=== PATIENT | female | born 1965 | race Native Hawaiian/Other Pacific Islander ===

== ENCOUNTER → 2020-07-31 14:59 | Outpatient (BNVA) | payer OTHER, SELFPAY | PROVIDERS: PCP Internal Medicine; Referring Provider Internal Medicine; Visit Provider Internal Medicine Endocrinology, Diabetes & Metabolism | DX: Z76.89 Persons encountering health services in other specified circumstances (principal) ==

== ENCOUNTER 2020-08-03 12:03 | Outpatient (REF) | payer OTHER, SELFPAY ==
[2020-08-03 14:11] LABS: Hematocrit 39.9 % (37-47); Hemoglobin 12.5 g/dl (12.0-16.0); Mean Corpuscular HGB Conc 31.3 g/dl (31.0-35.0); Mean Corpuscular Hemoglobin 27.2 pg (27.0-33.0); Mean Corpuscular Volume 86.7 fL (80-98); Mean Platelet Volume 10.2 fL (9.4-12.3); Platelet Count 381 X10*3/uL (160-400); Red Cell Distribution Width 14.2 % (11.0-16.0); White Blood Count 9.1 X10*3/uL (4.8-10.8)
[2020-08-03 14:30] LABS: Creatinine Urine 32.28 mg/dL; Microalbumin Urine < 5.0 mg/L
[2020-08-03 14:37] LABS: Estimated Average Glucose 131 mg/dL; Hemoglobin A1c % 6.2 %
[2020-08-03 14:39] LABS: Alanine Aminotransferase 19 U/L (0-31); Albumin Level 4.5 g/dL (3.5-5.0); Alkaline Phosphatase 71 U/L (39-117); Anion Gap 16 (12-20); Aspartate Amino Transferase 18 U/L (5-31); Bilirubin Total 0.4 mg/dL (0.0-1.0); Blood Urea Nitrogen 11 mg/dL (9-16); Carbon Dioxide 28 mmol/L (22-29); Chloride 101 mmol/L (96-108); Cholesterol 172 mg/dL; Estimated Glomerular Filt Rate > 60; Glucose Fasting 107 mg/dL (60-99); HDL Cholesterol 69 mg/dL; LDL Cholesterol Calculated 83 mg/dl; Potassium 5.1 mmol/l (3.3-5.1); Sodium 140 mmol/L (135-145); Total Protein 7.3 g/dL (6.5-8.0); Triglycerides 104 mg/dL
[2020-08-03 15:01] LABS: Vitamin D 25-OH Total 61.2 ng/mL (>30)
[2020-08-03 16:35] LABS: Vitamin B12 292 pg/mL (200-900)
[2020-08-04 10:37] LABS: LDL Cholesterol Direct 82 mg/dL (<100)
== END 2020-08-03 12:04 | disposition home or self-care (01) ==
LOC: HO.LAB 12:03
PROVIDERS: PCP Internal Medicine; Visit Provider Internal Medicine Endocrinology, Diabetes & Metabolism
DX: E11.65 Type 2 diabetes mellitus with hyperglycemia (principal); E11.40 Type 2 diabetes mellitus with diabetic neuropathy, unspecified; E55.9 Vitamin D deficiency, unspecified; F41.9 Anxiety disorder, unspecified; K21.9 Gastro-esophageal reflux disease without esophagitis; E66.9 Obesity, unspecified; I10 Essential (primary) hypertension; E78.5 Hyperlipidemia, unspecified
CPT/HCPCS: 36415; 80053; 80061; 82043; 82306; 82607; 83036; 83721; 85027

== ENCOUNTER → 2020-11-05 13:01 | Outpatient (BNVA) | payer OTHER, SELFPAY | PROVIDERS: PCP Internal Medicine; Visit Provider Internal Medicine Endocrinology, Diabetes & Metabolism ==

== ENCOUNTER 2020-11-21 13:27 | Outpatient (REF) | payer OTHER, SELFPAY ==
[2020-11-21 14:13] LABS: MANUAL DIFF FLAG NO
[2020-11-21 14:19] LABS: Glucose Urine UA NEG (NEG); Leukocyte Esterase Urine NEG (NEG); Nitrite Urine NEG (NEG); Specific Gravity - Urine 1.015 (1.005-1.025); Urine Blood NEG (NEG); Urine Ketones NEG (NEG); Urine Protein NEG (NEG-TRACE)
[2020-11-21 14:22] LABS: Appearance Urine CLEAR; Color Urine YELLOW
[2020-11-21 14:24] LABS: Estimated Average Glucose 143 mg/dL; Hemoglobin A1c % 6.6 %
[2020-11-21 14:30] LABS: Basophils Percent Auto 0.2 % (0-2); Eosinophils Absolute Auto 0.2 X10*3/uL (0.0-0.4); Eosinophils Percent Auto 2.7 % (0-4); Hematocrit 39.3 % (37-47); Hemoglobin 12.7 g/dl (12.0-16.0); Imm Gran Abs Auto 0.03 X10*3/uL (0.00-0.03); Imm Gran Pct Auto 0.4 % (0.0-0.4); Lymphocytes Absolute Auto 3.5 X10*3/uL (1.2-4.9); Lymphocytes Percent Auto 41.6 % (20-40); Mean Corpuscular HGB Conc 32.3 g/dl (31.0-35.0); Mean Corpuscular Hemoglobin 27.3 pg (27.0-33.0); Mean Corpuscular Volume 84.3 fL (80-98); Mean Platelet Volume 10.4 fL (9.4-12.3); Monocytes Absolute Auto 0.6 X10*3/uL (0.1-1.2); Monocytes Percent Auto 6.9 % (2-11); Neutrophils Percent Auto 48.2 % (45-73); Platelet Count 368 X10*3/uL (160-400); Red Blood Count 4.66 X10*6/uL (4.20-5.50); Red Cell Distribution Width 14.5 % (11.0-16.0); White Blood Count 8.3 X10*3/uL (4.8-10.8)
[2020-11-21 14:41] LABS: Alanine Aminotransferase 19 U/L (0-31); Albumin Level 4.5 g/dL (3.5-5.0); Alkaline Phosphatase 75 U/L (39-117); Anion Gap 17 (12-20); Aspartate Amino Transferase 17 U/L (5-31); Bilirubin Total 0.4 mg/dL (0.0-1.0); Blood Urea Nitrogen 11 mg/dL (9-16); Calcium 9.8 mg/dL (8.4-10.2); Carbon Dioxide 27 mmol/L (22-29); Chloride 100 mmol/L (96-108); Cholesterol 159 mg/dL; Estimated Glomerular Filt Rate > 60; Glucose Fasting 113 mg/dL (60-99); HDL Cholesterol 62 mg/dL; LDL Cholesterol Calculated 70 mg/dl; Potassium 4.6 mmol/L (3.3-5.1); Sodium 139 mmol/L (135-145); Total Protein 7.4 g/dL (6.5-8.0); Triglycerides 138 mg/dL
[2020-11-21 15:03] LABS: Creatinine Urine 38.52 mg/dL; Microalbumin Urine < 5.0 mg/L
[2020-11-21 15:03] LABS: TSH reflex Free T4 0.87 uIU/mL (0.32-4.0)
[2020-11-21 15:17] LABS: Folate > 20.0 ng/mL (> or = 4.0); Vitamin B12 365 pg/mL (200-900)
== END 2020-11-21 13:28 | disposition home or self-care (01) ==
LOC: HO.LAB 13:27
PROVIDERS: Absent Provider Internal Medicine Endocrinology, Diabetes & Metabolism; PCP Internal Medicine; Visit Provider Internal Medicine
DX: E11.65 Type 2 diabetes mellitus with hyperglycemia (principal); E11.42 Type 2 diabetes mellitus with diabetic polyneuropathy; K21.9 Gastro-esophageal reflux disease without esophagitis; I10 Essential (primary) hypertension; I49.3 Ventricular premature depolarization; E78.00 Pure hypercholesterolemia, unspecified; E66.9 Obesity, unspecified
CPT/HCPCS: 36415; 80053; 80061; 81003; 82043; 82607; 82746; 83036; 84443; 85025

== ENCOUNTER 2020-12-17 15:12 | Emergency (ER) | payer OTHER, SELFPAY ==
--- NOTE | ~2020-12-17 | XR_ITS ---
EXAMINATION: XR CHEST CLINICAL INFORMATION: Covid exposure. Shortness of breath. Chest tightness. COMPARISON: Chest x-ray 12/23/2017 TECHNIQUE: Frontal view of the chest was obtained. 1840 hours FINDINGS: Linear scarring at left lung base. There is no acute airspace disease. No pulmonary vascular congestion. There is no pleural effusion or pneumothorax. Heart size is normal. The cardiac and mediastinal contours are normal. XR/XR chest 1V IMPRESSION: There is no acute abnormality of the chest.
[2020-12-17 15:17] VITALS: BP 112/63; PULSE 106; RESP 16; TEMP 36.2; O2SAT 96; BMI 35.6
[2020-12-17 18:00] VITALS: BP 91/68; PULSE 78; RESP 18; TEMP 37.1; O2SAT 100
--- NOTE | 2020-12-17 18:43 | ED.GENADULT ---
HPI - General Adult General Chief complaint: General Medical Stated complaint: chest pain covid exposure Time Seen by Provider: 12/17/20 18:29 Source: patient Mode of arrival: ambulatory Limitations: no limitations History of Present Illness HPI narrative: 55 y/o female with history of DM, asthma, HTN, arthritis, obesity, GERD and PVC's who presents to the ER with 2 days of nasal congestion, headaches, bodyaches, mild SOB on exertion after known exposure to her son-in-law who is COVID-19 positive. She reports a mild dry cough and chest tightness only when she coughs. Her chest is sore. She has been having white nasal discharge and a mild sore throat. No difficulty breathing, wheezing, fever, chills, abdominal pain, N/V/D. She has been using her albuterol with some improvement as well as OTC cold medication. MD complaint: COVID symptoms Onset (ago): day(s) (2) Location: head and chest Radiation: non-radiation Severity: moderate Quality: aching Pain Consistency: constant Relieving factors: medication Exacerbating factors: none Associated symptoms: denies other symptoms, cough, headaches, malaise and shortness of breath Treatments prior to arrival: none Related Data Home Medications Medication Instructions Recorded Confirmed blood sugar diagnostic #10 ea 07/31/20 11/05/20 gabapentin 800 mg tablet 800 mg PO QID 07/31/20 11/05/20 losartan 50 mg tablet 50 mg PO DAILY 07/31/20 11/05/20 pen needle, diabetic 32 gauge x #50 ea 07/31/20 11/05/20 Previous Rx's Medication Instructions Recorded insulin degludec 100 unit/mL (3 10 unit SUBCUT DAILY 90 Days #15 ml 07/31/20 mL) subcutaneous pen pen needle, diabetic 32 gauge x #200 ea 07/31/20 pioglitazone 30 mg tablet 30 mg PO DAILY 90 Days #90 tab 07/31/20 semaglutide 1 mg SUBCUT QWEEK 90 Days #12 ml 07/31/20 aspirin 81 mg chewable tablet 1 tab PO DAILY #90 tab 08/08/20 montelukast 10 mg tablet 10 mg PO BEDTIME #90 tab 08/08/20 atorvastatin 40 mg tablet 40 mg PO DAILY 90 Days #90 tab 09/11/20 propranolol 60 mg capsule,24 60 mg PO DAILY #90 cap 12/19/20 hr,extended release tizanidine 4 mg tablet 4 mg PO TID PRN #270 tab 10/03/20 omeprazole 20 mg capsule,delayed 20 mg PO QAM #90 cap 10/19/20 release amitriptyline 50 mg tablet 50 mg PO BEDTIME #90 tab 10/30/20 temazepam 30 mg capsule 30 mg PO BEDTIME PRN 30 Days #30 10/31/20 cap lancets 33 gauge #100 ea 11/05/20 citalopram 40 mg tablet 40 mg PO DAILY #30 tab 11/23/20 hydroxyzine HCl 25 mg tablet See Rx Instructions PO .COMPLEX 90 11/29/20 Days #450 tab metformin 500 mg tablet,extended 1,000 mg PO BID #360 tab 12/03/20 release 24 hr acetaminophen 300 mg-codeine 60 mg 1 tab PO .3 to 4 times a day PRN 12/12/20 tablet 30 Days #120 tab tramadol 50 mg tablet 50 mg PO TID PRN 30 Days #90 tab 12/12/20 albuterol sulfate 1 inh INHALATION QID PRN #6.7 g 12/17/20 Allergies Allergy/AdvReac Type Severity Reaction Status Date / Time linagliptin [From TRADJENTA] Allergy Severe THROAT Verified 08/12/20 06:27 ITCHING/COUGH Penicillins [PENICILLINS] Allergy Severe SWELLING/HI Verified 08/12/20 06:27 VES exenatide [From BYDUREON] Allergy Intermediate RASH Verified 08/12/20 06:27 lactose [LACTOSE] Allergy Intermediate RASH Verified 08/12/20 06:27 wheat [WHEAT] Allergy Intermediate RASH Verified 08/12/20 06:27 latex [Latex] Allergy Mild SWELLING/IT Verified 08/12/20 06:27 CH lactose, wheat, corn syrup Allergy Mild rash Uncoded 08/12/20 06:27 grass, dogs, cats Allergy Unknown Unknown Uncoded 08/12/20 06:27 Review of Systems Review of Systems: Constitutional: No Fever, No Chills ENT/Mouth: + sore throat, + Rhinorrhea, No Swallowing Difficulty Cardiovascular: No Chest Pain, + SOB, No Orthopnea, No Edema Respiratory: + Cough, No Sputum, No Wheezing, + dyspnea Gastrointestinal: No Nausea, No Vomiting, No Diarrhea, No abdominal Pain Genitourinary: No Dysuria, No Urinary Frequency, No Hematuria Musculoskeletal: No joint pain, + Myalgias Skin: No Skin Lesions, No rash Neuro: No Weakness, No Numbness, No Dizziness, + Headache Heme/Lymph: No Bruising, No Lymphadenopathy PMFSH Past Medical History Attestation statement: The following information was validated with the patient. Medical History Anxiety Asthma Benign essential hypertension Diabetes mellitus Diabetes type 2, uncontrolled Diabetic neuropathy associated with type 2 diabetes mellitus Dyslipidemia GERD (gastroesophageal reflux disease) GERD without esophagitis Hypertension Insomnia Midline low back pain without sciatica Migraine Neuropathy Obesity Obesity (BMI 30-39.9) Osteoarthritis of knees, bilateral Premature ventricular contractions (PVCs) (VPCs) Pure hypercholesterolemia Vitamin D deficiency Surgical History History of laparoscopy Hx of tonsillectomy Hx of tubal ligation Family History Family History Father Bladder cancer Skin cancer Diabetes Hypertension Hyperlipidemia Mother Diabetes CVD (cardiovascular disease) CVA (cerebral vascular accident) Hypertension Social History Social History Smoking Status: Never smoker Advance Directives: No Advance Directives Information Provided: Yes Physical Exam Vital Signs: Vital Signs: Last Vital Signs Temp 98.8 F 12/17/20 18:00 Pulse 78 12/17/20 18:00 Resp 18 12/17/20 18:00 BP 91/68 12/17/20 18:00 Pulse Ox 100 12/17/20 18:00 Body Mass Index 35.6 Appearance: Alert. Oriented X3. No acute distress. Eyes: Pupils equal, round and reactive to light. ENT: Pharynx normal. Neck: Normal inspection. Neck supple. CVS: Normal heart rate and rhythm. Pulses normal. Respiratory: No respiratory distress. Breath sounds normal. Abdomen: Soft and nontender. +BS x4 Skin: Skin warm and dry. Normal skin color. Normal skin turgor. No rashes. Extremities: No lower extremity edema. Neuro: Oriented X 3. No motor deficit. No sensory deficit. Course Course Course Narrative: 55 yo female presenting with COVID symptoms after known exposure. VS are normal. Exam is benign. Will get CXR and COVID swab. Reevaluation(s) Reevaluation #1: CXR and COVID are negative. ?false negative given known exposure. Patient has been counseled on this possibility. Recommend re-testing if still symptomatic. Stable for discharge at this time. Medical Decision Making Lab Data Labs: Lab Results 12/17/20 Range/Units 20:16 COVID-19 (SOL) Negative (Negative) COVID-19 Clin Com See Note Discharge Plan Discharge Clinical Impression: Acute viral syndrome Patient Disposition: Home, Self-Care Instructions: Viral Syndrome (ED), COVID-19 (Coronavirus Disease 2019) (ED) Additional Instructions: Your chest x-ray was normal today. Your rapid COVID test was negative. It is possible that you still may be infected with COVID-19 and that there was not enough virus in your sample to detect. Recommend isolating yourself at home and not going out in public while you are feeling ill. If you are still having symptoms in 24-48 hours, recommend getting another test done given your known exposure. Take over the counter cold/flu medications as needed for your symptoms. Follow up with your doctor this week. Prescriptions: New albuterol sulfate 90 mcg/actuation HFA aerosol inhaler 1 inh inhalation QID PRN (Reason: shortness of breath or wheezing) Qty: 6.7 RF: 0 No Action montelukast 10 mg tablet 10 mg PO BEDTIME Qty: 90 RF: 1 aspirin 81 mg tablet,chewable 1 tab PO DAILY Qty: 90 RF: 1 atorvastatin 40 mg tablet 40 mg PO DAILY 90 Days Qty: 90 RF: 1 propranolol 60 mg capsule,extended release 24 hr 60 mg PO DAILY Qty: 90 RF: 1 tizanidine 4 mg tablet 4 mg PO TID PRN (Reason: for muscle spasm) Qty: 270 RF: 1 omeprazole 20 mg capsule,delayed release(DR/EC) 20 mg PO QAM Qty: 90 RF: 3 amitriptyline 50 mg tablet 50 mg PO BEDTIME Qty: 90 RF: 1 temazepam 30 mg capsule 30 mg PO BEDTIME PRN (Reason: sleep) 30 Days Qty: 30 RF: 1 citalopram 40 mg tablet 40 mg PO DAILY Qty: 30 RF: 1 hydroxyzine HCl 25 mg tablet See Rx Instructions PO .COMPLEX 90 Days Qty: 450 RF: 1 metformin 500 mg tablet extended release 24 hr 1,000 mg PO BID Qty: 360 RF: 2 acetaminophen-codeine 300-60 mg tablet 1 tab PO .3 to 4 times a day PRN (Reason: pain) 30 Days Qty: 120 RF: 0 tramadol 50 mg tablet 50 mg PO TID PRN (Reason: pain) 30 Days Qty: 90 RF: 0 gabapentin 800 mg tablet 800 mg PO QID RF: 0 (DME) pen needle, diabetic 32 gauge x 5/32 needle See Rx Instructions ea subcut DAILY Qty: 50 RF: 0 (DME) OneTouch Ultra Blue Test Strip Strip See Rx Instructions ea .ROUTE QID Qty: 10 RF: 0 losartan 50 mg tablet 50 mg PO DAILY RF: 0 insulin degludec 100 unit/mL (3 mL) insulin pen 10 unit subcut DAILY 90 Days Qty: 15 RF: 1 pioglitazone 30 mg tablet 30 mg PO DAILY 90 Days Qty: 90 RF: 1 semaglutide 0.25 mg or 0.5 mg(2 mg/1.5 mL) pen injector 1 mg subcut QWEEK 90 Days Qty: 12 RF: 1 (DME) pen needle, diabetic [BD Meghann 2nd Gen Pen Needle] 32 gauge x 5/32 needle See Rx Instructions .MEDSUPPLY Qty: 200 RF: 1 (DME) lancets [OneTouch Delica Lancets] 33 gauge misc See Rx Instructions .ROUTE .MEDSUPPLY Qty: 100 RF: 6 Stand Alone Forms: Work/School Release
--- NOTE | 2020-12-17 19:53 | PC.NURSE ---
This RN contacting the lab regaring pending Covid swab that was obtained 1 hour ago. Per lab, no swab was brought to them.
--- NOTE | 2020-12-17 20:17 | PC.NURSE ---
Covid swab obtained and sent. Pt requesting food/drink.
[2020-12-17 20:40] LABS: COVID-19 Test Negative (Negative); IDNOW Serial# 9DD0AD1C
== END 2020-12-17 21:18 | disposition home or self-care (01) ==
PROVIDERS: Physician Assistant; Emergency Provider Internal Medicine; PCP Internal Medicine
DX: B34.9 Viral infection, unspecified (principal); Z20.822 Contact with and (suspected) exposure to COVID-19; R07.9 Chest pain, unspecified; I10 Essential (primary) hypertension; E11.9 Type 2 diabetes mellitus without complications; K21.9 Gastro-esophageal reflux disease without esophagitis; I49.3 Ventricular premature depolarization; Z79.82 Long term (current) use of aspirin; Z79.899 Other long term (current) drug therapy; Z79.4 Long term (current) use of insulin
CPT/HCPCS: 36415; 71045; 87635; 99283; 99284

== ENCOUNTER → 2021-03-04 14:10 | Outpatient (BNVA) | payer OTHER, SELFPAY | PROVIDERS: PCP Internal Medicine; Visit Provider Internal Medicine Endocrinology, Diabetes & Metabolism ==

== ENCOUNTER 2021-03-18 10:41 | Outpatient (REF) | payer OTHER, SELFPAY ==
[2021-03-18 13:12] LABS: Estimated Average Glucose 146 mg/dL; Hemoglobin A1C 150.4749 umol/L; Hemoglobin A1c % 6.7 %
== END 2021-03-18 10:42 | disposition home or self-care (01) ==
LOC: HO.LAB 10:41
PROVIDERS: PCP Internal Medicine; Visit Provider Internal Medicine Endocrinology, Diabetes & Metabolism
DX: E11.65 Type 2 diabetes mellitus with hyperglycemia (principal)
CPT/HCPCS: 36415; 83036

== ENCOUNTER 2021-04-24 11:14 | Outpatient (REF) | payer OTHER, SELFPAY ==
--- NOTE | ~2021-04-24 | XR_ITS ---
EXAMINATION: XR KNEE, RIGHT CLINICAL INFORMATION: Right knee pain. COMPARISON: Knee radiographs dated 11/15/2019. TECHNIQUE: 4 views of the right knee. FINDINGS: Severe medial compartment joint space narrowing with subchondral cirrhosis. Tricompartmental marginal osteophytes. Medial compartment subchondral cystic change. Small joint effusion. No abnormal soft tissue calcification. No fracture or dislocation. XR/XR knee RT 4V IMPRESSION: Tricompartmental osteoarthritis within the right knee, most severe within the medial compartment. Small joint effusion. Findings have increased when compared to the prior examination.
--- NOTE | ~2021-04-24 | MM_ITS ---
EXAMINATION: MM SCREENING DIGITAL BREAST TOMOSYNTHESIS, BILATERAL CLINICAL INFORMATION: Screening. Asymptomatic. The lifetime risk of breast cancer based on the Tyrer-Cuzick Model is 6%. COMPARISON: Mammography: 04/12/2019, 10/26/2017, 07/02/2016, 05/23/2015 TECHNIQUE: Digital breast tomosynthesis is performed in both the craniocaudal and mediolateral oblique views along with computer-aided detection (CAD). Synthesized 2D images are generated from the tomosynthesis. FINDINGS: There are scattered areas of fibroglandular density (ACR BI-RADS breast composition Category b). The left breast parenchymal pattern is similar to prior studies. There is no developing density or interval mass or architectural abnormality. Neither breast shows abnormal calcifications bilateral axilla and skin contours are unremarkable. The right CC view has questionable subtle architectural changes mid outer quadrant for which patient will be recalled for additional imaging. Remainder of the right breast is unremarkable. MM/MM tomosynthesis screening BI IMPRESSION: 1. Right: Question subtle architectural changes mid outer right breast on CC view. 2. Left: No mammographic evidence of malignancy. ASSESSMENT: BI-RADS 0: Incomplete - Need Additional Imaging Evaluation RECOMMENDATION: 1. Additional views of the right breast (3-D rolled CC x2, 3-D spot CC). 2. Targeted ultrasound if warranted after review of the additional views. 3. Radiology department staff will contact the patient for additional imaging. This patient's information was entered into a reminder system with a target due date for their next mammogram.
== END 2021-04-24 11:15 | disposition home or self-care (01) ==
LOC: HO.MAMMO 11:14
PROVIDERS: PCP Internal Medicine; Visit Provider Internal Medicine
DX: Z12.31 Encounter for screening mammogram for malignant neoplasm of breast (principal); M25.861 Other specified joint disorders, right knee; M25.561 Pain in right knee
CPT/HCPCS: 73564; 77063; 77067

== ENCOUNTER 2021-05-08 13:32 | Outpatient (REF) | payer OTHER, SELFPAY ==
--- NOTE | ~2021-05-08 | MM_ITS ---
EXAMINATION: MM DIAGNOSTIC DIGITAL BREAST TOMOSYNTHESIS, RIGHT CLINICAL INFORMATION: Recall from screening for question of architectural change mid outer right breast on CC view. TC score 6%. COMPARISON: Mammography: 04/24/2020 172-2019, 10/26/2017, 07/02/2016, 05/23/2015, 05/02/2014, 04/26/2014 TECHNIQUE: Digital breast tomosynthesis is performed. 2D images are generated from the tomosynthesis. The following views are obtained: Rolled CC x2, spot CC. FINDINGS: There are scattered areas of fibroglandular density (ACR BI-RADS breast composition Category b). Additional views show parenchymal pattern similar to prior exams. There is no developing density or architectural abnormality. No significant changes. Results are discussed with the patient at time of visit. MM/MM tomosynthesis added views R IMPRESSION: Additional views show no architectural abnormality or significant change from prior exams. ASSESSMENT: BI-RADS 2: Benign RECOMMENDATION: Routine annual mammography screening. This patient's information was entered into a reminder system with a target due date for their next mammogram.
== END 2021-05-08 13:33 | disposition home or self-care (01) ==
LOC: HO.MAMMO 13:32
PROVIDERS: Visit Provider Internal Medicine
DX: N64.89 Other specified disorders of breast (principal)
CPT/HCPCS: 77061; 77065

== ENCOUNTER → 2021-06-28 09:17 | Outpatient (BNVA) | payer OTHER, SELFPAY | PROVIDERS: Referring Provider Internal Medicine; Visit Provider Internal Medicine Cardiovascular Disease | DX: R07.89 Other chest pain (principal); R78.5 Finding of other psychotropic drug in blood | CPT/HCPCS: 93005 ==

== ENCOUNTER → 2021-07-08 12:38 | Outpatient (BNVA) | payer OTHER, SELFPAY | PROVIDERS: PCP Internal Medicine; Visit Provider Nurse Practitioner Gerontology ==

== ENCOUNTER → 2021-11-13 13:56 | Outpatient (BNVA) | payer OTHER, SELFPAY | PROVIDERS: PCP Internal Medicine; Visit Provider Nurse Practitioner Gerontology | DX: E11.65 Type 2 diabetes mellitus with hyperglycemia (principal); E11.42 Type 2 diabetes mellitus with diabetic polyneuropathy; E78.5 Hyperlipidemia, unspecified; I10 Essential (primary) hypertension; E66.9 Obesity, unspecified; Z68.38 Body mass index [BMI] 38.0-38.9, adult; Z79.899 Other long term (current) drug therapy | CPT/HCPCS: 82947; 83036 ==

== ENCOUNTER 2021-11-18 12:39 | Outpatient (REF) | payer OTHER, SELFPAY ==
[2021-11-18 13:23] LABS: MANUAL DIFF FLAG NO
[2021-11-18 13:51] LABS: Basophils Percent Auto 0.3 % (0-2); Eosinophils Absolute Auto 0.2 X10*3/uL (0.0-0.4); Eosinophils Percent Auto 2.5 % (0-4); Hematocrit 37.1 % (37.0-47.0); Hemoglobin 11.7 g/dl (12.0-16.0); Imm Gran Abs Auto 0.03 X10*3/uL (0.00-0.03); Imm Gran Pct Auto 0.3 % (0.0-0.4); Lymphocytes Absolute Auto 3.3 X10*3/uL (1.2-4.9); Lymphocytes Percent Auto 35.4 % (20-40); Mean Corpuscular HGB Conc 31.5 g/dl (31.0-35.0); Mean Corpuscular Volume 85.5 fL (80.0-98.0); Mean Platelet Volume 10.4 fL (9.4-12.3); Monocytes Absolute Auto 0.7 X10*3/uL (0.1-1.2); Monocytes Percent Auto 7.5 % (2-11); Platelet Count 366 X10*3/uL (160-400); Red Blood Count 4.34 X10*6/uL (4.20-5.50); Red Cell Distribution Width 14.6 % (11.0-16.0); White Blood Count 9.3 X10*3/uL (4.8-10.8)
[2021-11-18 14:07] LABS: Appearance Urine CLEAR; Color Urine YELLOW; Glucose Urine UA NEG (NEG); Leukocyte Esterase Urine NEG (NEG); Nitrite Urine NEG (NEG); PH 7.5 (5.0-8.0); Urine Blood NEG (NEG); Urine Ketones NEG (NEG); Urine Protein NEG (NEG-TRACE)
[2021-11-18 14:12] LABS: Estimated Average Glucose 171 mg/dL; Hemoglobin A1c % 7.6 %
[2021-11-18 14:24] LABS: Alanine Aminotransferase 20 U/L (0-31); Albumin Level 4.3 g/dL (3.5-5.0); Alkaline Phosphatase 73 U/L (39-117); Anion Gap 14 (12-20); Aspartate Amino Transferase 17 U/L (5-31); Bilirubin Total 0.4 mg/dL (0.0-1.0); Blood Urea Nitrogen 12 mg/dL (9-16); Calcium 9.9 mg/dL (8.4-10.2); Carbon Dioxide 29 mmol/L (22-29); Chloride 101 mmol/L (96-108); Cholesterol 164 mg/dL; Estimated Glomerular Filt Rate > 60; Glucose Fasting 142 mg/dL (60-99); HDL Cholesterol 55 mg/dL; LDL Cholesterol Calculated 83 mg/dl; Potassium 4.6 mmol/L (3.3-5.1); Sodium 139 mmol/L (135-145); Total Protein 7.1 g/dL (6.5-8.0); Triglycerides 134 mg/dL
[2021-11-18 14:37] LABS: TSH reflex Free T4 0.99 uIU/mL (0.32-4.0); Vitamin D 25-OH Total 51.9 ng/mL (>30)
[2021-11-18 14:43] LABS: Creatinine Urine 89.35 mg/dL; Microalbum/Creatinine Ratio Ur 41.4 ug/mg cr
[2021-11-18 15:16] LABS: Folate > 20.0 ng/mL (> or = 4.0); Vitamin B12 398 pg/mL (200-900)
== END 2021-11-18 12:40 | disposition home or self-care (01) ==
LOC: HO.LAB 12:39
PROVIDERS: Absent Provider Internal Medicine; PCP Internal Medicine; Visit Provider Nurse Practitioner Gerontology
DX: I10 Essential (primary) hypertension (principal); E78.00 Pure hypercholesterolemia, unspecified; E11.42 Type 2 diabetes mellitus with diabetic polyneuropathy; E55.9 Vitamin D deficiency, unspecified; E66.9 Obesity, unspecified; K21.9 Gastro-esophageal reflux disease without esophagitis
CPT/HCPCS: 36415; 80053; 80061; 81003; 82043; 82306; 82607; 82746; 83036; 84443; 85025

== ENCOUNTER 2022-02-19 15:16 | Outpatient (REF) | payer MEDICARE, OTHER, SELFPAY ==
[2022-02-20 04:59] LABS: CT PCR NOT DETECTED (Not Detect.); NG PCR NOT DETECTED (Not Detect.)
[2022-02-20 08:36] LABS: BV Int Neg Control Negative (Negative); BV Int Pos Control Positive (Positive)
== END 2022-02-19 15:17 | disposition home or self-care (01) ==
LOC: HO.LAB 15:16
PROVIDERS: PCP Internal Medicine; Visit Provider Advanced Practice Midwife
DX: Z01.411 Encounter for gynecological examination (general) (routine) with abnormal findings (principal); Z20.2 Contact with and (suspected) exposure to infections with a predominantly sexual mode of transmission; N89.8 Other specified noninflammatory disorders of vagina
CPT/HCPCS: 87480; 87491; 87510; 87591; 87660; 99202; Q3014

== ENCOUNTER → 2022-02-26 13:54 | Outpatient (BNVA) | payer OTHER, MEDICARE, SELFPAY | PROVIDERS: PCP Internal Medicine; Visit Provider Registered Nurse Diabetes Educator | DX: Z13.89 Encounter for screening for other disorder (principal) ==

== ENCOUNTER → 2022-09-23 13:03 | Outpatient (BNVA) | payer MEDICARE, OTHER, SELFPAY | PROVIDERS: PCP Internal Medicine; Visit Provider Physician Assistant | DX: E11.9 Type 2 diabetes mellitus without complications (principal); K21.9 Gastro-esophageal reflux disease without esophagitis; R68.81 Early satiety; E11.65 Type 2 diabetes mellitus with hyperglycemia; E11.42 Type 2 diabetes mellitus with diabetic polyneuropathy; Z12.11 Encounter for screening for malignant neoplasm of colon | CPT/HCPCS: 99202 ==

== ENCOUNTER 2022-09-24 12:52 | Outpatient (REF) | payer MEDICARE, OTHER, SELFPAY ==
--- NOTE | ~2022-09-24 | MM_ITS ---
EXAMINATION: MM SCREENING DIGITAL BREAST TOMOSYNTHESIS, BILATERAL CLINICAL INFORMATION: Screening. Asymptomatic. The lifetime risk of breast cancer based on the Tyrer-Cuzick Model is 5%. COMPARISON: Mammography: 05/08/2021, 04/24/2021, 04/12/2019, 07/02/2016 TECHNIQUE: Digital breast tomosynthesis is performed in both the craniocaudal and mediolateral oblique views along with computer-aided detection (CAD). Synthesized 2D images are generated from the tomosynthesis. FINDINGS: There are scattered areas of fibroglandular density (ACR BI-RADS breast composition Category b). There are no significant masses, abnormal calcifications, or other abnormalities. Parenchymal pattern is similar to prior studies. There is no developing density or architectural abnormality. The axilla and skin contours are unremarkable. No significant changes. MM/MM tomosynthesis screening BI IMPRESSION: No mammographic evidence of malignancy. ASSESSMENT: BI-RADS 1: Negative RECOMMENDATION: Routine annual mammography screening. This patient's information was entered into a reminder system with a target due date for their next mammogram.
== END 2022-09-24 12:53 | disposition home or self-care (01) ==
LOC: HO.MAMMO 12:52
PROVIDERS: PCP Internal Medicine; Visit Provider Internal Medicine
DX: Z12.31 Encounter for screening mammogram for malignant neoplasm of breast (principal)
CPT/HCPCS: 77063; 77067

== ENCOUNTER 2022-10-14 13:39 | Outpatient (REF) | payer MEDICARE, OTHER, SELFPAY | END 2022-10-14 13:40 | disposition home or self-care (01) | LOC: HO.LAB 13:39 | PROVIDERS: Visit Provider Family Medicine | DX: Z13.89 Encounter for screening for other disorder (principal) ==

== ENCOUNTER 2022-12-16 11:11 | Outpatient (REF) | payer MEDICARE, OTHER, SELFPAY ==
[2022-12-16 12:09] LABS: Estimated Average Glucose 154 mg/dL
[2022-12-16 12:38] LABS: Alanine Aminotransferase 18 U/L (0-31); Albumin Level 4.4 g/dL (3.5-5.0); Alkaline Phosphatase 70 U/L (39-117); Anion Gap 15 (12-20); Aspartate Amino Transferase 17 U/L (5-31); Bilirubin Total 0.5 mg/dL (0.0-1.0); Blood Urea Nitrogen 5 mg/dL (9-16); Carbon Dioxide 27 mmol/L (22-29); Chloride 97 mmol/L (96-108); Cholesterol 164 mg/dL; Estimated Glomerular Filt Rate > 60; Glucose Fasting 134 mg/dL (60-99); HDL Cholesterol 66 mg/dL; LDL Cholesterol Calculated 73 mg/dl; Sodium 134 mmol/L (135-145); Total Protein 7.2 g/dL (6.5-8.0); Triglycerides 125 mg/dL
== END 2022-12-16 11:12 | disposition home or self-care (01) ==
LOC: HO.LAB 11:11
PROVIDERS: PCP Internal Medicine; Visit Provider Internal Medicine
DX: E11.9 Type 2 diabetes mellitus without complications (principal); E78.00 Pure hypercholesterolemia, unspecified
CPT/HCPCS: 36415; 80053; 80061; 83036

== ENCOUNTER 2022-12-17 14:21 | Outpatient (REF) | payer MEDICARE, OTHER, SELFPAY ==
--- NOTE | ~2022-12-17 | XR_ITS ---
EXAMINATION: XR KNEE, RIGHT XR KNEE, LEFT XR KNEE AP STANDING CLINICAL INFORMATION: Pain. COMPARISON: Prior radiographs, most recently dated 04/24/2021. TECHNIQUE: Lateral and axial views of the right knee were obtained. Lateral and axial views of the left knee were obtained. AP bilateral standing view of the knees was obtained. FINDINGS: RIGHT KNEE: Bony mineralization is normal. There is a mild there is configuration. There is marked narrowing of the medial joint space compartment, and the lateral joint space compartment is well-maintained. There is mild narrowing of the patellofemoral compartment. There is tricompartment peripheral osteophyte formation. No fracture or dislocation is seen. There is a small joint effusion. No foreign body is seen. LEFT KNEE: Bony mineralization is normal. There is a mild there is configuration. There is marked narrowing of the medial joint space compartment, and the lateral and patellofemoral joint space compartments are well-maintained. There is peripheral osteophyte formation of the medial and patellofemoral compartments. No fracture or dislocation is seen. There is a small joint effusion. No foreign body is seen. XR/XR knee RT 2V IMPRESSION: 1. There is tricompartment peripheral osteophyte formation of the right knee, most pronounced of the medial joint space compartment, where it is severe. 2. There is marked osteoarthritic change of the medial joint space compartment of the left knee, and mild osteoarthritic change is seen of the patellofemoral compartment. 3. There is a mild bilateral varus configuration. 4. There are small bilateral knee joint effusions.
--- NOTE | ~2022-12-17 | XR_ITS ---
EXAMINATION: XR KNEE, RIGHT XR KNEE, LEFT XR KNEE AP STANDING CLINICAL INFORMATION: Pain. COMPARISON: Prior radiographs, most recently dated 04/24/2021. TECHNIQUE: Lateral and axial views of the right knee were obtained. Lateral and axial views of the left knee were obtained. AP bilateral standing view of the knees was obtained. FINDINGS: RIGHT KNEE: Bony mineralization is normal. There is a mild there is configuration. There is marked narrowing of the medial joint space compartment, and the lateral joint space compartment is well-maintained. There is mild narrowing of the patellofemoral compartment. There is tricompartment peripheral osteophyte formation. No fracture or dislocation is seen. There is a small joint effusion. No foreign body is seen. LEFT KNEE: Bony mineralization is normal. There is a mild there is configuration. There is marked narrowing of the medial joint space compartment, and the lateral and patellofemoral joint space compartments are well-maintained. There is peripheral osteophyte formation of the medial and patellofemoral compartments. No fracture or dislocation is seen. There is a small joint effusion. No foreign body is seen. XR/XR knee LT 2V IMPRESSION: 1. There is tricompartment peripheral osteophyte formation of the right knee, most pronounced of the medial joint space compartment, where it is severe. 2. There is marked osteoarthritic change of the medial joint space compartment of the left knee, and mild osteoarthritic change is seen of the patellofemoral compartment. 3. There is a mild bilateral varus configuration. 4. There are small bilateral knee joint effusions.
--- NOTE | ~2022-12-17 | XR_ITS ---
EXAMINATION: XR KNEE, RIGHT XR KNEE, LEFT XR KNEE AP STANDING CLINICAL INFORMATION: Pain. COMPARISON: Prior radiographs, most recently dated 04/24/2021. TECHNIQUE: Lateral and axial views of the right knee were obtained. Lateral and axial views of the left knee were obtained. AP bilateral standing view of the knees was obtained. FINDINGS: RIGHT KNEE: Bony mineralization is normal. There is a mild there is configuration. There is marked narrowing of the medial joint space compartment, and the lateral joint space compartment is well-maintained. There is mild narrowing of the patellofemoral compartment. There is tricompartment peripheral osteophyte formation. No fracture or dislocation is seen. There is a small joint effusion. No foreign body is seen. LEFT KNEE: Bony mineralization is normal. There is a mild there is configuration. There is marked narrowing of the medial joint space compartment, and the lateral and patellofemoral joint space compartments are well-maintained. There is peripheral osteophyte formation of the medial and patellofemoral compartments. No fracture or dislocation is seen. There is a small joint effusion. No foreign body is seen. XR/XR knee standing BI IMPRESSION: 1. There is tricompartment peripheral osteophyte formation of the right knee, most pronounced of the medial joint space compartment, where it is severe. 2. There is marked osteoarthritic change of the medial joint space compartment of the left knee, and mild osteoarthritic change is seen of the patellofemoral compartment. 3. There is a mild bilateral varus configuration. 4. There are small bilateral knee joint effusions.
== END 2022-12-17 14:22 | disposition home or self-care (01) ==
LOC: HO.HOSX 14:21
PROVIDERS: Visit Provider Physician Assistant
DX: M17.0 Bilateral primary osteoarthritis of knee (principal)
CPT/HCPCS: 20610; 73560; 73565; 99202; J1020

== ENCOUNTER → 2022-12-31 08:31 | Outpatient (REF) | payer MEDICARE, OTHER, SELFPAY ==
--- NOTE | ~2022-12-31 | NM_ITS ---
EXAMINATION: VA RADIONUCLIDE SOLID FOOD GASTRIC EMPTYING 4-HOUR STUDY CLINICAL INFORMATION: Type 2 diabetes mellitus. COMPARISON: No relevant studies available at the moment for comparison. TECHNIQUE: A standard meal consisting of 4 oz of Egg Beaters brand tagged with 1000 microcuries Tc-99m Sulfur Colloid, 8 oz water and 2 slices of toast with jelly was administered orally to the patient. Images were obtained using a dual head gamma camera in the anterior and posterior projections over of the stomach immediately post ingestion and at hourly intervals up to 4 hours post ingestion. The anterior and posterior counts at each time interval were averaged using the geometric mean and expressed as percentage of the immediate post ingestion counts. FINDINGS: There is good visualization of activity in the stomach immediately post ingestion. As the study progresses, there is good clearance of activity from the stomach and visualization of progressively increasing small bowel activity. By the end of the study, there is almost no retention noted in the stomach. Retention in the stomach at each time interval was: 1 hour 59% (normal 37%-90%) 2 hours 19% (normal 30%-60%) 3 hours 0% 4 hours % (normal 0%-10%) VA/VA gastric emptying study IMPRESSION: Normal 4-hour solid food gastric emptying study. (For solid meal, rapid gastric emptying is less than 30% at 60 minutes. Delayed gastric emptying criteria is more than 60% remaining at 120 minutes or more than 10% at 240 minutes. The 4-hour value is the best discriminator of a normal or abnormal result).
== END ==
LOC: HO.NUCMED 08:31
PROVIDERS: PCP Internal Medicine; Visit Provider Physician Assistant
DX: E11.9 Type 2 diabetes mellitus without complications (principal)
CPT/HCPCS: 78264; A9541

== ENCOUNTER → 2023-01-21 12:27 | Outpatient (BNVA) | payer MEDICARE, OTHER, SELFPAY | PROVIDERS: PCP Internal Medicine; Visit Provider Physician Assistant | DX: M17.11 Unilateral primary osteoarthritis, right knee (principal) | CPT/HCPCS: 20610; 99212; J1020 ==

== ENCOUNTER 2023-02-04 11:21 | Day surgery (SDC) | payer MEDICARE, OTHER, SELFPAY ==
[2023-02-02 11:07] VITALS: BMI 38.7
--- NOTE | 2023-02-03 09:36 | P.CONAN_ITS ---
Documented by User: Luisa Raphael NP 02/03/23 09:39 HPI - Anesthesia Eval Consult details Narrative: 57yo F for Upper Endoscopy and Colonoscopy PMFSH Active Problems Active Problems: All Active Problems (Updated 02/02/23 @ 11:01 by Rosa Hodge RN) Atypical chest pain (Acute) Annual physical exam (Acute) Colon cancer screening (Acute) Breast cancer screening (Acute) Sore throat (viral) (Acute) Right otitis media (Acute) Cough (Acute) Encounter for screening colonoscopy for [id number]-tkke-hvlz patient (Acute) Early satiety (Acute) Osteoarthritis of right knee (Acute) Cyst of right knee joint (Acute) Right knee pain (Acute) Injury of toenail (Acute) GERD without esophagitis (Acute) Obesity (BMI 30-39.9) (Acute) Insomnia (Acute) Osteoarthritis of knees, bilateral (Acute) Migraine (Acute) Midline low back pain without sciatica (Acute) Premature ventricular contractions (PVCs) (VPCs) (Acute) Benign essential hypertension (Acute) Asthma (Acute) Diabetes mellitus (Acute) Pure hypercholesterolemia (Acute) Vitamin D deficiency (Acute) Anxiety (Acute) GERD (gastroesophageal reflux disease) (Acute) Obesity (Acute) Hypertension (Acute) Dyslipidemia (Acute) Diabetic neuropathy associated with type 2 diabetes mellitus (Acute) Diabetes type 2, uncontrolled (Acute) Neuropathy (Acute) Past Medical History Medical History (Updated 02/02/23 @ 11:01 by Rosa Hodge RN) Anxiety Asthma Benign essential hypertension Cyst of right knee joint Diabetes mellitus Diabetes type 2, uncontrolled Diabetic neuropathy associated with type 2 diabetes mellitus Dyslipidemia GERD (gastroesophageal reflux disease) GERD without esophagitis Hx of flexible sigmoidoscopy (~2000) Hypertension Injury of toenail Insomnia Left knee pain Midline low back pain without sciatica Migraine Neuropathy Obesity Obesity (BMI 30-39.9) Osteoarthritis of knees, bilateral Premature ventricular contractions (PVCs) (VPCs) Pure hypercholesterolemia Right knee pain Vitamin D deficiency Family History Family History Father Bladder cancer Skin cancer Diabetes Hypertension Hyperlipidemia Mother Diabetes CVD (cardiovascular disease) CVA (cerebral vascular accident) Hypertension Surgical History Surgical History (Updated 02/02/23 @ 11:00 by Rosa Hodge RN) History of laparoscopy Hx of tonsillectomy Hx of tubal ligation Social History Social History (Reviewed 01/21/23 @ 12:44 by Sabrina Johnson [facility]) Housing: House Are you a primary home care attendant to a significant other at home: No Do you presently have visiting nurse or other home services: No Alcohol intake: never Patient Tobacco Use Status: Never used Tobacco e-Cigarette/Vaping Use: Never Used Second Hand Smoke Exposure: Yes Use of substances other than those prescribed or required for medical reasons: No Have you been hit, kicked, punched, or otherwise hurt by someone within the past year? If so, by whom?: No Are you DNR?: No Advance Directives: No Advance Directives Information Provided: Yes Advance Directives on File: No Recently lost weight without trying: No Eating poorly because of decreased appetite: No Nutrition Risks: No Nutritional Risk Patient : No : No Poor oral hygiene: Yes (partial upper denture) service: No Current occupational status: retired Cognitive needs: No Hearing needs: No Vision needs: No Meds Allergies Allergy/AdvReac Type Severity Reaction Status Date / Time linagliptin [From TRADJENTA] Allergy Severe THROAT Verified 01/21/23 12:43 ITCHING/COUGH Penicillins [PENICILLINS] Allergy Severe SWELLING/HI Verified 01/21/23 12:43 VES exenatide [From BYDUREON] Allergy Intermediate RASH Verified 01/21/23 12:43 wheat [WHEAT] Allergy Intermediate RASH Verified 01/21/23 12:43 latex [Latex] Allergy Mild SWELLING/IT Verified 01/21/23 12:43 CH lactose, wheat, corn syrup Allergy Mild rash Uncoded 01/21/23 12:43 grass, dogs, cats Allergy Unknown Unknown Uncoded 01/21/23 12:43 Home Medications Medication Instructions Recorded Confirmed Last Taken Type pen needle, diabetic 32 gauge x #50 ea 07/31/20 12/26/22 Unknown History cholecalciferol (vitamin D3) 25 25 mcg PO DAILY 03/04/21 12/26/22 Unknown History mcg (1,000 unit) capsule multivit with 1 tab PO DAILY 03/04/21 12/26/22 Unknown History abmymbtv-iqon-DR-lutein 8 mg iron-400 mcg-300 mcg tablet (Centrum Silver Women) omega-3 fatty acids 1,000 mg 1,000 mg PO DAILY 03/04/21 12/26/22 Unknown History capsule (Fish Oil Concentrate) Exam Exam Date and Time: February 03, 2023 0936 Height,Weight and Vital Signs: Height 5 ft 3 in Weight 99.337 kg Pertinent Lab Results Pertinent Lab Results: Laboratory Tests 12/16/22 11:20 Sodium 134 L Potassium 5.0 Chloride 97 Carbon Dioxide 27 BUN 5 L Creatinine 0.71 Assessment and Plan Assessment Anesthesia Assessment: Chart Reviewed Documented by User: Rosalie Meneses MD 02/04/23 13:15 [facility] Past Medical History Medical History (Updated 02/02/23 @ 11:01 by Rosa Hodge RN) Anxiety Asthma Benign essential hypertension Cyst of right knee joint Diabetes mellitus Diabetes type 2, uncontrolled Diabetic neuropathy associated with type 2 diabetes mellitus Dyslipidemia GERD (gastroesophageal reflux disease) GERD without esophagitis Hx of flexible sigmoidoscopy (~2000) Hypertension Injury of toenail Insomnia Left knee pain Midline low back pain without sciatica Migraine Neuropathy Obesity Obesity (BMI 30-39.9) Osteoarthritis of knees, bilateral Premature ventricular contractions (PVCs) (VPCs) Pure hypercholesterolemia Right knee pain Vitamin D deficiency Family History Family History Father Bladder cancer Skin cancer Diabetes Hypertension Hyperlipidemia Mother Diabetes CVD (cardiovascular disease) CVA (cerebral vascular accident) Hypertension Family history of problems with anesthesia: No Surgical History Surgical History (Updated 02/02/23 @ 11:00 by Rosa Hodge RN) History of laparoscopy Hx of tonsillectomy Hx of tubal ligation History of Problems with Anesthesia: No Social History Social History Housing: House Are you a primary home care attendant to a significant other at home: No Do you presently have visiting nurse or other home services: No Alcohol intake: never Patient Tobacco Use Status: Never used Tobacco e-Cigarette/Vaping Use: Never Used Second Hand Smoke Exposure: Yes Use of substances other than those prescribed or required for medical reasons: No Have you been hit, kicked, punched, or otherwise hurt by someone within the past year? If so, by whom?: No Are you DNR?: No Advance Directives: No Advance Directives Information Provided: Yes Advance Directives on File: No Recently lost weight without trying: No Eating poorly because of decreased appetite: No Nutrition Risks: No Nutritional Risk Patient : No : No Poor oral hygiene: Yes (partial upper denture) service: No Current occupational status: retired Cognitive needs: No Hearing needs: No Vision needs: No Meds Allergies Allergy/AdvReac Type Severity Reaction Status Date / Time linagliptin [From TRADJENTA] Allergy Severe THROAT Verified 01/21/23 12:43 ITCHING/COUGH Penicillins [PENICILLINS] Allergy Severe SWELLING/HI Verified 01/21/23 12:43 VES exenatide [From BYDUREON] Allergy Intermediate RASH Verified 01/21/23 12:43 wheat [WHEAT] Allergy Intermediate RASH Verified 01/21/23 12:43 latex [Latex] Allergy Mild SWELLING/IT Verified 01/21/23 12:43 CH lactose, wheat, corn syrup Allergy Mild rash Uncoded 01/21/23 12:43 grass, dogs, cats Allergy Unknown Unknown Uncoded 01/21/23 12:43 Home Medications Medication Instructions Recorded Confirmed Last Taken Type pen needle, diabetic 32 gauge x #50 ea 07/31/20 12/26/22 Unknown History cholecalciferol (vitamin D3) 25 25 mcg PO DAILY 03/04/21 12/26/22 Unknown History mcg (1,000 unit) capsule multivit with 1 tab PO DAILY 03/04/21 12/26/22 Unknown History byhjwjtq-mbos-BK-lutein 8 mg iron-400 mcg-300 mcg tablet (Centrum Silver Women) omega-3 fatty acids 1,000 mg 1,000 mg PO DAILY 03/04/21 12/26/22 Unknown History capsule (Fish Oil Concentrate) Exam Airway Mallampati Class: III TM Dist: >3cm Neck ROM: Full Heart: rrr Lungs: cta Assessment and Plan Assessment Anesthesia Assessment: Anesthesia Plan Discussed and Chart Reviewed Final Anesthetic Review Family History of Problems with Anesthesia: No History of Problems with Anesthesia: No NPO: Yes ASA Class: III Final Preanesthetic Review: No Changes in Pt Med Stat, Meds/Allgs Chart Reviewed and Consent Obtained/Reviewed Patient Risk: Intermediate Procedure Risk: Intermediate Anesthetic Plan Anesthetic Plan: MAC: Disposition: Standard PACU
[2023-02-04 11:38] VITALS: BP 156/81; PULSE 82; RESP 16; TEMP 36; O2SAT 96
[2023-02-04] MEDS: Lactated Ringers 1,000 ML 100 ML IVCONT (11:52)
[2023-02-04 11:58] LABS: Glucose, Whole Blood 134 mg/dL (60-115)
--- NOTE | 2023-02-04 13:06 | MHC.SHP ---
Pre-Procedural Eval Section A Date of Service: 02/04/23 Section B Chief Complaint: screening malignant neoplasm,reflux, early satiety Relevant Family History (Specify if Yes): No Relevant Social History: None Present Medications: see Short Stay Collaborative assessment Medical History: Significant History (Anxiety Asthma Benign essential hypertension Cyst of right knee joint Diabetes mellitus Diabetes type 2, uncontrolled Diabetic neuropathy associated with type 2 diabetes mellitus Dyslipidemia GERD (gastroesophageal reflux disease) GERD without esophagitis Hx of flexible sigmoidoscopy (~2000) Hyperte) History of Previous Operations: Relevant previous surgery/procedure and date(s) (History of laparoscopy Hx of tonsillectomy Hx of tubal ligation) Allergies: Allergies Allergy/AdvReac Type Severity Reaction Status Date / Time linagliptin [From TRADJENTA] Allergy Severe THROAT Verified 01/21/23 12:43 ITCHING/COUGH Penicillins [PENICILLINS] Allergy Severe SWELLING/HI Verified 01/21/23 12:43 VES exenatide [From BYDUREON] Allergy Intermediate RASH Verified 01/21/23 12:43 wheat [WHEAT] Allergy Intermediate RASH Verified 01/21/23 12:43 latex [Latex] Allergy Mild SWELLING/IT Verified 01/21/23 12:43 CH lactose, wheat, corn syrup Allergy Mild rash Uncoded 01/21/23 12:43 grass, dogs, cats Allergy Unknown Unknown Uncoded 01/21/23 12:43 Review of Systems Sugical H&P ROS: Negative: Constitution, Cardiovascular, Respiratory, Neurological, Psychiatric, Hem-Onc, Allergic/Immunologic, Gastrointestinal, Genitourinary, Musculoskeletal, Integumentary, Endocrine and Eyes/Ears/Nose/Throat Exam Surgical H&P Exam: Normal: HEENT, Normal: Heart, Normal: Lungs, Normal: Extremities, Normal: Abdomen, Normal: Skin and Normal: Neurological Plan Diagnosis/Plan: Unchanged I have reviewed the history and physical and performed a pertinent physical examination on my patient. No changes have occurred unless specified. Time Spent With Patient Time: Total time managing care of this patient today ____ minutes.
--- NOTE | 2023-02-04 13:07 | P.OP_ITS ---
Operative Note Operative Note Date of Service: 02/04/23 Narrative: Operative Information Procedure Description: EGD, Colonoscopy Indication: satiety, reflux, screening colonoscopy Anesthesia: MAC FLEXIBLE TRANSORAL UPPER GASTROINTESTINAL ENDOSCOPY AND COLONOSCOPY PROCEDURE NOTE UPPER ENDOSCOPY Consent: Indications for the procedure and potential complications of bleeding, perforation, reaction to medications and missed diagnosis were discussed with the patient and informed consent was obtained. Instrument: Olympus GIF H 190 J mid size upper endoscope Monitoring: Vital signs and clinical assessment, continuous EKG monitoring, Pulse oximetry, Carbon Dioxide monitoring and blood pressure monitoring were done throughout the procedure. Procedure: The patient was placed in the left lateral decubitis position and pre-procedure medications were administered and a bite block was placed. The endoscope was inserted into the mouth and advanced under direct vision to the third part of duodenum. A careful inspection was made as the upper endoscope was withdrawn including a retroflexed examination of the proximal stomach; Findings and interventions are described below. Findings: Larynx:normal Esophagus: GE junction at 35 cm, diaphragm hiatus at 35 cm, some bogginess at GEJ, bx taken also dessicated mucosa and erythema (esophagitis superficialis dissecans), bx taken from proximal and distal esophagus Stomach: Patchy erythema. Biopsies were obtained. Grade 2 flap valve on retroflexed examination of the cardia. Also there was a lack of gastric movement Duodenum: Normal bulb and descending duodenum, bx taken Intervention: Biopsies as noted above COLONOSCOPY Instrument: Olympus variable stiffness pediatric scope 190L Colonoscopy Monitoring: Vital signs and clinical assessment, continuous EKG monitoring, Pulse oximetry, Carbon Dioxide monitoring and blood pressure monitoring were done throughout the procedure. Colon withdrawal time was 10 minutes. Procedure: The patient was placed in the left lateral decubitis position and pre-procedure medications were administered. After a digital rectal examination of the ano-rectum, the video colonoscope was inserted into the rectum and advanced through the colon to the cecum/TI. The colonoscope was slowly withdrawn in a retrograde panoramic fashion and the colon mucosa was carefully examined including a retroflexed view of the rectum. Findings and interventions are described below. Procedure Difficulty:moderate due to looping, pressure applied to RLQ Findings: Terminal Ileum-not intubated Cecum:normal Ascending Colon: normal Transverse Colon -normal Descending Colon:normal Sigmoid Colon: mild diverticulosis Rectum: Retroflexion with small internal hemorrhoids, grade I Anorectum - normal Colon preparation: [place] Bowel Preparation Scale Right colon; 2 Transverse colon: 1-2 Left colon; 1-2 (0 = Unprepared colon segment with mucosa not seen due to solid stool that cannot be cleared. 1 = Portion of mucosa of the colon segment seen, but other areas of the colon segment not well seen due to staining, residual stool and/or opaque liquid. 2 = Minor amount of residual staining, small fragments of stool and/or opaque liquid, but mucosa of colon segment seen well. 3 = Entire mucosa of colon segment seen well with no residual staining, small fragments of stool or opaque liquid) Impression and Post Procedure Diagnosis: Endoscopy Findings: gastritis esophagitis possible gastroparesis (may be due to DM or prescription meds incl tramadol, semaglutide) Colonoscopy Findings: internal hemorrhoids diverticular disease Plan: Await Pathology results Repeat Colonoscopy in 5 years due to fair prep in some areas or earlier if clinically indicated High fiber diet leaflet avoid straining at stool, epsom salts and sitz bath, anusol supps or cream consider increasing PPI, check compliance Above findings were reviewed with the patient and relevant handouts were provided if indicated.
[2023-02-04 14:13] VITALS: BP 149/76; PULSE 91; RESP 16; TEMP 36.1; O2SAT 96
[2023-02-04 14:28] VITALS: BP 136/74; PULSE 86; RESP 18; TEMP 36.1; O2SAT 96
== END 2023-02-04 15:04 | disposition home or self-care (01) ==
PROVIDERS: PCP Internal Medicine; Visit Provider Internal Medicine Gastroenterology
PROC: (CPT 43239; principal; 2023-02-04 13:10)
DX: Z12.11 Encounter for screening for malignant neoplasm of colon (principal); K57.30 Diverticulosis of large intestine without perforation or abscess without bleeding; K64.0 First degree hemorrhoids; K21.9 Gastro-esophageal reflux disease without esophagitis; K29.50 Unspecified chronic gastritis without bleeding; K20.80 Other esophagitis without bleeding; K44.9 Diaphragmatic hernia without obstruction or gangrene; F41.1 Generalized anxiety disorder; J45.909 Unspecified asthma, uncomplicated; I10 Essential (primary) hypertension; E78.00 Pure hypercholesterolemia, unspecified; E66.9 Obesity, unspecified; Z68.37 Body mass index [BMI] 37.0-37.9, adult; E11.40 Type 2 diabetes mellitus with diabetic neuropathy, unspecified; Z79.4 Long term (current) use of insulin; Z79.899 Other long term (current) drug therapy; Z88.0 Allergy status to penicillin; Z88.8 Allergy status to other drugs, medicaments and biological substances; Z91.040 Latex allergy status
CPT/HCPCS: 43239; G0121; 82947; 88305; 88342; J2250

== ENCOUNTER → 2023-02-24 14:30 | Outpatient (BNVA) | payer MEDICARE, OTHER, SELFPAY | PROVIDERS: PCP Internal Medicine; Visit Provider Physician Assistant | DX: K21.9 Gastro-esophageal reflux disease without esophagitis (principal); K57.30 Diverticulosis of large intestine without perforation or abscess without bleeding; K64.9 Unspecified hemorrhoids; E11.65 Type 2 diabetes mellitus with hyperglycemia; E11.40 Type 2 diabetes mellitus with diabetic neuropathy, unspecified; Z79.4 Long term (current) use of insulin; Z79.899 Other long term (current) drug therapy | CPT/HCPCS: 99212 ==

== ENCOUNTER → 2023-05-05 10:03 | Outpatient (AMB) | payer MEDICARE, OTHER, SELFPAY ==
--- NOTE | 2023-05-05 10:06 | A.OFFVIS_ITS ---
Intake Vital Signs 05/05/23 10:08 Height 5 ft 3 in Weight 210 lb BMI 37.2 BP 132/74 Blood Pressure Location Lt brachial Position Sitting Pulse 74 Intake Visit Reasons: follow up Intake Note: Patient follow up GERD. Patient cc: acid reflex and abdominal discomfort on and off. 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 Accompanied by: Self / Same As Patient Allergies linagliptin [From TRADJENTA] Allergy (Severe, Verified 05/05/23 10:04) THROAT ITCHING/COUGH Penicillins [PENICILLINS] Allergy (Severe, Verified 05/05/23 10:04) SWELLING/HIVES exenatide [From BYDUREON] Allergy (Intermediate, Verified 05/05/23 10:04) RASH wheat [WHEAT] Allergy (Intermediate, Verified 05/05/23 10:04) RASH latex [Latex] Allergy (Mild, Verified 05/05/23 10:04) SWELLING/ITCH lactose, wheat, corn syrup Allergy (Mild, Uncoded 01/21/23 12:43) rash grass, dogs, cats Allergy (Unknown, Uncoded 01/21/23 12:43) Unknown Medication List - Last Reconciled 05/05/23 by Liyah Quigley PA-C acetaminophen-codeine 300-60 mg 1 tab PO .3 to 4 times a day PRN 30 days albuterol sulfate 90 mcg/actuation 1 inh inhalation QID PRN albuterol sulfate 2.5 mg (3 mL) inhalation QID PRN 30 days amitriptyline 50 mg PO BEDTIME atorvastatin 40 mg PO DAILY 90 days blood pressure monitor As directed blood sugar diagnostic (Slingboxuch Ultra Test strips) As directed 2 times daily cholecalciferol (vitamin D3) 25 mcg PO DAILY citalopram 40 mg PO DAILY gabapentin 800 mg PO QID hydroxyzine HCl 1 tablet 3 times a day and 2 tablets at bedtime PO; 90 days insulin degludec 10 units (0.1 mL) subcut DAILY 90 days lancets (Slingboxuch Delica Lancets) 3 times a day losartan 50 mg PO DAILY metformin ER 1,000 mg (2 x 500 mg) PO BID montelukast 10 mg PO BEDTIME mtiepryb-wrl-ccan-FA-lutein 8 mg iron-400 mcg-300 mcg (Centrum Silver Women) 1 tab PO DAILY omega-3 fatty acids (Fish Oil Concentrate) 1,000 mg PO DAILY omeprazole 20 mg PO QAM pen needle, diabetic (BD Meghann 2nd Gen Pen Needle) Twice a day pen needle, diabetic As directed pioglitazone 30 mg PO DAILY propranolol ER 60 mg PO DAILY 30 days semaglutide 0.5 mg (0.4 mL) subcut QWEEK temazepam 30 mg PO BEDTIME PRN 30 days tizanidine 4 mg PO TID PRN 90 days tramadol 50 mg PO TID PRN 30 days HPI HPI Comments History of Present Illness Details A 58 y/o F- f/u with persistent acid reflux- we had swithched to pantoprazole from omeprazole- she discontinued due to worsening gerd and nausea. She resummed omeprazole- with much better response- if she forgets and drinks coffee- she has sx-taking BID has been most successful- she has made dietary modifucations- Trying to manage DM better-it has been difficult Has reduced tramadol use as well- No Bowel issues- No fever or chills PFSH Medical History (Updated 02/24/23 @ 14:31 by Liyah Quigley PA-C) Anxiety Asthma Benign essential hypertension Cyst of right knee joint Diabetes mellitus Diabetes type 2, uncontrolled Diabetic neuropathy associated with type 2 diabetes mellitus Dyslipidemia GERD (gastroesophageal reflux disease) GERD without esophagitis Hx of flexible sigmoidoscopy (~2000) Hypertension Injury of toenail Insomnia Left knee pain Midline low back pain without sciatica Migraine Neuropathy Obesity Obesity (BMI 30-39.9) Osteoarthritis of knees, bilateral Premature ventricular contractions (PVCs) (VPCs) Pure hypercholesterolemia Right knee pain Vitamin D deficiency Surgical History History of esophagogastroduodenoscopy (EGD) History of laparoscopy Hx of colonoscopy Hx of tonsillectomy Hx of tubal ligation Family History Father Bladder cancer Skin cancer Diabetes Hypertension Hyperlipidemia Mother Diabetes CVD (cardiovascular disease) CVA (cerebral vascular accident) Hypertension Social History Housing: House Are you a primary nursing care attendant to a significant other at home: No Do you presently have visiting nurse or other home services: No Alcohol intake: never Patient Tobacco Use Status: Never used Tobacco e-Cigarette/Vaping Use: Never Used Second Hand Smoke Exposure: Yes service: No Current occupational status: retired Cognitive needs: No Hearing needs: No Vision needs: No Review of Systems Const All systems reviewed & are unremarkable except as noted in HPI and below Card Denies chest pain and Denies dyspnea Resp Denies dyspnea GI Denies abdominal pain, Reports heartburn, Denies nausea and Denies vomiting Psych Reports anxiety Physical Exam Vital Signs: Last Vital Signs Pulse 74 05/05/23 10:08 BP 132/74 05/05/23 10:08 BMI result Body Mass Index 37.2 Const General: cooperative and healthy appearing Orientation/consciousness: patient oriented x3 Limitations: no limitations Eyes Sclerae: sclerae normal Resp Effort & Inspection: normal respiratory effort and able to speak in complete sentences Skin General skin exam: no rashes or lesions noted Neuro General: patient oriented x3 Extrem General: Yes full ROM Psych Appearance: grossly normal and well kempt Mental Status: mental status grossly normal Speech and movement: Normal speech and movement present and Clear speech present Affect: normal affect Attitude: cooperative Thought process: Normal thought process present Thought content: Normal thought content present Insight: Good insight present (Psych) Judgement: Good judgement present (Psych) Results Reviewed Results Reviewed: Impression and Post Procedure Diagnosis: Endoscopy Findings: gastritis esophagitis possible gastroparesis (may be due to DM or prescription meds incl tramadol, semaglutide) Colonoscopy Findings: internal hemorrhoids diverticular disease Plan: Await Pathology results Repeat Colonoscopy in 5 years due to fair prep in some areas or earlier if clinically indicated High fiber diet leaflet avoid straining at stool, epsom salts and sitz bath, anusol supps or cream consider increasing PPI, check compliance Above findings were reviewed with the patient and relevant handouts were provided if indicated. Name:Lee Ann Galvan Age/Sex: 57/F Attending: Ciara Calero MD : [id number] Submitted by: Ciara Calero MD Copies to: Jeffrey Terry MD MR #: [id number] ? Status: [facility] Collected: 02/04/23 Location: [facility] Received: 02/04/23 Diagnosis A.? Duodenum, biopsy:? Duodenal mucosa with preserved villi and no specific change.? B.? Stomach, biopsy:? Gastric antral and body mucosa with mild reactive changes and focal minimal chronic inactive inflammation; negative for H pylori, intestinal metaplasia and dysplasia.? C.? Gastroesophageal junction, biopsy:? Columnar mucosa with mild chronic active inflammation; negative for intestinal metaplasia and dysplasia; no squamous epithelium present. D.? Esophagus, distal, biopsy:? Squamous mucosa with mild hyperplasia and focal intraepithelial neutrophils and eosinophils (up to 2 per high-power field) consistent with reflux esophagitis; no columnar mucosa present.? E.? Esophagus, proximal, biopsy:? Squamous mucosa with no specific change (1 piece), and columnar gastric-type mucosa (1 piece) with focal minimal chronic inactive inflammation (see comment). Comment: (E):? The gastric-type mucosa may represent an inlet patch or a contaminant and endoscopic correlation is necessary. Clinical History Pre-Op Dx:? GERD, screening Post-Op Dx: Gastritis, esophagitis, possible gastroparesis, hemorrhoids, diverticulosis Microscopic Description Microscopic sections reviewed.? Immunohistochemical stain for H. pylori on B is negative with appropriate contr 12/2022- [facility] NM/NM gastric emptying study IMPRESSION: Normal 4-hour solid food gastric emptying study. ? (For solid meal, rapid gastric emptying is less than 30% at 60 minutes. Delayed gastric emptying criteria is more than 60% remaining at 120 minutes or more than 10% at 240 minutes. The 4-hour value is the best discriminator of a normal or abnormal result). Assessment & Plan Assessment & Plan (1) GERD without esophagitis: Code(s): K21.9 - Gastro-esophageal reflux disease without esophagitis Plan: Continue omeprazole 20mg- will increase to bid reflux precautions reviewed Avoid culprits Medications: New omeprazole 20 mg PO BID 30 days 60 caps 5RF Discontinued omeprazole Discontinued Reason: Doctor's Order 20 mg PO QAM 90 caps 3RF Patient Instructions: Continue omeprazole 20mg- will increase to bid- reviewed directions- take 30 minutes empty stomach reflux precautions reviewed-avoid culprits Avoid culprits Coding Level of Care Code Est Pt Level 3 (56589) Diagnoses GERD without esophagitis K21.9 Time Spent (min) 30
[2023-05-05 10:08] VITALS: BP 132/74; PULSE 74; BMI 37.2
== END ==
PROVIDERS: PCP Internal Medicine; Visit Provider Physician Assistant
DX: K21.9 Gastro-esophageal reflux disease without esophagitis (principal)
CPT/HCPCS: 99213

== ENCOUNTER → 2023-05-05 10:03 | Outpatient (BNVA) | payer MEDICARE, OTHER, SELFPAY | PROVIDERS: PCP Internal Medicine; Visit Provider Physician Assistant | DX: K21.9 Gastro-esophageal reflux disease without esophagitis (principal) | CPT/HCPCS: 99212 ==

== ENCOUNTER 2023-05-06 13:08 | Outpatient (AMB) | payer MEDICARE, OTHER, SELFPAY ==
[2023-05-06 13:21] VITALS: BP 122/78; PULSE 94; O2SAT 96; BMI 39.2
--- NOTE | 2023-05-06 13:21 | MHC.PC.OV ---
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: No Accompanied by: Self / Same As Patient Allergies linagliptin [From TRADJENTA] Allergy (Severe, Verified 05/06/23 14:12) THROAT ITCHING/COUGH Penicillins [PENICILLINS] Allergy (Severe, Verified 05/06/23 14:12) SWELLING/HIVES exenatide [From BYDUREON] Allergy (Intermediate, Verified 05/06/23 14:12) RASH wheat [WHEAT] Allergy (Intermediate, Verified 05/06/23 14:12) RASH latex [Latex] Allergy (Mild, Verified 05/06/23 14:12) SWELLING/ITCH lactose, wheat, corn syrup Allergy (Mild, Uncoded 05/06/23 14:12) rash grass, dogs, cats Allergy (Unknown, Uncoded 05/06/23 14:12) Unknown Medication List - Last Reconciled 05/06/23 by Jeffrey Terry MD acetaminophen-codeine 300-60 mg 1 tab PO .3 to 4 times a day PRN 30 days albuterol sulfate 90 mcg/actuation 1 inh inhalation QID PRN albuterol sulfate 2.5 mg (3 mL) inhalation QID PRN 30 days amitriptyline 50 mg PO BEDTIME atorvastatin 40 mg PO DAILY 90 days blood pressure monitor As directed blood sugar diagnostic ([employer] Ultra Test strips) As directed 2 times daily cholecalciferol (vitamin D3) 25 mcg PO DAILY citalopram 40 mg PO DAILY gabapentin 800 mg PO QID hydroxyzine HCl 1 tablet 3 times a day and 2 tablets at bedtime PO; 90 days ibuprofen 600 mg PO Q8H PRN 30 days insulin degludec 10 units (0.1 mL) subcut DAILY 90 days lancets ([employer] Delica Lancets) 3 times a day losartan 50 mg PO DAILY metformin ER 1,000 mg (2 x 500 mg) PO BID montelukast 10 mg PO BEDTIME gtzlbbbs-odl-rare-FA-lutein 8 mg iron-400 mcg-300 mcg (Centrum Silver Women) 1 tab PO DAILY omega-3 fatty acids (Fish Oil Concentrate) 1,000 mg PO DAILY omeprazole 20 mg PO BID 30 days pen needle, diabetic (BD Meghann 2nd Gen Pen Needle) Twice a day pen needle, diabetic As directed pioglitazone 30 mg PO DAILY propranolol ER 60 mg PO DAILY 30 days semaglutide 0.5 mg subcut QWEEK temazepam 30 mg PO BEDTIME PRN 30 days tizanidine 4 mg PO TID PRN 90 days tramadol 50 mg PO TID PRN 30 days Tobacco use date assessed: 05/06/23 Dental Screening Dental Screen Date: 05/06/23 Did you have a dental visit in the last 12 months?: Yes Did you have a dental problem in the last 6 months where you did not have access to dental care?: No Was dental information given to patient?: Patient has dentist HPI DM, hyperlipidemia HPI Details Patient comes in today for her follow up visit Feels that she has been gaining some weight lately Has been out of her Ozempic for a couple of weeks now as she could not get it from her pharmacy (out of stock) Also needs a couple of her Rx refilled - Tramadol and Tylenol #4 Relates experiencing increasing headaches (migraine) for the past week Would like to have some Rx for Ibuprofen sent to her pharmacy as well She denies any dizziness Denies any chest pains, no increased SOB No nausea/vomiting, no abdominal pain No change in bowel habits noted Was not able to get her follow up labs done prior to her visit today [facility] Medical History Anxiety Asthma Benign essential hypertension Cyst of right knee joint Diabetes mellitus Diabetes type 2, uncontrolled Diabetic neuropathy associated with type 2 diabetes mellitus Dyslipidemia GERD (gastroesophageal reflux disease) GERD without esophagitis Hx of flexible sigmoidoscopy (~2000) Hypertension Injury of toenail Insomnia Left knee pain Midline low back pain without sciatica Migraine Neuropathy Obesity Obesity (BMI 30-39.9) Osteoarthritis of knees, bilateral Premature ventricular contractions (PVCs) (VPCs) Pure hypercholesterolemia Right knee pain Vitamin D deficiency Surgical History History of esophagogastroduodenoscopy (EGD) History of laparoscopy Hx of colonoscopy Hx of tonsillectomy Hx of tubal ligation Family History Father Bladder cancer Skin cancer Diabetes Hypertension Hyperlipidemia Mother Diabetes CVD (cardiovascular disease) CVA (cerebral vascular accident) Hypertension Social History Housing: House Are you a primary career services assistant to a significant other at home: No Do you presently have visiting nurse or other home services: No Alcohol intake: never Patient Tobacco Use Status: Never used Tobacco e-Cigarette/Vaping Use: Never Used Second Hand Smoke Exposure: Yes service: No Current occupational status: retired Cognitive needs: No Hearing needs: No Vision needs: No Questionnaire PHQ-9 Over the last 2 weeks, how often have you been bothered by any of the following problems? 1. Little interest or pleasure in doing things: several days 2. Feeling down, depressed, or hopeless: not at all 3. Trouble falling or staying asleep, or sleeping too much: several days 4. Feeling tired or having little energy: several days 5. Poor appetite or overeating: several days 6. Feeling bad about yourself - or that you are a failure or have let yourself or your family down: several days 7. Trouble concentrating on things, such as reading the newspaper or watching television: not at all 8. Moving or speaking so slowly that other people could have noticed. Or the opposite - being so fidgety or restless that you have been moving around a lot more than usual: not at all 9. Thoughts that you would be better off or of hurting yourself in some way: not at all Total score: 5 Depression Screening Interpretation: Positive Depression Screening Follow-up: Existing condition and In treatment 17260 - PHQ-9 Billing: Yes Source: Developed by Drs. Abdirizak Mai, Doine Mclaughlin, Juan Norwood and colleagues, with an educational palma from [employer]. Thrive Questionnaire Date Thrive assessed: 05/06/23 I am a: Patient What is your living situation today?: I have a steady place to live Within the past 12 months, did the food you bought not last and you didn't have the money to get more?: Never true Within the past 12 months, did you worry whether your food would run out before you got money to buy more?: Never true Do you have trouble paying for medicines?: No Do you have trouble getting transportation to medical appointments?: No Do you have trouble paying your heating and electricity bill?: No Do you have trouble taking care of your child, family member or friend?: No Do you have trouble with day-to-day activities such as bathing, preparing meals, shopping, managing finances, etc.?: No Are you currently unemployed and looking for a job?: No Are you interested in more education?: No Please select the resources that you would like help with: None Currently or been in a relationship where the following occur: no concerns reported AUDIT C Alcohol Use Questionnaire (AUDIT-C) 1. How often do you have a drink containing alcohol?: Never 3. How often do you have six or more drinks on one occasion?: Never Total Score: 0 Score Reviewed/Action Taken: Yes DYANA-7 AMB Questionnaire DYANA-7 Date DYANA - 7 assessed: 05/06/23 Feeling nervous, anxious, or on edge: 0 = Not at all Not being able to stop or control worryin = Not at all Worrying too much about different things: 0 = Not at all Trouble relaxin = Not at all Being so restless that it is hard to sit still: 0 = Not at all Becoming easily annoyed or irritable: 0 = Not at all Feeling afraid as if something awful might happen: 0 = Not at all Total DYANA-7 score (0-4 normal; 5-9 mild; 10-14 moderate; 15-21 severe): 0 Source: Developed by Drs. Abdirizak Mai, Dione Mclaughlin, Juan Norwood and colleagues, with an educational palma from [employer]. Review of Systems Const Denies chills, Reports fatigue, Denies fever(s) and Reports headache(s) (increased lately) ENT Denies dysphagia, Denies dizziness, Reports headache(s) (increased lately), Denies neck pain, Denies odynophagia and Denies sore throat Card Denies chest pain, Denies rapid heart rate, Denies irregular heart rhythm, Denies palpitations and Denies dyspnea Resp Denies cough, Denies dyspnea and Denies wheezing GI Denies abdominal pain, Denies constipation, Denies dysphagia, Denies heartburn, Denies diarrhea, Denies nausea, Denies odynophagia and Denies vomiting Denies hematuria, Denies dysuria, Denies urinary incontinence and Denies urinary urgency Musc Reports back pain, Reports arthralgias (both knees), Denies joint swelling and Denies neck pain Skin/Breast Denies rash Neuro Denies dizziness and Reports headache(s) (increased lately) Psych Denies anxiety Endo Reports fatigue and Denies palpitations Aller/Immun Denies wheezing Physical exam (Primary Care) Vital Signs: Last Vital Signs Pulse 94 05/06/23 13:21 BP 122/78 05/06/23 13:21 Pulse Ox 96 05/06/23 13:21 Oxygen Delivery Method Room Air 05/06/23 13:21 BMI result Body Mass Index 39.2 Tobacco/Smoking Status: Tobacco use Status Tobacco use date assessed 05/06/23 05/06/23 13:26 Patient Tobacco Use Status Never used Tobacco 05/06/23 13:26 e-Cigarette/Vaping Use Never Used 05/06/23 13:26 PHQ-9: PHQ-9 Score PHQ-9: Total score 5 05/06/23 13:42 Depression Screening Interpretation: Positive Depression Screening Follow-up: Existing condition and In treatment Thrive Assessment: Date of Thrive Assessment Date Thrive assessed 05/06/23 05/06/23 13:26 Currently or been in a relationship where the following occur: no concerns reported Const General: no acute distress and alert HENMT Ears: TM's normal bilaterally and EAC's normal Throat: Yes posterior oropharynx normal and Yes tonsils normal (no TP congestion) Neck Neck: Yes no lymphadenopathy and Yes supple Resp Auscultation: clear to auscultation bilaterally, no rales and no wheezes Cardio Rate: regular rate Rhythm: regular rhythm Heart sounds: no murmurs GI Palpation (GI): Soft to palpation and nontender Auscultation: normal bowel sounds Back/Spine/Pelvis Thoracic/Lumbar Spine: lumbar spinal tenderness Skin General skin exam: no rashes or lesions noted Extrem General: Yes no clubbing, cyanosis or edema Results AMB Hemoglobin A1c AMB Hemoglobin A1c 6.9 % Last Edit by Radha Dc on 05/06/23 13:43 Results Reviewed Results Reviewed: Laboratory Last Values Hgb A1c (Clinic) 6.9 % (4.0-6.0) H 05/06/23 13:35 Assessment and Plan Assessment & Plan (1) Pure hypercholesterolemia: Code(s): E78.00 - Pure hypercholesterolemia, unspecified Plan: Patient was NOT able to get her follow up labs done prior to her visit today Reinforced low cholesterol diet Continue Atorvastatin 40 mg QD Will recheck her labs in 4 months for follow up (2) Diabetes mellitus: Code(s): E11.9 - Type 2 diabetes mellitus without complications Qualifiers: Diabetes mellitus type: type 2 Diabetes mellitus snf insulin use: without snf use Diabetes mellitus complication status: with neurologic complications Diabetes mellitus complication detail: with polyneuropathy Qualified Code(s): E11.42 - Type 2 diabetes mellitus with diabetic polyneuropathy Plan: In-office HgbA1c done today is at 6.9% (HgbA1c was at 7.0% on her labs done a few months ago) - goal is <7.0% Reinforced diabetic diet Continue Pioglitazone 30 gm QD, Metformin ER 500 mg 2 tablets BID, Tresiba Flextouch 10 units Q HS and Ozempic 2 mg/1.5 ml SQ once a week States that she has been out of her Ozempic for a couple of weeks due to unavailablity of the Rx at her local pharmacy but should be able to get back on it this week (3) Benign essential hypertension: Code(s): I10 - Essential (primary) hypertension Plan: Reinforced low sodium diet - goal is systolic BP of 120 mm or less Continue Losartan 25 mg QD (4) Premature ventricular contractions (PVCs) (VPCs): Code(s): I49.3 - Ventricular premature depolarization Plan: Stable; states that she;s had no recurrence of her symptoms recently Continue Propranolol ER 60 mg QD (5) Asthma: Code(s): J45.909 - Unspecified asthma, uncomplicated Qualifiers: Asthma severity: moderate Asthma persistence: persistent Asthma complication type: uncomplicated Qualified Code(s): J45.40 - Moderate persistent asthma, uncomplicated Plan: Stable with no recent exacerbations Continue Montelukast 10 mg QD, Symbicort 160-4.5 mcg 2 puffs BID and ProAir HFA 108 mcg 2 puffs QID PRN (6) Migraine: Code(s): G43.909 - Migraine, unspecified, not intractable, without status migrainosus Qualifiers: Migraine type: unspecified Status migrainosus presence: without status migrainosus Intractability: not intractable Qualified Code(s): G43.909 - Migraine, unspecified, not intractable, without status migrainosus Plan: Stable - is on Amitriptyline 50 mg Q HS for headache prophylaxis Reinforced avoidance of migraine triggers Continue Fioricet 1 capsule 2 to 3 times a day as needed; per request, will send in Rx for Ibuprofen 600 mg TID PRN with food Follow up with neurology as scheduled (7) GERD without esophagitis: Code(s): K21.9 - Gastro-esophageal reflux disease without esophagitis Plan: Dietary restrictions reinforced Continue Omeprazole 20 mg QD (8) Diabetic neuropathy associated with type 2 diabetes mellitus: Code(s): E11.40 - Type 2 diabetes mellitus with diabetic neuropathy, unspecified Qualifiers: Diabetes mellitus complication detail: diabetic polyneuropathy Qualified Code(s): E11.42 - Type 2 diabetes mellitus with diabetic polyneuropathy Plan: Continue Gabapentin 800 mg TID, Tramadol 50 mg TID PRN, and Acetaminophen-Codeine #4 tablets, 300-60 mg 1 tablet 3 to 4 times a day as needed for pain, 30 days, #129 tablets (9) Midline low back pain without sciatica: Code(s): M54.5 - Low back pain Qualifiers: Chronicity: unspecified Qualified Code(s): M54.5 - Low back pain Plan: Reinforced activity and weight-lifting restrictions to avoid aggravating her lower back symptoms Continue Tizanidine 4 mg 1 to 2 tablets TID PRN (10) Osteoarthritis of knees, bilateral: Code(s): M17.0 - Bilateral primary osteoarthritis of knee Qualifiers: Osteoarthritis type: primary Qualified Code(s): M17.0 - Bilateral primary osteoarthritis of knee Plan: X-rays of both knees last done in November 2019 showed (+) mild OA changes in the right knee and moderate OA changes in the left knee Is now seeing orthopedics for her knee issues and recently started getting cortisone injections in her knees, with some relief of her symptoms (11) Vitamin D deficiency: Code(s): E55.9 - Vitamin D deficiency, unspecified Plan: Continue Vitamin D3 1000 units QD (12) Insomnia: Code(s): G47.00 - Insomnia, unspecified Qualifiers: Insomnia type: unspecified Qualified Code(s): G47.00 - Insomnia, unspecified Plan: Sleep hygiene reinforced Continue Temazepam 30 mg QHS PRN and Amitriptyline 50 mg Q HS (13) Anxiety: Code(s): F41.9 - Anxiety disorder, unspecified Plan: Continue Hydroxyzine 25 mg TID PRN and Citalopram 40 mg QD (14) Obesity (BMI 30-39.9): Code(s): E66.9 - Obesity, unspecified Plan: Reinforced diet/exercise as tolerated/lose weight Plan Follow up in 4 months Orders: Orders Comprehensive [place]. Panel Fast 4 Months E78.00 - Pure hypercholesterolemia, unspecified Hemoglobin A1c 4 Months E11.9 - Type 2 diabetes mellitus without complications Lipid Panel 4 Months E78.00 - Pure hypercholesterolemia, unspecified TSH reflex Free T4 4 Months E78.00 - Pure hypercholesterolemia, unspecified Vitamin D 25-OH Total 4 Months E55.9 - Vitamin D deficiency, unspecified Microalbumin, Random (w Creat) 4 Months E11.9 - Type 2 diabetes mellitus without complications Complete Blood Count Auto Diff 4 Months I10 - Essential (primary) hypertension UA CC w/rflx Micro + Cult 4 Months R30.0 - Dysuria C Reactive Protein 4 Months M17.0 - Bilateral primary osteoarthritis of knee Erythrocyte Sedimentation Rate 4 Months M17.0 - Bilateral primary osteoarthritis of knee, M79.7 - Fibromyalgia Vitamin B12 and Folate 4 Months E53.8 - Deficiency of other specified B group vitamins AMB Hemoglobin A1c Today E11.40 - Type 2 diabetes mellitus with diabetic neuropathy, unspecified Medications: New ibuprofen Take with food 600 mg PO Q8H 30 days PRN 90 tabs 0RF pain Changed From acetaminophen-codeine 300-60 mg do not sent taken off list in error 1 tab PO .3 to 4 times a day 30 days PRN 120 tabs 0RF pain To acetaminophen-codeine 300-60 mg 1 tab PO .3 to 4 times a day 30 days PRN 120 tabs 0RF pain Refilled tramadol 50 mg PO TID 30 days PRN 90 tabs 1RF pain acetaminophen-codeine 300-60 mg do not sent taken off list in error 1 tab PO .3 to 4 times a day 30 days PRN 120 tabs 0RF pain temazepam 30 mg PO BEDTIME 30 days PRN 30 caps 1RF sleep Coding Level of Care Code Est Pt Level 4 (92488) Diagnoses Pure hypercholesterolemia E78.00 Diabetes mellitus E11.42 Diabetes mellitus type: type 2 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: without snf use Diabetes mellitus complication status: with neurologic complications Diabetes mellitus complication detail: with polyneuropathy Benign essential hypertension I10 Premature ventricular contractions (PVCs) (VPCs) I49.3 Asthma J45.40 Asthma severity: moderate Asthma persistence: persistent Asthma complication type: uncomplicated Migraine G43.909 Migraine type: unspecified Status migrainosus presence: without status migrainosus Intractability: not intractable GERD without esophagitis K21.9 Diabetic neuropathy associated with type 2 diabetes mellitus E11.42 Diabetes mellitus complication detail: diabetic polyneuropathy Midline low back pain without sciatica M54.5 Chronicity: unspecified Osteoarthritis of knees, bilateral M17.0 Osteoarthritis type: primary Vitamin D deficiency E55.9 Insomnia G47.00 Insomnia type: unspecified Anxiety F41.9 Obesity (BMI 30-39.9) E66.9
== END 2023-05-06 14:26 | disposition home or self-care (01) ==
PROVIDERS: Visit Provider Internal Medicine
DX: E78.00 Pure hypercholesterolemia, unspecified (principal); E11.42 Type 2 diabetes mellitus with diabetic polyneuropathy; I10 Essential (primary) hypertension; I49.3 Ventricular premature depolarization; J45.40 Moderate persistent asthma, uncomplicated; G43.909 Migraine, unspecified, not intractable, without status migrainosus; K21.9 Gastro-esophageal reflux disease without esophagitis; M54.5 Low back pain; M17.0 Bilateral primary osteoarthritis of knee; E55.9 Vitamin D deficiency, unspecified; G47.00 Insomnia, unspecified; F41.9 Anxiety disorder, unspecified
CPT/HCPCS: 83036; 99214

== ENCOUNTER 2023-06-08 10:36 | Outpatient (AMB) | payer MEDICARE, OTHER, SELFPAY ==
--- NOTE | 2023-06-08 10:39 | MHC.OFFVIS ---
Intake Vital Signs 06/08/23 10:49 Height 5 ft 3 in Weight 221 lb BMI 39.1 Intake Visit Reasons: Ov- left knee pain last inj 12/17/22 Intake Note: Lee Ann a 58 year old female who presents today for a follow up of bilateral knee pain. Patient found little relief with last injection to right knee on 01/21/23, lasting for about 2 weeks. States pain is worse with stair use and with rainy weather. She is interested in discussing surgery. Allergies linagliptin [From TRADJENTA] Allergy (Severe, Verified 06/08/23 10:44) THROAT ITCHING/COUGH Penicillins [PENICILLINS] Allergy (Severe, Verified 06/08/23 10:44) SWELLING/HIVES exenatide [From BYDUREON] Allergy (Intermediate, Verified 06/08/23 10:44) RASH wheat [WHEAT] Allergy (Intermediate, Verified 06/08/23 10:44) RASH latex [Latex] Allergy (Mild, Verified 06/08/23 10:44) SWELLING/ITCH lactose, wheat, corn syrup Allergy (Mild, Uncoded 06/08/23 10:44) rash grass, dogs, cats Allergy (Unknown, Uncoded 06/08/23 10:44) Unknown HPI Ov- left knee pain last inj 12/17/22 HPI Details 58-year-old female who returns to the office today for a follow-up of bilateral knee pain. She had a right knee injection on 01/21/23 which provided her relief for about 2 weeks. She continues to have pain in her knees which is aggravated with stair use and in rainy weather. She states the injection did provide some pain relief but did not allow for an increase in her function. [facility] Medical History Anxiety Asthma Benign essential hypertension Cyst of right knee joint Diabetes mellitus Diabetes type 2, uncontrolled Diabetic neuropathy associated with type 2 diabetes mellitus Dyslipidemia GERD (gastroesophageal reflux disease) GERD without esophagitis Hx of flexible sigmoidoscopy (~2000) Hypertension Injury of toenail Insomnia Left knee pain Midline low back pain without sciatica Migraine Neuropathy Obesity Obesity (BMI 30-39.9) Osteoarthritis of knees, bilateral Premature ventricular contractions (PVCs) (VPCs) Pure hypercholesterolemia Right knee pain Vitamin D deficiency Surgical History History of esophagogastroduodenoscopy (EGD) History of laparoscopy Hx of colonoscopy Hx of tonsillectomy Hx of tubal ligation Family History Father Bladder cancer Skin cancer Diabetes Hypertension Hyperlipidemia Mother Diabetes CVD (cardiovascular disease) CVA (cerebral vascular accident) Hypertension Social History Housing: House Are you a primary care transition mgr to a significant other at home: No Do you presently have visiting nurse or other home services: No Alcohol intake: never Patient Tobacco Use Status: Never used Tobacco e-Cigarette/Vaping Use: Never Used Second Hand Smoke Exposure: Yes service: No Current occupational status: retired Cognitive needs: No Hearing needs: No Vision needs: No Review of Systems Const All systems reviewed & are unremarkable except as noted in HPI and below Physical Exam Vital Signs: BMI result Body Mass Index 39.1 Const General: cooperative, healthy appearing, comfortable, no acute distress, well developed and alert Orientation/consciousness: patient oriented x3 HEENT Head: Yes normal to inspection, Yes normocephalic and Yes atraumatic Eyes General: appearance normal, both eyes and all related structures Resp Effort & Inspection: normal respiratory effort and able to speak in complete sentences Cardio Rate: regular rate Peripheral pulses: Peripheral pulses 2+ throughout GI Palpation (GI): Soft to palpation Skin Lesions: no lesions Rashes: no rashes Neuro General: patient oriented x3 Extrem Other: Right knee skin intact, no erythema or joint effusion. Tenderness along the medial or lateral or medial and lateral joint line. Full ROM with crepitus. Negative Amelia?s. No ligamentous laxity. NVI. Assessment & Plan Assessment & Plan (1) Osteoarthritis of right knee: Code(s): M17.11 - Unilateral primary osteoarthritis, right knee Plan We had a lengthy discussion about the extent of her osteoarthritis and options available which include surgical intervention. She is interested in pursuing Total knee arthroplasty to improve her functional capacity and daily activities. I explained to her the procedure in detail, the hospital stays and details about post op rehab and precautions. She does understand all this and would like to move forward. I did put her in contact with our Nurse Navigator, Pam, who will set her up with pre op planning and book accordingly. All questions were answered. Patient Instructions: Scribed for Watson Musa PA-C, by José Miguel Brown medical grade shoemaker, on 06/08/2023 at 10:15 AM Watson KWOK PA-C, have personally reviewed and agree with the information entered by the scribe. Coding Level of Care Code Est Pt Level 3 (74841) Diagnoses Osteoarthritis of right knee M17.11
[2023-06-08 10:49] VITALS: BMI 39.1
== END 2023-06-08 11:17 | disposition home or self-care (01) ==
PROVIDERS: PCP Internal Medicine; Visit Provider Physician Assistant
DX: M17.11 Unilateral primary osteoarthritis, right knee (principal)
CPT/HCPCS: 99214

== ENCOUNTER → 2023-06-08 10:36 | Outpatient (BNVA) | payer MEDICARE, OTHER, SELFPAY | PROVIDERS: PCP Internal Medicine; Visit Provider Physician Assistant ==

== ENCOUNTER 2023-07-09 14:00 | Outpatient (AMB) | payer MEDICARE, OTHER, SELFPAY ==
[2023-07-09 14:21] VITALS: BP 132/72; PULSE 56; BMI 39.0
--- NOTE | 2023-07-09 14:21 | MHC.OFFVIS ---
Intake Vital Signs 07/09/23 14:21 Height 5 ft 3 in Weight 220 lb 0.341 oz BMI 39.0 BP 132/72 Blood Pressure Location Lt brachial Pulse 56 Pulse Source Monitor Intake Visit Reasons: preop//LT total knee arthroplasty 08/18 Digital Cartographer Required: No Allergies linagliptin [From TRADJENTA] Allergy (Severe, Verified 07/09/23 14:28) THROAT ITCHING/COUGH Penicillins [PENICILLINS] Allergy (Severe, Verified 07/09/23 14:28) SWELLING/HIVES exenatide [From BYDUREON] Allergy (Intermediate, Verified 07/09/23 14:28) RASH wheat [WHEAT] Allergy (Intermediate, Verified 07/09/23 14:28) RASH latex [Latex] Allergy (Mild, Verified 07/09/23 14:28) SWELLING/ITCH lactose, wheat, corn syrup Allergy (Mild, Uncoded 06/08/23 10:44) rash grass, dogs, cats Allergy (Unknown, Uncoded 06/08/23 10:44) Unknown Medication List - Last Reconciled 07/09/23 by MICHELLE GoodC acetaminophen-codeine 300-60 mg 1 tab PO .3 to 4 times a day PRN 30 days albuterol sulfate 90 mcg/actuation 1 inh inhalation QID PRN albuterol sulfate 2.5 mg (3 mL) inhalation QID PRN 30 days amitriptyline 50 mg PO BEDTIME atorvastatin 40 mg PO DAILY 90 days blood pressure monitor As directed blood sugar diagnostic (Sribuuch Ultra Test strips) As directed 2 times daily cholecalciferol (vitamin D3) 25 mcg PO DAILY citalopram 40 mg PO DAILY gabapentin 800 mg PO QID hydroxyzine HCl 1 tablet 3 times a day and 2 tablets at bedtime PO; 90 days ibuprofen 600 mg PO Q8H PRN 30 days insulin degludec 10 units (0.1 mL) subcut DAILY 90 days lancets (HarirTouch Delica Lancets) 3 times a day losartan 50 mg PO DAILY metformin ER 1,000 mg (2 x 500 mg) PO BID montelukast 10 mg PO BEDTIME ocyqgyca-oeu-lnqd-FA-vit K-lut 8 mg iron-400 mcg-50 mcg (Centrum Silver Women) 1 tab PO DAILY omega-3 fatty acids (Fish Oil Concentrate) 1,000 mg PO DAILY omeprazole 20 mg PO BID 30 days pen needle, diabetic (BD Meghann 2nd Gen Pen Needle) Twice a day pen needle, diabetic As directed pioglitazone 30 mg PO DAILY propranolol ER 60 mg PO DAILY 30 days semaglutide 0.5 mg subcut QWEEK temazepam 30 mg PO BEDTIME PRN 30 days tizanidine 4 mg PO TID PRN 90 days tramadol 50 mg PO TID PRN 30 days HPI preop// total knee arthroplasty 08/18 HPI Details Lee Ann is a 58-year-old female with past medical history of hypertension, hyperlipidemia, diabetes, PVCs who presents for preop cardiac evaluation. Her last prior visit to our office was 06/28/2021. Today she reports that she was scheduled for total knee replacement and canceled her date. She says there are something she needs to get settled at home before she can have her surgery. She still anticipates having it in the near future. She does describe getting random sharp pains across her chest for the last few months. She denies any exertional discomfort. No significant shortness of breath. No PND, orthopnea or edema. No presyncope, syncope, falls. Taking medications as directed. She wants to make sure her heart is okay before proceeding with surgery. Her activity is limited by knee pain. [facility] Medical History Left knee pain Hx of flexible sigmoidoscopy (~2000) Cyst of right knee joint Right knee pain Injury of toenail GERD without esophagitis Obesity (BMI 30-39.9) Insomnia Osteoarthritis of knees, bilateral Migraine Midline low back pain without sciatica Premature ventricular contractions (PVCs) (VPCs) Benign essential hypertension Asthma Diabetes mellitus Pure hypercholesterolemia Vitamin D deficiency Anxiety GERD (gastroesophageal reflux disease) Obesity Hypertension Dyslipidemia Diabetic neuropathy associated with type 2 diabetes mellitus Diabetes type 2, uncontrolled Neuropathy Surgical History Hx of colonoscopy History of esophagogastroduodenoscopy (EGD) History of laparoscopy Hx of tonsillectomy Hx of tubal ligation Family History Father Bladder cancer Skin cancer Diabetes Hypertension Hyperlipidemia Mother Diabetes CVD (cardiovascular disease) CVA (cerebral vascular accident) Hypertension Social History Housing: House Are you a primary care coordination manager to a significant other at home: No Do you presently have visiting nurse or other home services: No Alcohol intake: never Patient Tobacco Use Status: Never used Tobacco e-Cigarette/Vaping Use: Never Used Second Hand Smoke Exposure: Yes service: No Current occupational status: retired Cognitive needs: No Hearing needs: No Vision needs: No Review of Systems Const All systems reviewed & are unremarkable except as noted in HPI and below ENT Denies dizziness Card Reports chest pain, Reports chest pain at rest, Denies chest pain with activity, Denies rapid heart rate, Denies pedal edema, Denies edema, Denies leg edema, Denies lightheadedness, Denies palpitations, Denies dyspnea, Reports dyspnea on exertion and Denies orthopnea Resp Denies cough, Denies dyspnea and Reports dyspnea on exertion GI Denies hematochezia and Denies change in stool character Musc Reports abnormal gait, Reports limited range of motion, Denies muscle cramps, Denies muscle weakness, Denies numbness, Denies radiating pain into limb, Denies stiffness and Denies tingling Neuro Reports abnormal gait, Denies dizziness, Denies numbness and Denies tingling Endo Denies palpitations Physical Exam Vital Signs: Last Vital Signs Pulse 56 07/09/23 14:21 BP 132/72 07/09/23 14:21 BMI result Body Mass Index 39.0 Const General: cooperative, healthy appearing, comfortable and no acute distress Orientation/consciousness: patient oriented x3 Neck Neck: Yes normal visual inspection Resp Effort & Inspection: normal respiratory effort Auscultation: clear to auscultation bilaterally, no crackles, no rales, no rhonchi and no wheezes Cardio Jugular venous distension: no JVD Rate: regular rate Rhythm: regular rhythm Heart sounds: S1 normal heart sound present, S2 normal heart sound present, no murmurs and no rubs Neuro General: patient oriented x3 Extrem General: Yes normal to inspection Psych Appearance: grossly normal Mental Status: mental status grossly normal Speech and movement: Normal speech and movement present Office Procedures EKG Details: Today, read by me, sinus rhythm with sinus arrhythmia, rate 56, no acute ST or T-wave abnormalities, QTC 380 milliseconds [id number], Complete Assessment & Plan Assessment & Plan (1) Chest discomfort: Code(s): R07.89 - Other chest pain Plan: Report of sharp random chest discomfort, nonexertional. Overall atypical for angina. She does have multiple cardiac risk factors including hypertension, hyperlipidemia, diabetes and obesity. She did have a coronary CT scan in 2018 which was reported to be normal. A stress test was ordered on her last visit in 2020 due to chest discomfort however it was never completed. At this time she is not able to walk on a treadmill due to knee arthritis. Will order a pharmacological nuclear stress test to evaluate for any ischemia. Last echocardiogram done 02/10/2018 showed EF 60-65%, no regional wall motion abnormalities and normal valves. No strong indication to repeat at this time. She needs ongoing cardiac risk factors including weight loss, good blood pressure, cholesterol control. Good diabetes control with hemoglobin A1c less than 7. Reviewed with her. Plan to call her with stress test results. Cardiology office visit 1 year, sooner if needed or stress test warrants. (2) Preop cardiovascular exam: Code(s): Z01.810 - Encounter for preprocedural cardiovascular examination Plan: Preop for total knee replacement. She had a date but canceled it. She does plan to reschedule in the near future. She has no known history of CAD though she does have multiple cardiac risk factors. Her activity level is less than 4 Mets. Nuclear stress test being done as above. If normal then she will be low risk to proceed with her surgery. If abnormal then her surgical risk will be re-evaluated. (3) Benign essential hypertension: Code(s): I10 - Essential (primary) hypertension Plan: Well controlled at present. Continue propanolol and losartan. (4) Pure hypercholesterolemia: Code(s): E78.00 - Pure hypercholesterolemia, unspecified Plan: [place] LDL goal less than 70 in patient with diabetes. Labs done 12/16/2022 showed LDL 73. Continue atorvastatin. This is being followed by her PCP (5) Obesity: Code(s): E66.9 - Obesity, unspecified Qualifiers: Obesity type: due to excess calories Obesity classification: adult class 2 (BMI 35 - 39.9) Serious obesity comorbidity presence: with serious comorbidity Body mass index: BMI 39.0-39.9 Qualified Code(s): E66.01 - Morbid (severe) obesity due to excess calories; Z68.39 - Body mass index [BMI] 39.0-39.9, adult Orders: Orders CA lexiscan stress w max 07/09/23 R07.89 - Other chest pain, Z01.810 - Encounter for preprocedural cardiovascular examination NM cardiolite stress test 07/09/23 R07.89 - Other chest pain Coding Level of Care Code Est Pt Level 4 (54292) Diagnoses Chest discomfort R07.89 Preop cardiovascular exam Z01.810 Benign essential hypertension I10 Pure hypercholesterolemia E78.00 Class 2 severe obesity due to excess calories with serious comorbidity and body mass index (BMI) of 39.0 to 39.9 in adult E66.01; Z68.39 Obesity type: due to excess calories Obesity classification: adult class 2 (BMI 35 - 39.9) Serious obesity comorbidity presence: with serious comorbidity Body mass index: BMI 39.0-39.9 CPT Codes EKG - CPT: [id number], Complete ([id number]) Time Spent (min) 26
== END 2023-07-09 14:48 | disposition home or self-care (01) ==
PROVIDERS: PCP Internal Medicine; Visit Provider Nurse Practitioner Family
DX: R00.1 Bradycardia, unspecified (principal)
CPT/HCPCS: 93010; 99214

== ENCOUNTER → 2023-07-09 14:00 | Outpatient (BNVA) | payer MEDICARE, OTHER, SELFPAY | PROVIDERS: PCP Internal Medicine; Visit Provider Nurse Practitioner Family | DX: Z01.810 Encounter for preprocedural cardiovascular examination (principal); R07.89 Other chest pain; I10 Essential (primary) hypertension; E78.00 Pure hypercholesterolemia, unspecified; E66.9 Obesity, unspecified; Z68.39 Body mass index [BMI] 39.0-39.9, adult; Z79.899 Other long term (current) drug therapy | CPT/HCPCS: 93005; 99212 ==

== ENCOUNTER 2023-07-24 13:52 | Outpatient (AMB) | payer MEDICARE, OTHER, SELFPAY ==
--- NOTE | 2023-07-24 13:57 | MHC.OFFVIS ---
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 Scribed for BERRY Sands by Rylee Abarca health care / medical job titles, on 07/24/2023 at 2:23 pm EST. Loom Fixer Supervisor Required: No Information Interpreted: non-clinical & clinical Software Integration Developer: Software Integration Developer Present (Jada MCQUEEN) Accompanied by: Self / Same As Patient Allergies linagliptin [From TRADJENTA] Allergy (Severe, Verified 07/24/23 14:03) THROAT ITCHING/COUGH Penicillins [PENICILLINS] Allergy (Severe, Verified 07/24/23 14:03) SWELLING/HIVES exenatide [From BYDUREON] Allergy (Intermediate, Verified 07/24/23 14:03) RASH wheat [WHEAT] Allergy (Intermediate, Verified 07/24/23 14:03) RASH latex [Latex] Allergy (Mild, Verified 07/24/23 14:03) SWELLING/ITCH lactose, wheat, corn syrup Allergy (Mild, Uncoded 07/24/23 14:03) rash grass, dogs, cats Allergy (Unknown, Uncoded 07/24/23 14:03) Unknown Post menopausal: Yes HPI HPI Comments History of Present Illness Details She is a postmenopausal woman presenting for annual exam. Patient admits she tries to eat a healthy diet including Calcium and Vitamin D but likes to eat a lot of candy. She does not stay active with exercise due to issues with knees. Currently not sexually active. Admits vaginal itching and irritation. STD screening offered; she accepts. Denies family hx of breast, colon and ovarian cancer. Last pap smear 11/16/17. Last mammogram 09/24/22. UTD on colonoscopy. [facility] Medical History Left knee pain Hx of flexible sigmoidoscopy (~2000) Cyst of right knee joint Right knee pain Injury of toenail GERD without esophagitis Obesity (BMI 30-39.9) Insomnia Osteoarthritis of knees, bilateral Migraine Midline low back pain without sciatica Premature ventricular contractions (PVCs) (VPCs) Benign essential hypertension Asthma Diabetes mellitus Pure hypercholesterolemia Vitamin D deficiency Anxiety GERD (gastroesophageal reflux disease) Obesity Hypertension Dyslipidemia Diabetic neuropathy associated with type 2 diabetes mellitus Diabetes type 2, uncontrolled Neuropathy Surgical History Hx of colonoscopy History of esophagogastroduodenoscopy (EGD) History of laparoscopy Hx of tonsillectomy Hx of tubal ligation Family History Father Bladder cancer Skin cancer Diabetes Hypertension Hyperlipidemia Mother Diabetes CVD (cardiovascular disease) CVA (cerebral vascular accident) Hypertension Social History Household Members Other:: daughter Housing: House Are you a primary home care and home health aides teacher to a significant other at home: No Do you presently have visiting nurse or other home services: No Alcohol intake: never Patient Tobacco Use Status: Never used Tobacco e-Cigarette/Vaping Use: Never Used Second Hand Smoke Exposure: Yes service: No Current occupational status: retired Sexual orientation: Straight/Heterosexual Gender identity: Female Cognitive needs: No Hearing needs: No Vision needs: No Female Reproductive History Menstrual control method: permanent sterilization Total pregnancies: 2 Full term: 2 Number of Living Children: 2 Date of last pap smear: 11/16/17 Date of Mammogram: 09/24/22 Physical Exam Vital Signs: Last Vital Signs BP 126/82 07/24/23 14:01 BMI result Body Mass Index 38.6 Const General: cooperative, healthy appearing, no acute distress, well developed and alert Orientation/consciousness: patient oriented x3 HEENT Head: Yes normal to inspection Eyes General: appearance normal, both eyes and all related structures Neck Neck: Yes normal visual inspection Thyroid: Thyroid normal Chest Chest palpation & inspection: normal inspection of the chest Breast/axilla inspection: normal inspection of the breasts (no puckering, dimpling, peau de orange, retraction, discharge, masses) Breast/axilla palpation: normal palpation of the breasts Resp Effort & Inspection: normal respiratory effort GI Inspection: Yes normal to inspection Palpation (GI): Soft to palpation (to palpation) Rectal Exam - Female: deferred Other: external excoriations General: Yes bladder normal to inspection External Female Exam: normal appearance of the urethra and erythema Speculum Exam - Vagina: normal appearance of the vagina, normal palpation and abnormal vaginal discharge white Speculum Exam - Cervix: normal appearance of the cervix and normal palpation Bimanual exam- vagina & uterus: normal palpation and normal palpation Bimanual Exam- Adnexa, other: normal adnexae and no masses Skin General skin exam: no rashes or lesions noted Neuro General: patient oriented x3 Cognition (Neuro): normal cognition Extrem General: Yes normal to inspection Psych Attitude: cooperative Thought process: Normal thought process present Assessment & Plan Assessment & Plan (1) Encounter for well woman exam: Code(s): Z01.419 - Encounter for gynecological examination (general) (routine) without abnormal findings Plan: Discussed: Current recommendations for pap smears per ASCCP guidelines. Breast awareness and periodic self breast exams. Encouraged yearly mammograms. Maintaining a healthy lifestyle including a well balanced diet including Calcium and Vitamin D and routine exercise. Contact office with any PMB. All of her questions and concerns were addressed to the best of my ability. RTO in 1 year for AG. (2) Vaginal itching: Code(s): N89.8 - Other specified noninflammatory disorders of vagina Plan: BV testing today. Await results and treat accordingly. Rx sent to pharmacy Advised to clean with water only, no soaps to the area, dry well, apply cool cloth, apply Aquaphor or Vaseline if cream kumar- and wait a few days for healing to try again, while waiting for results. Loose cotton clothing/underwear. No scratching or rubbing to allow healing. Orders: Orders Bacterial Vaginosis Panel Today Z01.419 - Encounter for gynecological examination (general) (routine) without abnormal findings Pap Smear Today Z01.419 - Encounter for gynecological examination (general) (routine) without abnormal findings Medications: New clotrimazole-betamethasone 1-0.05 % 1 appl topical BID 45 grams 1RF fungal rash 7 days Coding Level of Care Code Est Pt Prev Care 40-64y(80926) Diagnoses Encounter for well woman exam Z01.419 Vaginal itching N89.8
[2023-07-24 14:01] VITALS: BP 126/82; BMI 38.6
== END 2023-07-24 14:40 | disposition home or self-care (01) ==
PROVIDERS: PCP Internal Medicine; Visit Provider Advanced Practice Midwife
DX: Z01.419 Encounter for gynecological examination (general) (routine) without abnormal findings (principal); N89.8 Other specified noninflammatory disorders of vagina
CPT/HCPCS: 99396

== ENCOUNTER 2023-07-24 13:52 | Outpatient (REF) | payer MEDICARE, OTHER, SELFPAY ==
[2023-07-25 15:34] LABS: BV Int Neg Control Negative (Negative); BV Int Pos Control Positive (Positive)
[2023-07-28 22:19] LABS: HPV mRNA E6/E7 rflx Not Detected (Not Detected)
== END 2023-07-24 13:53 | disposition home or self-care (01) ==
LOC: HO.LNP 13:52
PROVIDERS: PCP Internal Medicine; Visit Provider Advanced Practice Midwife
DX: Z01.419 Encounter for gynecological examination (general) (routine) without abnormal findings (principal); Z11.51 Encounter for screening for human papillomavirus (HPV); N89.8 Other specified noninflammatory disorders of vagina
CPT/HCPCS: 87480; 87510; 87624; 87660; 88142

== ENCOUNTER → 2023-08-24 09:21 | Outpatient (REF) | payer MEDICARE, OTHER, SELFPAY ==
--- NOTE | ~2023-08-24 | NM_ITS ---
Myocardial perfusion study Indication: Chest pain to evaluate for myocardial ischemia Technique: The patient was brought in for a Lexiscan perfusion study on 08/24/2023. Patient performed low-level exercise and was injected 0.4 mg of Lexiscan intravenously. Within a minute of injection, 35 mCi of sestamibi was given intravenously. Images were obtained using the SPECT gamma camera interlaced with the gating device. Images were obtained in supine position. Resting perfusion study was performed on 08/27/2023. Patient was administered 35 mCi of sestamibi intravenously at rest. Images were then obtained in supine position. Images obtained with and without CT attenuation. Total DLP 102 mGy-cm Images were processed with the software and compared side to side in short axis, horizontal long axis and vertical long axis views. Findings: The stress perfusion study showed non attenuated images show normal uptake of radiotracer in all segments of LV myocardium. Attenuation corrected images show mildly reduced uptake in the apex of the LV myocardium.. The gated study shows normal LV systolic function with calculated LVEF of 68%. LV cavity is normal in size. The gated study shows normal systolic wall thickening and contraction of segments. Resting study shows non attenuated images show mildly reduced uptake in the apex of the LV myocardium. Attenuation corrected images show moderately reduced uptake in the apex of the LV myocardium. Gating at rest reveals normal systolic wall motion with visually estimated ejection fraction at greater than 60%. The findings are consistent with normal myocardial perfusion. NM/NM cardiolite stress test Impression: 1. Myocardial perfusion imaging study shows normal myocardial perfusion 2. Gated LVEF is 68% 3. Transient ischemic dilatation not present EKG is nondiagnostic for ischemia
--- NOTE | 2023-08-24 09:26 | CA_ITS ---
Acquisition Time: 2023-08-24 09:31:36 Total Exercise Time: 00:02:33 Test Indications: CP Medications: SEE H Protocol: LEXISCAN Max HR: 116 BPM 72% of Pred: 160 BPM Max BP: 148/082 mmHG Max Work Load: 1.6 METS Pharmacological stress test with Lexiscan injection, while walking 0.8 MPH on treadmill for 2 min, with mild sob, no chest discomfort, without sinus arrythmia at baseline which improved with walking and in recovery, with normotensive response to injection, with nondiagnostic EKG for ischemia. In recovery she was treated with Aminophylline 75mg IVP to reverse Lexiscan with resolution of her shortness of breath. Nuclear images pending. Test reviewed with Dr Clinton Referred By: Ginger Tamez Overread By: GINGER TAMEZ
== END ==
LOC: HO.CARD 09:21
PROVIDERS: PCP Internal Medicine; Visit Provider Nurse Practitioner Family
DX: Z01.810 Encounter for preprocedural cardiovascular examination (principal); R07.89 Other chest pain
CPT/HCPCS: 78452; 93017; A9500; J0280; J2785

== ENCOUNTER → 2023-08-24 09:26 | Outpatient (BNV) | payer MEDICARE, OTHER, SELFPAY | PROVIDERS: PCP Internal Medicine; Visit Provider Nurse Practitioner Family | DX: R07.89 Other chest pain (principal) | CPT/HCPCS: 78452; 93016; 93018 ==

== ENCOUNTER 2023-09-07 13:34 | Outpatient (REF) | payer MEDICARE, OTHER, SELFPAY ==
[2023-09-07 13:53] LABS: MANUAL DIFF FLAG NO
[2023-09-07 14:28] LABS: Basophils Percent Auto 0.4 % (0-2); Eosinophils Absolute Auto 0.2 X10*3/uL (0.0-0.4); Eosinophils Percent Auto 1.7 % (0-4); Hematocrit 40.4 % (37.0-47.0); Hemoglobin 13.2 g/dl (12.0-16.0); Imm Gran Abs Auto 0.03 X10*3/uL (0.00-0.03); Imm Gran Pct Auto 0.3 % (0.0-0.4); Lymphocytes Absolute Auto 2.9 X10*3/uL (1.2-4.9); Lymphocytes Percent Auto 29.2 % (20-40); Mean Corpuscular HGB Conc 32.7 g/dl (31.0-35.0); Mean Corpuscular Hemoglobin 27.2 pg (27.0-33.0); Mean Corpuscular Volume 83.1 fL (80.0-98.0); Mean Platelet Volume 9.6 fL (9.4-12.3); Monocytes Absolute Auto 0.7 X10*3/uL (0.1-1.2); Monocytes Percent Auto 6.6 % (2-11); Neutrophils Absolute Auto 6.1 x10*3/uL (2.0-8.3); Neutrophils Percent Auto 61.8 % (45-73); Platelet Count 411 X10*3/uL (160-400); Red Blood Count 4.86 X10*6/uL (4.20-5.50); Red Cell Distribution Width 14.2 % (11.0-16.0); White Blood Count 9.8 X10*3/uL (4.8-10.8)
[2023-09-07 14:37] LABS: Estimated Average Glucose 160 mg/dL; Hemoglobin A1c % 7.2 % (<6.0)
[2023-09-07 14:57] LABS: Alanine Aminotransferase 21 U/L (0-31); Albumin Level 4.6 g/dL (3.5-5.0); Alkaline Phosphatase 74 U/L (39-117); Anion Gap 16 (12-20); Aspartate Amino Transferase 18 U/L (5-31); Bilirubin Total 0.4 mg/dL (0.0-1.0); Blood Urea Nitrogen 8 mg/dL (9-16); C Reactive Protein 0.51 mg/dL (< or = 0.50); Calcium 10.1 mg/dL (8.4-10.2); Carbon Dioxide 27 mmol/L (22-29); Chloride 99 mmol/L (96-108); Cholesterol 180 mg/dL (<200); Estimated Glomerular Filt Rate > 60; Glucose Fasting 147 mg/dL (60-99); HDL Cholesterol 60 mg/dL (>40); LDL Cholesterol Calculated 92 mg/dL (<100); Sodium 137 mmol/L (135-145); Triglycerides 141 mg/dL (<150)
[2023-09-07 15:04] LABS: Appearance Urine Clear; Color Urine Yellow; Glucose Urine UA Negative (Negative); Leukocyte Esterase Urine Trace (Negative); Nitrite Urine Negative (Negative); PH 7.5 (5.0-9.0); UMIC TRIGGER UACC YES; Urine Blood Negative (Negative); Urine Ketones Negative (Negative); Urine Protein Negative (Neg-Trace)
[2023-09-07 15:10] LABS: Bacteria Urine None Seen (None Seen); Hyaline Casts Urine 0-2 /LPF (0-2); RBC Urine 0-2 /HPF (0-2); Squamous Epithelial Cell Urine 0-2 /HPF (0-2); WBC Urine 0-5 /HPF (0-5)
[2023-09-07 15:11] LABS: Erythrocyte Sedimentation Rate 10 MM/HR (0-20)
[2023-09-07 15:12] LABS: TSH reflex Free T4 0.85 uIU/mL (0.32-4.0); Vitamin D 25-OH Total 79.1 ng/mL (>30)
[2023-09-07 15:20] LABS: Creatinine Urine 36.06 mg/dL; Microalbum/Creatinine Ratio Ur 19.4 ug/mg cr (<30)
[2023-09-07 15:23] LABS: Folate 15.6 ng/mL (> or = 4.0); Vitamin B12 318 pg/mL (200-900)
== END 2023-09-07 13:35 | disposition home or self-care (01) ==
LOC: HO.LAB 13:34
PROVIDERS: PCP Internal Medicine; Visit Provider Internal Medicine
DX: E55.9 Vitamin D deficiency, unspecified (principal); E53.8 Deficiency of other specified B group vitamins; R30.0 Dysuria; E78.00 Pure hypercholesterolemia, unspecified; E11.9 Type 2 diabetes mellitus without complications; M79.7 Fibromyalgia; M17.0 Bilateral primary osteoarthritis of knee
CPT/HCPCS: 36415; 80053; 80061; 81001; 81003; 82043; 82306; 82570; 82607; 82746; 83036; 84443; 85025; 85652; 86140

== ENCOUNTER 2023-09-09 14:58 | Outpatient (AMB) | payer MEDICARE, OTHER, SELFPAY ==
[2023-09-09 15:00] VITALS: BP 138/84; PULSE 80; O2SAT 96; BMI 39.5
--- NOTE | 2023-09-09 15:00 | A.OFFPC_ITS ---
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: No Accompanied by: Self / Same As Patient Allergies linagliptin [From TRADJENTA] Allergy (Severe, Verified 09/09/23 16:06) THROAT ITCHING/COUGH Penicillins [PENICILLINS] Allergy (Severe, Verified 09/09/23 16:06) SWELLING/HIVES exenatide [From BYDUREON] Allergy (Intermediate, Verified 09/09/23 16:06) RASH wheat [WHEAT] Allergy (Intermediate, Verified 09/09/23 16:06) RASH latex [Latex] Allergy (Mild, Verified 09/09/23 16:06) SWELLING/ITCH lactose, wheat, corn syrup Allergy (Mild, Uncoded 09/09/23 16:06) rash grass, dogs, cats Allergy (Unknown, Uncoded 09/09/23 16:06) Unknown Medication List - Last Reconciled 09/09/23 by Jeffrey Terry MD acetaminophen-codeine 300-60 mg 1 tab PO .3 to 4 times a day PRN 30 days albuterol sulfate 2.5 mg (3 mL) inhalation QID PRN 30 days albuterol sulfate 90 mcg/actuation 1 puff inhalation QID PRN amitriptyline 50 mg PO BEDTIME atorvastatin 40 mg PO DAILY 90 days blood pressure monitor As directed blood sugar diagnostic (Augmentrauch Ultra Test strips) As directed 2 times daily cholecalciferol (vitamin D3) 25 mcg PO DAILY citalopram 40 mg PO DAILY clotrimazole-betamethasone 1-0.05 % 1 appl topical BID 7 days gabapentin 800 mg PO QID hydroxyzine HCl 1 tablet 3 times a day and 2 tablets at bedtime PO; 90 days ibuprofen 600 mg PO Q8H PRN 30 days insulin degludec 10 units (0.1 mL) subcut DAILY 90 days lancets (Tactile Systems TechnologyTouch Delica Lancets) 3 times a day losartan 50 mg PO DAILY metformin ER 1,000 mg (2 x 500 mg) PO BID montelukast 10 mg PO BEDTIME zwdygoqg-njs-ihdr-FA-vit K-lut 8 mg iron-400 mcg-50 mcg (Centrum Silver Women) 1 tab PO DAILY omega-3 fatty acids (Fish Oil Concentrate) 1,000 mg PO DAILY omeprazole 20 mg PO BID 30 days pen needle, diabetic (BD Meghann 2nd Gen Pen Needle) Twice a day pen needle, diabetic As directed pioglitazone 30 mg PO DAILY propranolol ER 60 mg PO DAILY 30 days semaglutide 0.5 mg subcut QWEEK temazepam 30 mg PO BEDTIME PRN 30 days tizanidine 4 mg PO TID PRN 90 days tramadol 50 mg PO TID PRN 30 days Tobacco use date assessed: 09/09/23 Dental Screening Dental Screen Date: 09/09/23 Did you have a dental visit in the last 12 months?: Yes Did you have a dental problem in the last 6 months where you did not have access to dental care?: No Was dental information given to patient?: Patient has dentist HPI 4mt f/u HPI Details Patient comes in today for her follow up visit States that she feels okay She denies any headaches or dizziness Denies any chest pains lately, no SOB - would like to know how her stress testing done a couple of weeks ago came out No nausea/vomiting, no abdominal pain No change in bowel habits noted Needs a few of her Rx refilled, including her glucometer test strips Had her follow up labs done a few days ago - to discuss her results [facility] Medical History Left knee pain Hx of flexible sigmoidoscopy (~2000) Cyst of right knee joint Right knee pain Injury of toenail GERD without esophagitis Obesity (BMI 30-39.9) Insomnia Osteoarthritis of knees, bilateral Migraine Midline low back pain without sciatica Premature ventricular contractions (PVCs) (VPCs) Benign essential hypertension Asthma Diabetes mellitus Pure hypercholesterolemia Vitamin D deficiency Anxiety GERD (gastroesophageal reflux disease) Obesity Hypertension Dyslipidemia Diabetic neuropathy associated with type 2 diabetes mellitus Diabetes type 2, uncontrolled Neuropathy Surgical History Hx of colonoscopy History of esophagogastroduodenoscopy (EGD) History of laparoscopy Hx of tonsillectomy Hx of tubal ligation Family History Father Bladder cancer Skin cancer Diabetes Hypertension Hyperlipidemia Mother Diabetes CVD (cardiovascular disease) CVA (cerebral vascular accident) Hypertension Social History Household Members Other:: daughter Housing: House Are you a primary childbirth and infant care teacher to a significant other at home: No Do you presently have visiting nurse or other home services: No Alcohol intake: never Patient Tobacco Use Status: Never used Tobacco e-Cigarette/Vaping Use: Never Used Second Hand Smoke Exposure: Yes service: No Current occupational status: retired Sexual orientation: Straight/Heterosexual Gender identity: Female Cognitive needs: No Hearing needs: No Vision needs: No Questionnaire PHQ-9 Over the last 2 weeks, how often have you been bothered by any of the following problems? 1. Little interest or pleasure in doing things: several days 2. Feeling down, depressed, or hopeless: not at all 3. Trouble falling or staying asleep, or sleeping too much: several days 4. Feeling tired or having little energy: several days 5. Poor appetite or overeating: several days 6. Feeling bad about yourself - or that you are a failure or have let yourself or your family down: several days 7. Trouble concentrating on things, such as reading the newspaper or watching television: not at all 8. Moving or speaking so slowly that other people could have noticed. Or the opposite - being so fidgety or restless that you have been moving around a lot more than usual: not at all 9. Thoughts that you would be better off or of hurting yourself in some way: not at all Total score: 5 Depression Screening Interpretation: Positive Depression Screening Follow-up: Existing condition and In treatment Depression Screening Done: Yes 36879 - PHQ-9 Billing: Yes Source: Developed by Drs. Abdirizak Mai, Dione Mclaughlin, Juan Norwood and colleagues, with an educational palma from [employer]. Thrive Questionnaire Date Thrive assessed: 09/09/23 I am a: Patient What is your living situation today?: I have a steady place to live Within the past 12 months, did the food you bought not last and you didn't have the money to get more?: Never true Within the past 12 months, did you worry whether your food would run out before you got money to buy more?: Never true Do you have trouble paying for medicines?: No Do you have trouble getting transportation to medical appointments?: No Do you have trouble paying your heating and electricity bill?: No Do you have trouble taking care of your child, family member or friend?: No Do you have trouble with day-to-day activities such as bathing, preparing meals, shopping, managing finances, etc.?: No Are you currently unemployed and looking for a job?: No Are you interested in more education?: No Please select the resources that you would like help with: None Currently or been in a relationship where the following occur: no concerns reported AUDIT C Alcohol Use Questionnaire (AUDIT-C) 1. How often do you have a drink containing alcohol?: Never 3. How often do you have six or more drinks on one occasion?: Never Total Score: 0 Score Reviewed/Action Taken: Yes YDANA-7 AMB Questionnaire DYANA-7 Date DYANA - 7 assessed: 09/09/23 Feeling nervous, anxious, or on edge: 0 = Not at all Not being able to stop or control worryin = Not at all Worrying too much about different things: 0 = Not at all Trouble relaxin = Not at all Being so restless that it is hard to sit still: 0 = Not at all Becoming easily annoyed or irritable: 0 = Not at all Feeling afraid as if something awful might happen: 0 = Not at all Total DYANA-7 score (0-4 normal; 5-9 mild; 10-14 moderate; 15-21 severe): 0 Source: Developed by Drs. Abdirizak Mai, Dione Mclaughlin, Juan Norwood and colleagues, with an educational palma from [employer]. Review of Systems Const Denies chills, Reports fatigue, Denies fever(s) and Denies headache(s) ENT Denies dysphagia, Denies dizziness, Denies otalgia, Denies headache(s), Denies neck pain, Denies odynophagia and Denies sore throat Card Denies chest pain, Denies rapid heart rate, Denies irregular heart rhythm, Denies palpitations and Denies dyspnea Resp Denies cough, Denies dyspnea and Denies wheezing GI Denies abdominal pain, Denies constipation, Denies dysphagia, Denies heartburn, Denies diarrhea, Denies nausea, Denies odynophagia and Denies vomiting Denies hematuria, Denies dysuria, Denies urinary incontinence and Denies urinary urgency Musc Reports back pain, Reports arthralgias (both knees), Denies joint swelling and Denies neck pain Skin/Breast Denies rash Neuro Denies dizziness and Denies headache(s) Psych Denies anxiety Endo Reports fatigue and Denies palpitations Aller/Immun Denies wheezing Physical exam (Primary Care) Vital Signs: Last Vital Signs Pulse 80 09/09/23 15:00 BP 138/84 09/09/23 15:00 Pulse Ox 96 09/09/23 15:00 Oxygen Delivery Method Room Air 09/09/23 15:00 BMI result Body Mass Index 39.5 Tobacco/Smoking Status: Tobacco use Status Tobacco use date assessed 09/09/23 09/09/23 15:05 Patient Tobacco Use Status Never used Tobacco 09/09/23 15:05 e-Cigarette/Vaping Use Never Used 09/09/23 15:05 PHQ-9: PHQ-9 Score PHQ-9: Total score 5 09/09/23 15:05 Depression Screening Interpretation: Positive Depression Screening Follow-up: Existing condition and In treatment Thrive Assessment: Date of Thrive Assessment Date Thrive assessed 09/09/23 09/09/23 15:05 Currently or been in a relationship where the following occur: no concerns reported Const General: no acute distress and alert HENMT Ears: TM's normal bilaterally and EAC's normal Throat: Yes posterior oropharynx normal and Yes tonsils normal (no TP congestion) Neck Neck: Yes no lymphadenopathy and Yes supple Resp Auscultation: clear to auscultation bilaterally, no rales and no wheezes Cardio Rate: regular rate Rhythm: regular rhythm Heart sounds: no murmurs GI Palpation (GI): Soft to palpation and nontender Auscultation: normal bowel sounds Back/Spine/Pelvis Thoracic/Lumbar Spine: lumbar spinal tenderness Skin General skin exam: no rashes or lesions noted Extrem General: Yes no clubbing, cyanosis or edema Results Reviewed Results Reviewed: Laboratory Tests 09/07/23 09/07/23 09/07/23 13:48 13:52 13:52 WBC 9.8 Hgb 13.2 Hct 40.4 Plt Count 411 H ESR 10 Sodium 137 Potassium 5.0 Creatinine 0.74 Estimated GFR > 60 Fasting Glucose 147 H Hemoglobin A1c % 7.2 H Calcium 10.1 AST 18 ALT 21 C-Reactive Protein 0.51 H Triglycerides 141 Cholesterol 180 LDL Cholesterol, Calc 92 HDL Cholesterol 60 Vitamin B12 318 25-OH Vitamin D Total 79.1 TSH 0.85 Urine pH 7.5 Ur Specific [place] 1.010 Urine Protein Negative Urine Glucose (UA) Negative Urine Blood Negative Microalb/Creat Ratio 19.4 Assessment and Plan Assessment & Plan (1) Pure hypercholesterolemia: Code(s): E78.00 - Pure hypercholesterolemia, unspecified Plan: Results of her labs done a few days ago reviewed and discussed with patient Reinforced low cholesterol diet Continue Atorvastatin 40 mg QD Will recheck her labs and fasting lipids in 4 months for follow up (2) Diabetes mellitus: Code(s): E11.9 - Type 2 diabetes mellitus without complications Qualifiers: Diabetes mellitus type: type 2 Diabetes mellitus superintendent container terminal insulin use: without superintendent container terminal use Diabetes mellitus complication status: with neurologic complications Diabetes mellitus complication detail: with polyneuropathy Qualified Code(s): E11.42 - Type 2 diabetes mellitus with diabetic polyneuropathy Plan: HgbA1c was at 7.2% on her labs done a few days ago (in-office HgbA1c was at 6.9% previously) - goal is <7.0% Reinforced diabetic diet Continue Pioglitazone 30 gm QD, Metformin ER 500 mg 2 tablets BID, Tresiba Flextouch 10 units Q HS and Ozempic 2 mg/1.5 ml SQ once a week Will recheck her HgbA1c and FBS in 4 months for follow up (3) Benign essential hypertension: Code(s): I10 - Essential (primary) hypertension Plan: Reinforced low sodium diet - goal is systolic BP of 120 mm or less Continue Losartan 25 mg QD (4) Premature ventricular contractions (PVCs) (VPCs): Code(s): I49.3 - Ventricular premature depolarization Plan: Stable; states that she;s had no recurrence of her symptoms recently Continue Propranolol ER 60 mg QD Cardiac stress testing done a couple of weeks ago to evaluate her recent recurrent chest pains came out completely normal Patient states that her recent chest pains have also subsided and have not bothered her lately (5) Asthma: Code(s): J45.909 - Unspecified asthma, uncomplicated Qualifiers: Asthma severity: moderate Asthma persistence: persistent Asthma complication type: uncomplicated Qualified Code(s): J45.40 - Moderate persistent asthma, uncomplicated Plan: Stable with no recent exacerbations Continue Montelukast 10 mg QD, Symbicort 160-4.5 mcg 2 puffs BID and ProAir HFA 108 mcg 2 puffs QID PRN (6) Migraine: Code(s): G43.909 - Migraine, unspecified, not intractable, without status migrainosus Qualifiers: Migraine type: unspecified Status migrainosus presence: without status migrainosus Intractability: not intractable Qualified Code(s): G43.909 - Migraine, unspecified, not intractable, without status migrainosus Plan: Stable - is on Amitriptyline 50 mg Q HS for headache prophylaxis Reinforced avoidance of migraine triggers Continue Fioricet 1 capsule 2 to 3 times a day as needed; per request, will send in Rx for Ibuprofen 600 mg TID PRN with food Follow up with neurology as scheduled (7) GERD without esophagitis: Code(s): K21.9 - Gastro-esophageal reflux disease without esophagitis Plan: Dietary restrictions reinforced Continue Omeprazole 20 mg QD (8) Diabetic neuropathy associated with type 2 diabetes mellitus: Code(s): E11.40 - Type 2 diabetes mellitus with diabetic neuropathy, unspecified Qualifiers: Diabetes mellitus complication detail: diabetic polyneuropathy Qualified Code(s): E11.42 - Type 2 diabetes mellitus with diabetic polyneuropathy Plan: Continue Gabapentin 800 mg TID, Tramadol 50 mg TID PRN, and Acetaminophen- Codeine #4 tablets, 300-60 mg 1 tablet 3 to 4 times a day as needed for pain, 30 days, #129 tablets (9) Midline low back pain without sciatica: Code(s): M54.5 - Low back pain Qualifiers: Chronicity: unspecified Qualified Code(s): M54.5 - Low back pain Plan: Reinforced activity and weight-lifting restrictions to avoid aggravating her lo wer back symptoms Continue Tizanidine 4 mg 1 to 2 tablets TID PRN (10) Osteoarthritis of knees, bilateral: Code(s): M17.0 - Bilateral primary osteoarthritis of knee Qualifiers: Osteoarthritis type: primary Qualified Code(s): M17.0 - Bilateral primary osteoarthritis of knee Plan: X-rays of both knees last done in November 2019 showed (+) mild OA changes in the right knee and moderate OA changes in the left knee Is now seeing orthopedics for her knee issues and recently started getting cortisone injections in her knees, with some relief of her symptoms (11) Vitamin D deficiency: Code(s): E55.9 - Vitamin D deficiency, unspecified Plan: Continue Vitamin D3 1000 units QD (12) Insomnia: Code(s): G47.00 - Insomnia, unspecified Qualifiers: Insomnia type: unspecified Qualified Code(s): G47.00 - Insomnia, unspecified Plan: Sleep hygiene reinforced Continue Temazepam 30 mg QHS PRN and Amitriptyline 50 mg Q HS (13) Anxiety: Code(s): F41.9 - Anxiety disorder, unspecified Plan: Continue Hydroxyzine 25 mg TID PRN and Citalopram 40 mg QD (14) Obesity (BMI 30-39.9): Code(s): E66.9 - Obesity, unspecified Plan: Reinforced diet/exercise as tolerated/lose weight Plan Follow up in 4 months Orders: Orders Comprehensive [place]. Panel Fast 4 Months E78.00 - Pure hypercholesterolemia, unspecified TSH reflex Free T4 4 Months E78.00 - Pure hypercholesterolemia, unspecified Complete Blood Count Auto Diff 4 Months I10 - Essential (primary) hypertension Lipid Panel 4 Months E78.00 - Pure hypercholesterolemia, unspecified Microalbumin, Random (w Creat) 4 Months E11.9 - Type 2 diabetes mellitus without complications Hemoglobin A1c 4 Months E11.9 - Type 2 diabetes mellitus without complications UA CC w/rflx Micro + Cult 4 Months R30.0 - Dysuria Vitamin D 25-OH Total 4 Months E55.9 - Vitamin D deficiency, unspecified Medications: New blood sugar diagnostic (FreeStyle Precision Bob Strips) As directed once a day 100 ea 0RF E11.65 - Type 2 diabetes mellitus with hyperglycemia Refilled temazepam 30 mg PO BEDTIME PRN 30 caps 1RF sleep 30 days acetaminophen-codeine 300-60 mg 1 tab PO .3 to 4 times a day PRN 120 tabs 0RF pain 30 days tramadol 50 mg PO TID PRN 90 tabs 1RF pain 30 days Coding Level of Care Code Est Pt Level 4 (98152) Diagnoses Pure hypercholesterolemia E78.00 Type 2 diabetes mellitus with diabetic polyneuropathy, without long-term current use of insulin E11.42 Diabetes mellitus type: type 2 Diabetes mellitus custodial insulin use: without superintendent container terminal use Diabetes mellitus complication status: with neurologic complications Diabetes mellitus complication detail: with polyneuropathy Benign essential hypertension I10 Premature ventricular contractions (PVCs) (VPCs) I49.3 Moderate persistent asthma without complication J45.40 Asthma severity: moderate Asthma persistence: persistent Asthma complication type: uncomplicated Migraine without status migrainosus, not intractable, unspecified migraine type G43.909 Migraine type: unspecified Status migrainosus presence: without status migrainosus Intractability: not intractable GERD without esophagitis K21.9 Diabetic polyneuropathy associated with type 2 diabetes mellitus E11.42 Diabetes mellitus complication detail: diabetic polyneuropathy Midline low back pain without sciatica, unspecified chronicity M54.5 Chronicity: unspecified Primary osteoarthritis of both knees M17.0 Osteoarthritis type: primary Vitamin D deficiency E55.9 Insomnia, unspecified type G47.00 Insomnia type: unspecified Anxiety F41.9 Obesity (BMI 30-39.9) E66.9
== END 2023-09-09 16:18 | disposition home or self-care (01) ==
PROVIDERS: PCP Internal Medicine; Visit Provider Internal Medicine
DX: E78.00 Pure hypercholesterolemia, unspecified (principal); E11.42 Type 2 diabetes mellitus with diabetic polyneuropathy; I10 Essential (primary) hypertension; I49.3 Ventricular premature depolarization; J45.40 Moderate persistent asthma, uncomplicated; G43.909 Migraine, unspecified, not intractable, without status migrainosus; K21.9 Gastro-esophageal reflux disease without esophagitis; M54.50 Low back pain, unspecified; M17.0 Bilateral primary osteoarthritis of knee; E55.9 Vitamin D deficiency, unspecified; G47.00 Insomnia, unspecified; F41.9 Anxiety disorder, unspecified
CPT/HCPCS: 99214

== ENCOUNTER 2023-12-10 12:22 | Outpatient (AMB) | payer MEDICARE, OTHER, SELFPAY ==
--- NOTE | 2023-12-10 13:15 | AM.OFFWIN_ITS ---
Intake Vital Signs 12/10/23 13:16 Height 5 ft 3 in Weight 223 lb BMI 39.5 BP 130/84 Blood Pressure Location Lt brachial Position Sitting Pulse 83 Pulse Source Pulse Oximeter Temp 98.0 F Temp Source Oral Pulse Oximetry (%) 97 Oxygen Delivery Method Room Air Intake Visit Reasons: EST/cough for 3 weeks (lobby masked) Intake Note: pt is here for c.o cough for 3 weeks Patient Tobacco Use Status: Never used Tobacco Allergies linagliptin [From TRADJENTA] Allergy (Severe, Verified 12/10/23 13:16) THROAT ITCHING/COUGH Penicillins [PENICILLINS] Allergy (Severe, Verified 12/10/23 13:16) SWELLING/HIVES exenatide [From BYDUREON] Allergy (Intermediate, Verified 12/10/23 13:16) RASH wheat [WHEAT] Allergy (Intermediate, Verified 12/10/23 13:16) RASH latex [Latex] Allergy (Mild, Verified 12/10/23 13:16) SWELLING/ITCH lactose, wheat, corn syrup Allergy (Mild, Uncoded 09/09/23 16:06) rash grass, dogs, cats Allergy (Unknown, Uncoded 09/09/23 16:06) Unknown Do you need a note to return to daycare/school/sports/work: No HPI HPI Comments History of Present Illness Details 58 y/o female patient who presents to [facility] in clinic with c/o cough x 3 weeks. PFSH Medical History Left knee pain Hx of flexible sigmoidoscopy (~2000) Cyst of right knee joint Right knee pain Injury of toenail GERD without esophagitis Obesity (BMI 30-39.9) Insomnia Osteoarthritis of knees, bilateral Migraine Midline low back pain without sciatica Premature ventricular contractions (PVCs) (VPCs) Benign essential hypertension Asthma Diabetes mellitus Pure hypercholesterolemia Vitamin D deficiency Anxiety GERD (gastroesophageal reflux disease) Obesity Hypertension Dyslipidemia Diabetic neuropathy associated with type 2 diabetes mellitus Diabetes type 2, uncontrolled Neuropathy Surgical History Hx of colonoscopy History of esophagogastroduodenoscopy (EGD) History of laparoscopy Hx of tonsillectomy Hx of tubal ligation Family History Father Bladder cancer Skin cancer Diabetes Hypertension Hyperlipidemia Mother Diabetes CVD (cardiovascular disease) CVA (cerebral vascular accident) Hypertension Social History Household Members Other:: daughter Housing: House Are you a primary intensive care specialist to a significant other at home: No Do you presently have visiting nurse or other home services: No Alcohol intake: never Patient Tobacco Use Status: Never used Tobacco e-Cigarette/Vaping Use: Never Used Second Hand Smoke Exposure: Yes service: No Current occupational status: retired Sexual orientation: Straight/Heterosexual Gender identity: Female Cognitive needs: No Hearing needs: No Vision needs: No Review of Systems Const All systems reviewed & are unremarkable except as noted in HPI and below Physical Exam Vital Signs: Last Vital Signs Temp 98.0 F 12/10/23 13:16 Pulse 83 12/10/23 13:16 BP 130/84 12/10/23 13:16 Pulse Ox 97 12/10/23 13:16 Oxygen Delivery Method Room Air 12/10/23 13:16 BMI result Body Mass Index 39.5 Const General: comfortable and no acute distress Nutritional Appearance: obese HEENT Head: Yes normocephalic Ears: external ears normal and TM's normal bilaterally General nose exam: Abnormal mucous membranes and turbinates present boggy and erythematous Face and sinus: Yes sinuses nontender Mouth: moist mucous membranes Resp Effort & Inspection: normal respiratory effort, able to speak in complete sentences and Actively coughing Auscultation: clear to auscultation bilaterally, no crackles, no rales, no rhonchi and no wheezes Cardio Rate: regular rate Rhythm: regular rhythm Assessment & Plan Assessment & Plan (1) Cough in adult: Code(s): R05.9 - Cough, unspecified Plan: - OTC cough remedies. - Chest Xray Orders: Orders XR chest 2V Today R05.9 - Cough, unspecified Coding Level of Care Code Est Pt Level 3 (35008) Diagnoses Cough in adult R05.9 Time Spent (min) 15
[2023-12-10 13:16] VITALS: BP 130/84; PULSE 83; TEMP 36.7; O2SAT 97; BMI 39.5
== END 2023-12-10 15:15 | disposition home or self-care (01) ==
PROVIDERS: PCP Internal Medicine; Visit Provider Nurse Practitioner Family
DX: R05.9 Cough, unspecified (principal)
CPT/HCPCS: 99213

== ENCOUNTER 2023-12-10 13:40 | Outpatient (REF) | payer MEDICARE, OTHER, SELFPAY ==
--- NOTE | ~2023-12-10 | XR_ITS ---
EXAMINATION: XR CHEST CLINICAL INFORMATION: Cough COMPARISON: Previous dated 12/17/2020 and 27 TECHNIQUE: 2 views of the chest were obtained. FINDINGS: No acute finding. The lung milligan are comparable to previous. Some platelike change at the right greater than left base is likely chronic atelectasis. No effusion. The cardiac silhouette is within normal limits. Mildly tortuous versus ectatic arch and descending aorta. The hilar regions are felt to be comparable. XR/XR chest 2V IMPRESSION: No acute finding. Chronic basilar markings are noted
== END 2023-12-10 13:41 | disposition home or self-care (01) ==
LOC: HO.HMGCX 13:40
PROVIDERS: PCP Internal Medicine; Visit Provider Nurse Practitioner Family
DX: R05.9 Cough, unspecified (principal)
CPT/HCPCS: 71046

== ENCOUNTER 2024-03-25 12:01 | Outpatient (REF) | payer MEDICARE, OTHER, SELFPAY ==
[2024-03-25 12:26] LABS: MANUAL DIFF FLAG NO
[2024-03-25 12:40] LABS: Basophils Percent Auto 0.3 % (0-2); Eosinophils Absolute Auto 0.2 X10*3/uL (0.0-0.4); Eosinophils Percent Auto 2.6 % (0-4); Hematocrit 36.1 % (37.0-47.0); Imm Gran Abs Auto 0.04 X10*3/uL (0.00-0.03); Imm Gran Pct Auto 0.5 % (0.0-0.4); Lymphocytes Absolute Auto 2.7 X10*3/uL (1.2-4.9); Lymphocytes Percent Auto 35.4 % (20-40); Mean Corpuscular HGB Conc 33.2 g/dl (31.0-35.0); Mean Corpuscular Volume 84.1 fL (80.0-98.0); Mean Platelet Volume 10.1 fL (9.4-12.3); Monocytes Absolute Auto 0.6 X10*3/uL (0.1-1.2); Monocytes Percent Auto 8.2 % (2-11); Neutrophils Absolute Auto 4.1 x10*3/uL (2.0-8.3); Platelet Count 363 X10*3/uL (160-400); Red Blood Count 4.29 X10*6/uL (4.20-5.50); Red Cell Distribution Width 14.4 % (11.0-16.0); White Blood Count 7.7 X10*3/uL (4.8-10.8)
[2024-03-25 13:20] LABS: Alanine Aminotransferase 25 U/L (0-31); Albumin Level 4.4 g/dL (3.5-5.0); Alkaline Phosphatase 67 U/L (39-117); Anion Gap 13 (12-20); Aspartate Amino Transferase 22 U/L (5-31); Bilirubin Total 0.4 mg/dL (0.0-1.0); Blood Urea Nitrogen 10 mg/dL (9-16); Calcium 9.8 mg/dL (8.4-10.2); Carbon Dioxide 29 mmol/L (22-29); Chloride 98 mmol/L (96-108); Cholesterol 166 mg/dL (<200); Estimated Glomerular Filt Rate > 60; Glucose Fasting 146 mg/dL (60-99); HDL Cholesterol 60 mg/dL (>40); LDL Cholesterol Calculated 76 mg/dL (<100); Potassium 4.5 mmol/L (3.3-5.1); Sodium 135 mmol/L (135-145); Total Protein 7.5 g/dL (6.5-8.0); Triglycerides 150 mg/dL (<150)
[2024-03-25 13:52] LABS: TSH reflex Free T4 1.25 uIU/mL (0.32-4.0); Vitamin D 25-OH Total 68.7 ng/mL (>30)
[2024-03-25 14:24] LABS: Estimated Average Glucose 163 mg/dL; Hemoglobin A1c % 7.3 % (<6.0)
[2024-03-25 15:11] LABS: Creatinine Urine 94.63 mg/dL; Microalbum/Creatinine Ratio Ur 43.3 ug/mg cr (<30)
[2024-03-25 15:47] LABS: Appearance Urine Clear; Color Urine Yellow; Glucose Urine UA Negative (Negative); Leukocyte Esterase Urine Moderate (2+) (Negative); Nitrite Urine Negative (Negative); UMIC TRIGGER UACC YES; Urine Blood Negative (Negative); Urine Ketones Negative (Negative); Urine Protein Negative (Neg-Trace)
[2024-03-25 16:02] LABS: Bacteria Urine None Seen (None Seen); RBC Urine 0-2 /HPF (0-2); UACC Culture Trigger YES
== END 2024-03-25 12:02 | disposition home or self-care (01) ==
LOC: HO.LAB 12:01
PROVIDERS: PCP Internal Medicine; Visit Provider Internal Medicine
DX: E78.00 Pure hypercholesterolemia, unspecified (principal); E11.9 Type 2 diabetes mellitus without complications; E55.9 Vitamin D deficiency, unspecified; I10 Essential (primary) hypertension; R82.90 Unspecified abnormal findings in urine
CPT/HCPCS: 36415; 80053; 80061; 81001; 82043; 82306; 82570; 83036; 84443; 85025; 87086; 87088; 87186

== ENCOUNTER 2024-03-30 16:05 | Outpatient (AMB) | payer MEDICARE, OTHER, SELFPAY ==
[2024-03-30 16:06] VITALS: BP 118/68; PULSE 79; O2SAT 97; BMI 39.0
--- NOTE | 2024-03-30 16:06 | A.OFFPC_ITS ---
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 Allergies linagliptin [From TRADJENTA] Allergy (Severe, Verified 03/30/24 16:49) THROAT ITCHING/COUGH Penicillins [PENICILLINS] Allergy (Severe, Verified 03/30/24 16:49) SWELLING/HIVES exenatide [From BYDUREON] Allergy (Intermediate, Verified 03/30/24 16:49) RASH wheat [WHEAT] Allergy (Intermediate, Verified 03/30/24 16:49) RASH latex [Latex] Allergy (Mild, Verified 03/30/24 16:49) SWELLING/ITCH lactose, wheat, corn syrup Allergy (Mild, Uncoded 03/30/24 16:49) rash grass, dogs, cats Allergy (Unknown, Uncoded 03/30/24 16:49) Unknown Medication List - Last Reconciled 03/30/24 by Jeffrey Terry MD albuterol sulfate 2.5 mg (3 mL) inhalation QID PRN 30 days albuterol sulfate 90 mcg/actuation 1 puff inhalation QID PRN amitriptyline 50 mg PO BEDTIME atorvastatin 40 mg PO DAILY 90 days Basaglar KwikPen U-100 Insulin (insulin glargine) 10 units (0.1 mL) subcut QPM 90 days NS blood pressure monitor As directed blood sugar diagnostic (FreeStyle Precision Bob Strips) As directed once a day blood sugar diagnostic (OneTouch Ultra Test strips) As directed 2 times daily cholecalciferol (vitamin D3) 25 mcg PO DAILY citalopram 40 mg PO DAILY clotrimazole-betamethasone 1-0.05 % 1 appl topical BID 7 days gabapentin 800 mg PO QID hydroxyzine HCl 1 tablet 3 times a day and 2 tablets at bedtime PO; 90 days ibuprofen 600 mg PO Q8H PRN 30 days lancets (OneTouch Delica Lancets) 3 times a day losartan 50 mg PO DAILY metformin ER 1,000 mg (2 x 500 mg) PO BID montelukast 10 mg PO BEDTIME yvxyilwi-fyj-xunu-FA-vit K-lut 8 mg iron-400 mcg-50 mcg (Centrum Silver Women) 1 tab PO DAILY omega-3 fatty acids (Fish Oil Concentrate) 1,000 mg PO DAILY omeprazole 20 mg PO BID 30 days pen needle, diabetic (BD Meghann 2nd Gen Pen Needle) Twice a day pen needle, diabetic As directed cbleljzyirkzb-FO-okeknawonyl 5-10-100 mg/5 mL (Adult Robitussin Peak Cold M-S) 10 mL PO Q4H PRN pioglitazone 30 mg PO DAILY propranolol ER 60 mg PO DAILY 30 days semaglutide 0.5 mg subcut QWEEK temazepam 30 mg PO BEDTIME PRN 30 days tizanidine 4 mg PO TID PRN 90 days tramadol 50 mg PO TID PRN 30 days Tobacco use date assessed: 03/30/24 Dental Screening Dental Screen Date: 03/30/24 HPI 4mth f/u HPI Details Patient comes in today for her follow up visit States that she has been experiencing increased pain in her right knee for a while now and it is now starting to affect her mobility She was apparently seen by orthopedics for her knee last year and was recommended to undergo TKA but she backed out at the last minute as she was concerned about who is going to help take care of her post-op Adds that she has been experiencing increased allergy symptoms lately (sneezing, runny nose, itchy eyes) She has been taking OTC Benadryl lately with little relief and would like to get something better to help with her allergies States that she feels okay otherwise She denies any headaches or dizziness; denies any fever or sore throat Denies any chest pains, no increased SOB No nausea/vomiting, no abdominal pain No change in bowel habits noted Had her follow up labs done a few days ago - to discuss her results [facility] Medical History (Updated 03/31/24 @ 02:24 by Jeffrey Terry MD) Allergic rhinitis Left knee pain Hx of flexible sigmoidoscopy (~2000) Cyst of right knee joint Right knee pain Injury of toenail GERD without esophagitis Obesity (BMI 30-39.9) Insomnia Osteoarthritis of knees, bilateral Migraine Midline low back pain without sciatica Premature ventricular contractions (PVCs) (VPCs) Benign essential hypertension Asthma Diabetes mellitus Pure hypercholesterolemia Vitamin D deficiency Anxiety GERD (gastroesophageal reflux disease) Obesity Hypertension Dyslipidemia Diabetic neuropathy associated with type 2 diabetes mellitus Diabetes type 2, uncontrolled Neuropathy Surgical History Hx of colonoscopy History of esophagogastroduodenoscopy (EGD) History of laparoscopy Hx of tonsillectomy Hx of tubal ligation Family History Father Bladder cancer Skin cancer Diabetes Hypertension Hyperlipidemia Mother Diabetes CVD (cardiovascular disease) CVA (cerebral vascular accident) Hypertension Social History Household Members Other:: daughter Housing: House Are you a primary daycare provider to a significant other at home: No Do you presently have visiting nurse or other home services: No Alcohol intake: never Patient Tobacco Use Status: Never used Tobacco e-Cigarette/Vaping Use: Never Used Second Hand Smoke Exposure: Yes service: No Current occupational status: retired Sexual orientation: Straight/Heterosexual Gender identity: Female Cognitive needs: No Hearing needs: No Vision needs: No Questionnaire PHQ-9 Over the last 2 weeks, how often have you been bothered by any of the following problems? 1. Little interest or pleasure in doing things: several days 2. Feeling down, depressed, or hopeless: not at all 3. Trouble falling or staying asleep, or sleeping too much: several days 4. Feeling tired or having little energy: several days 5. Poor appetite or overeating: several days 6. Feeling bad about yourself - or that you are a failure or have let yourself or your family down: several days 7. Trouble concentrating on things, such as reading the newspaper or watching television: not at all 8. Moving or speaking so slowly that other people could have noticed. Or the opposite - being so fidgety or restless that you have been moving around a lot more than usual: not at all 9. Thoughts that you would be better off or of hurting yourself in some way: not at all Total score: 5 Depression Screening Interpretation: Positive Depression Screening Follow-up: Existing condition and In treatment Depression Screening Done: Yes 15585 - PHQ-9 Billing: Yes Source: Developed by Drs. Abdirizak Mai, Juan Keith and colleagues, with an educational palma from [employer]. Thrive Questionnaire Date Thrive assessed: 03/30/24 I am a: Patient What is your living situation today?: I have a steady place to live Within the past 12 months, did the food you bought not last and you didn't have the money to get more?: Never true Within the past 12 months, did you worry whether your food would run out before you got money to buy more?: Never true Do you have trouble paying for medicines?: No Do you have trouble getting transportation to medical appointments?: No Do you have trouble paying your heating and electricity bill?: No Do you have trouble taking care of your child, family member or friend?: No Do you have trouble with day-to-day activities such as bathing, preparing meals, shopping, managing finances, etc.?: No Are you currently unemployed and looking for a job?: No Are you interested in more education?: No Please select the resources that you would like help with: None Currently or been in a relationship where the following occur: no concerns reported THRIVE Score: 0 AUDIT C Alcohol Use Questionnaire (AUDIT-C) 1. How often do you have a drink containing alcohol?: Never 3. How often do you have six or more drinks on one occasion?: Never Total Score: 0 Score Reviewed/Action Taken: Yes DYANA-7 AMB Questionnaire DYANA-7 Date DYANA - 7 assessed: 09/09/23 Feeling nervous, anxious, or on edge: 0 = Not at all Not being able to stop or control worryin = Not at all Worrying too much about different things: 0 = Not at all Trouble relaxin = Not at all Being so restless that it is hard to sit still: 0 = Not at all Becoming easily annoyed or irritable: 0 = Not at all Feeling afraid as if something awful might happen: 0 = Not at all Total DYANA-7 score (0-4 normal; 5-9 mild; 10-14 moderate; 15-21 severe): 0 Source: Developed by Drs. Abdirizak Mai, Juan Keith and colleagues, with an educational palma from [employer]. Review of Systems Const Denies chills, Denies fatigue, Denies fever(s) and Denies headache(s) Eyes Reports itchy eyes ENT Denies dysphagia, Denies dizziness, Denies otalgia, Denies headache(s), Reports nasal discharge (on and off), Denies neck pain, Denies odynophagia and Denies sore throat Card Denies chest pain, Denies rapid heart rate, Denies irregular heart rhythm, Denies palpitations and Denies dyspnea Resp Denies cough, Denies dyspnea and Denies wheezing GI Denies abdominal pain, Denies constipation, Denies dysphagia, Denies heartburn, Denies diarrhea, Denies nausea, Denies odynophagia and Denies vomiting Denies hematuria, Denies dysuria, Denies urinary incontinence and Denies urinary urgency Musc Reports back pain, Reports arthralgias (both knees, worse on the right knee), Denies joint swelling and Denies neck pain Skin/Breast Denies rash Neuro Denies dizziness and Denies headache(s) Psych Denies anxiety Endo Denies fatigue and Denies palpitations Aller/Immun Reports itchy eyes, Reports seasonal rhinorrhea and Denies wheezing Physical exam (Primary Care) Vital Signs: Last Vital Signs Pulse 79 03/30/24 16:06 BP 118/68 03/30/24 16:06 Pulse Ox 97 03/30/24 16:06 Oxygen Delivery Method Room Air 03/30/24 16:06 BMI result Body Mass Index 39.0 Tobacco/Smoking Status: Tobacco use Status Tobacco use date assessed 03/30/24 03/30/24 16:08 Patient Tobacco Use Status Never used Tobacco 03/30/24 16:08 e-Cigarette/Vaping Use Never Used 03/30/24 16:08 Depression Screening Interpretation: Positive Depression Screening Follow-up: Existing condition and In treatment Thrive Assessment: Date of Thrive Assessment Date Thrive assessed 03/30/24 03/30/24 16:08 Currently or been in a relationship where the following occur: no concerns reported Const General: no acute distress and alert HENMT Ears: TM's normal bilaterally and EAC's normal Throat: Yes posterior oropharynx normal and Yes tonsils normal (no TP congestion) Neck Neck: Yes no lymphadenopathy and Yes supple Thyroid: Thyroid normal Resp Auscultation: clear to auscultation bilaterally, no rales and no wheezes Cardio Rate: regular rate Rhythm: regular rhythm Heart sounds: no murmurs GI Palpation (GI): Soft to palpation and nontender Auscultation: normal bowel sounds General: Yes no CVA tenderness Back/Spine/Pelvis Back: no CVA tenderness Thoracic/Lumbar Spine: lumbar spinal tenderness Skin General skin exam: no rashes or lesions noted Extrem General: Yes no clubbing, cyanosis or edema Right lower extremity: knee Details: tenderness Results Reviewed Results Reviewed: Laboratory Tests 03/25/24 03/25/24 12:16 12:24 WBC 7.7 Hgb 12.0 Hct 36.1 L Plt Count 363 Sodium 135 Potassium 4.5 Creatinine 0.75 Estimated GFR > 60 Fasting Glucose 146 H Hemoglobin A1c % 7.3 H Calcium 9.8 AST 22 ALT 25 Triglycerides 150 H Cholesterol 166 LDL Cholesterol, Calc 76 HDL Cholesterol 60 25-OH Vitamin D Total 68.7 TSH 1.25 Ur Specific Pisek 1.020 Urine Protein Negative Urine Glucose (UA) Negative Urine Blood Negative Urine Nitrite Negative Ur Leukocyte Esterase Moderate (2+) H Microalb/Creat Ratio 43.3 H Assessment and Plan Assessment & Plan (1) Pure hypercholesterolemia: Code(s): E78.00 - Pure hypercholesterolemia, unspecified Plan: Results of her labs done a few days ago reviewed and discussed with patient Reinforced low cholesterol diet Continue Atorvastatin 40 mg QD Will recheck her labs and fasting lipids in 4 months for follow up (2) Diabetes mellitus: Code(s): E11.9 - Type 2 diabetes mellitus without complications Qualifiers: Diabetes mellitus complication detail: with polyneuropathy Diabetes mellitus complication status: with neurologic complications Diabetes mellitus intermediate frame tender insulin use: without mcc use Diabetes mellitus type: type 2 Qualified Code(s): E11.42 - Type 2 diabetes mellitus with diabetic polyneuropathy Plan: Her HgbA1c was at 7.3% on her labs done a few days ago (was previously at 7.2% back in August 2023) - goal is <7.0% Reinforced diabetic diet Continue Pioglitazone 30 gm QD, Metformin ER 500 mg 2 tablets BID, Tresiba Flextouch 10 units Q HS and Ozempic 2 mg/1.5 ml SQ once a week for now Will recheck her HgbA1c and FBS in 4 months for follow up (3) Diabetic neuropathy associated with type 2 diabetes mellitus: Code(s): E11.40 - Type 2 diabetes mellitus with diabetic neuropathy, unspecified Qualifiers: Diabetes mellitus complication detail: diabetic polyneuropathy Qualified Code(s): E11.42 - Type 2 diabetes mellitus with diabetic polyneuropa thy Plan: Continue Gabapentin 800 mg TID, Tramadol 50 mg TID PRN, and Acetaminophen- Codeine #4 tablets, 300-60 mg 1 tablet 3 to 4 times a day as needed for pain, 30 days, #129 tablets (4) Benign essential hypertension: Code(s): I10 - Essential (primary) hypertension Plan: Reinforced low sodium diet - goal is systolic BP of 120 mm or less Continue Losartan 50 mg QD (5) Premature ventricular contractions (PVCs) (VPCs): Code(s): I49.3 - Ventricular premature depolarization Plan: Stable; states that she;s had no recurrence of her symptoms recently Continue Propranolol ER 60 mg QD Cardiac stress testing done a few months ago to evaluate her recent recurrent chest pains came out completely normal Patient states that her recent chest pains have also subsided and have not bothered her lately (6) Asthma: Code(s): J45.909 - Unspecified asthma, uncomplicated Qualifiers: Asthma complication type: uncomplicated Asthma persistence: persistent Asthma severity: moderate Qualified Code(s): J45.40 - Moderate persistent asthma, uncomplicated Plan: Stable with no recent exacerbations Continue Montelukast 10 mg QD, Symbicort 160-4.5 mcg 2 puffs BID and ProAir HFA 108 mcg 2 puffs QID PRN (7) Allergic rhinitis: Code(s): J30.9 - Allergic rhinitis, unspecified Qualifiers: Allergic rhinitis trigger: unspecified Allergic rhinitis seasonality: seasonal Qualified Code(s): J30.2 - Other seasonal allergic rhinitis Plan: Continue Montelukast 10 mg QD Will start her as well on Cetirizine 10 mg QD PRN (8) Migraine: Code(s): G43.909 - Migraine, unspecified, not intractable, without status migrainosus Qualifiers: Intractability: not intractable Migraine type: unspecified Status migrainosus presence: without status migrainosus Qualified Code(s): G43.909 - Migraine, unspecified, not intractable, without status migrainosus Plan: Stable - is on Amitriptyline 50 mg Q HS for headache prophylaxis Reinforced avoidance of migraine triggers Continue Fioricet 1 capsule 2 to 3 times a day as needed Follow up with neurology as scheduled (9) GERD without esophagitis: Code(s): K21.9 - Gastro-esophageal reflux disease without esophagitis Plan: Dietary restrictions reinforced Continue Omeprazole 20 mg QD (10) Osteoarthritis of knees, bilateral: Code(s): M17.0 - Bilateral primary osteoarthritis of knee Qualifiers: Osteoarthritis type: primary Qualified Code(s): M17.0 - Bilateral primary osteoarthritis of knee Plan: X-rays of both knees last done in November 2019 showed (+) mild OA changes in the right knee and moderate OA changes in the left knee She was seeing orthopedics for her knee issues and was getting cortisone injections in her knees last year, with some relief of her symptoms but she has not been back to see orthopedics lately TKA of the right knee was discussed last year and arrangements were being made for her to undergo surgery but she backed out at the last minute as she became concerned about her post-op situation at home and does not know if she will have anybody to help take care of her post-op Is advised that if she has no available family members to help with this, there are arrangements that can be made with [facility] or other agencies for this and that these will be addressed with her once her surgery is on the way Will refer her back to orthopedics for follow up and to restart arrangements for knee replacement surgery, if still appropriate (11) Midline low back pain without sciatica: Code(s): M54.5 - Low back pain Qualifiers: Chronicity: unspecified Qualified Code(s): M54.5 - Low back pain Plan: Reinforced activity and weight-lifting restrictions to avoid aggravating her lower back symptoms Continue Tizanidine 4 mg 1 to 2 tablets TID PRN (12) Vitamin D deficiency: Code(s): E55.9 - Vitamin D deficiency, unspecified Plan: Continue Vitamin D3 1000 units QD (13) Insomnia: Code(s): G47.00 - Insomnia, unspecified Qualifiers: Insomnia type: unspecified Qualified Code(s): G47.00 - Insomnia, unspecified Plan: Sleep hygiene reinforced Continue Temazepam 30 mg QHS PRN and Amitriptyline 50 mg Q HS (14) Anxiety: Code(s): F41.9 - Anxiety disorder, unspecified Plan: Continue Hydroxyzine 25 mg TID PRN and Citalopram 40 mg QD (15) Obesity (BMI 30-39.9): Code(s): E66.9 - Obesity, unspecified Plan: Reinforced diet; weight loss and exercise are unrealistic at this time due to patient's worsening physical issues Plan Follow up in 4 months Orders: Orders Complete Blood Count Auto Diff 4 Months D64.9 - Anemia, unspecified Comprehensive Lamar. Panel Fast 4 Months E78.00 - Pure hypercholesterolemia, unspecified Microalbumin, Random (w Creat) 4 Months E11.9 - Type 2 diabetes mellitus without complications Vitamin D 25-OH Total 4 Months E55.9 - Vitamin D deficiency, unspecified Hemoglobin A1c 4 Months E11.9 - Type 2 diabetes mellitus without complications Lipid Panel 4 Months E78.00 - Pure hypercholesterolemia, unspecified TSH reflex Free T4 4 Months E78.00 - Pure hypercholesterolemia, unspecified UA CC w/rflx Micro + Cult 4 Months R30.0 - Dysuria Vitamin B12 and Folate 4 Months E53.8 - Deficiency of other specified B group vitamins Referrals Orthopedics Referral M17.11 - Unilateral primary osteoarthritis, right knee Medications: New cetirizine 10 mg PO DAILY 90 days PRN 90 tabs 3RF allergy symptoms Coding Level of Care Code Est Pt Level 4 (83395) Complex EM visit Add On G2211 Diagnoses Pure hypercholesterolemia E78.00 Type 2 diabetes mellitus with diabetic polyneuropathy, without long-term current use of insulin E11.42 Diabetes mellitus complication detail: with polyneuropathy Diabetes mellitus complication status: with neurologic complications Diabetes mellitus intermediate frame tender insulin use: without mcc use Diabetes mellitus type: type 2 Diabetic polyneuropathy associated with type 2 diabetes mellitus E11.42 Diabetes mellitus complication detail: diabetic polyneuropathy Benign essential hypertension I10 Premature ventricular contractions (PVCs) (VPCs) I49.3 Moderate persistent asthma without complication J45.40 Asthma complication type: uncomplicated Asthma persistence: persistent Asthma severity: moderate Seasonal allergic rhinitis, unspecified trigger J30.2 Allergic rhinitis trigger: unspecified Allergic rhinitis seasonality: seasonal Migraine without status migrainosus, not intractable, unspecified migraine type G43.909 Intractability: not intractable Migraine type: unspecified Status migrainosus presence: without status migrainosus GERD without esophagitis K21.9 Primary osteoarthritis of both knees M17.0 Osteoarthritis type: primary Midline low back pain without sciatica, unspecified chronicity M54.5 Chronicity: unspecified Vitamin D deficiency E55.9 Insomnia, unspecified type G47.00 Insomnia type: unspecified Anxiety F41.9 Obesity (BMI 30-39.9) E66.9
== END 2024-03-30 17:01 | disposition home or self-care (01) ==
PROVIDERS: PCP Internal Medicine; Visit Provider Internal Medicine
DX: E78.00 Pure hypercholesterolemia, unspecified (principal); E11.42 Type 2 diabetes mellitus with diabetic polyneuropathy; E66.9 Obesity, unspecified; Z68.39 Body mass index [BMI] 39.0-39.9, adult; I10 Essential (primary) hypertension; I49.3 Ventricular premature depolarization; J45.40 Moderate persistent asthma, uncomplicated; J30.2 Other seasonal allergic rhinitis; G43.909 Migraine, unspecified, not intractable, without status migrainosus; K21.9 Gastro-esophageal reflux disease without esophagitis; M17.0 Bilateral primary osteoarthritis of knee; M54.50 Low back pain, unspecified; E55.9 Vitamin D deficiency, unspecified
CPT/HCPCS: 99214; G2211

== ENCOUNTER 2024-04-12 13:30 | Outpatient (AMB) | payer MEDICARE, OTHER, SELFPAY ==
[2024-04-12 13:38] VITALS: BP 118/78; BMI 39.7
--- NOTE | 2024-04-12 13:38 | A.OFFVIS_ITS ---
Vital Signs 04/12/24 13:38 Height 5 ft 3 in Weight 224 lb BMI 39.7 BP 118/78 Intake Visit Reasons: Vaginal Irritation Associate Data Scientist Required: No Associate Data Scientist Services: Associate Data Scientist Present Information Interpreted: clinical only Company Pilot: Company Pilot Present Allergies linagliptin [From TRADJENTA] Allergy (Severe, Verified 04/12/24 13:39) THROAT ITCHING/COUGH Penicillins [PENICILLINS] Allergy (Severe, Verified 04/12/24 13:39) SWELLING/HIVES exenatide [From BYDUREON] Allergy (Intermediate, Verified 04/12/24 13:39) RASH wheat [WHEAT] Allergy (Intermediate, Verified 04/12/24 13:39) RASH latex [Latex] Allergy (Mild, Verified 04/12/24 13:39) SWELLING/ITCH lactose, wheat, corn syrup Allergy (Mild, Uncoded 04/12/24 13:39) rash grass, dogs, cats Allergy (Unknown, Uncoded 04/12/24 13:39) Unknown Medication List - Last Reconciled 04/12/24 by Sunshine Bynum CNM albuterol sulfate 2.5 mg (3 mL) inhalation QID PRN 30 days albuterol sulfate 90 mcg/actuation 1 puff inhalation QID PRN amitriptyline 50 mg PO BEDTIME atorvastatin 40 mg PO DAILY 90 days Silverioaglar Regulo U-100 Insulin (insulin glargine) 10 units (0.1 mL) subcut QPM 90 days NS blood pressure monitor As directed blood sugar diagnostic (FreeStyle Precision Bob Strips) As directed once a day blood sugar diagnostic (OneTouch Ultra Test strips) As directed 2 times daily cetirizine 10 mg PO DAILY PRN 90 days cholecalciferol (vitamin D3) 25 mcg PO DAILY citalopram 40 mg PO DAILY clotrimazole-betamethasone 1-0.05 % 1 appl topical BID 7 days gabapentin 800 mg PO QID hydroxyzine HCl 1 tablet 3 times a day and 2 tablets at bedtime PO; 90 days ibuprofen 600 mg PO Q8H PRN 30 days lancets (OneTouch Delica Lancets) 3 times a day losartan 50 mg PO DAILY metformin ER 1,000 mg (2 x 500 mg) PO BID montelukast 10 mg PO BEDTIME wpumyfcb-pfd-izcl-FA-vit K-lut 8 mg iron-400 mcg-50 mcg (Centrum Silver Women) 1 tab PO DAILY omega-3 fatty acids (Fish Oil Concentrate) 1,000 mg PO DAILY omeprazole 20 mg PO BID 30 days pen needle, diabetic (BD Meghann 2nd Gen Pen Needle) Twice a day pen needle, diabetic As directed xccrqmsqemitl-RB-bfezrmxfhfp 5-10-100 mg/5 mL (Adult Robitussin Peak Cold M-S) 10 mL PO Q4H PRN pioglitazone 30 mg PO DAILY propranolol ER 60 mg PO DAILY 30 days semaglutide 0.5 mg subcut QWEEK temazepam 30 mg PO BEDTIME PRN 30 days tizanidine 4 mg PO TID PRN 90 days tramadol 50 mg PO TID PRN 30 days Post menopausal: Yes Do you need a note to return to daycare/school/sports/work: No HPI HPI Vaginal Irritation: Details: Patient is here because she has been having severe external vaginal irritation for about 2 months she had a cream that she was given by [facility] that helped but that was a few months ago and it is run out. She is diabetic and reports that her sugar levels have been elevated she is on 3 different medications for diabetes she has gained weight since her residential. She has awaiting an appointment to discuss having her knee replaced because her knees are bad it is hard to exercise. Her blood sugars have been elevated her blood sugar last night before taking her insulin was about 170. [facility] Medical History Allergic rhinitis Left knee pain Hx of flexible sigmoidoscopy (~2000) Cyst of right knee joint Right knee pain Injury of toenail GERD without esophagitis Obesity (BMI 30-39.9) Insomnia Osteoarthritis of knees, bilateral Migraine Midline low back pain without sciatica Premature ventricular contractions (PVCs) (VPCs) Benign essential hypertension Asthma Diabetes mellitus Pure hypercholesterolemia Vitamin D deficiency Anxiety GERD (gastroesophageal reflux disease) Obesity Hypertension Dyslipidemia Diabetic neuropathy associated with type 2 diabetes mellitus Diabetes type 2, uncontrolled Neuropathy Surgical History Hx of colonoscopy History of esophagogastroduodenoscopy (EGD) History of laparoscopy Hx of tonsillectomy Hx of tubal ligation Family History Father Bladder cancer Skin cancer Diabetes Hypertension Hyperlipidemia Mother Diabetes CVD (cardiovascular disease) CVA (cerebral vascular accident) Hypertension Social History Household Members Other:: daughter Housing: House Are you a primary director of healthcare systems to a significant other at home: No Do you presently have visiting nurse or other home services: No Alcohol intake: never Patient Tobacco Use Status: Never used Tobacco e-Cigarette/Vaping Use: Never Used Second Hand Smoke Exposure: Yes service: No Current occupational status: retired Sexual orientation: Straight/Heterosexual Gender identity: Female Cognitive needs: No Hearing needs: No Vision needs: No Female Reproductive History Menstrual Duration of menses: <3 days control method: permanent sterilization Total pregnancies: 2 Full term: 2 Date of last pap smear: 02/04/23 (negative,previous pap 2018) History of abnormal pap smear: No Physical Exam Vital Signs: Last Vital Signs BP 118/78 04/12/24 13:38 BMI result Body Mass Index 39.7 Other: External groin and upper thighs discolored darker [place] colored consistent with chronic tinea Speculum exam and vaginal exam within normal limits post menopausal atrophic vagina moist cervix mobile nontender adnexa not enlarged difficult feel uterus completely pelvic musculature not assessed. Assessment & Plan Assessment & Plan (1) Obesity: Code(s): E66.9 - Obesity, unspecified Category: Medical Qualifiers: Obesity type: due to excess calories Obesity classification: adult class 2 (BMI 35 - 39.9) Serious obesity comorbidity presence: with serious comorbidity Body mass index: BMI 39.0-39.9 Qualified Code(s): E66.01 - Morbid (severe) obesity due to excess calories; Z68.39 - Body mass index [BMI] 39.0- 39.9, adult (2) Diabetes type 2, uncontrolled: Code(s): E11.65 - Type 2 diabetes mellitus with hyperglycemia Category: Medical (3) Tinea: Comment: External, entire groin area, Code(s): B35.9 - Dermatophytosis, unspecified Category: Medical Plan ---I reviewed her symptoms in detail, and the contributing factors that lead to growth of yeast including warm dark spaces, lack of air to body cavities and mucosal membrane, and elevated blood sugars. I reviewed what she can do to make things better in particular using cotton underwear, non-use of panty liners, allowing air to her vulva at night if at all possible. Use of cotton underwear that is not tight fitting was encouraged. Plain cool water rinsing/showering to area may be comforting. I reviewed use of the medications including Diflucan and cream as directed. --I reviewed that the most important thing at her case is to get her diabetes and her blood sugar under good control, and I encouraged her to re-double her efforts in this regard, and to work with her primary care provider in adjusting any medication dosages if necessary, and following their recommendations for checking her blood sugar, following dietary recommendations, exercise goals, and trying to get things in control. I stressed that while a yeast infection is very very uncomfortable, and can be very problematic, it can be indicative of diabetes that is not under good control and could lead to further challenges for her health especially regarding blood vessels and kidney function and heart etc. So any efforts to get her diabetes under better control, may help more than just her yeast symptoms Discussed all of the above in great detail the fungus on her skin is fed by the elevated blood sugars but in addition when she wears her polyester and Spandex and the last teen underwear and leggings or shorts, they do not permit air to the vulva at all so cotton or no one these is better and use of just cool water for rinsing . The Diflucan interacts with least 2 of her other medications with potential cardiac effects so she is to be mindful of this when she takes it and use them only when she needs to. Given that she has suffering with the inflammation now I would recommend treating now and repeat the dose in 3 days if she needs it otherwise external use of the cream but only up to 2 weeks because of the potential side effects of using it for prolonged period of time with thinning of the skin over all. When she has able to the move more and exercise more and change her diet plan it may help with her diabetes and blood sugar management as well. next visit for annual exam. Orders: Orders CT NG by PCR Today N89.8 - Other specified noninflammatory disorders of vagina Bacterial Vaginosis Panel Today N89.8 - Other specified noninflammatory disorders of vagina Medications: New fluconazole may repeat second dose 72 hrs after first dose if symptoms persist 150 mg PO Q3D 2 doses 2 tabs 2RF Refilled clotrimazole-betamethasone 1-0.05 % 1 appl topical BID 7 days 45 grams 2RF fungal rash Coding Level of Care Code Est Pt Level 3 (82796) Diagnoses Class 2 severe obesity due to excess calories with serious comorbidity and body mass index (BMI) of 39.0 to 39.9 in adult E66.01; Z68.39 Obesity type: due to excess calories Obesity classification: adult class 2 (BMI 35 - 39.9) Serious obesity comorbidity presence: with serious comorbidity Body mass index: BMI 39.0-39.9 Diabetes type 2, uncontrolled E11.65 Tinea B35.9
== END 2024-04-12 14:38 | disposition home or self-care (01) ==
LOC: HO.HWSM 13:30
PROVIDERS: PCP Internal Medicine; Visit Provider Advanced Practice Midwife
DX: E66.01 Morbid (severe) obesity due to excess calories (principal); Z68.39 Body mass index [BMI] 39.0-39.9, adult; E11.65 Type 2 diabetes mellitus with hyperglycemia; B35.9 Dermatophytosis, unspecified
CPT/HCPCS: 99213

== ENCOUNTER 2024-04-12 13:30 | Outpatient (REF) | payer MEDICARE, OTHER, SELFPAY ==
[2024-04-13 02:22] LABS: CT PCR NOT DETECTED (Not Detect.); NG PCR NOT DETECTED (Not Detect.)
[2024-04-13 08:53] LABS: Bacterial Vaginosis PCR NEGATIVE (Negative); Candida Group PCR NOT DETECTED (Not Detect); Candida glab krusei PCR NOT DETECTED (Not Detect); Trichomonas vaginalis PCR NOT DETECTED (Not Detect)
== END 2024-04-12 13:31 | disposition home or self-care (01) ==
LOC: HO.LAB 13:30
PROVIDERS: PCP Internal Medicine; Visit Provider Advanced Practice Midwife
DX: E66.01 Morbid (severe) obesity due to excess calories (principal); Z68.39 Body mass index [BMI] 39.0-39.9, adult; E11.65 Type 2 diabetes mellitus with hyperglycemia; N89.8 Other specified noninflammatory disorders of vagina
CPT/HCPCS: 0352U; 87491; 87591; 99212

== ENCOUNTER 2024-04-20 14:03 | Outpatient (REF) | payer MEDICARE, OTHER, SELFPAY | END 2024-04-20 14:04 | disposition home or self-care (01) | LOC: HO.MAMMO 14:03 | PROVIDERS: PCP Internal Medicine; Visit Provider Internal Medicine | DX: Z12.31 Encounter for screening mammogram for malignant neoplasm of breast (principal) | CPT/HCPCS: 77063; 77067 ==

== ENCOUNTER → 2024-04-20 14:30 | Outpatient (BNV) | payer MEDICARE, OTHER, SELFPAY | PROVIDERS: PCP Internal Medicine; Visit Provider Radiology Diagnostic Radiology | DX: Z12.31 Encounter for screening mammogram for malignant neoplasm of breast (principal) | CPT/HCPCS: 77063; 77067 ==

== ENCOUNTER 2024-05-04 15:21 | Outpatient (AMB) | payer MEDICARE, OTHER, SELFPAY ==
--- NOTE | 2024-05-04 15:35 | A.OFFPC_ITS ---
Vital Signs 05/04/24 15:37 Height 5 ft 3 in Weight 215 lb 6 oz BMI 38.1 BP 124/80 Blood Pressure Location Lt brachial Position Sitting Pulse 75 Pulse Source Pulse Oximeter Pulse Oximetry (%) 94 Oxygen Delivery Method Room Air Intake Visit Reasons: CoughUnableToSleep Intake Note: Patient is here to follow up on Coughing and unable to sleep ongoing for two week. OTC is not helping. Lead Machinist Required: No Chief Cloth Finishing Range Operator: Not Required per policy Accompanied by: Self / Same As Patient Allergies linagliptin [From TRADJENTA] Allergy (Severe, Verified 05/09/24 16:15) THROAT ITCHING/COUGH Penicillins [PENICILLINS] Allergy (Severe, Verified 05/09/24 16:15) SWELLING/HIVES exenatide [From BYDUREON] Allergy (Intermediate, Verified 05/09/24 16:15) RASH wheat [WHEAT] Allergy (Intermediate, Verified 05/09/24 16:15) RASH latex [Latex] Allergy (Mild, Verified 05/09/24 16:15) SWELLING/ITCH lactose, wheat, corn syrup Allergy (Mild, Uncoded 05/09/24 16:15) rash grass, dogs, cats Allergy (Unknown, Uncoded 05/09/24 16:15) Unknown Medication List - Last Reconciled 05/09/24 by Berny Henning MD albuterol sulfate 2.5 mg (3 mL) inhalation QID PRN 30 days albuterol sulfate 90 mcg/actuation 1 puff inhalation QID PRN amitriptyline 50 mg PO BEDTIME atorvastatin 40 mg PO DAILY 90 days azithromycin take 500 mg today (day 1), then 250 mg for 4 days (days 2-5) PO Basaglar KwikPen U-100 Insulin (insulin glargine) 10 units (0.1 mL) subcut QPM 90 days NS blood pressure monitor As directed blood sugar diagnostic (FreeStyle Precision Bob Strips) As directed once a day blood sugar diagnostic (OneTouch Ultra Test strips) As directed 2 times daily cholecalciferol (vitamin D3) 25 mcg PO DAILY citalopram 40 mg PO DAILY clotrimazole-betamethasone 1-0.05 % 1 appl topical BID 7 days fluconazole 150 mg PO Q3D 2 doses gabapentin 800 mg PO QID hydroxyzine HCl 1 tablet 3 times a day and 2 tablets at bedtime PO; 90 days ibuprofen 600 mg PO Q8H PRN 30 days lancets (OneTouch Delica Lancets) 3 times a day losartan 50 mg PO DAILY metformin ER 1,000 mg (2 x 500 mg) PO BID montelukast 10 mg PO BEDTIME jjovdzcs-gcv-bgio-FA-vit K-lut 8 mg iron-400 mcg-50 mcg (Centrum Silver Women) 1 tab PO DAILY omega-3 fatty acids (Fish Oil Concentrate) 1,000 mg PO DAILY omeprazole 20 mg PO BID 30 days pen needle, diabetic (BD Meghann 2nd Gen Pen Needle) Twice a day pen needle, diabetic As directed ozrhxgayfuovq-XC-rvvmbtpwyor 5-10-100 mg/5 mL (Adult Robitussin Peak Cold M-S) 10 mL PO Q4H PRN pioglitazone 30 mg PO DAILY prednisone 60 mg (3 x 20 mg) PO DAILY propranolol ER 60 mg PO DAILY 30 days semaglutide 0.5 mg subcut QWEEK temazepam 30 mg PO BEDTIME PRN 30 days tizanidine 4 mg PO TID PRN 90 days tramadol 50 mg PO TID PRN 30 days Tobacco use date assessed: 05/04/24 Dental Screening Dental Screen Date: 03/30/24 HPI CoughUnableToSleep HPI Details Patient presents for a sick visit. Reporting symptoms of sinus congestion, sore throat and difficulty swallowing. Low-grade fever. No family member is sick. No recent travel. Patient reports symptoms of malaise and fatigue. [facility] Medical History Allergic rhinitis Left knee pain Hx of flexible sigmoidoscopy (~2000) Cyst of right knee joint Right knee pain Injury of toenail GERD without esophagitis Obesity (BMI 30-39.9) Insomnia Osteoarthritis of knees, bilateral Migraine Midline low back pain without sciatica Premature ventricular contractions (PVCs) (VPCs) Benign essential hypertension Asthma Diabetes mellitus Pure hypercholesterolemia Vitamin D deficiency Anxiety GERD (gastroesophageal reflux disease) Obesity Hypertension Dyslipidemia Diabetic neuropathy associated with type 2 diabetes mellitus Diabetes type 2, uncontrolled Neuropathy Surgical History Hx of colonoscopy History of esophagogastroduodenoscopy (EGD) History of laparoscopy Hx of tonsillectomy Hx of tubal ligation Family History (Updated 05/04/24 @ 15:35 by Brent Becerril [facility]) Father Bladder cancer Skin cancer Diabetes Hypertension Hyperlipidemia Mother Diabetes CVD (cardiovascular disease) CVA (cerebral vascular accident) Hypertension Social History Household Members Other:: daughter Housing: House Are you a primary urgent care nurse practitioner to a significant other at home: No Do you presently have visiting nurse or other home services: No Alcohol intake: never Patient Tobacco Use Status: Never used Tobacco e-Cigarette/Vaping Use: Never Used Second Hand Smoke Exposure: Yes service: No Current occupational status: retired Sexual orientation: Straight/Heterosexual Gender identity: Female Cognitive needs: No Hearing needs: No Vision needs: Yes (glasses) Questionnaire Thrive Questionnaire Date Thrive assessed: 03/30/24 DYANA-7 AMB Questionnaire DYANA-7 Date DYANA - 7 assessed: 05/04/24 Feeling nervous, anxious, or on edge: 0 = Not at all Not being able to stop or control worryin = Not at all Worrying too much about different things: 0 = Not at all Trouble relaxin = Not at all Being so restless that it is hard to sit still: 0 = Not at all Becoming easily annoyed or irritable: 0 = Not at all Feeling afraid as if something awful might happen: 0 = Not at all Total DYANA-7 score (0-4 normal; 5-9 mild; 10-14 moderate; 15-21 severe): 0 Source: Developed by Drs. Abdirizak Mai, Dione Mclaughlin, Juan Norwood and colleagues, with an educational palma from [employer]. Physical exam (Primary Care) Vital Signs: Last Vital Signs Pulse 75 05/04/24 15:37 BP 124/80 05/04/24 15:37 Pulse Ox 94 05/04/24 15:37 Oxygen Delivery Method Room Air 05/04/24 15:37 BMI result Body Mass Index 38.1 Tobacco/Smoking Status: Tobacco use Status Tobacco use date assessed 05/04/24 05/04/24 15:45 Patient Tobacco Use Status Never used Tobacco 05/04/24 15:45 e-Cigarette/Vaping Use Never Used 05/04/24 15:45 Thrive Assessment: Date of Thrive Assessment Date Thrive assessed 03/30/24 05/04/24 15:45 Const General: cooperative and healthy appearing Nutritional Appearance: well nourished Orientation/consciousness: patient oriented x3 Limitations: no limitations HENMT Head: Yes normal to inspection Eyes General: appearance normal, both eyes and all related structures Neck Neck: Yes normal visual inspection Chest Chest palpation & inspection: normal palpation of entire chest wall Resp Effort & Inspection: normal respiratory effort Neuro General: patient oriented x3 Assessment and Plan Assessment & Plan (1) Upper respiratory tract infection: Code(s): J06.9 - Acute upper respiratory infection, unspecified Plan: Antibiotics ordered. Increase fluid intake. Tylenol for aches and pains. If symptoms worsen, follow-up here for a recheck. Medications: New prednisone 60 mg (3 x 20 mg) PO DAILY 9 tabs 0RF azithromycin take 500 mg today (day 1), then 250 mg for 4 days (days 2-5) PO 6 tabs 0RF Coding Level of Care Code Est Pt Level 3 (33119) Complex EM visit Add On G2211 Diagnoses Upper respiratory tract infection J06.9
[2024-05-04 15:37] VITALS: BP 124/80; PULSE 75; O2SAT 94; BMI 38.1
== END 2024-05-04 16:02 | disposition home or self-care (01) ==
PROVIDERS: PCP Internal Medicine; Visit Provider Internal Medicine
DX: J06.9 Acute upper respiratory infection, unspecified (principal)
CPT/HCPCS: 99213; G2211

== ENCOUNTER 2024-05-09 13:58 | Outpatient (REF) | payer MEDICARE, OTHER, SELFPAY ==
--- NOTE | ~2024-05-09 | XR_ITS ---
EXAMINATION: XR KNEE, RIGHT XR KNEE, LEFT, LIMITED CLINICAL INFORMATION: Pain in the knee. COMPARISON: Bilateral knee series December 2022. TECHNIQUE: AP upright of both knees. Patellar and lateral view of the right knee. FINDINGS: RIGHT KNEE: Genu varus unchanged. Medial compartment severe joint space narrowing and marginal osteophytes indicative of severe osteoarthritis unchanged. Lateral compartment slight widening likely related to the varus deformity. Marginal osteophytes indicative of at least mild osteoarthritis unchanged. Patellofemoral compartment marginal osteophytes without joint space narrowing indicative of at least mild osteoarthritis unchanged. Trace effusion. LEFT KNEE AP UPRIGHT: Genu varus unchanged. Medial compartment severe joint space narrowing indicative of severe arthrosis. Lateral compartment slightly widened but unchanged. Possible loose body overlies the intercondylar notch unchanged. XR/XR knee RT 3V IMPRESSION: RIGHT KNEE: Advanced osteoarthritis unchanged. LEFT KNEE: Advanced osteoarthritis unchanged. Possible loose body.
== END 2024-05-09 13:59 | disposition home or self-care (01) ==
LOC: HO.HOSX 13:58
PROVIDERS: PCP Internal Medicine; Visit Provider Physician Assistant
DX: M17.11 Unilateral primary osteoarthritis, right knee (principal)
CPT/HCPCS: 73562; 99212

== ENCOUNTER 2024-05-09 13:58 | Outpatient (AMB) | payer MEDICARE, OTHER, SELFPAY ==
--- NOTE | 2024-05-09 14:08 | A.OFFVIS_ITS ---
Vital Signs 05/09/24 14:11 Height 5 ft 3 in Weight 215 lb BMI 38.1 Intake Visit Reasons: OV- RT knee OA Intake Note: Lee Ann a 59 year old female who presents today for a follow up of right knee OA. Patient reports bilateral knee pain with her right knee being the worse. She would like to discuss surgical options. Allergies linagliptin [From TRADJENTA] Allergy (Severe, Verified 05/09/24 16:15) THROAT ITCHING/COUGH Penicillins [PENICILLINS] Allergy (Severe, Verified 05/09/24 16:15) SWELLING/HIVES exenatide [From BYDUREON] Allergy (Intermediate, Verified 05/09/24 16:15) RASH wheat [WHEAT] Allergy (Intermediate, Verified 05/09/24 16:15) RASH latex [Latex] Allergy (Mild, Verified 05/09/24 16:15) SWELLING/ITCH lactose, wheat, corn syrup Allergy (Mild, Uncoded 05/09/24 16:15) rash grass, dogs, cats Allergy (Unknown, Uncoded 05/09/24 16:15) Unknown HPI HPI OV- RT knee OA: Details: Lee Ann is a 59-year-old female who presents today for a follow-up of right knee OA. She claims to have bilateral knee pain, with the worsening pain in her right knee. She would like to discuss surgical options. She has a history of diabetes and on 03/25/2024 her A1c is 7.3. [facility] Medical History Allergic rhinitis Left knee pain Hx of flexible sigmoidoscopy (~2000) Cyst of right knee joint Right knee pain Injury of toenail GERD without esophagitis Obesity (BMI 30-39.9) Insomnia Osteoarthritis of knees, bilateral Migraine Midline low back pain without sciatica Premature ventricular contractions (PVCs) (VPCs) Benign essential hypertension Asthma Diabetes mellitus Pure hypercholesterolemia Vitamin D deficiency Anxiety GERD (gastroesophageal reflux disease) Obesity Hypertension Dyslipidemia Diabetic neuropathy associated with type 2 diabetes mellitus Diabetes type 2, uncontrolled Neuropathy Surgical History Hx of colonoscopy History of esophagogastroduodenoscopy (EGD) History of laparoscopy Hx of tonsillectomy Hx of tubal ligation Family History (Updated 05/04/24 @ 15:35 by Brent Becerril Carla) Father Bladder cancer Skin cancer Diabetes Hypertension Hyperlipidemia Mother Diabetes CVD (cardiovascular disease) CVA (cerebral vascular accident) Hypertension Social History Household Members Other:: daughter Housing: House Are you a primary healthcare market consultant to a significant other at home: No Do you presently have visiting nurse or other home services: No Alcohol intake: never Patient Tobacco Use Status: Never used Tobacco e-Cigarette/Vaping Use: Never Used Second Hand Smoke Exposure: Yes service: No Current occupational status: retired Sexual orientation: Straight/Heterosexual Gender identity: Female Cognitive needs: No Hearing needs: No Vision needs: Yes (glasses) Review of Systems Const All systems reviewed & are unremarkable except as noted in HPI and below Physical Exam Vital Signs: BMI result Body Mass Index 38.1 Const General: cooperative, healthy appearing, comfortable and no acute distress Orientation/consciousness: patient oriented x3 Neck Neck: Yes normal visual inspection and Yes no JVD Chest Chest palpation & inspection: normal inspection of the chest Resp Effort & Inspection: normal respiratory effort Auscultation: clear to auscultation bilaterally, crackles (no), rales (no), rhonchi (no) and wheezes (no) Cardio Jugular venous distension: no JVD Rate: regular rate Rhythm: regular rhythm Heart sounds: S1 normal heart sound present, S2 normal heart sound present, Murm ur heart sound present (no) and Rub heart sound present (no) Neuro General: patient oriented x3 Extrem Other: Right knee: Skin intact, no erythema or joint effusion. Tenderness along the medial joint line. Full ROM with crepitus. Negative Amelia?s. No ligamentous laxity. NVI. General: Yes normal to inspection, Yes no pedal edema and Yes no calf tenderness Psych Appearance: grossly normal Mental Status: mental status grossly normal Speech and movement: Normal speech and movement present Results Reviewed Results Reviewed: Xrays were obtained in the office today and personally reviewed by me of the right knee show end stage oa with osteophyte formation. Assessment & Plan Assessment & Plan (1) Osteoarthritis of right knee: Code(s): M17.11 - Unilateral primary osteoarthritis, right knee Category: Medical Plan Dr Bill saw and evaluated Ms Schultz today. We had a lengthy discussion about the extent of her osteoarthritis and options available which include surgical intervention. She is interested in pursuing Total knee arthroplasty to improve her functional capacity and daily activities. I explained to her the procedure in detail, the hospital stays and details about post op rehab and precautions. She does understand all this and would like to move forward. I did put her in contact with our Nurse Navigator, Jackelin, who will set her up with preop planning and book accordingly. All questions were answered. Orders: Orders XR knee standing BI 05/09/24 M25.561 - Pain in right knee, M25.562 - Pain in left knee Patient Instructions: Scribed for Watson Musa PA-C, by Gildardo Singh medical field representative, on 05/09/2024 at 2:30 PM MARKO. Watson Palacio PA-C, have personally reviewed and agree with the information entered by the scribe. Coding Level of Care Code Est Pt Level 4 (55134) Diagnoses Osteoarthritis of right knee M17.11
[2024-05-09 14:11] VITALS: BMI 38.1
== END 2024-05-09 15:37 | disposition home or self-care (01) ==
PROVIDERS: PCP Internal Medicine; Visit Provider Physician Assistant
DX: M17.11 Unilateral primary osteoarthritis, right knee (principal)
CPT/HCPCS: 99214

== ENCOUNTER 2024-06-09 12:58 | Outpatient (AMB) | payer MEDICARE, OTHER, SELFPAY ==
[2024-06-09 13:22] VITALS: BP 128/82; PULSE 91; BMI 38.6
--- NOTE | 2024-06-09 13:22 | MHC.OFFVIS ---
Vital Signs 06/09/24 13:22 Height 5 ft 3 in Weight 217 lb 13.067 oz BMI 38.6 BP 128/82 Blood Pressure Location Lt brachial Position Sitting Pulse 91 Pulse Source Monitor Intake Visit Reasons: preop clearance Animal Shelter Manager Required: No Allergies linagliptin [From TRADJENTA] Allergy (Severe, Verified 06/09/24 13:26) THROAT ITCHING/COUGH Penicillins [PENICILLINS] Allergy (Severe, Verified 06/09/24 13:26) SWELLING/HIVES exenatide [From BYDUREON] Allergy (Intermediate, Verified 06/09/24 13:26) RASH wheat [WHEAT] Allergy (Intermediate, Verified 06/09/24 13:26) RASH latex [Latex] Allergy (Mild, Verified 06/09/24 13:26) SWELLING/ITCH lactose, wheat, corn syrup Allergy (Mild, Uncoded 06/09/24 13:26) rash grass, dogs, cats Allergy (Unknown, Uncoded 06/09/24 13:26) Unknown Medication List - Last Reconciled 06/09/24 by MARKO Good albuterol sulfate 2.5 mg (3 mL) inhalation QID PRN 30 days albuterol sulfate 90 mcg/actuation 1 puff inhalation QID PRN amitriptyline 50 mg PO BEDTIME atorvastatin 40 mg PO DAILY 90 days Basaglar KwikPen U-100 Insulin (insulin glargine) 10 units (0.1 mL) subcut QPM 90 days NS blood pressure monitor As directed blood sugar diagnostic (FreeStyle Precision Bob Strips) As directed once a day blood sugar diagnostic (OneTouch Ultra Test strips) As directed 2 times daily cholecalciferol (vitamin D3) 25 mcg PO DAILY citalopram 40 mg PO DAILY clotrimazole-betamethasone 1-0.05 % 1 appl topical BID 7 days gabapentin 800 mg PO QID hydroxyzine HCl 1 tablet 3 times a day and 2 tablets at bedtime PO; 90 days ibuprofen 600 mg PO Q8H PRN 30 days lancets (OneTouch Delica Lancets) 3 times a day losartan 50 mg PO DAILY metformin ER 1,000 mg (2 x 500 mg) PO BID montelukast 10 mg PO BEDTIME jdzyfvyh-hvv-gnrq-FA-vit K-lut 8 mg iron-400 mcg-50 mcg (Centrum Silver Women) 1 tab PO DAILY omega-3 fatty acids (Fish Oil Concentrate) 1,000 mg PO DAILY omeprazole 20 mg PO BID 30 days pen needle, diabetic (BD Meghann 2nd Gen Pen Needle) Twice a day pen needle, diabetic As directed pioglitazone 30 mg PO DAILY prednisone 60 mg (3 x 20 mg) PO DAILY propranolol ER 60 mg PO DAILY 30 days semaglutide (Ozempic) INJECT 0.5 MG (0.4 ML) SUBCUTANEOUSLY EVERY WEEK FOR THE FIRST 4 DOSES USE 0.25MG/WEEK AND THEN PROCEED WITH 0.5MG/WEEK temazepam 30 mg PO BEDTIME PRN 30 days tizanidine 4 mg PO TID PRN 90 days tramadol 50 mg PO TID PRN 30 days HPI HPI preop clearance: Details: Lee Ann is a 59-year-old female with past medical history of hypertension, hyperlipidemia, diabetes, PVCs who presents for preop cardiac evaluation for total right knee replacement. Today she reports that following last visit she did not pursue having the total knee replacement. She tells me it is now scheduled for 08/09/2024. She has done well in the last year with the exception of bilateral knee pain. She says the right is worse than the left. She will get sharp pains to her chest at times at rest. She does not get chest discomfort brought on by physical activity. She has some shortness of breath with activity that she relates to her asthma. She does have an intermittent cough. She is currently living with her daughter and helping to take care of the house. Her daughter has 4 dogs and a letter of puppies and she is allergic to dogs. No PND, orthopnea or edema. No presyncope, syncope, falls. She is able to climb stairs slowly. Activity is limited by knee pain. Taking medications as directed. [facility] Medical History Allergic rhinitis Left knee pain Hx of flexible sigmoidoscopy (~2000) Cyst of right knee joint Right knee pain Injury of toenail GERD without esophagitis Obesity (BMI 30-39.9) Insomnia Osteoarthritis of knees, bilateral Migraine Midline low back pain without sciatica Premature ventricular contractions (PVCs) (VPCs) Benign essential hypertension Asthma Diabetes mellitus Pure hypercholesterolemia Vitamin D deficiency Anxiety GERD (gastroesophageal reflux disease) Obesity Hypertension Dyslipidemia Diabetic neuropathy associated with type 2 diabetes mellitus Diabetes type 2, uncontrolled Neuropathy Surgical History Hx of colonoscopy History of esophagogastroduodenoscopy (EGD) History of laparoscopy Hx of tonsillectomy Hx of tubal ligation Family History Father Bladder cancer Skin cancer Diabetes Hypertension Hyperlipidemia Mother Diabetes CVD (cardiovascular disease) CVA (cerebral vascular accident) Hypertension Social History Household Members Other:: daughter Housing: House Are you a primary lawn care specialist to a significant other at home: No Do you presently have visiting nurse or other home services: No Alcohol intake: never Patient Tobacco Use Status: Never used Tobacco e-Cigarette/Vaping Use: Never Used Second Hand Smoke Exposure: Yes service: No Current occupational status: retired Sexual orientation: Straight/Heterosexual Gender identity: Female Cognitive needs: No Hearing needs: No Vision needs: Yes (glasses) Review of Systems Const All systems reviewed & are unremarkable except as noted in HPI and below ENT Denies dizziness Card Reports chest pain (Quick sharp pains), Denies chest pain at rest, Denies chest pain with activity, Denies rapid heart rate, Denies pedal edema, Denies edema, Denies leg edema, Denies lightheadedness, Denies palpitations, Reports dyspnea (Related to asthma and allergies), Denies dyspnea on exertion and Denies orthopnea Resp Denies cough, Reports dyspnea (Related to asthma and allergies) and Denies dyspnea on exertion GI Denies hematochezia and Denies change in stool character Musc Reports abnormal gait (Pain right knee), Denies limited range of motion, Denies muscle cramps, Denies muscle weakness, Denies numbness, Denies radiating pain into limb, Denies stiffness and Denies tingling Neuro Reports abnormal gait (Pain right knee), Denies dizziness, Denies numbness and Denies tingling Endo Denies palpitations Physical Exam Vital Signs: Last Vital Signs Pulse 91 06/09/24 13:22 BP 128/82 06/09/24 13:22 BMI result Body Mass Index 38.6 Const General: cooperative, healthy appearing, comfortable and no acute distress Orientation/consciousness: patient oriented x3 Neck Neck: Yes normal visual inspection Resp Effort & Inspection: normal respiratory effort Auscultation: clear to auscultation bilaterally, no crackles, no rales, no rhonchi and no wheezes Cardio Jugular venous distension: no JVD Rate: regular rate Rhythm: regular rhythm Heart sounds: S1 normal heart sound present, S2 normal heart sound present, no murmurs and no rubs Neuro General: patient oriented x3 Extrem General: Yes normal to inspection Psych Appearance: grossly normal Mental Status: mental status grossly normal Speech and movement: Normal speech and movement present Office Procedures EKG Details: Today, read by me, normal sinus rhythm, no acute ST or T-wave abnormalities, rate 91, QTC 437 millisecond [id number], Complete Assessment & Plan Assessment & Plan (1) Chest discomfort: Code(s): R07.89 - Other chest pain Category: Medical Plan: Report of sharp random chest discomfort, nonexertional. Overall atypical for angina. She does have multiple cardiac risk factors including hypertension, hyperlipidemia, diabetes and obesity. She did have a coronary CT scan in 2018 which was reported to be normal. A stress test was ordered on her last visit in 2020 due to chest discomfort however it was never completed. She was not seen in our office between 07/08/2021 and 07/09/2023. On last visit she continued to report periodic sharp pains to her chest. A pharmacological nuclear stress test was done on 08/24/2023 which showed normal myocardial perfusion imaging. Last echocardiogram done 02/10/2018 showed EF 60-65%, no regional wall motion abnormalities and normal valves. No strong indication to repeat at this time. Patient informed her pains are noncardiac in nature. She has an intermittent cough with her asthma and this may be contributing. She needs ongoing cardiac risk factors including weight loss, good blood pressure, cholesterol control. Good diabetes control with hemoglobin A1c less than 7. Reviewed with her. Cardiology office visit 1 year, sooner if needed. (2) Preop cardiovascular exam: Code(s): Z01.810 - Encounter for preprocedural cardiovascular examination Category: Medical Plan: Preop for total knee replacement on 08/09/[address] Bill at [facility]. She has no known history of CAD though she does have multiple cardiac risk factors. Nuclear stress test last fall was normal. I will be updating her echocardiogram. Assuming no significant abnormalities she can proceed with her total knee replacement with low cardiac risk. If echo does have significant abnormalities then an addendum will be made to this note. (3) Benign essential hypertension: Code(s): I10 - Essential (primary) hypertension Category: Medical Plan: Well controlled at present. Continue propanolol and losartan. (4) Pure hypercholesterolemia: Code(s): E78.00 - Pure hypercholesterolemia, unspecified Category: Medical Plan: [place] LDL goal less than 70 in patient with diabetes. Labs done 12/16/2022 showed LDL 73. Continue atorvastatin. This is being followed by her PCP (5) Vasovagal syncope: Code(s): R55 - Syncope and collapse Category: Medical Plan: Today she reports that she has a history of vasovagal syncope. This was not previously discussed with me. She tells me she has not had fainting in the last few years. She does not have known clear triggers. Plan Time spent on chart review, documentation interview and assessment Coding Level of Care Code Est Pt Level 4 (26303) Diagnoses Chest discomfort R07.89 Preop cardiovascular exam Z01.810 Benign essential hypertension I10 Pure hypercholesterolemia E78.00 Vasovagal syncope R55 CPT Codes EKG - CPT: [id number], Complete ([id number]) Time Spent (min) 28
== END 2024-06-09 13:53 | disposition home or self-care (01) ==
PROVIDERS: PCP Internal Medicine; Visit Provider Nurse Practitioner Family
DX: R07.89 Other chest pain (principal); Z01.810 Encounter for preprocedural cardiovascular examination; I10 Essential (primary) hypertension; E78.00 Pure hypercholesterolemia, unspecified; R55 Syncope and collapse
CPT/HCPCS: 93010; 99214

== ENCOUNTER → 2024-06-09 12:58 | Outpatient (BNVA) | payer MEDICARE, OTHER, SELFPAY | PROVIDERS: PCP Internal Medicine; Visit Provider Nurse Practitioner Family | DX: Z01.810 Encounter for preprocedural cardiovascular examination (principal); R07.89 Other chest pain; I10 Essential (primary) hypertension; E78.00 Pure hypercholesterolemia, unspecified; R55 Syncope and collapse | CPT/HCPCS: 93005; 99212 ==

== ENCOUNTER → 2024-07-08 10:46 | Outpatient (BNVA) | payer MEDICARE, OTHER, SELFPAY | PROVIDERS: PCP Internal Medicine | DX: Z01.818 Encounter for other preprocedural examination (principal) ==

== ENCOUNTER → 2024-07-11 14:41 | Outpatient (REF) | payer MEDICARE, OTHER, SELFPAY ==
--- NOTE | 2024-07-11 14:44 | CA_ITS ---
Transthoracic Echocardiogram Patient (Last, First, Middle): Lee Ann Schultz, Gender: Female Date of : 1965 Age: 59 Procedure Date: 07/11/2024 Procedure Type: Transthoracic Echocardiogram Location: OP Height: 160. 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 The visually estimated ejection fraction is >70%. - No obvious valvular pathology seen on this study. Findings Procedure Information Contrast agent, definity, is being given per protocol without apparent complications. Left Ventricle Normal left ventricular cavity size. There is normal left ventricular wall thickness. The left ventricular systolic function is hyperdynamic. The visually estimated ejection fraction is >70%. There is no evidence of regional wall motion abnormalities. Evidence suggests grade I (mild) diastolic dysfunction. Right Ventricle Normal right ventricular cavity size and systolic function. Atria Both atria are normal in size. Aortic Valve There is a normal trileaflet aortic valve. There is no aortic valve stenosis. There is no aortic valve regurgitation. Mitral Valve The mitral valve appears normal. There is no mitral valve regurgitation. There is no mitral valve stenosis. Pulmonic Valve The pulmonic valve is likely normal. Tricuspid Valve There is mild tricuspid valve regurgitation. There is no evidence of pulmonary hypertension. Great Vessels The asc aorta is normal in size. Venous The inferior vena cava is normal in size and collapses greater than 50% with inspiration. Pericardium/Pleural There is no evidence of pericardial effusion. Prior Study Comparison No significant change compared to prior study dated: 02/10/2018. Recommendations, Care & Conclusions No obvious valvular pathology seen on this study. Measurements 2D Linear Measurements IVSd: 0.90 0.6-0.9/0.6-1.0 cm LVIDd: 4.33 3.9-5.3/4.2-5.9 cm LVIDd Index: 2.17 2.4-3.2/2.2-3.1 cm/m2 LVIDs: 2.12 2.0-3.6 cm LVPWd: 0.83 0.7-1.1 cm Ao Root: 2.80 2.1-3.5 cm LA Diam: 3.30 2.7-3.8/3.0-4.0 cm LAIDs Index: 1.65 1.5-2.3 cm/m2 LV Mass: 146.22 67-162/88-224 g LV Mass Index: 73.11 43-95/49-115 g/m2 LVOT Diam: 1.80 3.0+(-)1.3 cm 2D Systolic Function EF 4C: 72.60 >55% EF 2C: 79.60 >55% EF BiP: 76.70 >55% Mitral Valve MV Pk E: 0.67 MV PK A: 0.93 MV Decel Time: 292.00 E/A: 0.70 E'Lateral: 8.05 E'Medial: 5.44 E/E' Med: 12.30 E/E' Lat: 8.30 PHT: 85.00 MVA PHT: 2.59 Decel [place]: 2.30 Aortic Valve AoV Pk Luther: 1.34 AoV Mn Luther: 0.87 AoV VTI: 0.25 AoV Pk Grad: 7.00 Aov Mn Grad: 4.00 JASON Cont.VTI: 2.58 LVOT LVOT Pk Luther: 1.30 LVOT Mn Luther: 0.89 LVOT VTI: 0.26 LVOT Pk Grad: 7.00 LVOT Mn Grad: 4.00 LVOT Diam: 1.80 LVOT Area: 2.54 Diastolic Function MV Pk E: 0.67 MV Pk A: 0.93 E/A: 0.70 E'Medial: 5.44 E/E' Med: 12.30 E' Laterial: 8.05 E/E' Lat: 8.30 Right Ventricle TAPSE (mm): 24.00 TVS' Luther: 14.00 Tricuspid Valve TR Pk Luther: 2.45 TR Pk Grad: 24.00 RA Press: 3.00 RVSP: 27.00 Great Vessels Aorta Ao Root-2D: 2.80 2.0-3.7 cm Ao Asc: 2.90 2.1-3.4 cm Pulmonary Valve PV Pk Luther: 1.26 Peak PV Grad: 6.00 Updated in Other Vendor System with Status of Final Gio Marcelo MD electronically signed on 07/12/2024 9:33:29 AM with status of Final
== END ==
LOC: HO.CARD 14:41
PROVIDERS: PCP Internal Medicine; Visit Provider Nurse Practitioner Family
DX: Z01.810 Encounter for preprocedural cardiovascular examination (principal); R06.02 Shortness of breath
CPT/HCPCS: 93306; Q9957

== ENCOUNTER → 2024-07-11 14:44 | Outpatient (BNV) | payer MEDICARE, OTHER, SELFPAY | PROVIDERS: PCP Internal Medicine; Visit Provider Internal Medicine | DX: I36.1 Nonrheumatic tricuspid (valve) insufficiency (principal); I51.89 Other ill-defined heart diseases | CPT/HCPCS: 93306 ==

== ENCOUNTER 2024-07-14 13:49 | Outpatient (AMB) | payer MEDICARE, OTHER, SELFPAY ==
[2024-07-14 14:26] VITALS: BP 130/62; PULSE 57; BMI 37.6
--- NOTE | 2024-07-14 14:26 | A.OFFVIS_ITS ---
Vital Signs 07/14/24 14:26 Height 5 ft 3 in Weight 212 lb 8.41 oz BMI 37.6 BP 130/62 Blood Pressure Location Lt brachial Position Sitting Pulse 57 Pulse Source Pulse Oximeter Intake Visit Reasons: f/u after testing Furnace Combination Analyst Required: No Allergies linagliptin [From TRADJENTA] Allergy (Severe, Verified 07/14/24 14:30) THROAT ITCHING/COUGH Penicillins [PENICILLINS] Allergy (Severe, Verified 07/14/24 14:30) SWELLING/HIVES exenatide [From BYDUREON] Allergy (Intermediate, Verified 07/14/24 14:30) RASH wheat [WHEAT] Allergy (Intermediate, Verified 07/14/24 14:30) RASH latex [Latex] Allergy (Mild, Verified 07/14/24 14:30) SWELLING/ITCH grass, dogs, cats Allergy (Intermediate, Uncoded 07/14/24 14:30) Cough, sneezing lactose, wheat, corn syrup Allergy (Mild, Uncoded 07/14/24 14:30) rash Medication List - Last Reconciled 07/14/24 by MARKO Good albuterol sulfate 2.5 mg (3 mL) inhalation QID PRN 30 days albuterol sulfate 90 mcg/actuation 1 puff inhalation QID PRN amitriptyline 50 mg PO BEDTIME atorvastatin 40 mg PO DAILY 90 days Basaglar KwikPen U-100 Insulin (insulin glargine) 10 units (0.1 mL) subcut QPM 90 days NS blood pressure monitor As directed blood sugar diagnostic (FreeStyle Precision Bob Strips) As directed once a day blood sugar diagnostic (OneTouch Ultra Test strips) As directed 2 times daily cholecalciferol (vitamin D3) 25 mcg PO DAILY citalopram 40 mg PO DAILY clotrimazole-betamethasone 1-0.05 % 1 appl topical BID 7 days gabapentin 800 mg PO QID hydroxyzine HCl 1 tablet 3 times a day and 2 tablets at bedtime PO; 90 days ibuprofen 600 mg PO Q8H PRN 30 days lancets (OneTouch Delica Lancets) 3 times a day losartan 50 mg PO DAILY metformin ER 1,000 mg (2 x 500 mg) PO BID montelukast 10 mg PO BEDTIME cyjscaul-ukj-zebc-FA-vit K-lut 8 mg iron-400 mcg-50 mcg (Centrum Silver Women) 1 tab PO DAILY omega-3 fatty acids (Fish Oil Concentrate) 1,000 mg PO DAILY omeprazole 20 mg PO BID 30 days pen needle, diabetic (BD Meghann 2nd Gen Pen Needle) Twice a day pen needle, diabetic As directed pioglitazone 30 mg PO DAILY propranolol ER 60 mg PO DAILY 30 days semaglutide (Ozempic) INJECT 0.5 MG (0.4 ML) SUBCUTANEOUSLY EVERY WEEK FOR THE FIRST 4 DOSES USE 0.25MG/WEEK AND THEN PROCEED WITH 0.5MG/WEEK temazepam 30 mg PO BEDTIME PRN 30 days tizanidine 4 mg PO TID PRN 90 days tramadol 50 mg PO TID PRN 30 days walker Folding Front wheeled walker HPI HPI f/u after testing: Details: Lee Ann is a 59-year-old female with past medical history of hypertension, hyperlipidemia, diabetes, PVCs, reported history of vasovagal symptom who is having preop cardiac evaluation for total right knee replacement. She recently had echocardiogram and now presents for follow up. Today she reports that she is still scheduled for right total knee replacement on 08/09/2024. She had previously reported sharp pains to her chest but now states this has improved. She denies chest discomfort at rest or with activity. She has some intermittent shortness of breath with activity that she relates to her asthma. She is still living with her daughter and helping to take care of the house. Her daughter has 4 dogs and a litter of puppies and she is allergic to dogs. No PND, orthopnea or edema. No presyncope, syncope, falls. She is able to climb stairs slowly. Activity is limited by knee pain. Uses a cane. T aking medications as directed. [facility] Medical History Vasovagal syncopes Allergic rhinitis Left knee pain Osteoarthritis of right knee Hx of flexible sigmoidoscopy (~2000) Cyst of right knee joint Right knee pain Injury of toenail GERD without esophagitis Obesity (BMI 30-39.9) Insomnia Osteoarthritis of knees, bilateral Migraine Midline low back pain without sciatica Premature ventricular contractions (PVCs) (VPCs) Benign essential hypertension Asthma Diabetes mellitus Pure hypercholesterolemia Vitamin D deficiency Anxiety GERD (gastroesophageal reflux disease) Obesity Hypertension Dyslipidemia Diabetic neuropathy associated with type 2 diabetes mellitus Diabetes type 2, uncontrolled Neuropathy Surgical History History of surgical removal of ganglion cyst Hx of colonoscopy History of esophagogastroduodenoscopy (EGD) History of laparoscopy Hx of tonsillectomy Hx of tubal ligation Family History Father Bladder cancer Skin cancer Diabetes Hypertension Hyperlipidemia Mother Diabetes CVD (cardiovascular disease) CVA (cerebral vascular accident) Hypertension Social History Household Members Other:: daughter Housing: House Are you a primary urgent care physician assistant to a significant other at home: No Do you presently have visiting nurse or other home services: No Alcohol intake: never Comment: aware of trip hazard Patient Tobacco Use Status: Never used Tobacco e-Cigarette/Vaping Use: Never Used Second Hand Smoke Exposure: Yes service: No Current occupational status: retired Sexual orientation: Straight/Heterosexual Gender identity: Female Cognitive needs: No Hearing needs: No Vision needs: Yes (glasses) Review of Systems Const All systems reviewed & are unremarkable except as noted in HPI and below ENT Reports dizziness Card Denies chest pain, Denies chest pain at rest, Denies chest pain with activity, Denies rapid heart rate, Denies pedal edema, Denies edema, Denies leg edema, Denies lightheadedness, Denies palpitations, Denies dyspnea, Denies dyspnea on exertion and Denies orthopnea Resp Denies cough, Denies dyspnea and Denies dyspnea on exertion GI Denies hematochezia and Denies change in stool character Musc Reports abnormal gait (knee pain - uses cane), Denies limited range of motion, Denies muscle cramps, Denies muscle weakness, Denies numbness, Denies radiating pain into limb, Denies stiffness and Denies tingling Neuro Reports abnormal gait (knee pain - uses cane), Reports dizziness, Denies numbness and Denies tingling Endo Denies palpitations Physical Exam Vital Signs: Last Vital Signs Pulse 57 07/14/24 14:26 BP 130/62 07/14/24 14:26 BMI result Body Mass Index 37.6 Const General: cooperative, healthy appearing, comfortable and no acute distress Orientation/consciousness: patient oriented x3 Neck Neck: Yes normal visual inspection Resp Effort & Inspection: normal respiratory effort Auscultation: clear to auscultation bilaterally, no crackles, no rales, no rhonchi and no wheezes Cardio Jugular venous distension: no JVD Rate: regular rate Rhythm: regular rhythm Heart sounds: S1 normal heart sound present, S2 normal heart sound present, no murmurs and no rubs Neuro General: patient oriented x3 Extrem General: Yes normal to inspection Psych Appearance: grossly normal Mental Status: mental status grossly normal Speech and movement: Normal speech and movement present Assessment & Plan Assessment & Plan (1) Chest discomfort: Code(s): R07.89 - Other chest pain Category: Medical Plan: Prior reports of sharp random chest discomfort, nonexertional. Overall atypical for angina. She does have multiple cardiac risk factors including hypertension, hyperlipidemia, diabetes and obesity. She did have a coronary CT scan in 2018 which was reported to be normal. A stress test was ordered on her visit in 2020 due to chest discomfort however it was never completed. She was not seen in our office between 07/08/2021 and 07/09/2023. On follow-up visit she continued to report periodic sharp pains to her chest. A pharmacological nuclear stress test was done on 08/24/2023 which showed normal myocardial perfusion imaging. Echocardiogram done 02/10/2018 showed EF 60-65%, no regional wall motion abnormalities and normal valves. Due to her preop status this was repeated on 07/11/2024 showing EF greater than 70%, no valve abnormalities and grade 1 diastolic dysfunction. Today she states that her sharp pains have resolved. She has no anginal sounding symptoms. She has no diagnosis of coronary artery disease. Reviewed this with her. Discussed ongoing cardiac risk factors modification including weight loss, good blood pressure, cholesterol control. Good diabetes control with hemoglobin A1c less than 7. She states understanding. She hopes to be more mobile once her knee replacement is done. Cardiology follow-up p.r.n. (2) Preop cardiovascular exam: Code(s): Z01.810 - Encounter for preprocedural cardiovascular examination Category: Medical Plan: Preop for total knee replacement on 08/09/[address] Bill at [facility]. Nuclear stress test last fall was normal. Recent echo shows EF greater than 70%. No anginal symptoms. She can proceed with low cardiac risk. Call/consult Cardiology if needed. (3) Benign essential hypertension: Code(s): I10 - Essential (primary) hypertension Category: Medical Plan: Well controlled at present. Continue propanolol and losartan. (4) Pure hypercholesterolemia: Code(s): E78.00 - Pure hypercholesterolemia, unspecified Category: Medical Plan: [place] LDL goal less than 70 in patient with diabetes. Labs done 03/25/2024 showed LDL 76. Continue atorvastatin. This is being followed by her PCP (5) Vasovagal syncope: Code(s): R55 - Syncope and collapse Category: Medical Plan: She reports that she has a history of vasovagal syncope, 1st mentioned last visit. She tells me she has not had fainting in the last few years. She does not have known clear triggers. Instructed to maintain good hydration, recognize symptoms and sit/lay down if she becomes symptomatic. Plan Time spent on chart review, documentation interview and assessment Coding Level of Care Code Est Pt Level 3 (26761) Diagnoses Chest discomfort R07.89 Preop cardiovascular exam Z01.810 Benign essential hypertension I10 Pure hypercholesterolemia E78.00 Vasovagal syncope R55 Time Spent (min) 24
== END 2024-07-14 15:18 | disposition home or self-care (01) ==
PROVIDERS: PCP Internal Medicine; Visit Provider Nurse Practitioner Family
DX: R07.89 Other chest pain (principal); Z01.810 Encounter for preprocedural cardiovascular examination; I10 Essential (primary) hypertension; E78.00 Pure hypercholesterolemia, unspecified; R55 Syncope and collapse
CPT/HCPCS: 99213

== ENCOUNTER → 2024-07-14 13:49 | Outpatient (BNVA) | payer MEDICARE, OTHER, SELFPAY | PROVIDERS: PCP Internal Medicine; Visit Provider Nurse Practitioner Family | DX: Z01.810 Encounter for preprocedural cardiovascular examination (principal); R07.89 Other chest pain; I10 Essential (primary) hypertension; R55 Syncope and collapse; E78.00 Pure hypercholesterolemia, unspecified | CPT/HCPCS: 99212 ==

== ENCOUNTER 2024-07-21 13:50 | Outpatient (AMB) | payer MEDICARE, OTHER, SELFPAY ==
[2024-07-21 13:53] VITALS: BP 132/78; PULSE 85; O2SAT 98; BMI 37.4
--- NOTE | 2024-07-21 13:53 | A.OFFPC_ITS ---
Vital Signs 07/21/24 13:53 Height 5 ft 3 in Weight 211 lb BMI 37.4 BP 132/78 Blood Pressure Location Lt brachial Position Sitting Pulse 85 Pulse Source Pulse Oximeter Pulse Oximetry (%) 98 Oxygen Delivery Method Room Air Intake Visit Reasons: R TKA w/NE 08/09/24- see comm Intake Note: Patient is here for a Pre-op for R TKA scheduled on 08/09/24 Waxer Required: No Allergies linagliptin [From TRADJENTA] Allergy (Severe, Verified 07/21/24 14:05) THROAT ITCHING/COUGH Penicillins [PENICILLINS] Allergy (Severe, Verified 07/21/24 14:05) SWELLING/HIVES exenatide [From BYDUREON] Allergy (Intermediate, Verified 07/21/24 14:05) RASH wheat [WHEAT] Allergy (Intermediate, Verified 07/21/24 14:05) RASH latex [Latex] Allergy (Mild, Verified 07/21/24 14:05) SWELLING/ITCH grass, dogs, cats Allergy (Intermediate, Uncoded 07/21/24 14:05) Cough, sneezing lactose, wheat, corn syrup Allergy (Mild, Uncoded 07/21/24 14:05) rash Medication List - Last Reconciled 07/21/24 by Catherine Langford PA-C albuterol sulfate 2.5 mg (3 mL) inhalation QID PRN 30 days albuterol sulfate 90 mcg/actuation 1 puff inhalation QID PRN amitriptyline 50 mg PO BEDTIME atorvastatin 40 mg PO DAILY 90 days Basaglar KwikPen U-100 Insulin (insulin glargine) 10 units (0.1 mL) subcut QPM 90 days NS blood pressure monitor As directed blood sugar diagnostic (FreeStyle Precision Bob Strips) As directed once a day blood sugar diagnostic (OneTouch Ultra Test strips) As directed 2 times daily cholecalciferol (vitamin D3) 25 mcg PO DAILY citalopram 40 mg PO DAILY clotrimazole-betamethasone 1-0.05 % 1 appl topical BID 7 days gabapentin 800 mg PO QID hydroxyzine HCl 1 tablet 3 times a day and 2 tablets at bedtime PO; 90 days ibuprofen 600 mg PO Q8H PRN 30 days lancets (OneTouch Delica Lancets) 3 times a day losartan 50 mg PO DAILY metformin ER 1,000 mg (2 x 500 mg) PO BID montelukast 10 mg PO BEDTIME tgggpoql-nxn-srbh-FA-vit K-lut 8 mg iron-400 mcg-50 mcg (Centrum Silver Women) 1 tab PO DAILY omega-3 fatty acids (Fish Oil Concentrate) 1,000 mg PO DAILY omeprazole 20 mg PO BID pen needle, diabetic (BD Meghann 2nd Gen Pen Needle) Twice a day pen needle, diabetic As directed pioglitazone 30 mg PO DAILY propranolol ER 60 mg PO DAILY 30 days semaglutide (Ozempic) INJECT 0.5 MG (0.4 ML) SUBCUTANEOUSLY EVERY WEEK FOR THE FIRST 4 DOSES USE 0.25MG/WEEK AND THEN PROCEED WITH 0.5MG/WEEK temazepam 30 mg PO BEDTIME PRN 30 days tizanidine 4 mg PO TID PRN 90 days tramadol 50 mg PO TID PRN 30 days walker Folding Front wheeled walker Tobacco use date assessed: 05/04/24 Dental Screening Dental Screen Date: 03/30/24 HPI R TKA w/NE 08/09/24- see comm HPI Details 59-year-old female with past medical his tory diabetes mellitus, dyslipidemia, hypertension, obesity, GERD, anxiety, asthma last seen by preoperative visit. In review of the notes, patient was seen by Orthopedics 05/18/2024 advised total knee arthroplasty scheduled for 08/09/2024. Seen by Cardiology for preoperative exam echocardiogram was performed 07/11/2024 showing EF greater than 70% without valve abnormalities. Per Cardiology low cardiac risk and may proceed with surgery. Diabetes mellitus: A1c 7.3% currently on metformin, pioglitazone, Ozempic, insulin. Hypertension: Blood pressure at goal today 132/78 currently on propranolol and losartan [facility] Medical History Vasovagal syncopes Allergic rhinitis Left knee pain Osteoarthritis of right knee Hx of flexible sigmoidoscopy (~2000) Cyst of right knee joint Right knee pain Injury of toenail GERD without esophagitis Obesity (BMI 30-39.9) Insomnia Osteoarthritis of knees, bilateral Migraine Midline low back pain without sciatica Premature ventricular contractions (PVCs) (VPCs) Benign essential hypertension Asthma Diabetes mellitus Pure hypercholesterolemia Vitamin D deficiency Anxiety GERD (gastroesophageal reflux disease) Obesity Hypertension Dyslipidemia Diabetic neuropathy associated with type 2 diabetes mellitus Diabetes type 2, uncontrolled Neuropathy Surgical History History of surgical removal of ganglion cyst Hx of colonoscopy History of esophagogastroduodenoscopy (EGD) History of laparoscopy Hx of tonsillectomy Hx of tubal ligation Family History Father Bladder cancer Skin cancer Diabetes Hypertension Hyperlipidemia Mother Diabetes CVD (cardiovascular disease) CVA (cerebral vascular accident) Hypertension Social History Household Members Other:: daughter Housing: House Are you a primary post acute care registered nurse to a significant other at home: No Do you presently have visiting nurse or other home services: No Alcohol intake: never Comment: aware of trip hazard Patient Tobacco Use Status: Never used Tobacco e-Cigarette/Vaping Use: Never Used Second Hand Smoke Exposure: Yes service: No Current occupational status: retired Sexual orientation: Straight/Heterosexual Gender identity: Female Cognitive needs: No Hearing needs: No Vision needs: Yes (glasses) Questionnaire Thrive Questionnaire Date Thrive assessed: 03/30/24 Are you currently unemployed and looking for a job?: No AUDIT C Alcohol Use Questionnaire (AUDIT-C) 1. How often do you have a drink containing alcohol?: Never 3. How often do you have six or more drinks on one occasion?: Never Total Score: 0 Score Reviewed/Action Taken: Yes DYANA-7 AMB Questionnaire DYANA-7 Date DYANA - 7 assessed: 05/04/24 Source: Developed by Drs. Abdirizak Mai, Dione Mclaughlin, Juan Norwood and colleagues, with an educational palma from [employer]. Review of Systems Const Denies body aches, Denies fatigue, Denies fever(s), Denies frequent falls, Denies headache(s) and Denies weakness Eyes Reports no additional complaints and Denies change in vision ENT Denies dysphagia, Denies dizziness, Denies facial pain, Denies headache(s), Denies nasal congestion and Denies odynophagia Card Denies chest pain, Denies syncope, Denies irregular heart rhythm, Denies leg edema, Denies lightheadedness and Denies dyspnea Resp Denies cough and Denies dyspnea GI Denies constipation, Denies dysphagia, Denies dyspepsia, Denies diarrhea, Denies nausea, Denies odynophagia and Denies vomiting Denies urinary frequency, Denies dysuria, Denies urinary hesitancy and Denies urinary urgency Musc Denies back pain and Denies myalgias Skin/Breast Reports system reviewed and no additional complaints, except as documented Neuro Denies dizziness, Denies syncope, Denies frequent falls, Denies headache(s) and Denies weakness Psych Reports no additional complaints Endo Denies fatigue Physical exam (Primary Care) Vital Signs: Last Vital Signs Pulse 85 07/21/24 13:53 BP 132/78 07/21/24 13:53 Pulse Ox 98 07/21/24 13:53 Oxygen Delivery Method Room Air 07/21/24 13:53 BMI result Body Mass Index 37.4 Tobacco/Smoking Status: Tobacco use Status Tobacco use date assessed 05/04/24 07/21/24 13:59 Patient Tobacco Use Status Never used Tobacco 07/21/24 13:59 e-Cigarette/Vaping Use Never Used 07/21/24 13:59 Thrive Assessment: Date of Thrive Assessment Date Thrive assessed 03/30/24 07/21/24 13:59 Const General: cooperative, healthy appearing, comfortable and no acute distress Orientation/consciousness: patient oriented x3 HENMT Head: Yes normocephalic Ears: hearing grossly normal bilaterally General nose exam: Normal external nose present Eyes General: appearance normal, both eyes and all related structures Conjunctivae: conjunctivae normal Neck Neck: Yes full ROM and Yes no lymphadenopathy Resp Effort & Inspection: normal respiratory effort Auscultation: clear to auscultation bilaterally, no crackles, no rales, no rhonchi and no wheezes Cardio Rate: regular rate Rhythm: regular rhythm Skin General skin exam: no rashes or lesions noted Neuro General: patient oriented x3 Gait exam (Neuro): Normal gait present Extrem General: Yes normal to inspection, Yes full ROM and No edema Psych Affect: normal affect Attitude: cooperative Insight: Good insight present (Psych) Judgement: Good judgement present (Psych) Office Procedures Flu Questionnaire Does the patient have a severe egg allergy?: No Does the patient have severe life threatening allergies?: No Does the patient have a fever or illness today?: No Has the patient ever had Guillain-Alma Syndrome?: No Has the patient ever had any past reaction to a flu shot?: No Immunizations Fluarix Triv 0601-8269 (PF) 45 mcg (15 mcg x 3)/0.5 mL IM syringe Performing Provider: Catherine Langford PA-C [facility] Administered by: CHARISSE Freed on 07/21/24 14:04 Dose Route Admin Location Dispensed Lot Number Expiration Date [facility] Short Order Fry Cook 0.5 mL IM Left Deltoid 0.5 mL [id number] 04/10/25 98515-296-10 [employer] VIS Given Date VIS Provided VIS Publication Date 07/21/24 Single Vaccine 21 Eligibility Eligibility Date Funding Source Not [facility] Eligible 07/21/24 Private Coding Level of Care Code Est Pt Level 4 (50001) Diagnoses Benign essential hypertension I10 Moderate persistent asthma without complication J45.40 Asthma complication type: uncomplicated Asthma persistence: persistent Asthma severity: moderate Type 2 diabetes mellitus with diabetic polyneuropathy, without long-term current use of insulin E11.42 Diabetes mellitus complication detail: with polyneuropathy Diabetes mellitus complication status: with neurologic complications Diabetes mellitus long term care administrator insulin use: without long term care administrator use Diabetes mellitus type: type 2 Pure hypercholesterolemia E78.00 Pre-op evaluation Z01.818 Assessment & Plan Assessment & Plan (1) Benign essential hypertension: Code(s): I10 - Essential (primary) hypertension Category: Medical Plan: Continue on current blood pressure medication. Avoid salt intake and encourage healthy diet and regular exercise. Blood pressure at goal today. (2) Asthma: Code(s): J45.909 - Unspecified asthma, uncomplicated Category: Medical Qualifiers: Asthma complication type: uncomplicated Asthma persistence: persistent Asthma severity: moderate Qualified Code(s): J45.40 - Moderate persistent as thma, uncomplicated Plan: Patient states she is currently using her albuterol rescue inhaler twice daily. Advised adding inhaled corticosteroid to regimen and following up at next visit prior to her procedure. Continue to avoid triggers such as allergens and smoke. (3) Diabetes mellitus: Code(s): E11.9 - Type 2 diabetes mellitus without complications Category: Medical Qualifiers: Diabetes mellitus complication detail: with polyneuropathy Diabetes mellitus complication status: with neurologic complications Diabetes mellitus [facility] insulin use: without long term care administrator use Diabetes mellitus type: type 2 Qualified Code(s): E11.42 - Type 2 diabetes mellitus with diabetic polyneuropathy Plan: Decrease the amount of carbohydrates such as pasta, bread, rice, and potatoes and limit the amount of sweets. Although fruits are generally healthy they should be eaten in moderation as they are still high in sugar. Hemoglobin A1c goal of less than 7%. A1c 7.3% on last lab work continue on current regimen and work on diet modification. (4) Pure hypercholesterolemia: Code(s): E78.00 - Pure hypercholesterolemia, unspecified Category: Medical Plan: Avoid foods that are high in cholesterol such as red meat, fried foods, eggs and baked goods. Triglyceride goal of less than 150 and LDL goal of less than 100. Cholesterol at goal on last lab work. (5) Pre-op evaluation: Code(s): Z01.818 - Encounter for other preprocedural examination Category: Medical Plan: Regarding preop clearance, the patient is at moderate risk for proposed surgery due to age and comorbidities however her comorbidities are well managed at this time. Reviewed with the patient that no surgery is completely free of risk and that this examination is to assist the surgeon in reviewing informed consent. She takes no disease modifying drugs, and is not on any anticoagulants or NSAIDs. She has undergone surgery in the past with no complications. Discussed discontinuation of Ozempic and NSAIDs 1 week prior to surgery as well as discontinuation of pioglitazone. Advised patient to follow surgeon's recommendations and reach out if she has additional questions. Plan This note was constructed using voice recognition software. While every effort has been made to ensure accuracy and jigger machine operator, still areas may have been included sometimes these areas may affect the content or meeting of the given symptoms. Total time spent caring for the patient today was 30 minutes. This includes time spent before the visit reviewing the chart, time spent during the visit, and time spent after the visit and documentation. Orders: Orders Influenza [id number] Immunization 07/21/24 Z23 - Encounter for immunization Medications: New fluticasone furoate 100 mcg/actuation (Arnuity Ellipta) 1 inh inhalation DAILY 30 ea 0RF
== END 2024-07-21 14:34 | disposition home or self-care (01) ==
PROVIDERS: PCP Internal Medicine
DX: I10 Essential (primary) hypertension (principal); J45.40 Moderate persistent asthma, uncomplicated; E11.42 Type 2 diabetes mellitus with diabetic polyneuropathy; E78.00 Pure hypercholesterolemia, unspecified; Z01.818 Encounter for other preprocedural examination

== ENCOUNTER → 2024-07-21 13:50 | Outpatient (BNVA) | payer MEDICARE, OTHER, SELFPAY | PROVIDERS: PCP Internal Medicine | DX: Z01.818 Encounter for other preprocedural examination (principal); Z23 Encounter for immunization; I10 Essential (primary) hypertension; J45.40 Moderate persistent asthma, uncomplicated; E11.42 Type 2 diabetes mellitus with diabetic polyneuropathy; E78.00 Pure hypercholesterolemia, unspecified | CPT/HCPCS: 90471; 90656; 99212 ==

== ENCOUNTER 2024-07-26 13:58 | Outpatient (AMB) | payer MEDICARE, OTHER, SELFPAY ==
--- NOTE | 2024-07-26 14:01 | MHC.OFFVIS ---
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 Allergies linagliptin [From TRADJENTA] Allergy (Severe, Verified 07/26/24 14:01) THROAT ITCHING/COUGH Penicillins [PENICILLINS] Allergy (Severe, Verified 07/26/24 14:01) SWELLING/HIVES exenatide [From BYDUREON] Allergy (Intermediate, Verified 07/26/24 14:01) RASH wheat [WHEAT] Allergy (Intermediate, Verified 07/26/24 14:01) RASH latex [Latex] Allergy (Mild, Verified 07/26/24 14:01) SWELLING/ITCH grass, dogs, cats Allergy (Intermediate, Uncoded 07/26/24 14:) Cough, sneezing lactose, wheat, corn syrup Allergy (Mild, Uncoded 07/26/24 14:01) rash Post menopausal: Yes HPI Comments Details: She is a postmenopausal woman 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 She is doing well with no concerns: lump on stomach that is painful x 3month. No urinary symptoms, normal stools. Not present today she reports it may occur after she eats. Attempting to eat a healthy diet with calcium and vitamin D and stays active. Limited exercise due to knee pain, has a total knee replacement plan at the end of the month. Currently not sexually active. Denies any vaginal dryness or irritation. STI testing offered; she declines. Last pap smear; 2022, negative. Last mammogram; 2023. Colonoscopy is UTD. Denies any family history of breast, ovarian or colon cancer. [facility] Medical History Vasovagal syncopes Allergic rhinitis Left knee pain Osteoarthritis of right knee Hx of flexible sigmoidoscopy (~2000) Cyst of right knee joint Right knee pain Injury of toenail GERD without esophagitis Obesity (BMI 30-39.9) Insomnia Osteoarthritis of knees, bilateral Migraine Midline low back pain without sciatica Premature ventricular contractions (PVCs) (VPCs) Benign essential hypertension Asthma Diabetes mellitus Pure hypercholesterolemia Vitamin D deficiency Anxiety GERD (gastroesophageal reflux disease) Obesity Hypertension Dyslipidemia Diabetic neuropathy associated with type 2 diabetes mellitus Diabetes type 2, uncontrolled Neuropathy Surgical History History of surgical removal of ganglion cyst Hx of colonoscopy History of esophagogastroduodenoscopy (EGD) History of laparoscopy Hx of tonsillectomy Hx of tubal ligation Family History Father Bladder cancer Skin cancer Diabetes Hypertension Hyperlipidemia Mother Diabetes CVD (cardiovascular disease) CVA (cerebral vascular accident) Hypertension Social History Household Members Other:: daughter Housing: House Are you a primary primary care sales representative to a significant other at home: No Do you presently have visiting nurse or other home services: No Alcohol intake: never Comment: aware of trip hazard Patient Tobacco Use Status: Never used Tobacco e-Cigarette/Vaping Use: Never Used Second Hand Smoke Exposure: Yes service: No Current occupational status: retired Sexual orientation: Straight/Heterosexual Gender identity: Female Cognitive needs: No Hearing needs: No Vision needs: Yes (glasses) Female Reproductive History Menstrual control method: none Age of menopause: 43 Total pregnancies: 2 Full term: 2 Number of Living Children: 2 Date of last pap smear: 07/27/23 History of abnormal pap smear: No History of STI: No Date of Mammogram: 04/20/24 History of abnormal mammogram: No Review of Systems Const All systems reviewed & are unremarkable except as noted in HPI and below Reports as per HPI Eyes Reports no additional complaints ENT Reports no additional complaints Card Reports no additional complaints Resp Reports no additional complaints GI Reports as per HPI and Reports no additional complaints Reports as per HPI Musc Reports no additional complaints Skin/Breast Reports as per HPI Neuro Reports no additional complaints Psych Reports no additional complaints Endo Reports no additional complaints Víctor/Lymph Reports no additional complaints Aller/Immun Reports no additional complaints Physical Exam Vital Signs: Last Vital Signs BP 114/76 07/26/24 14:04 BMI result Body Mass Index 37.4 Const General: cooperative, healthy appearing, no acute distress, well developed and alert Orientation/consciousness: patient oriented x3 HEENT Head: Yes normal to inspection Eyes General: appearance normal, both eyes and all related structures Neck Neck: Yes normal visual inspection Thyroid: Thyroid normal Chest Chest palpation & inspection: normal inspection of the chest and other (no puckering, dimpling, peau de orange, retraction, discharge, masses) Breast/axilla inspection: normal inspection of the breasts Breast/axilla palpation: normal palpation of the breasts Resp Effort & Inspection: normal respiratory effort GI Inspection: Yes normal to inspection Palpation (GI): Soft to palpation Rectal Exam - Female: deferred General: Yes bladder normal to palpation External Female Exam: normal external appearance and normal appearance of the urethra Speculum Exam - Vagina: normal appearance of the vagina, normal palpation and normal vaginal discharge Speculum Exam - Cervix: normal appearance of the cervix and normal palpation Bimanual exam- vagina & uterus: normal bimanual exam, normal palpation, uterine size normal, bladder normal to palpation, normal palpation and non-tender Bimanual Exam- Adnexa, other: no masses Skin General skin exam: no rashes or lesions noted Rashes: no rashes Neuro General: patient oriented x3 Cognition (Neuro): normal cognition Extrem General: Yes normal to inspection Psych Attitude: cooperative Thought process: Normal thought process present Assessment & Plan Assessment & Plan (1) Encounter for well woman exam with routine gynecological exam: Code(s): Z01.419 - Encounter for gynecological examination (general) (routine) without abnormal findings Category: Medical Plan Discussed: Current recommendations for pap smears per ASCCP guidelines. Breast awareness, periodic self breast exams and yearly mammogram. Maintain a healthy lifestyle, well balanced diet including Calcium 1,200 mg and Vitamin D 600 IU daily, and routine exercise. Observe for any abdominal changes if there is a present lump or discomfort after eating she should follow up with her primary care or GI provider. Reassured her exam was normal today no palpable masses were noted on her abdomen. Contact the office with any postmenopausal bleeding. Patient verbalizes understanding and agrees to the plan of care. She was given opportunity to ask questions and all questions were answered to the best of my ability. 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 This note is constructed using voice recognition software. While every effort has been made to ensure accuracy, displayer merchandise errors may have been included. Coding Level of Care Code Est Pt Prev Care 40-64y(56837) Diagnoses Encounter for well woman exam with routine gynecological exam Z01.419
[2024-07-26 14:04] VITALS: BP 114/76; BMI 37.4
== END 2024-07-26 14:36 | disposition home or self-care (01) ==
PROVIDERS: PCP Internal Medicine; Visit Provider Advanced Practice Midwife
DX: Z01.419 Encounter for gynecological examination (general) (routine) without abnormal findings (principal)
CPT/HCPCS: G0101

== ENCOUNTER → 2024-07-26 13:58 | Outpatient (BNVA) | payer MEDICARE, OTHER, SELFPAY | PROVIDERS: PCP Internal Medicine; Visit Provider Advanced Practice Midwife | DX: Z01.419 Encounter for gynecological examination (general) (routine) without abnormal findings (principal) | CPT/HCPCS: G0101 ==

== ENCOUNTER 2024-08-03 12:23 | Outpatient (REF) | payer MEDICARE, OTHER, SELFPAY ==
[2024-08-03 12:48] LABS: MANUAL DIFF FLAG NO
[2024-08-03 13:07] LABS: Appearance Urine Turbid; Color Urine Yellow; Glucose Urine UA Negative (Negative); Leukocyte Esterase Urine Trace (Negative); Nitrite Urine Negative (Negative); PH 6.5 (5.0-9.0); Specific Gravity - Urine 1.015 (1.005-1.025); UMIC TRIGGER UACC YES; Urine Blood Negative (Negative); Urine Ketones Negative (Negative); Urine Protein Negative (Neg-Trace)
[2024-08-03 13:20] LABS: Bacteria Urine None Seen (None Seen); Hyaline Casts Urine 0-2 /LPF (0-2); RBC Urine 0-2 /HPF (0-2); Squamous Epithelial Cell Urine 0-2 /HPF (0-2); WBC Urine 0-5 /HPF (0-5)
[2024-08-03 13:39] LABS: Basophils Percent Auto 0.4 % (0-2); Eosinophils Absolute Auto 0.1 X10*3/uL (0.0-0.4); Eosinophils Percent Auto 1.6 % (0-4); Hematocrit 35.6 % (37.0-47.0); Hemoglobin 11.8 g/dl (12.0-16.0); Imm Gran Abs Auto 0.05 X10*3/uL (0.00-0.03); Imm Gran Pct Auto 0.6 % (0.0-0.4); Lymphocytes Absolute Auto 2.5 X10*3/uL (1.2-4.9); Lymphocytes Percent Auto 30.7 % (20-40); Mean Corpuscular HGB Conc 33.1 g/dl (31.0-35.0); Mean Corpuscular Hemoglobin 27.2 pg (27.0-33.0); Mean Platelet Volume 10.3 fL (9.4-12.3); Monocytes Absolute Auto 0.5 X10*3/uL (0.1-1.2); Monocytes Percent Auto 6.4 % (2-11); Neutrophils Percent Auto 60.3 % (45-73); Platelet Count 384 X10*3/uL (160-400); Red Blood Count 4.34 X10*6/uL (4.20-5.50); Red Cell Distribution Width 14.6 % (11.0-16.0); White Blood Count 8.2 X10*3/uL (4.8-10.8)
[2024-08-03 13:45] LABS: Estimated Average Glucose 160 mg/dL; Hemoglobin A1C 159.2343 umol/L; Hemoglobin A1c % 7.2 % (<6.0); Total Hemoglobin (HGBA1C) 2886.5569 umol/L
[2024-08-03 14:15] LABS: Creatinine Urine 116.31 mg/dL; Microalbum/Creatinine Ratio Ur 7.7 ug/mg cr (<30)
[2024-08-03 14:28] LABS: Alanine Aminotransferase 19 U/L (0-31); Albumin Level 4.4 g/dL (3.5-5.0); Alkaline Phosphatase 62 U/L (39-117); Anion Gap 14 (12-20); Aspartate Amino Transferase 21 U/L (5-31); Bilirubin Total 0.4 mg/dL (0.0-1.0); Blood Urea Nitrogen 8 mg/dL (9-16); Calcium 9.5 mg/dL (8.4-10.2); Carbon Dioxide 25 mmol/L (22-29); Chloride 102 mmol/L (96-108); Cholesterol 163 mg/dL (<200); Estimated Glomerular Filt Rate > 60; Glucose Fasting 140 mg/dL (60-99); HDL Cholesterol 61 mg/dL (>40); LDL Cholesterol Calculated 78 mg/dL (<100); Potassium 4.1 mmol/L (3.3-5.1); Sodium 137 mmol/L (135-145); Total Protein 7.1 g/dL (6.5-8.0); Triglycerides 122 mg/dL (<150)
[2024-08-03 14:44] LABS: TSH reflex Free T4 0.94 uIU/mL (0.32-4.0); Vitamin D 25-OH Total 96.2 ng/mL (>30)
[2024-08-03 14:54] LABS: Folate 14.8 ng/mL (> or = 4.0); Vitamin B12 231 pg/mL (200-900)
== END 2024-08-03 12:24 | disposition home or self-care (01) ==
LOC: HO.LAB 12:23
PROVIDERS: PCP Internal Medicine; Visit Provider Internal Medicine
DX: E78.00 Pure hypercholesterolemia, unspecified (principal); E11.42 Type 2 diabetes mellitus with diabetic polyneuropathy; I10 Essential (primary) hypertension; I49.3 Ventricular premature depolarization; J45.40 Moderate persistent asthma, uncomplicated; J30.2 Other seasonal allergic rhinitis; G43.909 Migraine, unspecified, not intractable, without status migrainosus; K21.9 Gastro-esophageal reflux disease without esophagitis; M17.0 Bilateral primary osteoarthritis of knee; M54.50 Low back pain, unspecified; E55.9 Vitamin D deficiency, unspecified; G47.00 Insomnia, unspecified; F41.9 Anxiety disorder, unspecified; E66.9 Obesity, unspecified; Z68.37 Body mass index [BMI] 37.0-37.9, adult; E11.9 Type 2 diabetes mellitus without complications; D64.9 Anemia, unspecified; E53.8 Deficiency of other specified B group vitamins; Z79.899 Other long term (current) drug therapy
CPT/HCPCS: 36415; 80053; 80061; 81001; 81003; 82043; 82306; 82570; 82607; 82746; 83036; 84443; 85025; 96127; 99212

== ENCOUNTER 2024-08-03 14:55 | Outpatient (REF) | payer MEDICARE, OTHER, SELFPAY | END 2024-08-03 14:56 | disposition home or self-care (01) | LOC: HO.HOSX 14:55 | PROVIDERS: Visit Provider Physician Assistant | DX: Z13.89 Encounter for screening for other disorder (principal) ==

== ENCOUNTER 2024-08-03 15:01 | Outpatient (AMB) | payer MEDICARE, OTHER, SELFPAY ==
--- NOTE | 2024-08-03 15:20 | MHC.PC.OV ---
Vital Signs 08/03/24 15:21 Height 5 ft 3 in Weight 211 lb BMI 37.4 BP 124/80 Blood Pressure Location Lt brachial Position Sitting Pulse 82 Pulse Source Pulse Oximeter Pulse Oximetry (%) 97 Oxygen Delivery Method Room Air Intake Visit Reasons: 4mof\u Mba Intern Required: No Accompanied by: Self / Same As Patient Allergies linagliptin [From TRADJENTA] Allergy (Severe, Verified 08/03/24 16:09) THROAT ITCHING/COUGH Penicillins [PENICILLINS] Allergy (Severe, Verified 08/03/24 16:09) SWELLING/HIVES exenatide [From BYDUREON] Allergy (Intermediate, Verified 08/03/24 16:09) RASH wheat [WHEAT] Allergy (Intermediate, Verified 08/03/24 16:09) RASH latex [Latex] Allergy (Mild, Verified 08/03/24 16:09) SWELLING/ITCH grass, dogs, cats Allergy (Intermediate, Uncoded 08/03/24 16:09) Cough, sneezing lactose, wheat, corn syrup Allergy (Mild, Uncoded 08/03/24 16:09) rash Medication List - Last Reconciled 08/03/24 by Jeffrey Terry MD albuterol sulfate 2.5 mg (3 mL) inhalation QID PRN 30 days albuterol sulfate 90 mcg/actuation 1 puff inhalation QID PRN amitriptyline 50 mg PO BEDTIME atorvastatin 40 mg PO DAILY 90 days Basaglar KwikPen U-100 Insulin (insulin glargine) 10 units (0.1 mL) subcut QPM 90 days NS blood pressure monitor As directed blood sugar diagnostic (FreeStyle Precision Bob Strips) As directed once a day blood sugar diagnostic (OneTouch Ultra Test strips) As directed 2 times daily cholecalciferol (vitamin D3) 25 mcg PO DAILY citalopram 40 mg PO DAILY clotrimazole-betamethasone 1-0.05 % 1 appl topical BID 7 days clotrimazole-betamethasone 1-0.05 % 1 appl topical BID 7 days fluticasone furoate 100 mcg/actuation (Arnuity Ellipta) 1 inh inhalation DAILY gabapentin 800 mg PO QID hydroxyzine HCl 1 tablet 3 times a day and 2 tablets at bedtime PO; 90 days ibuprofen 600 mg PO Q8H PRN 30 days lancets (OneTouch Delica Lancets) 3 times a day losartan 50 mg PO DAILY metformin ER 1,000 mg (2 x 500 mg) PO BID montelukast 10 mg PO BEDTIME screjtbl-kgr-eerc-FA-vit K-lut 8 mg iron-400 mcg-50 mcg (Centrum Silver Women) 1 tab PO DAILY omega-3 fatty acids (Fish Oil Concentrate) 1,000 mg PO DAILY omeprazole 20 mg PO BID pen needle, diabetic (BD Meghann 2nd Gen Pen Needle) Twice a day pen needle, diabetic As directed pioglitazone 30 mg PO DAILY propranolol ER 60 mg PO DAILY 30 days semaglutide (Ozempic) INJECT 0.5 MG (0.4 ML) SUBCUTANEOUSLY EVERY WEEK FOR THE FIRST 4 DOSES USE 0.25MG/WEEK AND THEN PROCEED WITH 0.5MG/WEEK temazepam 30 mg PO BEDTIME PRN 30 days tizanidine 4 mg PO TID PRN 90 days tramadol 50 mg PO TID PRN 30 days walker Folding Front wheeled walker Tobacco use date assessed: 08/03/24 Dental Screening Dental Screen Date: 08/03/24 Did you have a dental visit in the last 12 months?: Yes Did you have a dental problem in the last 6 months where you did not have access to dental care?: No Was dental information given to patient?: Patient has dentist HPI 4mof\u HPI Details Patient comes in today for her follow up visit States that she currently feels okay aside from her right knee pain, which she feels has gotten a lot worse over the past couple of years She is now scheduled for a R knee TKA next week on 08/09/2024 and has already been cleared by cardiology for surgery a few weeks ago on 07/13/2024 States that she normally takes ibuprofen for her knee pain but as she is going to have surgery done next week and is not able to continue taking ibuprofen, would like to know what else she can take for her knee pain in the meantime She denies any headaches or dizziness Denies any chest pains, no shortness of breath No nausea/vomiting, no abdominal pain No change in bowel habits noted She had her follow up labs done earlier today - to discuss her results [facility] Medical History Vasovagal syncopes Allergic rhinitis Left knee pain Osteoarthritis of right knee Hx of flexible sigmoidoscopy (~2000) Cyst of right knee joint Right knee pain Injury of toenail GERD without esophagitis Obesity (BMI 30-39.9) Insomnia Osteoarthritis of knees, bilateral Migraine Midline low back pain without sciatica Premature ventricular contractions (PVCs) (VPCs) Benign essential hypertension Asthma Diabetes mellitus Pure hypercholesterolemia Vitamin D deficiency Anxiety GERD (gastroesophageal reflux disease) Obesity Hypertension Dyslipidemia Diabetic neuropathy associated with type 2 diabetes mellitus Diabetes type 2, uncontrolled Neuropathy Surgical History History of surgical removal of ganglion cyst Hx of colonoscopy History of esophagogastroduodenoscopy (EGD) History of laparoscopy Hx of tonsillectomy Hx of tubal ligation Family History Father Bladder cancer Skin cancer Diabetes Hypertension Hyperlipidemia Mother Diabetes CVD (cardiovascular disease) CVA (cerebral vascular accident) Hypertension Social History Household Members Other:: daughter Housing: House Are you a primary career center director to a significant other at home: No Do you presently have visiting nurse or other home services: No Alcohol intake: never Comment: aware of trip hazard Patient Tobacco Use Status: Never used Tobacco e-Cigarette/Vaping Use: Never Used Second Hand Smoke Exposure: Yes service: No Current occupational status: retired Sexual orientation: Straight/Heterosexual Gender identity: Female Cognitive needs: No Hearing needs: No Vision needs: Yes (glasses) Questionnaire PHQ-9 Over the last 2 weeks, how often have you been bothered by any of the following problems? 1. Little interest or pleasure in doing things: several days 2. Feeling down, depressed, or hopeless: not at all 3. Trouble falling or staying asleep, or sleeping too much: several days 4. Feeling tired or having little energy: several days 5. Poor appetite or overeating: several days 6. Feeling bad about yourself - or that you are a failure or have let yourself or your family down: several days 7. Trouble concentrating on things, such as reading the newspaper or watching television: not at all 8. Moving or speaking so slowly that other people could have noticed. Or the opposite - being so fidgety or restless that you have been moving around a lot more than usual: not at all 9. Thoughts that you would be better off or of hurting yourself in some way: not at all Total score: 5 Depression Screening Interpretation: Positive Depression Screening Follow-up: Existing condition and In treatment Depression Screening Done: Yes 95495 - PHQ-9 Billing: Yes Source: Developed by Drs. Abdirizak Mai, Dione Mclaughlin, Juan Norwood and colleagues, with an educational palma from [employer]. Thrive Questionnaire Date Thrive assessed: 08/03/24 I am a: Patient What is your living situation today?: I have a steady place to live Within the past 12 months, did the food you bought not last and you didn't have the money to get more?: Never true Within the past 12 months, did you worry whether your food would run out before you got money to buy more?: Never true Do you have trouble paying for medicines?: No Do you have trouble getting transportation to medical appointments?: No Do you have trouble paying your heating and electricity bill?: No Do you have trouble taking care of your child, family member or friend?: No Do you have trouble with day-to-day activities such as bathing, preparing meals, shopping, managing finances, etc.?: No Are you currently unemployed and looking for a job?: No Are you interested in more education?: No Please select the resources that you would like help with: None Currently or been in a relationship where the following occur: No concerns reported THRIVE Score: 0 AUDIT C Alcohol Use Questionnaire (AUDIT-C) 1. How often do you have a drink containing alcohol?: Never 3. How often do you have six or more drinks on one occasion?: Never Total Score: 0 Score Reviewed/Action Taken: Yes DYANA-7 AMB Questionnaire DAYNA-7 Date DYANA - 7 assessed: 08/03/24 Feeling nervous, anxious, or on edge: 0 = Not at all Not being able to stop or control worryin = Not at all Worrying too much about different things: 0 = Not at all Trouble relaxin = Not at all Being so restless that it is hard to sit still: 0 = Not at all Becoming easily annoyed or irritable: 0 = Not at all Feeling afraid as if something awful might happen: 0 = Not at all Total DYANA-7 score (0-4 normal; 5-9 mild; 10-14 moderate; 15-21 severe): 0 Source: Developed by Drs. Abdirizak Mai, Dione Mclaughlin, Juan Nrowood and colleagues, with an educational palma from [employer]. Review of Systems Const Denies chills, Denies fatigue, Denies fever(s) and Denies headache(s) ENT Denies dysphagia, Denies dizziness, Denies otalgia, Denies headache(s), Denies neck pain, Denies odynophagia and Denies sore throat Card Denies chest pain, Denies irregular heart rhythm, Denies palpitations and Denies dyspnea Resp Denies cough, Denies dyspnea and Denies wheezing GI Denies abdominal pain, Denies constipation, Denies dysphagia, Denies heartburn, Denies diarrhea, Denies nausea, Denies odynophagia and Denies vomiting Denies dysuria, Denies urinary incontinence and Denies urinary urgency Musc Reports back pain, Reports arthralgias (both knees, worse on the right knee), Denies joint swelling and Denies neck pain Skin/Breast Denies rash Neuro Denies dizziness and Denies headache(s) Psych Denies anxiety Endo Denies fatigue and Denies palpitations Aller/Immun Denies wheezing Physical exam (Primary Care) Vital Signs: Last Vital Signs Pulse 82 08/03/24 15:21 BP 124/80 08/03/24 15:21 Pulse Ox 97 08/03/24 15:21 Oxygen Delivery Method Room Air 08/03/24 15:21 BMI result Body Mass Index 37.4 Tobacco/Smoking Status: Tobacco use Status Tobacco use date assessed 08/03/24 08/03/24 15:23 Patient Tobacco Use Status Never used Tobacco 08/03/24 15:23 e-Cigarette/Vaping Use Never Used 08/03/24 15:23 PHQ-9: PHQ-9 Score PHQ-9: Total score 5 08/03/24 16:12 Depression Screening Interpretation: Positive Depression Screening Follow-up: Existing condition and In treatment Thrive Assessment: Date of Thrive Assessment Date Thrive assessed 08/03/24 08/03/24 15:23 Currently or been in a relationship where the following occur: No concerns reported Const General: no acute distress and alert HENMT Ears: TM's normal bilaterally and EAC's normal Throat: Yes posterior oropharynx normal and Yes tonsils normal (no TP congestion) Neck Neck: Yes no lymphadenopathy and Yes supple Thyroid: Thyroid normal Resp Auscultation: clear to auscultation bilaterally, no rales and no wheezes Cardio Rate: regular rate Rhythm: regular rhythm Heart sounds: no murmurs GI Palpation (GI): Soft to palpation and nontender Auscultation: normal bowel sounds General: Yes no CVA tenderness Back/Spine/Pelvis Back: no CVA tenderness Thoracic/Lumbar Spine: lumbar spinal tenderness Skin General skin exam: no rashes or lesions noted Extrem General: Yes no clubbing, cyanosis or edema Right lower extremity: knee Details: tenderness Results Reviewed Results Reviewed: Laboratory Tests 08/03/24 08/03/24 12:38 12:45 WBC 8.2 Hgb 11.8 L Hct 35.6 L Plt Count 384 Sodium 137 Potassium 4.1 Creatinine 0.69 Estimated GFR > 60 Fasting Glucose 140 H Hemoglobin A1c % 7.2 H Calcium 9.5 D AST 21 ALT 19 Triglycerides 122 Cholesterol 163 LDL Cholesterol, Calc 78 HDL Cholesterol 61 Vitamin B12 231 25-OH Vitamin D Total 96.2 TSH 0.94 Ur Specific [place] 1.015 Urine Protein Negative Urine Glucose (UA) Negative Urine Blood Negative Urine Nitrite Negative Ur Leukocyte Esterase Trace H Microalb/Creat Ratio 7.7 Coding Level of Care Code Est Pt Level 4 (47949) Diagnoses Pure hypercholesterolemia E78.00 Type 2 diabetes mellitus with diabetic polyneuropathy, without long-term current use of insulin E11.42 Diabetes mellitus type: type 2 Diabetes mellitus bed bug exterminator insulin use: without senior care use Diabetes mellitus complication status: with neurologic complications Diabetes mellitus complication detail: with polyneuropathy Diabetic polyneuropathy associated with type 2 diabetes mellitus E11.42 Diabetes mellitus complication detail: diabetic polyneuropathy Benign essential hypertension I10 Premature ventricular contractions (PVCs) (VPCs) I49.3 Moderate persistent asthma without complication J45.40 Asthma severity: moderate Asthma persistence: persistent Asthma complication type: uncomplicated Seasonal allergic rhinitis, unspecified trigger J30.2 Allergic rhinitis trigger: unspecified Allergic rhinitis seasonality: seasonal Migraine without status migrainosus, not intractable, unspecified migraine type G43.909 Migraine type: unspecified Status migrainosus presence: without status migrainosus Intractability: not intractable GERD without esophagitis K21.9 Primary osteoarthritis of both knees M17.0 Osteoarthritis type: primary Midline low back pain without sciatica, unspecified chronicity M54.5 Chronicity: unspecified Vitamin D deficiency E55.9 Insomnia, unspecified type G47.00 Insomnia type: unspecified Anxiety F41.9 Obesity (BMI 30-39.9) E66.9 Assessment & Plan Assessment & Plan (1) Pure hypercholesterolemia: Code(s): E78.00 - Pure hypercholesterolemia, unspecified Category: Medical Plan: Results of her labs done earlier this morning reviewed and discussed with patient Reinforced low cholesterol diet Continue Atorvastatin 40 mg QD Will recheck her labs and fasting lipids in 4 months for follow up (2) Diabetes mellitus: Code(s): E11.9 - Type 2 diabetes mellitus without complications Category: Medical Qualifiers: Diabetes mellitus type: type 2 Diabetes mellitus bed bug exterminator insulin use: without bed bug exterminator use Diabetes mellitus complication status: with neurologic complications Diabetes mellitus complication detail: with polyneuropathy Qualified Code(s): E11.42 - Type 2 diabetes mellitus with diabetic polyneuropathy Plan: Her HgbA1c was at 7.2% on her labs done earlier today (was previously at 7.3% a few months ago) - goal is <7.0% Reinforced diabetic diet Continue Pioglitazone 30 gm QD, Metformin ER 500 mg 2 tablets BID, Tresiba Flextouch 10 units Q HS and Ozempic 2 mg/1.5 ml SQ once a week Will recheck her HgbA1c and FBS in 4 months for follow up (3) Diabetic neuropathy associated with type 2 diabetes mellitus: Code(s): E11.40 - Type 2 diabetes mellitus with diabetic neuropathy, unspecified Category: Medical Qualifiers: Diabetes mellitus complication detail: diabetic polyneuropathy Qualified Code(s): E11.42 - Type 2 diabetes mellitus with diabetic polyneuropathy Plan: Continue Gabapentin 800 mg QID, Tramadol 50 mg TID PRN, and Acetaminophen-Codeine #4 tablets, 300-60 mg 1 tablet 3 to 4 times a day as needed for pain (4) Benign essential hypertension: Code(s): I10 - Essential (primary) hypertension Category: Medical Plan: Reinforced low sodium diet - goal is systolic BP of 120 mm or less Continue Losartan 50 mg QD (5) Premature ventricular contractions (PVCs) (VPCs): Code(s): I49.3 - Ventricular premature depolarization Category: Medical Plan: Stable; states that she's had no recurrence of her symptoms lately Continue Propranolol ER 60 mg QD Cardiac stress testing done last year to evaluate her recurrent chest pains came out completely normal Patient states that her recent chest pains have also subsided and have not bothered her lately (6) Asthma: Code(s): J45.909 - Unspecified asthma, uncomplicated Category: Medical Qualifiers: Asthma severity: moderate Asthma persistence: persistent Asthma complication type: uncomplicated Qualified Code(s): J45.40 - Moderate persistent asthma, uncomplicated Plan: Stable with no recent exacerbations Continue Montelukast 10 mg QD, Symbicort 160-4.5 mcg 2 puffs BID and ProAir HFA 108 mcg 2 puffs QID PRN (7) Allergic rhinitis: Code(s): J30.9 - Allergic rhinitis, unspecified Category: Medical Qualifiers: Allergic rhinitis trigger: unspecified Allergic rhinitis seasonality: seasonal Qualified Code(s): J30.2 - Other seasonal allergic rhinitis Plan: Continue Montelukast 10 mg QD and Cetirizine 10 mg QD PRN (8) Migraine: Code(s): G43.909 - Migraine, unspecified, not intractable, without status migrainosus Category: Medical Qualifiers: Migraine type: unspecified Status migrainosus presence: without status migrainosus Intractability: not intractable Qualified Code(s): G43.909 - Migraine, unspecified, not intractable, without status migrainosus Plan: Stable - she is on Amitriptyline 50 mg Q HS for headache prophylaxis Reinforced avoidance of migraine triggers Continue Fioricet 1 capsule 2 to 3 times a day as needed Follow up with neurology as scheduled (9) GERD without esophagitis: Code(s): K21.9 - Gastro-esophageal reflux disease without esophagitis Category: Medical Plan: Dietary restrictions reinforced Continue Omeprazole 20 mg QD (10) Osteoarthritis of knees, bilateral: Code(s): M17.0 - Bilateral primary osteoarthritis of knee Category: Medical Qualifiers: Osteoarthritis type: primary Qualified Code(s): M17.0 - Bilateral primary osteoarthritis of knee Plan: X-rays of both knees last done in November 2019 showed (+) mild OA changes in the right knee and moderate OA changes in the left knee She was seeing orthopedics for her knee issues and was getting cortisone injections in her knees last year, with some relief of her symptoms TKA of the right knee was discussed last year and arrangements were being made for her to undergo surgery but she backed out at the last minute as she became concerned about her post-op situation at home and does not know if she will have anybody to help take care of her post-op She is now scheduled (again) for her right knee TKA here at [facility] next week on 08/09/2024 (11) Midline low back pain without sciatica: Code(s): M54.5 - Low back pain Category: Medical Qualifiers: Chronicity: unspecified Qualified Code(s): M54.5 - Low back pain Plan: Reinforced activity and weight-lifting restrictions to avoid aggravating her lower back symptoms Continue Tizanidine 4 mg 1 to 2 tablets TID PRN (12) Vitamin D deficiency: Code(s): E55.9 - Vitamin D deficiency, unspecified Category: Medical Plan: Continue Vitamin D3 1000 units QD (13) Insomnia: Code(s): G47.00 - Insomnia, unspecified Category: Medical Qualifiers: Insomnia type: unspecified Qualified Code(s): G47.00 - Insomnia, unspecified Plan: Sleep hygiene reinforced Continue Temazepam 30 mg QHS PRN and Amitriptyline 50 mg Q HS (14) Anxiety: Code(s): F41.9 - Anxiety disorder, unspecified Category: Medical Plan: Continue Hydroxyzine 25 mg TID PRN and Citalopram 40 mg QD (15) Obesity (BMI 30-39.9): Code(s): E66.9 - Obesity, unspecified Category: Medical Plan: Reinforced diet; weight loss and exercise are unrealistic at this time due to patient's worsening physical issues Plan Follow up in 4 months Orders: Orders Hemoglobin A1c 4 Months E11.9 - Type 2 diabetes mellitus without complications Microalbumin, Random (w Creat) 4 Months E11.9 - Type 2 diabetes mellitus without complications TSH reflex Free T4 4 Months E78.00 - Pure hypercholesterolemia, unspecified UA CC w/rflx Micro + Cult 4 Months R30.0 - Dysuria Vitamin B12 and Folate 4 Months E53.8 - Deficiency of other specified B group vitamins Comprehensive [place]. Panel Fast 4 Months E78.00 - Pure hypercholesterolemia, unspecified Complete Blood Count Auto Diff 4 Months D64.9 - Anemia, unspecified Lipid Panel 4 Months E78.00 - Pure hypercholesterolemia, unspecified Vitamin D 25-OH Total 4 Months E55.9 - Vitamin D deficiency, unspecified
[2024-08-03 15:21] VITALS: BP 124/80; PULSE 82; O2SAT 97; BMI 37.4
== END 2024-08-03 16:15 | disposition home or self-care (01) ==
PROVIDERS: PCP Internal Medicine; Visit Provider Internal Medicine
DX: E78.00 Pure hypercholesterolemia, unspecified (principal); E11.42 Type 2 diabetes mellitus with diabetic polyneuropathy; I10 Essential (primary) hypertension; I49.3 Ventricular premature depolarization; J45.40 Moderate persistent asthma, uncomplicated; J30.2 Other seasonal allergic rhinitis; G43.909 Migraine, unspecified, not intractable, without status migrainosus; K21.9 Gastro-esophageal reflux disease without esophagitis; M17.0 Bilateral primary osteoarthritis of knee; M54.50 Low back pain, unspecified; E55.9 Vitamin D deficiency, unspecified; G47.00 Insomnia, unspecified

== ENCOUNTER 2024-08-04 10:27 | Outpatient (REF) | payer MEDICARE, OTHER, SELFPAY ==
--- NOTE | ~2024-08-04 | XR_ITS ---
EXAMINATION: XR KNEE, LEFT CLINICAL INFORMATION: Left knee pain COMPARISON: Right knee xray on 05/09/24 TECHNIQUE: Standing view bilateral knees. FINDINGS: No fracture. Alignment is anatomic. Moderate joint space narrowing bilaterally. No abnormal soft tissue calcification. XR/XR knee LT 1V IMPRESSION: Moderate degenerative disease of the left knee. Electronically signed by: Adilia Zafar MD 08/09/2024 10:43 AM EDT
--- NOTE | ~2024-08-04 | XR_ITS ---
EXAMINATION: XR KNEE, RIGHT CLINICAL INFORMATION: Unilateral primary osteoarthritis COMPARISON: None available. TECHNIQUE: Four views of the right knee. FINDINGS: There is moderate tri compartment joint space narrowing with subchondral sclerosis. No joint effusion. No soft tissue swelling. XR/XR knee RT 3V IMPRESSION: Moderate degenerative disease of the right knee. Electronically signed by: Adilia Zafar MD 08/09/2024 10:41 AM EDT
== END 2024-08-04 10:28 | disposition home or self-care (01) ==
LOC: HO.HOSX 10:27
PROVIDERS: Visit Provider Physician Assistant
DX: M25.562 Pain in left knee (principal); M17.0 Bilateral primary osteoarthritis of knee
CPT/HCPCS: 73560; 73562; 99212

== ENCOUNTER 2024-08-04 12:51 | Outpatient (AMB) | payer MEDICARE, OTHER, SELFPAY ==
--- NOTE | 2024-08-04 13:02 | MHC.OFFVIS ---
Vital Signs 08/04/24 13:05 Height 5 ft 3 in Weight 211 lb BMI 37.4 Intake Visit Reasons: Pre-Op: R TKA w/NE 08/09/24 Intake Note: Lee Ann a 59 year old female who presents today for a preoperative visit for a right TKA on 08/09/24 NE. Pain management agreement reviewed and signed. Allergies linagliptin [From TRADJENTA] Allergy (Severe, Verified 08/04/24 13:05) THROAT ITCHING/COUGH Penicillins [PENICILLINS] Allergy (Severe, Verified 08/04/24 13:05) SWELLING/HIVES exenatide [From BYDUREON] Allergy (Intermediate, Verified 08/04/24 13:05) RASH wheat [WHEAT] Allergy (Intermediate, Verified 08/04/24 13:05) RASH latex [Latex] Allergy (Mild, Verified 08/04/24 13:05) SWELLING/ITCH grass, dogs, cats Allergy (Intermediate, Uncoded 08/04/24 13:05) Cough, sneezing lactose, wheat, corn syrup Allergy (Mild, Uncoded 08/04/24 13:05) rash HPI Comments Details: Ms Schultz presents to the office today for preop visit. She is scheduled for right total knee arthroplasty with Dr. Bill. She continues to have ongoing pain and difficulty with ambulation in the right knee, which is affecting her quality of life; therefore, she has elected to move forward with surgery. [facility] Medical History Vasovagal syncopes Allergic rhinitis Left knee pain Osteoarthritis of right knee Hx of flexible sigmoidoscopy (~2000) Cyst of right knee joint Right knee pain Injury of toenail GERD without esophagitis Obesity (BMI 30-39.9) Insomnia Osteoarthritis of knees, bilateral Migraine Midline low back pain without sciatica Premature ventricular contractions (PVCs) (VPCs) Benign essential hypertension Asthma Diabetes mellitus Pure hypercholesterolemia Vitamin D deficiency Anxiety GERD (gastroesophageal reflux disease) Obesity Hypertension Dyslipidemia Diabetic neuropathy associated with type 2 diabetes mellitus Diabetes type 2, uncontrolled Neuropathy Surgical History History of surgical removal of ganglion cyst Hx of colonoscopy History of esophagogastroduodenoscopy (EGD) History of laparoscopy Hx of tonsillectomy Hx of tubal ligation Family History Father Bladder cancer Skin cancer Diabetes Hypertension Hyperlipidemia Mother Diabetes CVD (cardiovascular disease) CVA (cerebral vascular accident) Hypertension Social History Household Members Other:: daughter Housing: House Are you a primary medicare contact specialist to a significant other at home: No Do you presently have visiting nurse or other home services: No Alcohol intake: never Comment: aware of trip hazard Patient Tobacco Use Status: Never used Tobacco e-Cigarette/Vaping Use: Never Used Second Hand Smoke Exposure: Yes service: No Current occupational status: retired Sexual orientation: Straight/Heterosexual Gender identity: Female Cognitive needs: No Hearing needs: No Vision needs: Yes (glasses) Review of Systems Const All systems reviewed & are unremarkable except as noted in HPI and below Physical Exam Vital Signs: BMI result Body Mass Index 37.4 Const General: cooperative and no acute distress Orientation/consciousness: patient oriented x3 HEENT Head: Yes normal to inspection, Yes normocephalic and Yes atraumatic Eyes General: appearance normal, both eyes and all related structures Neck Neck: Yes normal visual inspection and Yes no lymphadenopathy Resp Effort & Inspection: normal respiratory effort and able to speak in complete sentences Cardio Rate: regular rate Peripheral pulses: Peripheral pulses 2+ throughout GI Inspection: Yes normal to inspection Palpation (GI): Soft to palpation Skin General skin exam: no rashes or lesions noted Neuro General: patient oriented x3 Extrem Other: Right knee: Skin is intact. No open wound or abrasion. ROM is 0-95 degrees. Calf supple, nontender. NVI. Psych Appearance: grossly normal Mental Status: mental status grossly normal Results Reviewed Results Reviewed: Xrays were obtained in the office today and personally reviewed by me of the right knee for pre op planning Assessment & Plan Assessment & Plan (1) Osteoarthritis of right knee: Code(s): M17.11 - Unilateral primary osteoarthritis, right knee Category: Medical Plan I discussed in detail the procedure and what to expect pre and post operatively. We discussed the risks, benefits and alternatives to the surgery as well as the rehabilitation course. The risks; which include, but are not limited to infection, bleeding, nerve injury, ongoing pain, swelling, and stiffness, perioperative risk of injury to bones and soft tissues, and blood clots. I?ve answered all questions and with their understanding they have consented to move forward with Right total knee arthroplasty with Dr. Bill Orders: Orders XR knee RT 3V Today M17.11 - Unilateral primary osteoarthritis, right knee XR knee LT 1V Today M25.562 - Pain in left knee Patient Instructions: Scribed for Watson Musa PA-C, by José Miguel Brown medical staff manager, on 08/04/2024 at 1:15 PM EST.? I, Watson Musa PA-C, have personally reviewed and agree with the information entered by the scribe. Coding Level of Care Code Est Pt Level 3 (68348) Complex EM visit Add On G2211 Diagnoses Osteoarthritis of right knee M17.11
[2024-08-04 13:05] VITALS: BMI 37.4
== END 2024-08-04 13:47 | disposition home or self-care (01) ==
PROVIDERS: PCP Internal Medicine; Visit Provider Physician Assistant
DX: M17.11 Unilateral primary osteoarthritis, right knee (principal)
CPT/HCPCS: 99024

== ENCOUNTER 2024-08-09 05:57 | Day surgery (SDC) | payer MEDICARE, OTHER, SELFPAY ==
[2024-07-11 13:52] VITALS: BP 142/76; PULSE 74; RESP 16; O2SAT 97; BMI 37.6
--- NOTE | 2024-07-11 14:19 | P.CONAN_ITS ---
Documented by User: Luisa Raphael NP 08/08/24 08:44 HPI - Anesthesia Eval Consult details Narrative: 59yo F for Knee Replacement Total, 08/09/24 Cardiac optimized No recent illness. (allergies tx with montelukast) No CP/SOB within limits of knee Vasovagal syncope: x 1 ~ 5 years ago, remembers some episodes as child GERD: ppi controls Asthma: worse with dog allergies DM: Post prandial ~ 180 PMFSH Active Problems Active Problems: All Active Problems Shortness of breath (Acute) Vasovagal syncope (Acute) Tinea (Acute) Chest discomfort (Acute) Preop cardiovascular exam (Acute) Hemorrhoids (Acute) Diverticulosis of colon (Acute) Early satiety (Acute) Encounter for screening colonoscopy for [id number] patient (Acute) Cough (Acute) Right otitis media (Acute) Sore throat (viral) (Acute) Breast cancer screening (Acute) Colon cancer screening (Acute) Annual physical exam (Acute) Atypical chest pain (Acute) Allergic rhinitis (Acute) Osteoarthritis of right knee (Acute) Cyst of right knee joint (Acute) Right knee pain (Acute) Injury of toenail (Acute) GERD without esophagitis (Acute) Obesity (BMI 30-39.9) (Acute) Insomnia (Acute) Osteoarthritis of knees, bilateral (Acute) Migraine (Acute) Midline low back pain without sciatica (Acute) Premature ventricular contractions (PVCs) (VPCs) (Acute) Benign essential hypertension (Acute) Asthma (Acute) Diabetes mellitus (Acute) Pure hypercholesterolemia (Acute) Vitamin D deficiency (Acute) Anxiety (Acute) GERD (gastroesophageal reflux disease) (Acute) Obesity (Acute) Hypertension (Acute) Dyslipidemia (Acute) Diabetic neuropathy associated with type 2 diabetes mellitus (Acute) Diabetes type 2, uncontrolled (Acute) Neuropathy (Acute) Past Medical History Medical History Vasovagal syncopes Allergic rhinitis Left knee pain Osteoarthritis of right knee Hx of flexible sigmoidoscopy (~2000) Cyst of right knee joint Right knee pain Injury of toenail GERD without esophagitis Obesity (BMI 30-39.9) Insomnia Osteoarthritis of knees, bilateral Migraine Midline low back pain without sciatica Premature ventricular contractions (PVCs) (VPCs) Benign essential hypertension Asthma Diabetes mellitus Pure hypercholesterolemia Vitamin D deficiency Anxiety GERD (gastroesophageal reflux disease) Obesity Hypertension Dyslipidemia Diabetic neuropathy associated with type 2 diabetes mellitus Diabetes type 2, uncontrolled Neuropathy Family History Family History Father Bladder cancer Skin cancer Diabetes Hypertension Hyperlipidemia Mother Diabetes CVD (cardiovascular disease) CVA (cerebral vascular accident) Hypertension Family history of problems with anesthesia: No Surgical History Surgical History History of surgical removal of ganglion cyst Hx of colonoscopy History of esophagogastroduodenoscopy (EGD) History of laparoscopy Hx of tonsillectomy Hx of tubal ligation History of Problems with Anesthesia: No Social History Social History Household Members Other:: daughter Housing: House Are you a primary interior plant caretaker to a significant other at home: No Do you presently have visiting nurse or other home services: No Alcohol intake: never Comment: aware of trip hazard Patient Tobacco Use Status: Never used Tobacco e-Cigarette/Vaping Use: Never Used Second Hand Smoke Exposure: Yes Use of substances other than those prescribed or required for medical reasons: No Have you been hit, kicked, punched, or otherwise hurt by someone within the past year? If so, by whom?: No Spiritual Healthcare Practices: none Adventism Healthcare Practices: none Cultural Healthcare Practices: none Are you DNR?: No Advance Directives: No Advance Directives Information Provided: Yes Advance Directives on File: No Recently lost weight without trying: No Nutrition Risks: No Nutritional Risk Poor oral hygiene: No (upper partial) service: No Current occupational status: retired Sexual orientation: Straight/Heterosexual Gender identity: Female Cognitive needs: No Hearing needs: No Vision needs: Yes (glasses) Meds Allergies Allergy/AdvReac Type Severity Reaction Status Date / Time linagliptin [From TRADJENTA] Allergy Severe THROAT Verified 08/04/24 13:05 ITCHING/COUGH Penicillins [PENICILLINS] Allergy Severe SWELLING/HI Verified 08/04/24 13:05 VES exenatide [From BYDUREON] Allergy Intermediate RASH Verified 08/04/24 13:05 wheat [WHEAT] Allergy Intermediate RASH Verified 08/04/24 13:05 latex [Latex] Allergy Mild SWELLING/IT Verified 08/04/24 13:05 CH grass, dogs, cats Allergy Intermediate Cough, Uncoded 08/04/24 13:05 sneezing lactose, wheat, corn syrup Allergy Mild rash Uncoded 08/04/24 13:05 Home Medications ?Medication ?Instructions ?Recorded ?Confirmed ?Last Taken ?Type pen needle, diabetic 32 gauge x #50 ea 07/31/20 08/03/24 Unknown History cholecalciferol (vitamin D3) 25 25 mcg PO DAILY 03/04/21 08/03/24 08/08/24 History mcg (1,000 unit) capsule [id number] 8 mg-folic 400 1 tab PO DAILY 03/04/21 08/03/24 08/08/24 History mcg-K 50 mcg-lutein 300 mcg tablet (Centrum Silver Women) omega-3 fatty acids 1,000 mg 1,000 mg PO DAILY 03/04/21 08/03/24 08/01/24 History capsule (Fish Oil Concentrate) Exam Height,Weight and Vital Signs: Height 5 ft 3 in Weight 96.3 kg Last Vital Signs Pulse 74 07/11/24 13:52 Resp 16 07/11/24 13:52 BP 142/76 H 07/11/24 13:52 Pulse Ox 97 07/11/24 13:52 O2 Del Method Room Air 07/11/24 13:52 Pertinent Lab Results Pertinent Lab Results: Lab Results 07/11/24 07/11/24 08/04/24 Range/Units 14:24 14:45 14:07 WBC 11.0 H (4.8-10.8) X10*3/uL RBC 5.07 (4.20-5.50) X10*6/uL Hgb 13.7 (12.0-16.0) g/dl Hct 42.1 (37.0-47.0) % MCV 83.0 (80.0-98.0) fL MCH 27.0 (27.0-33.0) pg MCHC 32.5 (31.0-35.0) g/dl RDW 14.9 (11.0-16.0) % Plt Count 434 H (160-400) X10*3/uL MPV 10.1 (9.4-12.3) fL Absolute Nucleated RBC 0.000 (0.0-0.012) X10*3/uL Nucleated RBC % (auto) 0.0 (0.0-0.2) /100WBC Sodium 135 (135-145) mmol/L Potassium 5.0 (3.3-5.1) mmol/L Chloride 96 (96-108) mmol/L Carbon Dioxide 26 (22-29) mmol/L Anion Gap 18 (12-20) BUN 7 L (9-16) mg/dL Creatinine 0.79 (0.5-1.4) mg/dL Estim Creat Clear Calc 82.5 Estimated GFR > 60 Random Glucose 136 H (60-115) mg/dL Estimat Average Glucose 163 mg/dL Hemoglobin A1c % 7.3 H (<6.0) % Calcium 10.8 H D (8.4-10.2) mg/dL Nasal Screen MRSA (PCR) NEGATIVE (Negative) Nasal S. aureus Screen POSITIVE A (Negative) Nasal MRSA/S.aureus Interp SEE NOTE Blood Type A Positive Antibody Screen NEGATIVE Narrative Narrative: EKG 05/2024 normal sinus rhythm, no acute ST or T-wave abnormalities, rate 91, QTC 437 millisecond ECHO 06/2024 Conclusions: - The left ventricular systolic function is hyperdynamic. The visually estimated ejection fraction is >70%. - No obvious valvular pathology seen on this study. NM cardiolite stress test 08/2023 Impression: 1. Myocardial perfusion imaging study shows normal myocardial perfusion 2. Gated LVEF is 68% 3. Transient ischemic dilatation not present EKG is nondiagnostic for ischemia Airway Mallampati Class: II TM Dist: >3cm Neck ROM: Full Partial: Upper Loose/Missing/Broken Teeth: Yes (Left molar broken) Heart: RRR Lungs: CTAB Assessment and Plan Assessment Anesthesia Assessment: Chart Reviewed Final Anesthetic Review Family History of Problems with Anesthesia: No History of Problems with Anesthesia: No Documented by User: Sabi Cleaning MD 08/09/24 10:03 HPI - Anesthesia Eval Consult details Narrative: 59yo F for Right Total Knee Replacement , 08/09/24 Cardiac optimized No recent illness. (allergies tx with montelukast) No CP/SOB within limits of knee Vasovagal syncope: x 1 ~ 5 years ago, remembers some episodes as child GERD: ppi controls Asthma: worse with dog allergies DM: Post prandial ~ 180 Anesthesia Pre-Procedure Meds Is the patient on any of the following meds?: GLP1/DPP4 (Last dose semaglutide 08/02/24) [facility] Past Medical History Medical History Vasovagal syncopes Allergic rhinitis Left knee pain Osteoarthritis of right knee Hx of flexible sigmoidoscopy (~2000) Cyst of right knee joint Right knee pain Injury of toenail GERD without esophagitis Obesity (BMI 30-39.9) Insomnia Osteoarthritis of knees, bilateral Migraine Midline low back pain without sciatica Premature ventricular contractions (PVCs) (VPCs) Benign essential hypertension Asthma Diabetes mellitus Pure hypercholesterolemia Vitamin D deficiency Anxiety GERD (gastroesophageal reflux disease) Obesity Hypertension Dyslipidemia Diabetic neuropathy associated with type 2 diabetes mellitus Diabetes type 2, uncontrolled Neuropathy Family History Family History Father Bladder cancer Skin cancer Diabetes Hypertension Hyperlipidemia Mother Diabetes CVD (cardiovascular disease) CVA (cerebral vascular accident) Hypertension Family history of problems with anesthesia: No Surgical History Surgical History History of surgical removal of ganglion cyst Hx of colonoscopy History of esophagogastroduodenoscopy (EGD) History of laparoscopy Hx of tonsillectomy Hx of tubal ligation History of Problems with Anesthesia: No Social History Social History Household Members Other:: daughter Housing: House Are you a primary interior plant caretaker to a significant other at home: No Do you presently have visiting nurse or other home services: No Alcohol intake: never Comment: aware of trip hazard Patient Tobacco Use Status: Never used Tobacco e-Cigarette/Vaping Use: Never Used Second Hand Smoke Exposure: Yes Use of substances other than those prescribed or required for medical reasons: No Have you been hit, kicked, punched, or otherwise hurt by someone within the past year? If so, by whom?: No Spiritual Healthcare Practices: none Adventism Healthcare Practices: none Cultural Healthcare Practices: none Are you DNR?: No Advance Directives: No Advance Directives Information Provided: Yes Advance Directives on File: No Recently lost weight without trying: No Nutrition Risks: No Nutritional Risk Poor oral hygiene: No (upper partial) service: No Current occupational status: retired Sexual orientation: Straight/Heterosexual Gender identity: Female Cognitive needs: No Hearing needs: No Vision needs: Yes (glasses) Meds Allergies Allergy/AdvReac Type Severity Reaction Status Date / Time linagliptin [From TRADJENTA] Allergy Severe THROAT Verified 08/04/24 13:05 ITCHING/COUGH Penicillins [PENICILLINS] Allergy Severe SWELLING/HI Verified 08/04/24 13:05 VES exenatide [From BYDUREON] Allergy Intermediate RASH Verified 08/04/24 13:05 wheat [WHEAT] Allergy Intermediate RASH Verified 08/04/24 13:05 latex [Latex] Allergy Mild SWELLING/IT Verified 08/04/24 13:05 CH grass, dogs, cats Allergy Intermediate Cough, Uncoded 08/04/24 13:05 sneezing lactose, wheat, corn syrup Allergy Mild rash Uncoded 08/04/24 13:05 Home Medications ?Medication ?Instructions ?Recorded ?Confirmed ?Last Taken ?Type pen needle, diabetic 32 gauge x #50 ea 07/31/20 08/03/24 Unknown History cholecalciferol (vitamin D3) 25 25 mcg PO DAILY 03/04/21 08/03/24 08/08/24 History mcg (1,000 unit) capsule qemzomgm-htwq-[id number] 8 mg-folic 400 1 tab PO DAILY 03/04/21 08/03/24 08/08/24 History mcg-K 50 mcg-lutein 300 mcg tablet (Centrum Silver Women) omega-3 fatty acids 1,000 mg 1,000 mg PO DAILY 03/04/21 08/03/24 08/01/24 History capsule (Fish Oil Concentrate) Exam Airway Mallampati Class: III TM Dist: >3cm Neck ROM: Full Partial: Upper Loose/Missing/Broken Teeth: Yes (Left molar broken) Assessment and Plan Final Anesthetic Review Family History of Problems with Anesthesia: No History of Problems with Anesthesia: No NPO: Yes ASA Class: III Final Preanesthetic Review: No Changes in Pt Med Stat, Meds/Allgs Chart Reviewed, Consent Obtained/Reviewed and Anes Risks/Benef Reviewed Patient Risk: Intermediate Procedure Risk: Intermediate Assessment/Block/Sedation in SS: Assess/Block/Sedation-SS Anesthetic Plan Anesthetic Plan: GA and Regional Block (Adductor canal + Ipack nerve blocks) Disposition: Standard PACU and Inp. Admit - Standard Bed
[2024-07-11 15:13] LABS: Hematocrit 42.1 % (37.0-47.0); Hemoglobin 13.7 g/dl (12.0-16.0); Mean Corpuscular HGB Conc 32.5 g/dl (31.0-35.0); Mean Platelet Volume 10.1 fL (9.4-12.3); Platelet Count 434 X10*3/uL (160-400); Red Blood Count 5.07 X10*6/uL (4.20-5.50); Red Cell Distribution Width 14.9 % (11.0-16.0)
[2024-07-11 15:27] LABS: Anion Gap 18 (12-20); Blood Urea Nitrogen 7 mg/dL (9-16); Calcium 10.8 mg/dL (8.4-10.2); Carbon Dioxide 26 mmol/L (22-29); Chloride 96 mmol/L (96-108); Creatinine Clr Calc Pharmacy 82.5; Estimated Glomerular Filt Rate > 60; Glucose Random 136 mg/dL (60-115); Sodium 135 mmol/L (135-145)
[2024-07-11 15:42] LABS: Estimated Average Glucose 163 mg/dL; Hemoglobin A1C 194.3272 umol/L; Hemoglobin A1c % 7.3 % (<6.0); Total Hemoglobin (HGBA1C) 3459.6509 umol/L
[2024-07-11 16:00] LABS: MRSA Nasal PCR NEGATIVE (Negative); SA Nasal PCR POSITIVE (Negative)
[2024-08-09] VITALS (21 sets, daily range): BP systolic 122–162; BP diastolic 62–91; PULSE 65–75; RESP 10–20; TEMP 36–36.5; O2SAT 92–98; BMI 37.2; BMI 37.3
--- NOTE | ~2024-08-09 | XR_ITS ---
EXAMINATION: XR KNEE, RIGHT CLINICAL INFORMATION: Right TKA COMPARISON: Right knee xray on 08/04/24 TECHNIQUE: Two views of the right knee. FINDINGS: Prosthetic components of the total knee arthroplasty are appropriately aligned. No periprosthetic fracture. Gas from recent surgery is present in the joint and surrounding soft tissues. A joint effusion is present. XR/XR knee RT 2V IMPRESSION: Appropriate alignment of the total knee arthroplasty. Electronically signed by: Adilia Zafar MD 08/09/2024 10:37 AM EDT
[2024-08-09 06:48] LABS: Glucose, Whole Blood 164 mg/dL (60-115)
[2024-08-09 06:52] LABS: Hematocrit 35.5 % (37.0-47.0); Hemoglobin 11.8 g/dl (12.0-16.0)
[2024-08-09] MEDS: Lactated Ringers 1,000 ML 100 ML IVCONT ×3 (06:57→21:30)
--- NOTE | 2024-08-09 07:35 | MHC.SHP ---
Pre-Procedural Eval Section A - 24 Hr Update-Section A only Date of Service: 08/09/24 The patient is an INPATIENT: No Changes since office visit: No Cold of Flu in the past 2 weeks, No New Medical Problems, No Changes in Medication and No Patient answered all questions The patient has been examined within 24 hours of the surgical procedure. The History & Physical has been completed within 30 days and I have reviewed it.: Yes Section B - Complete if H&P > 30 days Chief Complaint: RT TKA Allergies: Allergies Allergy/AdvReac Type Severity Reaction Status Date / Time linagliptin [From TRADJENTA] Allergy Severe THROAT Verified 08/04/24 13:05 ITCHING/COUGH Penicillins [PENICILLINS] Allergy Severe SWELLING/HI Verified 08/04/24 13:05 VES exenatide [From BYDUREON] Allergy Intermediate RASH Verified 08/04/24 13:05 wheat [WHEAT] Allergy Intermediate RASH Verified 08/04/24 13:05 latex [Latex] Allergy Mild SWELLING/IT Verified 08/04/24 13:05 CH grass, dogs, cats Allergy Intermediate Cough, Uncoded 08/04/24 13:05 sneezing lactose, wheat, corn syrup Allergy Mild rash Uncoded 08/04/24 13:05 Plan I have reviewed the history and physical and performed a pertinent physical examination on my patient. No changes have occurred unless specified. Time Spent With Patient Time: Total time managing care of this patient today ____ minutes.
--- NOTE | 2024-08-09 09:37 | P.BOP_ITS ---
Brief Operative Note Date of Service: 08/09/24 Pre-op diagnosis: Right knee OA Post-op diagnosis: same Procedure: Right TKA Implants: Quan Triathlon posterior stabilized cemented 12/12/12ps/32a Surgeon: Nilay Bill MD Anesthesia: GETA and regional Was an Marine Insurance Claim Examiner used for this Procedure?: Yes Marine Insurance Claim Examiner: Watson Musa Estimated blood loss (mL): 100 Tourniquet time (min): 65 IV fluids (mL): 1,000 Pathology: other Condition: stable Disposition: PACU
[2024-08-09] MEDS: fentaNYL citrate/PF 100 MCG/2 ML VIAL 25 MCG IVPUSH ×4 (09:51→10:53)
--- NOTE | 2024-08-09 09:57 | PHA.MEDREC ---
Pharmacy Consult ? Medication Reconciliation Pharmacy has reviewed the medication reconciliation. OF NOTE: patients claims for citalopram is from 01/28/24.
[2024-08-09] MEDS: HYDROmorphone HCl 0.5 MG/0.5 ML SYRINGE 0.25 MG IVPUSH ×7 (10:10→22:29)
[2024-08-09 11:43] LABS: Glucose, Whole Blood 251 mg/dL (60-115)
[2024-08-09] MEDS: Escitalopram Oxalate 20 MG TABLET PO (11:58)
[2024-08-09] MEDS: oxyCODONE HCl Immed Release 5 MG TABLET PO ×2 (11:58→16:31)
[2024-08-09] MEDS: TiZANidine HCL 4 MG TABLET PO ×2 (11:58→20:24)
[2024-08-09] MEDS: Gabapentin 400 MG CAPSULE 800 MG PO ×3 (11:58→20:23)
[2024-08-09] MEDS: Pioglitazone HCL 30 MG TABLET PO (14:44)
[2024-08-09] MEDS: ceFAZolin Sodium/Dextrose,Iso 2 GM/50 ML PIGGYBACK IV (14:44)
[2024-08-09] MEDS: hydrOXYzine HCL 25 MG TABLET PO ×2 (14:44→20:22)
--- NOTE | 2024-08-09 14:48 | HO.PM.IMCN ---
History of Present Illness Data of Consult Service Date: 08/09/24 Primary Care Provider: Jeffrey Terry MD [facility] Reason for consult: Diabetes management Pt is a 59-year-old female with a PMH significant for HTN, HLD, insulin-dependent type 2 diabetes, peripheral neuropathy, asthma, osteoarthritis, and mood disorder who was admitted to the hospital under orthopedic services for right TKA. POD0. Hospitalist consult for medical management. Patient seen and evaluated in her room where she is seen resting comfortably in bed. Patient complains of 10/10 pain in her right knee that extends to foot, not well controlled with current pain meds. Denies any significant numbness or tingling in extremities. Has no other acute medical complaints. Denies shortness of breath, difficulty breathing. No chest pain/pressure, palpitations. Review of Systems Review of Systems: 10/10 right knee pain Pt otherwise denies any actue medical complaints PMFSH Medical History Vasovagal syncopes Allergic rhinitis Left knee pain Osteoarthritis of right knee Hx of flexible sigmoidoscopy (~2000) Cyst of right knee joint Right knee pain Injury of toenail GERD without esophagitis Obesity (BMI 30-39.9) Insomnia Osteoarthritis of knees, bilateral Migraine Midline low back pain without sciatica Premature ventricular contractions (PVCs) (VPCs) Benign essential hypertension Asthma Diabetes mellitus Pure hypercholesterolemia Vitamin D deficiency Anxiety GERD (gastroesophageal reflux disease) Obesity Hypertension Dyslipidemia Diabetic neuropathy associated with type 2 diabetes mellitus Diabetes type 2, uncontrolled Neuropathy Family History Father Bladder cancer Skin cancer Diabetes Hypertension Hyperlipidemia Mother Diabetes CVD (cardiovascular disease) CVA (cerebral vascular accident) Hypertension Surgical History History of surgical removal of ganglion cyst Hx of colonoscopy History of esophagogastroduodenoscopy (EGD) History of laparoscopy Hx of tonsillectomy Hx of tubal ligation Social History Household Members: Family Household Members Other:: daughter Housing: House Are you a primary acute care physician to a significant other at home: No Do you presently have visiting nurse or other home services: No Alcohol intake: never Comment: aware of trip hazard Patient Tobacco Use Status: Never used Tobacco e-Cigarette/Vaping Use: Never Used Second Hand Smoke Exposure: Yes Use of substances other than those prescribed or required for medical reasons: No Have you been hit, kicked, punched, or otherwise hurt by someone within the past year? If so, by whom?: No Do you feel safe in your current relationship?: No Current Relationship Is there a partner from a previous relationship who is making you feel unsafe now?: No Are you made to feel afraid or neglected: No Spiritual Healthcare Practices: none Gnosticist Healthcare Practices: none Cultural Healthcare Practices: none Are you DNR?: No Advance Directives: No Advance Directives Information Provided: Yes Advance Directives on File: No Do you have a plan to hurt others: No Plan Recently lost weight without trying: No How much weight loss: Not applicable Eating poorly because of decreased appetite: No Nutrition screen score: 0 Nutrition Risks: No Nutritional Risk Patient : No : No Poor oral hygiene: No service: No Current occupational status: retired Sexual orientation: Straight/Heterosexual Gender identity: Female Cognitive needs: No Hearing needs: No Vision needs: Yes (glasses) Meds Allergies Allergy/AdvReac Type Severity Reaction Status Date / Time linagliptin [From TRADJENTA] Allergy Severe THROAT Verified 08/04/24 13:05 ITCHING/COUGH Penicillins [PENICILLINS] Allergy Severe SWELLING/HI Verified 08/04/24 13:05 VES exenatide [From BYDUREON] Allergy Intermediate RASH Verified 08/04/24 13:05 wheat [WHEAT] Allergy Intermediate RASH Verified 08/04/24 13:05 latex [Latex] Allergy Mild SWELLING/IT Verified 08/04/24 13:05 CH grass, dogs, cats Allergy Intermediate Cough, Uncoded 08/04/24 13:05 sneezing lactose, wheat, corn syrup Allergy Mild rash Uncoded 08/04/24 13:05 Active Medications: Current Medications Acetaminophen (Acetaminophen 325 Mg Tablet) 650 mg PO Q6H PRN PRN Reason: Pain, Mild (Pain Scale 1-3), fever or headache Albuterol Sulfate (Albuterol Sulfate (0.083%) 2.5 Mg/3 Ml Vial.Neb) 2.5 mg INHALE QID PRN PRN Reason: shortness of breath or wheezing Albuterol Sulfate (Albuterol Sulfate 90 Mcg 8 Gm Inhaler) 1 puff INHALE QID PRN PRN Reason: for wheezing Amitriptyline HCl (Amitriptyline Hcl 50 Mg Tablet) 50 mg PO BEDTIME [facility] Celecoxib (Celecoxib 200 Mg Capsule) 200 mg PO BID [facility] Docusate Sodium (Docusate Sodium 100 Mg Capsule) 100 mg PO BID [facility] Enoxaparin Sodium (Enoxaparin Sodium 40 Mg/0.4 Ml Syringe) 40 mg SUBCUT Q24H [facility] Escitalopram Oxalate (Escitalopram Oxalate 20 Mg Tablet) 20 mg PO DAILY [facility] Last Admin: 08/09/24 11:58 Dose: 20 mg Fentanyl (Fentanyl Citrate/Pf 100 Mcg/2 Ml Vial) 25 mcg IVPUSH Q5M PRN PRN Reason: Pain, Moderate to Severe (Pain Scale 4-10) Stop: 08/09/24 15:45 Last Admin: 08/09/24 10:53 Dose: 25 mcg Gabapentin (Gabapentin 400 Mg Capsule) 800 mg PO QID [facility] Last Admin: 08/09/24 11:58 Dose: 800 mg Glucose (Glucose Gel 15 Gm Gel..Gram.) 15 gm PO Q15M PRN; Protocol PRN Reason: per Hypoglycemia Standing Ord. Hydromorphone HCl (Hydromorphone Hcl 0.5 Mg/0.5 Ml Syringe) 0.25 mg IVPUSH Q5M PRN PRN Reason: Pain, Moderate to Severe (Pain Scale 4-10) Stop: 08/09/24 15:45 Last Admin: 08/09/24 10:34 Dose: 0.25 mg Hydromorphone HCl (Hydromorphone Hcl 0.5 Mg/0.5 Ml Syringe) 0.25 mg IVPUSH Q4H PRN; Protocol PRN Reason: Pain, Severe (Pain Scale 7-10) Last Admin: 08/09/24 14:43 Dose: 0.25 mg Hydroxyzine HCl (Hydroxyzine Hcl 25 Mg Tablet) 25 mg PO TID [facility] Last Admin: 08/09/24 14:44 Dose: 25 mg Hydroxyzine HCl (Hydroxyzine Hcl 25 Mg Tablet) 50 mg PO BEDTIME [facility] Lactated Ringer's (Lr) 1,000 mls @ 100 mls/hr IVCONT .Q10H [facility] Stop: 08/10/24 09:30 Last Admin: 08/09/24 11:59 Dose: 100 mls/hr Dextrose (D10) 250 mls @ 750 mls/hr IV Q15M PRN; Protocol PRN Reason: per Hypoglycemia Standing Ord. Insulin Human Lispro (Insulin Lispro 100 Unit/Ml 3 Ml Vial) 0 unit SUBCUT QIDACHS [facility]; Protocol Montelukast Sodium (Montelukast Sodium 10 Mg Tablet) 10 mg PO BEDTIME [facility] Omeprazole (Omeprazole 20 Mg Capsule.Dr) 20 mg PO BID@0630,1630 [facility] Ondansetron HCl (Ondansetron Hcl 4 Mg/2 Ml Vial) 4 mg IVPUSH ONCE PRN PRN Reason: Nausea and Vomiting Stop: 08/09/24 15:45 Ondansetron HCl (Ondansetron Hcl 4 Mg/2 Ml Vial) 4 mg IVPUSH Q8H PRN PRN Reason: Nausea and Vomiting Oxycodone HCl (Oxycodone Hcl Immed Release 5 Mg Tablet) 5 mg PO ONCE PRN PRN Reason: Pain, Moderate(Pain Scale 4-6) if no IV Access Stop: 08/09/24 15:45 Oxycodone HCl (Oxycodone Hcl Immed Release 5 Mg Tablet) 5 mg PO Q4H PRN PRN Reason: Pain, Moderate(Pain Scale 4-6) Last Admin: 08/09/24 11:58 Dose: 5 mg Oxycodone HCl (Oxycodone Hcl Er 10 Mg Tab.Er.12h) 10 mg PO BID [facility] Pioglitazone HCl (Pioglitazone Hcl 30 Mg Tablet) 30 mg PO DAILY [facility] Last Admin: 08/09/24 14:44 Dose: 30 mg Propranolol HCl (Propranolol Hcl La 60 Mg Cap.Sa.24h) 60 mg PO DAILY [facility]; Protocol Sodium Chloride (0.9 % Sodium Chloride Flush 3 Ml Syringe) 3 ml IVFLUSH QSHIFT [facility] Last Admin: 08/09/24 14:44 Dose: Not Given Temazepam (Temazepam 15 Mg Capsule) 30 mg PO BEDTIME PRN PRN Reason: sleep Tizanidine HCl (Tizanidine Hcl 4 Mg Tablet) 4 mg PO TID PRN PRN Reason: for muscle spasm Last Admin: 08/09/24 11:58 Dose: 4 mg Home Medications ?Medication ?Instructions ?Recorded ?Confirmed ?Last Taken ?Type pen needle, diabetic 32 gauge x #50 ea 07/31/20 08/03/24 Unknown History cholecalciferol (vitamin D3) 25 25 mcg PO DAILY 03/04/21 08/03/24 08/08/24 History mcg (1,000 unit) capsule [id number] 8 mg-folic 400 1 tab PO DAILY 03/04/21 08/03/24 08/08/24 History mcg-K 50 mcg-lutein 300 mcg tablet (Centrum Silver Women) omega-3 fatty acids 1,000 mg 1,000 mg PO DAILY 03/04/21 08/03/24 08/01/24 History capsule (Fish Oil Concentrate) Physical Exam Vital Signs and Narrative: Vital Signs: Last Vital Signs Temp 96.8 F 08/09/24 11:42 Pulse 70 08/09/24 11:42 Resp 18 08/09/24 14:43 BP 136/63 08/09/24 11:42 Pulse Ox 96 08/09/24 11:42 O2 Del Method Nasal Cannula 08/09/24 11:42 O2 Flow Rate 2 08/09/24 11:42 BMI result Body Mass Index 37.3 General: AOx3, no acute distress Resp: CTA bilaterally CVS: S1, S2, RRR GI: +BS, NT, no distention Skin: Warm, dry Neuro: Cranial nerves II-XII grossly intact bilaterally. Motor grossly intact bilaterally Extremities: No edema. Right knee wrapped in clean dressing, with appropriate tenderness and limited ROM. Psych: Appropriate affect Results Labs 08/09/24 06:46 07/11/24 14:45 Labs: Laboratory Results - last 24 hr 08/09/24 08/09/24 06:33 11:35 POC Glucose 164 H 251 H Imaging Radiologist's Impressions: Impressions Knee X-Ray 08/09/24 09:50 IMPRESSION: Appropriate alignment of the total knee arthroplasty. Electronically signed by: Adilia Zafar MD 08/09/2024 10:37 AM EDT RP Assessment and Plan (1) Osteoarthritis of right knee: Status: Acute Plan Pt is a 59-year-old female with a PMH significant for HTN, HLD, insulin-dependent type 2 diabetes, peripheral neuropathy, asthma, osteoarthritis, and mood disorder who was admitted to the hospital under orthopedic services for right TKA. POD0. Hospitalist consult for medical management. Right TKA POD0 Complains of pain not yet well controlled Plan as per orthopedics Asthma Not in acute exacerbation Continue home inhalers Incentive spirometry HTN BP well-controlled with current therapies Continue losartan, propranolol HLD Continue statin Insulin-dependent type 2 diabetes Sliding-scale insulin Hold metformin Continue pioglitazone Peripheral neuropathy Continue gabapentin Mood disorder Continue amitriptyline, citalopram, hydroxyzine Thank you for allowing us to participate in the care of this patient. Will continue to follow along with you for now.
--- NOTE | 2024-08-09 15:33 | P.F2F_ITS ---
Service Date Service Date: 08/09/24 Encounter Date of encounter: 08/10/24 Reasons for Services Signs and symptoms assessed: s/p RTKA Pt. is considered homebound due to recent surgery. Unable to drive, poor balance, poor gait mechanics. Reason for physical therapy: home safety and mobility, therapeutic exercises, restore joint function, gait/transfer training and ADL training Homebound: Leaving the home is medically contraindicated at this time without the asist of a device and/or another person due th the listed conditions above and below. Reason homebound: unsteady gait / fall risk, leg weakness, pain with ambulation, pain with transfers, poor balance / fall risk and unable to drive Certification: Based on the above findings, I certify that this patient is confined to the home and needs intermittent long term care, physical therapy and/or speech th erapy, or continues to need occupational therapy. The patient is under my care, and I have initiated the establishment of the plan of care. The patient will be followed by a physician who will periodically review the plan of care. Time Spent With Patient Time: Total time managing care of this patient today ____ minutes.
--- NOTE | 2024-08-09 15:33 | PM.DS ---
DS: Providers Provider Date of Service: 08/10/24 Primary care physician: Jeffrey Terry MD Consults: 08/09/24 11:27 Consult to Hospitalist Routine Comment: Consulting Provider: Hospitalist Reason For Exam: DM management DS: Diagnosis Discharge Diagnosis (1) Osteoarthritis of right knee: Status: Acute DS: Summary Hospital Course Hospital Course: The patient underwent a successful right total knee arthroplasty, they were transferred to PACU and then to the floor to recover. During their stay, their vitals were stable, afebrile at 97.7. Labs were unremarkable, H/H 9.5/29.0. POD 1 they were started on Lovenox for DVT ppx, they also received Physical Therapy services twice a day. Prior to discharge, their dressing was clean dry and intact, and the plan was to be discharged to acute rehab. Time Attestation Discharge Coordination Time (in mins): 30 Quality: Safe Use of Opioids Does Pt have an Active Cancer Diagnosis on the Problem List?: No Quality: Stroke Does the patient have a stroke diagnosis?: No Physical Exam Vital Signs: Vital Signs: Last Vital Signs Temp 96.8 F 08/09/24 15:04 Pulse 72 08/09/24 15:04 Resp 20 08/09/24 15:04 BP 122/62 08/09/24 15:04 Pulse Ox 93 08/09/24 15:04 O2 Del Method Nasal Cannula 08/09/24 15:04 O2 Flow Rate 2 08/09/24 15:04 BMI result Body Mass Index 37.3 Const: General: cooperative, healthy appearing and no acute distress Resp: Effort & Inspection: normal respiratory effort and able to speak in complete sentences Cardio: Rate: regular rate Peripheral pulses: Peripheral pulses 2+ throughout GI: Palpation (GI): Soft to palpation Skin: Lesions: no lesions Rashes: no rashes Extrem: Other: right knee dressing is c/d/i. Able to dorsi/plantar flex. Calf is supple and nontender. Sensation intact. Pedal pulse intact. 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 docusate sodium 100 mg Capsule 100 mg PO BID 30 Days Qty: 60 0RF Continued (DME) OneTouch Ultra Test Strip See Rx Instructions .Route Qty: 100 11RF Rx Instructions: As directed 2 times daily (DME) pen needle, diabetic [BD Meghann 2nd Gen Pen Needle] 32 gauge x 5/32 needle See Rx Instructions .MEDSUPPLY Qty: 200 5RF Rx Instructions: Twice a day insulin glargine [Basaglar KwikPen U-100 Insulin] 100 unit/mL (3 mL) insulin pen 10 unit subcut QPM 90 Days Qty: 9 3RF Patient Comments: 1/2 dose yesterday albuterol sulfate 2.5 mg /3 mL (0.083 %) solution for nebulization 2.5 mg inhalation QID PRN (Reason: shortness of breath or wheezing) 30 Days Qty: 180 3RF hydroxyzine HCl 25 mg tablet See Rx Instructions PO .COMPLEX 90 Days Qty: 450 1RF Rx Instructions: 1 tablet 3 times a day and 2 tablets at bedtime PO; gabapentin 800 mg tablet 800 mg PO QID Qty: 360 1RF metformin 500 mg tablet extended release 24 hr 1,000 mg PO BID Qty: 360 1RF atorvastatin 40 mg tablet 40 mg PO DAILY 90 Days Qty: 90 1RF citalopram 40 mg tablet 40 mg PO DAILY Qty: 90 0RF (DME) FreeStyle Precision Bob Strips Strip See Rx Instructions .Route Qty: 100 1RF Rx Instructions: As directed once a day albuterol sulfate 90 mcg/actuation HFA aerosol inhaler 1 puff inhalation QID PRN (Reason: for wheezing) Qty: 6.7 3RF tizanidine 4 mg tablet 4 mg PO TID PRN (Reason: for muscle spasm) 90 Days Qty: 270 1RF Ozempic 0.25 mg or 0.5 mg (2 mg/3 mL) pen injector See Rx Instructions .ROUTE .COMPLEX Qty: 3 7RF Dose Instruction: INJECT 0.5 MG (0.4 ML) SUBCUTANEOUSLY EVERY WEEK FOR THE FIRST 4 DOSES USE 0.25MG/WEEK AND THEN PROCEED WITH 0.5MG/WEEK Rx Instructions: INJECT 0.5 MG (0.4 ML) SUBCUTANEOUSLY EVERY WEEK FOR THE FIRST 4 DOSES USE 0.25MG/WEEK AND THEN PROCEED WITH 0.5MG/WEEK pioglitazone 30 mg tablet 30 mg PO DAILY Qty: 90 1RF montelukast 10 mg tablet 10 mg PO BEDTIME Qty: 90 1RF amitriptyline 50 mg tablet 50 mg PO BEDTIME Qty: 90 1RF losartan 50 mg tablet 50 mg PO DAILY Qty: 90 0RF omeprazole 20 mg capsule,delayed release(DR/EC) 20 mg PO BID Qty: 180 1RF (DME) walker Misc See Rx Instructions .MEDSUPPLY Qty: 1 0RF Rx Instructions: Folding Front wheeled walker ([facility]) blood pressure monitor Kit See Rx Instructions .Route Qty: 1 0RF Rx Instructions: As directed propranolol 60 mg capsule,extended release 24 hr 60 mg PO DAILY 30 Days Qty: 90 2RF Rx Instructions: needs an appointment for refills ibuprofen 600 mg tablet 600 mg PO Q8H PRN (Reason: pain) 30 Days Qty: 90 0RF Rx Instructions: Take with food tramadol 50 mg tablet 50 mg PO TID PRN (Reason: pain) 30 Days Qty: 90 0RF temazepam 30 mg capsule 30 mg PO BEDTIME PRN (Reason: sleep) 30 Days Qty: 30 1RF (DME) pen needle, diabetic 32 gauge x 5/32 needle See Rx Instructions subcut DAILY Qty: 50 Rx Instructions: As directed omega-3 fatty acids [Fish Oil Concentrate] 1,000 mg capsule 1,000 mg PO DAILY cholecalciferol (vitamin D3) 25 mcg (1,000 unit) capsule 25 mcg PO DAILY Centrum Silver Women 8 mg iron-400 mcg-300 mcg tablet 1 tab PO DAILY (DME) lancets [OneTouch Delica Lancets] 33 gauge misc See Rx Instructions .ROUTE .MEDSUPPLY Qty: 100 6RF Rx Instructions: 3 times a day Discharge Orders: Discharge Order (Routine); Ordered 08/10/24 Ordered By: Nathalie Tao Diet: Advance to usual diet Activity on Discharge: Use cane or walker Activity Restrictions/Additional Instructions: Physical Therapy for ROM 0-120, quad strength, gait training. Use walker for ambulation Limit stair climbing, No shower, No tub bath, No driving Continue anticoagulant Lovenox x 6 weeks Keep Aquacel dressing clean, dry and intact. Follow up with orthopedics in 2 weeks Print Language: Luxembourgish
[2024-08-09 16:07] LABS: Glucose, Whole Blood 255 mg/dL (60-115)
[2024-08-09] MEDS: Acetaminophen 325 MG TABLET 650 MG PO (16:30)
[2024-08-09] MEDS: Omeprazole 20 MG CAPSULE.DR PO (16:30)
[2024-08-09] MEDS: Insulin Lispro 100 UNIT/ML 3 ML VIAL SUBCUT ×2 (16:31→20:24)
[2024-08-09 20:10] LABS: Glucose, Whole Blood 169 mg/dL (60-115)
[2024-08-09] MEDS: hydrOXYzine HCL 25 MG TABLET 50 MG PO (20:22)
[2024-08-09] MEDS: Montelukast Sodium 10 MG TABLET PO (20:22)
[2024-08-09] MEDS: Docusate Sodium 100 MG CAPSULE PO (20:23)
[2024-08-09] MEDS: Celecoxib 200 MG CAPSULE PO (20:23)
[2024-08-09] MEDS: oxyCODONE HCl ER 10 MG TAB.ER.12H PO (20:23)
[2024-08-09] MEDS: Amitriptyline HCl 50 MG TABLET PO (20:23)
[2024-08-09] MEDS: Temazepam 15 MG CAPSULE 30 MG PO (20:25)
[2024-08-10] VITALS (9 sets, daily range): BP systolic 98–133; BP diastolic 52–66; PULSE 60–88; RESP 16–20; TEMP 36–36.5; O2SAT 92–97
[2024-08-10] MEDS: HYDROmorphone HCl 0.5 MG/0.5 ML SYRINGE 0.25 MG IVPUSH ×2 (02:40→10:15)
[2024-08-10 05:27] LABS: MANUAL DIFF FLAG NO
[2024-08-10 05:30] LABS: Basophils Percent Auto 0.3 % (0-2); Eosinophils Percent Auto 0.2 % (0-4); Hemoglobin 9.5 g/dl (12.0-16.0); Imm Gran Abs Auto 0.03 X10*3/uL (0.00-0.03); Imm Gran Pct Auto 0.3 % (0.0-0.4); Lymphocytes Absolute Auto 2.9 X10*3/uL (1.2-4.9); Lymphocytes Percent Auto 30.9 % (20-40); Mean Corpuscular HGB Conc 32.8 g/dl (31.0-35.0); Mean Corpuscular Hemoglobin 27.3 pg (27.0-33.0); Mean Corpuscular Volume 83.3 fL (80.0-98.0); Mean Platelet Volume 10.4 fL (9.4-12.3); Monocytes Absolute Auto 1.1 X10*3/uL (0.1-1.2); Monocytes Percent Auto 11.8 % (2-11); Neutrophils Absolute Auto 5.3 x10*3/uL (2.0-8.3); Neutrophils Percent Auto 56.5 % (45-73); Platelet Count 348 X10*3/uL (160-400); Red Blood Count 3.48 X10*6/uL (4.20-5.50); Red Cell Distribution Width 14.9 % (11.0-16.0); White Blood Count 9.4 X10*3/uL (4.8-10.8)
[2024-08-10 05:51] LABS: Anion Gap 17 (12-20); Blood Urea Nitrogen 12 mg/dL (9-16); Calcium 8.8 mg/dL (8.4-10.2); Carbon Dioxide 24 mmol/L (22-29); Chloride 99 mmol/L (96-108); Creatinine Clr Calc Pharmacy 86.5; Estimated Glomerular Filt Rate > 60; Glucose Fasting 168 mg/dL (60-99); Potassium 4.5 mmol/L (3.3-5.1); Sodium 135 mmol/L (135-145)
[2024-08-10] MEDS: Omeprazole 20 MG CAPSULE.DR PO (06:02)
[2024-08-10] MEDS: oxyCODONE HCl Immed Release 5 MG TABLET PO ×2 (06:02→10:54)
[2024-08-10] MEDS: Acetaminophen 325 MG TABLET 650 MG PO (06:02)
[2024-08-10] MEDS: Lactated Ringers 1,000 ML 100 ML IVCONT (06:55)
[2024-08-10 07:18] LABS: Glucose, Whole Blood 145 mg/dL (60-115)
[2024-08-10] MEDS: Enoxaparin Sodium 40 MG/0.4 ML SYRINGE SUBCUT (07:23)
[2024-08-10] MEDS: Docusate Sodium 100 MG CAPSULE PO (07:23)
[2024-08-10] MEDS: Celecoxib 200 MG CAPSULE PO (07:23)
[2024-08-10] MEDS: oxyCODONE HCl ER 10 MG TAB.ER.12H PO (07:23)
[2024-08-10] MEDS: Gabapentin 400 MG CAPSULE 800 MG PO ×2 (07:23→12:03)
[2024-08-10] MEDS: Pioglitazone HCL 30 MG TABLET PO (07:23)
[2024-08-10] MEDS: Escitalopram Oxalate 20 MG TABLET PO (07:23)
[2024-08-10] MEDS: hydrOXYzine HCL 25 MG TABLET PO ×2 (07:23→14:56)
[2024-08-10] MEDS: Propranolol HCL LA 60 MG CAP.SA.24H PO (07:24)
--- NOTE | 2024-08-10 07:27 | PM.PNORT ---
Subjective Subjective Date of Service: 08/10/24 Interval history: POD1 s/p RTKA Patient is resting in bed comfortably No overnight events Pain is managed No additional complaints Physical Exam Vital Signs: Vital Signs: Last Vital Signs Temp 97.7 F 08/10/24 03:07 Pulse 82 08/10/24 03:07 Resp 16 08/10/24 03:07 BP 106/57 L 08/10/24 03:24 Pulse Ox 95 08/10/24 03:07 O2 Del Method Room Air 08/10/24 03:07 O2 Flow Rate 2 08/09/24 15:04 BMI result Body Mass Index 37.3 Extrem: Other: rt knee dressing is c/d/i. Able to dorsi/plantar flex. Calf is supple and nontender. Sensation intact. Pedal pulse intact. Procedures Date of Service Date of Service: 08/10/24 Progress Note: A&P Assessment and plan (1) Status post total knee replacement, right: Status: Acute Assessment and Plan: Continue pain mgmnt Begin Lovenox for dvt ppx begin PT for RTKA Dispo planning- PT, pain mgmnt, rehab placement Time Spent With Patient Time: Total time managing care of this patient today ____ minutes. Quality Stroke Does the patient have a stroke diagnosis?: No VTE Prior VTE?: No VTE Risk Level:: Medical - moderate - high VTE Device Contraindication: N/A - Device Ordered VTE Drug Contraindication: N/A - Med Ordered
--- NOTE | 2024-08-10 07:29 | P.OP_ITS ---
Operative Note Operative Note Date of Service: 08/09/24 Narrative: Date of Service: 08/09/24 Pre-op diagnosis: Right knee OA Post-op diagnosis: same Procedure: Right TKA Implants: [employer] posterior stabilized cemented 12/12/12ps/32a Surgeon: Nilay Bill MD Anesthesia: GETA and regional Was an Reverse Logistics Analyst used for this Procedure?: Yes Reverse Logistics Analyst: Watson Musa Estimated blood loss (mL): 100 Tourniquet time (min): 65 IV fluids (mL): 1,000 Pathology: other Condition: stable Disposition: PACU Procedure in detail: The patient was brought to the operating room and prepped and draped in standard sterile fashion. A time-out was called to identify proper site proper procedure proper surgeon and IV antibiotics were administered. 1 g of IV tranexamic acid was administered. I began by making a midline incision to the retinaculum and performed a medial parapatellar arthrotomy. The patella was translated laterally and the knee was flexed up. There was loss of bone and eburnation medially. THe anterior compartment was also eburnated. I performed a small medial peel and resected the infrapatellar fat pad. Jarod's line was then used to drill my intramedullary femoral guide and my distal femur cut of 12 mm was made in 5 degrees of valgus while protecting the soft tissues. I then measured a # 3 femur and placed my cutting guide and made my anterior posterior and chamfer cuts in 3deg ER while protecting the soft tissues at all times. I then made my box but removing the PCL. Once I was satisfied with my cuts I turned my attention to the tibia. I removed the meniscus medially and laterally and , using an external cutting guide, in line with the tibial crest and the third ray, I made my distal tibial cut in 0 deg slope of while protecting the posterior soft tissues at all times. An extension block was used to confirm appropriate amount of bony resection. I then sized a #3 tibia and once I was satisfied that there was complete tibial coverage I placed my trial and with the trial femur in place took the knee through range of motion. I was satisfied with the extension and flexion as well as the balance at 0, 30 and 90 degrees. I then turned my attention to the patella where I removed 1 cm from the undersurface of the patella and then trialed a 29a patellar button. Again the knee was taken through range of motion I was satisfied with the tracking. I then prepared the tibia with a drill and punch. A femoral bone plug was placed and the knee was irrigated copiously. I then cemented the patella, tibia and femur in standard fashion. Axial compression adn a clamp were used while the cement dried. Once the cement was hard on the back table all excess cement was removed and I trialed different inserts until I selected a #13ps insert. The final insert was placed and local TXA was administered. The knee was then closed with a running Quill suture, a 3 0 Vicryl and tia on the skin. Patient was then placed in sterile dressing and brought to recovery room in stable condition there were no known complications.
--- NOTE | 2024-08-10 08:36 | HO.POSTANES ---
Post Anesthesia Evaluation Post Anesthesia Evaluation Date of Service: 08/09/24 Vital Signs: Vital Signs Temp Pulse Resp BP Pulse Ox O2 Del Method 08/10/24 07:28 97.2 F 80 16 114/53 L 96 Room Air 08/10/24 03:24 106/57 L 08/10/24 03:07 97.7 F 82 16 98/54 L 95 Room Air 08/10/24 02:40 16 08/09/24 22:29 17 Anesthesia: General Endotracheal-GETA Mental Status: Awake Pain Control: Satisfactory Nausea/Vomiting: None Hydration: Adequate Anesthesia-Related Issues: No Anes. Related Issues
[2024-08-10 11:36] LABS: Glucose, Whole Blood 257 mg/dL (60-115)
[2024-08-10] MEDS: Acetaminophen 1,000 MG/100 ML PIGGYBACK 400 MG IV (12:03)
[2024-08-10] MEDS: Insulin Lispro 100 UNIT/ML 3 ML VIAL SUBCUT (12:03)
[2024-08-10] MEDS: HYDROmorphone HCl 0.5 MG/0.5 ML SYRINGE IVPUSH ×2 (12:29→16:38)
--- NOTE | 2024-08-10 13:54 | HO.PM.IMPN ---
Subjective Subjective Date of Service: 08/10/24 Interval History: Follow-up for patient admitted under Orthopedics right TKA Patient reports right knee pain initially improved, however earlier this morning at 09:30 was sitting in bedside recliner when she adjusted herself and found leg rest to suddenly retract, which dropped her right leg quickly. Patient experienced a great deal of pain which she continues to endorse. Approximately 2 hours later at 11:30 patient was assisted to the bathroom and upon returning to recliner suddenly felt lightheaded, dizzy, and had headache. Reports almost passed out. States has a previous history of vasovagal syncope. Patient otherwise has no acute medical complaints. No chest pain/pressure, palpitations. Denies shortness or breath or difficulty breathing. No nausea, vomiting, abdominal pain. Denies fever or chills. Currently patient denies lightheadedness or dizziness with resting in bed. Review of Systems Review of Systems: Yes all other systems are reviewed and are negative Physical Exam Vital Signs: Vital Signs: Last Vital Signs Temp 96.8 F 08/10/24 11:59 Pulse 60 08/10/24 11:59 Resp 18 08/10/24 11:59 BP 102/52 L 08/10/24 11:59 Pulse Ox 97 08/10/24 11:59 O2 Del Method Room Air 08/10/24 11:59 O2 Flow Rate 2 08/09/24 15:04 BMI result Body Mass Index 37.3 General: AOx3, no acute distress Resp: CTA bilaterally CVS: S1, S2, RRR GI: +BS, NT, no distention Skin: Warm, dry Neuro: Cranial nerves II-XII grossly intact bilaterally. Motor grossly intact bilaterally Extremities: No edema. Right knee with clean dressing in place. Diffusely tender to the touch. Psych: Appropriate affect Objective Data Active Medications Acetaminophen (Acetaminophen 325 Mg Tablet) 650 mg PO Q6H PRN PRN Reason: Pain, Mild (Pain Scale 1-3), fever or headache Last Admin: 08/10/24 06:02 Dose: 650 mg Documented By: CAREY Albuterol Sulfate (Albuterol Sulfate (0.083%) 2.5 Mg/3 Ml Vial.Neb) 2.5 mg INHALE QID PRN PRN Reason: shortness of breath or wheezing Albuterol Sulfate (Albuterol Sulfate 90 Mcg 8 Gm Inhaler) 1 puff INHALE QID PRN PRN Reason: for wheezing Amitriptyline HCl (Amitriptyline Hcl 50 Mg Tablet) 50 mg PO BEDTIME [facility] Last Admin: 08/09/24 20:23 Dose: 50 mg Documented By: CAREY Celecoxib (Celecoxib 200 Mg Capsule) 200 mg PO BID [facility] Last Admin: 08/10/24 07:23 Dose: 200 mg Documented By: ESTEBAN Docusate Sodium (Docusate Sodium 100 Mg Capsule) 100 mg PO BID [facility] Last Admin: 08/10/24 07:23 Dose: 100 mg Documented By: ESTEBAN Enoxaparin Sodium (Enoxaparin Sodium 40 Mg/0.4 Ml Syringe) 40 mg SUBCUT Q24H [facility] Last Admin: 08/10/24 07:23 Dose: 40 mg Documented By: ESTEBAN Escitalopram Oxalate (Escitalopram Oxalate 20 Mg Tablet) 20 mg PO DAILY [facility] Last Admin: 08/10/24 07:23 Dose: 20 mg Documented By: ESTEBAN Gabapentin (Gabapentin 400 Mg Capsule) 800 mg PO QID [facility] Last Admin: 08/10/24 12:03 Dose: 800 mg Documented By: GABI Glucose (Glucose Gel 15 Gm Gel..Gram.) 15 gm PO Q15M PRN; Protocol PRN Reason: per Hypoglycemia Standing Ord. Hydromorphone HCl (Hydromorphone Hcl 0.5 Mg/0.5 Ml Syringe) 0.5 mg IVPUSH Q4H PRN; Protocol PRN Reason: Pain, Severe (Pain Scale 7-10) Last Admin: 08/10/24 12:29 Dose: 0.5 mg Documented By: GABI Hydroxyzine HCl (Hydroxyzine Hcl 25 Mg Tablet) 25 mg PO TID [facility] Last Admin: 08/10/24 07:23 Dose: 25 mg Documented By: ESTEBAN Hydroxyzine HCl (Hydroxyzine Hcl 25 Mg Tablet) 50 mg PO BEDTIME [facility] Last Admin: 08/09/24 20:22 Dose: 50 mg Documented By: CAREY Dextrose (D10) 250 mls @ 750 mls/hr IV Q15M PRN; Protocol PRN Reason: per Hypoglycemia Standing Ord. Acetaminophen (Ofirmev) 1,000 mg in 100 mls @ 400 mls/hr IV Q6H [facility] Stop: 08/11/24 06:14 Last Infusion: 08/10/24 12:29 Dose: Infused Documented By: GABI Insulin Human Lispro (Insulin Lispro 100 Unit/Ml 3 Ml Vial) 0 unit SUBCUT QIDACHS [facility]; Protocol Last Admin: 08/10/24 12:03 Dose: 6 unit Documented By: GABI Montelukast Sodium (Montelukast Sodium 10 Mg Tablet) 10 mg PO BEDTIME [facility] Last Admin: 08/09/24 20:22 Dose: 10 mg Documented By: CAREY Omeprazole (Omeprazole 20 Mg Capsule.Dr) 20 mg PO BID@0630,1630 [facility] Last Admin: 08/10/24 06:02 Dose: 20 mg Documented By: CAREY Ondansetron HCl (Ondansetron Hcl 4 Mg/2 Ml Vial) 4 mg IVPUSH Q8H PRN PRN Reason: Nausea and Vomiting Oxycodone HCl (Oxycodone Hcl Er 10 Mg Tab.Er.12h) 10 mg PO BID [facility] Last Admin: 08/10/24 07:23 Dose: 10 mg Documented By: ESTEBAN Oxycodone HCl (Oxycodone Hcl Immed Release 5 Mg Tablet) 10 mg PO Q4H PRN PRN Reason: Pain, Moderate(Pain Scale 4-6) Pioglitazone HCl (Pioglitazone Hcl 30 Mg Tablet) 30 mg PO DAILY [facility] Last Admin: 08/10/24 07:23 Dose: 30 mg Documented By: ESTEBAN Propranolol HCl (Propranolol Hcl La 60 Mg Cap.Sa.24h) 60 mg PO DAILY [facility]; Protocol Last Admin: 08/10/24 07:24 Dose: 60 mg Documented By: ESTEBAN Sodium Chloride (0.9 % Sodium Chloride Flush 3 Ml Syringe) 3 ml IVFLUSH QSHIFT [facility] Last Admin: 08/10/24 07:07 Dose: Not Given Documented By: GABI Non-Admin Reason: IV Running Temazepam (Temazepam 15 Mg Capsule) 30 mg PO BEDTIME PRN PRN Reason: sleep Last Admin: 08/09/24 20:25 Dose: 30 mg Documented By: CAREY Tizanidine HCl (Tizanidine Hcl 4 Mg Tablet) 4 mg PO TID PRN PRN Reason: for muscle spasm Last Admin: 08/09/24 20:24 Dose: 4 mg Documented By: CAREY Labs 08/10/24 04:20 08/10/24 04:20 Labs: Laboratory Results - last 24 hr 08/09/24 08/09/24 08/10/24 16:03 20:06 04:20 MCV 83.3 MCH 27.3 MCHC 32.8 RDW 14.9 Plt Count 348 MPV 10.4 Immature Gran % (Auto) 0.3 Neut % (Auto) 56.5 Lymph % (Auto) 30.9 Foard % (Auto) 11.8 H Eos % (Auto) 0.2 Baso % (Auto) 0.3 Lymph # (Auto) 2.9 Foard # (Auto) 1.1 Eos # (Auto) 0.0 Baso # (Auto) 0.0 Abs Immat Gran (auto) 0.03 Absolute Neuts (auto) 5.3 Absolute Nucleated RBC 0.000 Nucleated RBC % (auto) 0.0 Anion Gap 17 Estim Creat Clear Calc 86.5 Estimated GFR > 60 POC Glucose 255 H 169 H Fasting Glucose 168 H Calcium 8.8 D 08/10/24 08/10/24 07:07 11:30 MCV MCH MCHC RDW Plt Count MPV Immature Gran % (Auto) Neut % (Auto) Lymph % (Auto) Foard % (Auto) Eos % (Auto) Baso % (Auto) Lymph # (Auto) Foard # (Auto) Eos # (Auto) Baso # (Auto) Abs Immat Gran (auto) Absolute Neuts (auto) Absolute Nucleated RBC Nucleated RBC % (auto) Anion Gap Estim Creat Clear Calc Estimated GFR POC Glucose 145 H 257 H Fasting Glucose Calcium Assessment and Plan (1) Status post total knee replacement, right: Status: Acute (2) Pre-syncope: Status: Acute Plan Pt is a 59-year-old female with a PMH significant for HTN, HLD, insulin-dependent type 2 diabetes, peripheral neuropathy, asthma, osteoarthritis, and mood disorder who was admitted to the hospital under orthopedic services for right TKA. POD1. Hospitalist consult for medical management. Right TKA POD1 Complains of pain secondary to right leg drop/accident this morning Plan as per orthopedics Lightheadedness and dizziness/presyncope Likely vasovagal in the setting of pain Will check orthostatics Pt receiving IVF Monitor BP, pain control, assistance with ambulation Asthma Not in acute exacerbation Continue home inhalers Incentive spirometry HTN BP well-controlled with current therapies Continue losartan, propranolol HLD Continue statin Insulin-dependent type 2 diabetes POCs ranging from 145-257 Continue sliding-scale insulin Hold metformin Continue pioglitazone Diabetic diet Peripheral neuropathy Continue gabapentin Mood disorder Continue amitriptyline, citalopram, hydroxyzine Attending: Dr. Can Thank you for allowing us to participate in the care of this patient. Will continue to follow along with you. Quality Stroke Does the patient have a stroke diagnosis?: No VTE Prior VTE?: No VTE Risk Level:: Medical - moderate - high VTE Device Contraindication: N/A - Device Ordered VTE Drug Contraindication: N/A - Med Ordered
--- NOTE | 2024-08-10 14:42 | MHC.CM.PN ---
pt to be dcd today at 5 to [facility]
[2024-08-10] MEDS: 0.9 % Sodium Chloride Flush 3 ML SYRINGE IVFLUSH (14:56)
[2024-08-10] MEDS: oxyCODONE HCl Immed Release 5 MG TABLET 10 MG PO (14:56)
[2024-08-10 16:08] LABS: Glucose, Whole Blood 191 mg/dL (60-115)
== END 2024-08-10 17:23 | disposition other institution (70) ==
LOC: HO.SSS 06:05 → HO.S3 10:45
PROVIDERS: Nurse Practitioner; Physician Assistant; PCP Internal Medicine; Visit Provider Orthopaedic Surgery
PROC: (CPT 27447; principal; 2024-08-09 07:30)
DX: M17.11 Unilateral primary osteoarthritis, right knee (principal); R55 Syncope and collapse; G89.18 Other acute postprocedural pain; M25.561 Pain in right knee; I10 Essential (primary) hypertension; F39 Unspecified mood [affective] disorder; J45.909 Unspecified asthma, uncomplicated; E78.5 Hyperlipidemia, unspecified; E11.9 Type 2 diabetes mellitus without complications; Z79.4 Long term (current) use of insulin; Z79.85 Long-term (current) use of injectable non-insulin antidiabetic drugs; Z79.899 Other long term (current) drug therapy
CPT/HCPCS: 27447; 36415; 73560; 80048; 82947; 83036; 85014; 85018; 85025; 85027; 86850; 86900; 86901; 87640; 87641; 88305; 88311; 97110; 97116; 97161; 97530; C1713; C1776; J0131; J0665; J0690; J1100; J1171; J1596; J1650; J2003; J2250; J2371; J2405; J2704; J3010; J7120

== ENCOUNTER → 2024-08-09 05:57 | Outpatient (BNV) | payer MEDICARE, OTHER, SELFPAY | PROVIDERS: PCP Internal Medicine; Visit Provider Orthopaedic Surgery | DX: Z47.1 Aftercare following joint replacement surgery (principal); Z96.651 Presence of right artificial knee joint; M17.11 Unilateral primary osteoarthritis, right knee | CPT/HCPCS: 27447; 99024 ==

== ENCOUNTER → 2024-08-09 05:57 | Outpatient (BNV) | payer MEDICARE, OTHER, SELFPAY | PROVIDERS: PCP Internal Medicine; Visit Provider Student in an Organized Health Care Education/Training Program | DX: R55 Syncope and collapse (principal); E11.8 Type 2 diabetes mellitus with unspecified complications; Z96.651 Presence of right artificial knee joint | CPT/HCPCS: 99222; 99232 ==

== ENCOUNTER 2024-08-24 10:57 | Outpatient (AMB) | payer MEDICARE, OTHER, SELFPAY ==
--- NOTE | 2024-08-24 11:01 | MHC.OFFVIS ---
Intake Visit Reasons: PO-RT TKA w/NE 08/09/24 Intake Note: Lee Ann is a 59 year old female who presents today for her first post operative visit s/p Right TKA 08/09/[address] Bill. Patient reports that she is doing so so. She complains of significant pain, she si taking Oxycodone but states that it only helps when she takes two at a time. Upon presentation her bandage had drawing on it that I anticipated was due to increased draining, when questioned about drainage afshan states that it is because the water gets in her bandage when taking a shower. For this reason I left the dressing intact for provider to examine. Allergies linagliptin [From TRADJENTA] Allergy (Severe, Verified 08/24/24 11:02) THROAT ITCHING/COUGH Penicillins [PENICILLINS] Allergy (Severe, Verified 08/24/24 11:02) SWELLING/HIVES exenatide [From BYDUREON] Allergy (Intermediate, Verified 08/24/24 11:02) RASH wheat [WHEAT] Allergy (Intermediate, Verified 08/24/24 11:02) RASH latex [Latex] Allergy (Mild, Verified 08/24/24 11:02) SWELLING/ITCH grass, dogs, cats Allergy (Intermediate, Uncoded 08/24/24 11:02) Cough, sneezing lactose, wheat, corn syrup Allergy (Mild, Uncoded 08/24/24 11:02) rash HPI HPI PO-RT TKA w/NE 08/09/24: Details: 59-year-old female who returns to the office today for post-op right TKA, 08/09/[address] Bill. She continues to have significant knee pain as well as increased drainage at the incision site. She takes oxycodone for her pain that provides relief only when she takes 2 at a time. [facility] Medical History Vasovagal syncopes Allergic rhinitis Left knee pain Osteoarthritis of right knee Hx of flexible sigmoidoscopy (~2000) Cyst of right knee joint Right knee pain Injury of toenail GERD without esophagitis Obesity (BMI 30-39.9) Insomnia Osteoarthritis of knees, bilateral Migraine Midline low back pain without sciatica Premature ventricular contractions (PVCs) (VPCs) Benign essential hypertension Asthma Diabetes mellitus Pure hypercholesterolemia Vitamin D deficiency Anxiety GERD (gastroesophageal reflux disease) Obesity Hypertension Dyslipidemia Diabetic neuropathy associated with type 2 diabetes mellitus Diabetes type 2, uncontrolled Neuropathy Surgical History History of surgical removal of ganglion cyst Hx of colonoscopy History of esophagogastroduodenoscopy (EGD) History of laparoscopy Hx of tonsillectomy Hx of tubal ligation Family History Father Bladder cancer Skin cancer Diabetes Hypertension Hyperlipidemia Mother Diabetes CVD (cardiovascular disease) CVA (cerebral vascular accident) Hypertension Social History Household Members: Family Household Members Other:: daughter Housing: House Are you a primary clinical care manager to a significant other at home: No Do you presently have visiting nurse or other home services: No Alcohol intake: never Comment: aware of trip hazard Patient Tobacco Use Status: Never used Tobacco e-Cigarette/Vaping Use: Never Used Second Hand Smoke Exposure: Yes service: No Current occupational status: retired Sexual orientation: Straight/Heterosexual Gender identity: Female Cognitive needs: No Hearing needs: No Vision needs: Yes (glasses) Review of Systems Const All systems reviewed & are unremarkable except as noted in HPI and below Physical Exam Extrem Other: Right knee: Incision clean, dry and intact. No redness or drainage along the incision. She does have excessive swelling in the calf with ecchymosis at the lateral aspect of tibia. Calf supple, nontender. NVI. Assessment & Plan Assessment & Plan (1) Status post total knee replacement, right: Code(s): Z96.651 - Presence of right artificial knee joint Category: Surgical Plan Jonathan removed, steri strips applied. She will continue with home PT as she was just DC from [facility] to continue working on Gait training, ROM and quad strength. No driving for another 4 weeks. She will require ppx abx for dental procedures. She will f/u in 4 weeks, sooner if needed. I am going to order an US of the RLE to rule out a blood clot. Orders: Orders US venous duplex LE RT Today R60.0 - Localized edema, Z96.651 - Presence of right artificial knee joint Patient Instructions: Scribed for Ta-Kell Musa PA-C, by José Miguel Brown medical billing instructor, on 08/24/2024 at 10:15 AM EST.? I, Watson Musa PA-C, have personally reviewed and agree with the information entered by the scribe. Coding Level of Care Code Global (03342) Diagnoses Status post total knee replacement, right Z96.651
== END 2024-08-24 11:53 | disposition home or self-care (01) ==
LOC: HO.HOS 10:57
PROVIDERS: PCP Internal Medicine; Visit Provider Physician Assistant
DX: Z96.651 Presence of right artificial knee joint (principal)
CPT/HCPCS: 99024

== ENCOUNTER → 2024-08-24 10:57 | Outpatient (BNVA) | payer MEDICARE, OTHER, SELFPAY | PROVIDERS: PCP Internal Medicine; Visit Provider Physician Assistant ==

== ENCOUNTER 2024-08-24 12:46 | Outpatient (REF) | payer MEDICARE, OTHER, SELFPAY ==
--- NOTE | ~2024-08-24 | US_ITS ---
EXAMINATION: US TRIPLEX LOWER EXTREMITY, RIGHT CLINICAL INFORMATION: Presence of right artificial knee joint COMPARISON: None available. TECHNIQUE: Color-flow triplex imaging with spectral analysis and compression Doppler were performed on the right lower extremity. FINDINGS: Respiratory variation, normal compression and augmented flow are noted throughout the right lower extremity. The visualized common femoral vein, superficial femoral vein, profunda femoral vein, popliteal vein and midcalf peroneal and posterior tibial venous segments show no evidence of deep venous thrombosis. There is no Brooke's cyst. US/US venous duplex LE RT IMPRESSION: No evidence of deep venous thrombosis involving the right lower extremity. Electronically signed by: Salvatore Sanders MD 08/24/2024 01:54 PM EST
== END 2024-08-24 12:47 | disposition home or self-care (01) ==
LOC: HO.US 12:46
PROVIDERS: Visit Provider Physician Assistant
DX: Z96.651 Presence of right artificial knee joint (principal); R60.0 Localized edema
CPT/HCPCS: 93971; 99212

== ENCOUNTER 2024-09-07 11:23 | Outpatient (AMB) | payer MEDICARE, OTHER, SELFPAY ==
[2024-09-07 11:37] VITALS: BP 104/70; PULSE 90; O2SAT 95; BMI 36.8
--- NOTE | 2024-09-07 11:37 | A.OFFPC_ITS ---
Vital Signs 09/07/24 11:37 Height 5 ft 3 in Weight 208 lb BMI 36.8 BP 104/70 Blood Pressure Location Lt brachial Position Sitting Pulse 90 Pulse Source Pulse Oximeter Pulse Oximetry (%) 95 Oxygen Delivery Method Room Air Intake Visit Reasons: [facility] 08/23 TKA Care Nurse Rn Required: No Accompanied by: Self / Same As Patient Allergies linagliptin [From TRADJENTA] Allergy (Severe, Verified 09/07/24 11:38) THROAT ITCHING/COUGH Penicillins [PENICILLINS] Allergy (Severe, Verified 09/07/24 11:38) SWELLING/HIVES exenatide [From BYDUREON] Allergy (Intermediate, Verified 09/07/24 11:38) RASH wheat [WHEAT] Allergy (Intermediate, Verified 09/07/24 11:38) RASH latex [Latex] Allergy (Mild, Verified 09/07/24 11:38) SWELLING/ITCH grass, dogs, cats Allergy (Intermediate, Uncoded 09/07/24 11:38) Cough, sneezing lactose, wheat, corn syrup Allergy (Mild, Uncoded 09/07/24 11:38) rash Tobacco use date assessed: 08/03/24 Dental Screening Dental Screen Date: 08/03/24 HPI HPI Comments History of Present Illness Details 59 y/o female patient who presents to [facility] for HDF. She was admitted at [facility] rehab on 08/10/24 and discharged home on 08/21/24. She had right TKA done 08/09/24. [facility] Medical History Vasovagal syncopes Allergic rhinitis Left knee pain Osteoarthritis of right knee Hx of flexible sigmoidoscopy (~2000) Cyst of right knee joint Right knee pain Injury of toenail GERD without esophagitis Obesity (BMI 30-39.9) Insomnia Osteoarthritis of knees, bilateral Migraine Midline low back pain without sciatica Premature ventricular contractions (PVCs) (VPCs) Benign essential hypertension Asthma Diabetes mellitus Pure hypercholesterolemia Vitamin D deficiency Anxiety GERD (gastroesophageal reflux disease) Obesity Hypertension Dyslipidemia Diabetic neuropathy associated with type 2 diabetes mellitus Diabetes type 2, uncontrolled Neuropathy Surgical History History of surgical removal of ganglion cyst Hx of colonoscopy History of esophagogastroduodenoscopy (EGD) History of laparoscopy Hx of tonsillectomy Hx of tubal ligation Family History Father Bladder cancer Skin cancer Diabetes Hypertension Hyperlipidemia Mother Diabetes CVD (cardiovascular disease) CVA (cerebral vascular accident) Hypertension Social History Household Members: Family Household Members Other:: daughter Housing: House Are you a primary direct care supervisor to a significant other at home: No Do you presently have visiting nurse or other home services: No Alcohol intake: never Comment: aware of trip hazard Patient Tobacco Use Status: Never used Tobacco e-Cigarette/Vaping Use: Never Used Second Hand Smoke Exposure: Yes service: No Current occupational status: retired Sexual orientation: Straight/Heterosexual Gender identity: Female Cognitive needs: No Hearing needs: No Vision needs: Yes (glasses) Questionnaire Thrive Questionnaire Date Thrive assessed: 08/03/24 Are you currently unemployed and looking for a job?: No DYANA-7 AMB Questionnaire DYANA-7 Date DYANA - 7 assessed: 08/03/24 Source: Developed by Drs. bAdirizak Mai, Dione Mclaughlin, Juan hernández nd colleagues, with an educational palma from [employer]. Review of Systems Const All systems reviewed & are unremarkable except as noted in HPI and below Physical exam (Primary Care) Vital Signs: Last Vital Signs Pulse 90 09/07/24 11:37 BP 104/70 09/07/24 11:37 Pulse Ox 95 09/07/24 11:37 Oxygen Delivery Method Room Air 09/07/24 11:37 BMI result Body Mass Index 36.8 Tobacco/Smoking Status: Tobacco use Status Tobacco use date assessed 08/03/24 09/07/24 11:38 Patient Tobacco Use Status Never used Tobacco 09/07/24 11:38 e-Cigarette/Vaping Use Never Used 09/07/24 11:38 Thrive Assessment: Date of Thrive Assessment Date Thrive assessed 08/03/24 09/07/24 11:38 Const General: cooperative and no acute distress Nutritional Appearance: obese Orientation/consciousness: patient oriented x3 Limitations: ambulation with walker Resp Effort & Inspection: normal respiratory effort Auscultation: clear to auscultation bilaterally Cardio Heart sounds: S1 normal heart sound present and S2 normal heart sound present Neuro General: patient oriented x3 Extrem Right lower extremity: knee (Linear surgical incision,healing well mild tenderness to touch,no infection) Details: tenderness Location: of the patella, swelling Location: of the patella and abnormal ROM Psych Speech and movement: Normal speech and movement present Coding Level of Care Code Est Pt Level 4 (81578) Diagnoses Status post total knee replacement, right Z96.651 Time Spent (min) 20 Assessment & Plan Assessment & Plan (1) Status post total knee replacement, right: Code(s): Z96.651 - Presence of right artificial knee joint Category: Medical Plan: Managed by Orthopedics. Next appointment on 09/2024.
== END 2024-09-07 12:13 | disposition home or self-care (01) ==
PROVIDERS: PCP Internal Medicine; Visit Provider Nurse Practitioner Family
DX: Z96.651 Presence of right artificial knee joint (principal)

== ENCOUNTER → 2024-09-07 11:23 | Outpatient (BNVA) | payer MEDICARE, OTHER, SELFPAY | PROVIDERS: PCP Internal Medicine; Visit Provider Nurse Practitioner Family | DX: Z96.651 Presence of right artificial knee joint (principal) | CPT/HCPCS: 99212 ==

== ENCOUNTER 2024-09-16 09:54 | Outpatient (AMB) | payer MEDICARE, OTHER, SELFPAY ==
[2024-09-16 09:57] VITALS: BMI 36.8
--- NOTE | 2024-09-16 09:57 | A.OFFVIS_ITS ---
Vital Signs 09/16/24 09:57 Height 5 ft 3 in Weight 208 lb BMI 36.8 Intake Visit Reasons: PO - R TKA 08/09/24 NE Intake Note: Lee Ann is a 59 year old female who presents to the office today for a PO R TKA 08/09/24. PT states she is feeling well and states she has been doing at home PT working on ROM. Pt states she still has pain occasionally and has been taking Oxycodone for relief. Allergies linagliptin [From TRADJENTA] Allergy (Severe, Verified 09/16/24 09:58) THROAT ITCHING/COUGH Penicillins [PENICILLINS] Allergy (Severe, Verified 09/16/24 09:58) SWELLING/HIVES exenatide [From BYDUREON] Allergy (Intermediate, Verified 09/16/24 09:58) RASH wheat [WHEAT] Allergy (Intermediate, Verified 09/16/24 09:58) RASH latex [Latex] Allergy (Mild, Verified 09/16/24 09:58) SWELLING/ITCH grass, dogs, cats Allergy (Intermediate, Uncoded 09/16/24 09:58) Cough, sneezing lactose, wheat, corn syrup Allergy (Mild, Uncoded 09/16/24 09:58) rash HPI HPI PO - R TKA 08/09/24 NE: Details: Lee Ann is a 59 year old female who presents to the office today for a PO R TKA 08/09/24. PT states she is feeling well and states she has been doing at home PT working on ROM. Pt states she still has pain occasionally and has been taking Oxycodone for relief. [facility] Medical History Vasovagal syncopes Allergic rhinitis Left knee pain Osteoarthritis of right knee Hx of flexible sigmoidoscopy (~2000) Cyst of right knee joint Right knee pain Injury of toenail GERD without esophagitis Obesity (BMI 30-39.9) Insomnia Osteoarthritis of knees, bilateral Migraine Midline low back pain without sciatica Premature ventricular contractions (PVCs) (VPCs) Benign essential hypertension Asthma Diabetes mellitus Pure hypercholesterolemia Vitamin D deficiency Anxiety GERD (gastroesophageal reflux disease) Obesity Hypertension Dyslipidemia Diabetic neuropathy associated with type 2 diabetes mellitus Diabetes type 2, uncontrolled Neuropathy Surgical History History of surgical removal of ganglion cyst Hx of colonoscopy History of esophagogastroduodenoscopy (EGD) History of laparoscopy Hx of tonsillectomy Hx of tubal ligation Family History Father Bladder cancer Skin cancer Diabetes Hypertension Hyperlipidemia Mother Diabetes CVD (cardiovascular disease) CVA (cerebral vascular accident) Hypertension Social History Household Members: Family Household Members Other:: daughter Housing: House Are you a primary career services officer to a significant other at home: No Do you presently have visiting nurse or other home services: No Alcohol intake: never Comment: aware of trip hazard Patient Tobacco Use Status: Never used Tobacco e-Cigarette/Vaping Use: Never Used Second Hand Smoke Exposure: Yes service: No Current occupational status: retired Sexual orientation: Straight/Heterosexual Gender identity: Female Cognitive needs: No Hearing needs: No Vision needs: Yes (glasses) Physical Exam Vital Signs: BMI result Body Mass Index 36.8 Extrem Other: There is a small very superficial opening of the incision. There is absolutely no depth. There is no discharge. Seems likely to have been a suture granuloma. She has 0-approximately 115 degrees motion. She is walking comfortably with a cane. Assessment & Plan Assessment & Plan (1) Status post total knee replacement, right: Code(s): Z96.651 - Presence of right artificial knee joint Category: Surgical Plan: Outpatient PT Wet-to-dry dressing changes for 1 week followed by dry dressing changes. She will contact me if this is not improved within 2 weeks. There is no evidence of infection or deep involvement. Follow up 6 weeks Coding Level of Care Code Global (22720) Diagnoses Status post total knee replacement, right Z96.651
--- OUTSIDE RECORDS SUMMARY | 2024-09-21 07:14 | XMS_ITS | Clinical Summary ---
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 Name Role Phone SUSIE HSU, TAMMIE Unavailable Unavailable KIMMY PT, TIFFANIE Unavailable Unavailable RANDAL COMBATANT SWIMMER, SEKOU Unavailable Unavailable CARLOS RN, RUBY Unavailable Unavailable PHAN SHRESTHAN, MARISA Unavailable Unavailabl e Payers Payer Name Policy Type Policy Number Effective Date Expira tion Date MEDICARE.NGS.PDGM [id number] Problems Condition Name Condition Details Condition Category Status Onset Date Resolution Date Last Treatment Date Treating Clinician Comments AFTERCARE FOLLOWING JOINT REPLACEMENT SURGERY Active 2023-10 00:00: 00 PRESENCE OF RIGHT ARTIFICIAL KNEE JOINT Active 2023-10 00:00: 00 UNILATERAL PRIMARY OSTEOARTHRIT IS, LEFT KNEE Active 10-12 00:00: 00 TYPE 2 DIABETES MELLITUS WITH DIABETIC POLYNEUROPAT HY Active 10-12 00:00: 00 ESSENTIAL (PRIMARY) HYPERTENSION Active 10-12 00:00: 00 HYPOMAGNESEM IA Active 10-12 00:00: 00 UNSPECIFIED ASTHMA, UNCOMPLICATE D Active 10-12 00:00: 00 DEPRESSION, UNSPECIFIED Active 10-12 00:00: 00 ANXIETY DISORDER, UNSPECIFIED Active 10-12 00:00: 00 INSOMNIA, UNSPECIFIED Active 10-12 00:00: 00 GASTRO-ESOPH AGEAL REFLUX DISEASE WITHOUT ESOPHAGITIS Active 10-12 00:00: 00 OBESITY, UNSPECIFIED Active 10-12 00:00: 00 BODY MASS INDEX [BMI] 38.0-38.9, ADULT Active 2023-10 00:00: 00 PUBLIC HEALTH ASSISTANT (CURRENT) USE OF NON-STEROIDA L NON-INFLAM (NSAID) Active 2023-10 00:00: 00 ALF (CURRENT) USE OF INSULIN Active 10-12 00:00: 00 PUBLIC HEALTH ASSISTANT (CURRENT) USE OF ORAL HYPOGLYCEMIC DRUGS Active 10-12 00:00: 00 LNG TRM (CRNT) USE INJECTABLE NON-INSULIN ANTIDIABETIC DRUGS Active 10-12 00:00: 00 Allergies, Adverse Reactions, Alerts Allergy Name Allergy Type Status Severity Reaction(s) Onset Date Inactive Date Treating Clinician Comments LATEX, ALL Propensity to adverse reactions Active 2023-10 05:51: 40 EXENATIDE Propensity to adverse reactions Active 2023-10 05:51: 51 LINAGLIPTIN Propensity to adverse reactions Active 2023-10 05:52: 00 PENICILLINS Propensity to adverse reactions Active 2023-10 05:52: 16 Medications Ordered Medication Name Filled Medication Name Start Date Stop Date Current Medication? Ordering Clinician Indication Dosage Frequency Signature (SIG) Comments Components temazepam 30 mg capsule 07-11 00:00: 00 Yes [id number] SLEEP 2 capsule BEDTIME 2 capsule BEDTIME (route: oral) Med Classific ation: Central Nervous System Agents tizanidine 4 mg tablet 07-11 00:00: 00 Yes [id number] SPASMS 1 tablet EVERY 8 HOURS 1 tablet EVERY 8 HOURS (route: oral) Med Classific ation: Locomotor System ibuprofen 600 mg tablet 07-07 00:00: 00 08-22 00:00 :00 No [id number] Per instruc tions EVERY 8 HOURS NEEDED FOR 30 DAYS Per instructio ns EVERY 8 HOURS NEEDED FOR 30 DAYS (route: oral) Med Classific ation: Analgesic , Anti-infl ammatory or Antipyret ic tramadol 50 mg tablet 07-07 00:00: 00 08-22 00:00 :00 No [id number] Per instruc tions 3 TIMES A DAY NEEDED FOR 30 DAYS Per instructio ns 3 TIMES A DAY NEEDED FOR 30 DAYS (route: oral) Med Classific ation: Analgesic , Anti-infl ammatory or Antipyret ic losartan 50 mg tablet 07-02 00:00: 00 08-22 00:00 :00 No [id number] Per instruc tions EVERY DAY Per instructio ns EVERY DAY (route: oral) Med Classific ation: Cardiovas cular Therapy Agents metformin ER 500 mg tablet,exte nded release 24 hr 07-02 00:00: 00 Yes [id number] DM 2 tablet TWICE A DAY 2 tablet TWICE A DAY (route: oral) Med Classific ation: Endocrine albuterol sulfate HFA 90 mcg/actuati on aerosol inhaler 06-29 00:00: 00 Yes [id number] WHEEZING 1 puff EVERY 6 HOURS 1 puff EVERY 6 HOURS (route: inhalation ) Med Classific ation: Respirato ry Therapy Agents gabapentin 800 mg tablet 06-28 00:00: 00 Yes [id number] PAIN 1 tablet 4 TIMES A DAY 1 tablet 4 TIMES A DAY (route: oral) Med Classific ation: Central Nervous System Agents pioglitazon e 30 mg tablet 06-18 00:00: 00 Yes [id number] DM 1 tablet EVERY DAY 1 tablet EVERY DAY (route: oral) Med Classific ation: Endocrine Ozempic 0.25 mg or 0.5 mg (2 mg/3 mL) subcutaneou s pen injector 06-17 00:00: 00 08-22 00:00 :00 No [id number] Per instruc tions 025 MG SUBCUTANEO USLY ONCE A WEEK FOR WEEKS 1 - 4 THEN 05 MG SUBCUTANEO USLY ONCE A WEEK Per instructio ns 025 MG SUBCUTANEO USLY ONCE A WEEK FOR WEEKS 1 - 4 THEN 05 MG SUBCUTANEO USLY ONCE A WEEK (route: subcutaneo us) Med Classific ation: Endocrine amitriptyli ne 50 mg tablet 2023-10 00:00: 00 Yes [id number] DEPRESSION 1 tablet DAILY 1 tablet DAILY (route: oral) Med Classific ation: Central Nervous System Agents atorvastati n 40 mg tablet 2023-10 00:00: 00 Yes [id number] HLD 1 tablet DAILY 1 tablet DAILY (route: oral) Med Classific ation: Cardiovas cular Therapy Agents celecoxib 200 mg capsule 2023-10 00:00: 00 Yes [id number] ANTI-INFLAM MATORY 1 capsule 2 TIMES DAILY 1 capsule 2 TIMES DAILY (route: oral) Med Classific ation: Analgesic , Anti-infl ammatory or Antipyret ic cholecalcif suyapa (vitamin D3) 50 mcg (2,000 unit) capsule 2023-10 00:00: 00 Yes [id number] SUPPLEMENT 1 capsule DAILY 1 capsule DAILY (route: oral) Med Classific ation: Electroly te Balance-N utritiona l Products citalopram 40 mg tablet 2023-10 00:00: 00 Yes [id number] DEPRESSION 1 tablet DAILY 1 tablet DAILY (route: oral) Med Classific ation: Central Nervous System Agents docusate sodium 100 mg tablet 2023-10 00:00: 00 Yes [id number] STOOL SOFTENER 1 tablet 2 TIMES DAILY 1 tablet 2 TIMES DAILY (route: oral) Med Classific ation: Gastroint estinal Therapy Agents fluticasone 100 mcg-salmete rol 50 mcg/dose blistr powdr for inhalation 2023-10 00:00: 00 Yes [id number] ASTHMA 1 inhalat ion DAILY 1 inhalation DAILY (route: inhalation ) Med Classific ation: Respirato ry Therapy Agents hydroxyzine HCl 25 mg tablet 2023-10 00:00: 00 Yes [id number] ANTIHISTAMI NE 2 tablet BEDTIME 2 tablet BEDTIME (route: oral) Med Classific ation: Central Nervous System Agents hydroxyzine HCl 25 mg tablet 2023-10 00:00: 00 Yes [id number] ANTIHISTAMI NE 1 tablet WITH MEALS 1 tablet WITH MEALS (route: oral) Med Classific ation: Central Nervous System Agents insulin glargine (U-100) 100 unit/mL (3 mL) subcutaneou s pen 2023-10 00:00: 00 Yes [id number] DM 15 unit BEDTIME 15 unit BEDTIME (route: subcutaneo us) Med Classific ation: Endocrine losartan 25 mg tablet 2023-10 00:00: 00 Yes [id number] HTN 1 tablet DAILY 1 tablet DAILY (route: oral) Med Classific ation: Cardiovas cular Therapy Agents magnesium 400 mg (as magnesium oxide) tablet 2023-10 00:00: 00 Yes [id number] HYPOMAGNESE GURJIT 1 tablet 2 TIMES DAILY 1 tablet 2 TIMES DAILY (route: oral) Med Classific ation: Electroly te Balance-N utritiona l Products montelukast 10 mg tablet 2023-10 00:00: 00 Yes [id number] ASTHMA 1 tablet BEDTIME 1 tablet BEDTIME (route: oral) Med Classific ation: Respirato ry Therapy Agents multivitami n with minerals tablet 2023-10 00:00: 00 Yes [id number] SUPPLEMENT 1 tablet DAILY 1 tablet DAILY (route: oral) Med Classific ation: Electroly te Balance-N utritiona l Products [place] 3-6-9 1,200 mg capsule 2023-10 00:00: 00 Yes [id number] SUPPLEMENT 1 capsule DAILY 1 capsule DAILY (route: oral) Med Classific ation: Cardiovas cular Therapy Agents oxycodone 5 mg tablet 2023-10 00:00: 00 Yes [id number] 1-3 PAIN 1 tablet EVERY 4 HOURS 1 tablet EVERY 4 HOURS (route: oral) Med Classific ation: Analgesic , Anti-infl ammatory or Antipyret ic oxycodone 5 mg tablet 2023-10 00:00: 00 Yes [id number] 4-10 PAIN 2 tablet EVERY 4 HOURS 2 tablet EVERY 4 HOURS (route: oral) Med Classific ation: Analgesic , Anti-infl ammatory or Antipyret ic Ozempic 1 mg/dose (4 mg/3 mL) subcutaneou s pen injector 2023-10 00:00: 00 Yes [id number] DM 0.38 mL WEEKLY 0.38 mL WEEKLY (route: subcutaneo us) Med Classific ation: Endocrine pantoprazol e 40 mg tablet,denice yed release 2023-10 00:00: 00 Yes [id number] GERD 1 tablet 2 TIMES DAILY 1 tablet 2 TIMES DAILY (route: oral) Med Classific ation: Gastroint estinal Therapy Agents propranolol 60 mg tablet 2023-10 00:00: 00 Yes [id number] HTN 1 tablet DAILY 1 tablet DAILY (route: oral) Med Classific ation: Cardiovas cular Therapy Agents Senna Lax 8.6 mg tablet 2023-10 00:00: 00 Yes [id number] LAXATIVE 1 tablet DAILY 1 tablet DAILY (route: oral) Med Classific ation: Gastroint estinal Therapy Agents acetaminoph en 325 mg tablet 2023-10 00:00: 00 Yes [id number] pain 2 tablet EVERY 6 HOURS 2 tablet EVERY 6 HOURS (route: oral) Med Classific ation: Analgesic , Anti-infl ammatory or Antipyret ic Vital Signs Vital Name Observation Time Observation Value Commen ts Temperature 2024-09-19 10:47:00.000 97.1 [degF] Temperature 2024-09-14 10:30:00.000 97.6 [degF] Temperature 2024-09-12 14:14:00.000 96.9 [degF] Temperature 2024-09-07 13:39:00.000 97.1 [degF] Temperature 2024-09-06 15:09:00.000 96.8 [degF] Temperature 2024-09-05 12:15:00.000 97.3 [degF] Temperature 2024-09-02 10:52:00.000 97.1 [degF] Temperature 2024-08-31 10:05:00.000 97.1 [degF] Temperature 2024-08-29 12:28:00.000 96.8 [degF] Temperature 2024-08-26 10:58:00.000 97.3 [degF] Temperature 2024-08-23 13:00:00.000 97.5 [degF] Temperature 2024-08-22 12:33:00.000 97.3 [degF] BMI (%) 2024-08-22 12:33:00.000 38 kg/m2 Height 2024-08-22 12:33:00.000 63 [in_us] Pulse 2024-09-19 10:47:00.000 72 /min Pulse 2024-09-14 10:30:00.000 78 /min Pulse 2024-09-12 14:14:00.000 65 /min Pulse 2024-09-07 13:39:00.000 60 /min Pulse 2024-09-06 15:09:00.000 72 /min Pulse 2024-09-05 12:15:00.000 73 /min Pulse 2024-09-02 10:52:00.000 89 /min Pulse 2024-08-31 10:05:00.000 88 /min Pulse 2024-08-29 12:28:00.000 84 /min Pulse 2024-08-26 10:58:00.000 67 /min Pulse 2024-08-25 13:52:00.000 79 /min Pulse 2024-08-23 13:00:00.000 82 /min Pulse 2024-08-22 12:33:00.000 76 /min O2 Saturation (%) 2024-09-19 10:47:00.000 95 % O2 Saturation (%) 2024-09-14 10:30:00.000 95 % O2 Saturation (%) 2024-09-12 14:14:00.000 98 % O2 Saturation (%) 2024-09-07 13:39:00.000 93 % O2 Saturation (%) 2024-09-06 15:09:00.000 98 % O2 Saturation (%) 2024-09-05 12:15:00.000 97 % O2 Saturation (%) 2024-09-02 10:52:00.000 93 % O2 Saturation (%) 2024-08-31 10:05:00.000 94 % O2 Saturation (%) 2024-08-29 12:28:00.000 96 % O2 Saturation (%) 2024-08-26 10:58:00.000 98 % O2 Saturation (%) 2024-08-25 13:52:00.000 96 % O2 Saturation (%) 2024-08-23 13:00:00.000 98 % O2 Saturation (%) 2024-08-22 12:33:00.000 99 % Respirations 2024-09-19 10:47:00.000 16 /min Respirations 2024-09-14 10:30:00.000 16 /min Respirations 2024-09-12 14:14:00.000 18 /min Respirations 2024-09-07 13:39:00.000 16 /min Respirations 2024-09-06 15:09:00.000 18 /min Respirations 2024-09-05 12:15:00.000 16 /min Respirations 2024-09-02 10:52:00.000 16 /min Respirations 2024-08-31 10:05:00.000 16 /min Respirations 2024-08-29 12:28:00.000 18 /min Respirations 2024-08-26 10:58:00.000 16 /min Respirations 2024-08-25 13:52:00.000 16 /min Respirations 2024-08-23 13:00:00.000 16 /min Respirations 2024-08-22 12:33:00.000 18 /min Weight (lbs) 2024-08-22 12:33:00.000 219 [lb_av] Systolic Blood Pressure 2024-09-19 10:47:00.000 110 mm [Hg] Systolic Blood Pressure 2024-09-14 10:30:00.000 118 mm [Hg] Systolic Blood Pressure 2024-09-12 14:14:00.000 120 mm [Hg] Systolic Blood Pressure 2024-09-07 13:39:00.000 126 mm [Hg] Systolic Blood Pressure 2024-09-06 15:09:00.000 120 mm [Hg] Systolic Blood Pressure 2024-09-05 12:15:00.000 100 mm [Hg] Systolic Blood Pressure 2024-09-02 10:52:00.000 105 mm [Hg] Systolic Blood Pressure 2024-08-31 10:05:00.000 128 mm [Hg] Systolic Blood Pressure 2024-08-29 12:28:00.000 110 mm [Hg] Systolic Blood Pressure 2024-08-26 10:58:00.000 102 mm [Hg] Systolic Blood Pressure 2024-08-25 13:52:00.000 118 mm [Hg] Systolic Blood Pressure 2024-08-23 13:00:00.000 100 mm [Hg] Systolic Blood Pressure 2024-08-22 12:33:00.000 110 mm [Hg] Diastolic Blood Pressure 2024-09-19 10:47:00.000 60 mm [Hg] Diastolic Blood Pressure 2024-09-14 10:30:00.000 80 mm [Hg] Diastolic Blood Pressure 2024-09-12 14:14:00.000 78 mm [Hg] Diastolic Blood Pressure 2024-09-07 13:39:00.000 60 mm [Hg] Diastolic Blood Pressure 2024-09-06 15:09:00.000 64 mm [Hg] Diastolic Blood Pressure 2024-09-05 12:15:00.000 60 mm [Hg] Diastolic Blood Pressure 2024-09-02 10:52:00.000 80 mm [Hg] Diastolic Blood Pressure 2024-08-31 10:05:00.000 82 mm [Hg] Diastolic Blood Pressure 2024-08-29 12:28:00.000 70 mm [Hg] Diastolic Blood Pressure 2024-08-26 10:58:00.000 80 mm [Hg] Diastolic Blood Pressure 2024-08-25 13:52:00.000 65 mm [Hg] Diastolic Blood Pressure 2024-08-23 13:00:00.000 68 mm [Hg] Diastolic Blood Pressure 2024-08-22 12:33:00.000 66 mm [Hg] Plan of Treatment Planned Activity Planned Date Details Comments Future Scheduled Test PHYSICAL T HERAPIST TO EVALUATE TREAT INDICATED [code = PHYSICAL THERAPIST TO EVALUATE TREAT INDICATED ] Future Scheduled Test OCCUPATION AL THERAPIST TO EVALUATE TREAT INDICATED [code = OCCUPATIONAL THERAPIST TO EVALUATE TREAT INDICATED ] Future Scheduled Test MEDICATION MANAGEMENT; RN/MEDICAL DELIVERY TECHNICIAN/MILL LABORER TO REVIEW MEDICATIONS FOR INTERACTIONS, EFFECTIVENESS OF DRUG THERAPY, AND SIGNS/SYMPTOMS OF ADVERSE REACTIONS. MAY INSTRUCT AND REINFORCE MEDICATION TEACHING RELATED TO THE USE OF MEDICATIONS, DOSAGE, FREQUENCY, PURPOSE, SIDE EFFECTS, AND TO REPORT COMPLICATIONS. [code = MEDICATION MANAGEMENT; RN/MEDICAL DELIVERY TECHNICIAN/MILL LABORER TO REVIEW MEDICATIONS FOR INTERACTIONS, EFFECTIVENESS OF DRUG THERAPY, AND SIGNS/SYMPTOMS OF ADVERSE REACTIONS. MAY INSTRUCT AND REINFORCE MEDICATION TEACHING RELATED TO THE USE OF MEDICATIONS, DOSAGE, FREQUENCY, PURPOSE, SIDE EFFECTS, AND TO REPORT COMPLICATIONS.] Future Scheduled Test FALL REDUC TION MANAGEMENT; RN TO ASSESS AND TEACH, MEDICAL DELIVERY TECHNICIAN/MILL LABORER TO OBSERVE AND TEACH ON EDUCATION AND INTERVENTION TO IDENTIFY FALL RISK FACTORS SUCH MEDICATIONS THAT MAY CAUSE DIZZINESS, CHRONIC DISEASES, PSYCHOLOGICAL FACTORS, AND EMPOWER/EDUCATE PATIENT/CAREGIVER TO MINIMIZE FALL RISK. [code = FALL REDUCTION MANAGEMENT; RN TO ASSESS AND TEACH, MEDICAL DELIVERY TECHNICIAN/MILL LABORER TO OBSERVE AND TEACH ON EDUCATION AND INTERVENTION TO IDENTIFY FALL RISK FACTORS SUCH MEDICATIONS THAT MAY CAUSE DIZZINESS, CHRONIC DISEASES, PSYCHOLOGICAL FACTORS, AND EMPOWER/EDUCATE PATIENT/CAREGIVER TO MINIMIZE FALL RISK.] Future Scheduled Test DIABETES M ANAGEMENT; RN TO ASSESS AND TEACH, MILL LABORER/MEDICAL DELIVERY TECHNICIAN TO OBSERVE AND TEACH INSTRUCTIONS OF DIABETIC CARE TO INCLUDE: DIET REGULAR, SKIN CARE, SIGNS AND SYMPTOMS OF HYPO/HYPERGLYCEMIA, PROPER ADMINISTRATION OF DIABETIC MEDICATION. RN/MILL LABORER/MEDICAL DELIVERY TECHNICIAN TO INSTRUCT ON DIABETIC FOOT CARE AND MONITOR FOR SKIN LESIONS ON LOWER EXTREMITIES. BLOOD GLUCOSE TESTING BID. RN TO ASSESS AND TEACH, MILL LABORER/MEDICAL DELIVERY TECHNICIAN TO OBSERVE AND TEACH PATIENT/CAREGIVER ABILITY TO PERFORM AND RECORD BLOOD GLUCOSE TESTING ORDERED AND TO REPORT ABNORMAL FINDINGS TO PHYSICIAN. RN/MILL LABORER/MEDICAL DELIVERY TECHNICIAN MAY PERFORM BLOOD GLUCOSE TEST NEEDED. RN/MILL LABORER/MEDICAL DELIVERY TECHNICIAN TO REPORT TO PHYSICIAN BLOOD GLUCOSE READINGS GREATER THAN 350 OR LESS THAN 70 RN/MILL LABORER/MEDICAL DELIVERY TECHNICIAN TO INSTRUCT PATIENT ON IMPORTANCE OF HGBA1C MONITORING, KIDNEY FUNCTION TEST, EYE AND FOOT EXAMS. [code = DIABETES MANAGEMENT; RN TO ASSESS AND TEACH, MILL LABORER/MEDICAL DELIVERY TECHNICIAN TO OBSERVE AND TEACH INSTRUCTIONS OF DIABETIC CARE TO INCLUDE: DIET REGULAR, SKIN CARE, SIGNS AND SYMPTOMS OF HYPO/HYPERGLYCEMIA, PROPER ADMINISTRATION OF DIABETIC MEDICATION. RN/MILL LABORER/MEDICAL DELIVERY TECHNICIAN TO INSTRUCT ON DIABETIC FOOT CARE AND MONITOR FOR SKIN LESIONS ON LOWER EXTREMITIES. BLOOD GLUCOSE TESTING BID. RN TO ASSESS AND TEACH, MILL LABORER/MEDICAL DELIVERY TECHNICIAN TO OBSERVE AND TEACH PATIENT/CAREGIVER ABILITY TO PERFORM AND RECORD BLOOD GLUCOSE TESTING ORDERED AND TO REPORT ABNORMAL FINDINGS TO PHYSICIAN. RN/MILL LABORER/MEDICAL DELIVERY TECHNICIAN MAY PERFORM BLOOD GLUCOSE TEST NEEDED. RN/MILL LABORER/MEDICAL DELIVERY TECHNICIAN TO REPORT TO PHYSICIAN BLOOD GLUCOSE READINGS GREATER THAN 350 OR LESS THAN 70 RN/MILL LABORER/MEDICAL DELIVERY TECHNICIAN TO INSTRUCT PATIENT ON IMPORTANCE OF HGBA1C MONITORING, KIDNEY FUNCTION TEST, EYE AND FOOT EXAMS.] Future Scheduled Test INSULIN AD MINISTRATION; CLIENT/CG/RN/MILL LABORER/MEDICAL DELIVERY TECHNICIAN TO ADMINISTER SQ INSULIN: GLARGINE 15 UNITS DAILY @ BEDTIME. OZEMPIC 0.38 ML SUBQ EVERY TUES IF PATIENT/CAREGIVER UNABLE/UNWILLING [code = INSULIN ADMINISTRATION; CLIENT/CG/RN/MILL LABORER/MEDICAL DELIVERY TECHNICIAN TO ADMINISTER SQ INSULIN: GLARGINE 15 UNITS DAILY @ BEDTIME. OZEMPIC 0.38 ML SUBQ EVERY TUES IF PATIENT/CAREGIVER UNABLE/UNWILLING ] Future Scheduled Test RN TO OBSE RVE, ASSESS, EVALUATE, AND DEVELOP AN INDIVIDUALIZED PLAN OF CARE. AGENCY MAY ACCEPT ORDERS FROM CONSULTING PHYSICIANS DR TAMMIE RICHARDS, DR DEVIN CHAHAL. RN TO OBSERVE AND ASSESS, MEDICAL DELIVERY TECHNICIAN/MILL LABORER TO OBSERVE FOR RISK FOR FALLS AND INSTRUCT IN FALL PREVENTION, HOME SAFETY, MEDICATION MANAGEMENT, INFECTION PREVENTION, AND NUTRITION MANAGEMENT. RN/MEDICAL DELIVERY TECHNICIAN/MILL LABORER NURSE MAY PERFORM O2 SATURATION LEVEL ON ADMISSION AND PRN FOR SOB FOR RN TO ASSESS/MEDICAL DELIVERY TECHNICIAN TO OBSERVE PATIENT, WITH NOTIFICATION TO THE PHYSICIAN IF SATURATION IS 90% IN THE ABSENCE OF MORE SPECIFIC PARAMETERS FROM THE PHYSICIAN. AGENCY MAY PERFORM A RESUMPTION OF CARE VISIT FOLLOWING ANY HOSPITAL ADMISSION. RN/MEDICAL DELIVERY TECHNICIAN/MILL LABORER TO MONITOR CO-MORBID CONDITIONS LISTED ON THE PLAN OF CARE AND ANY NEW CONDITIONS THAT PRESENT THEMSELVES DURING THIS EPISODE TO IDENTIFY CHANGES AND INTERVENE TO MINIMIZE COMPLICATIONS. [code = RN TO OBSERVE, ASSESS, EVALUATE, AND DEVELOP AN INDIVIDUALIZED PLAN OF CARE. AGENCY MAY ACCEPT ORDERS FROM CONSULTING PHYSICIANS DR TAMMIE RICHARDS, DR DEVIN CHAHAL. RN TO OBSERVE AND ASSESS, MEDICAL DELIVERY TECHNICIAN/MILL LABORER TO OBSERVE FOR RISK FOR FALLS AND INSTRUCT IN FALL PREVENTION, HOME SAFETY, MEDICATION MANAGEMENT, INFECTION PREVENTION, AND NUTRITION MANAGEMENT. RN/MEDICAL DELIVERY TECHNICIAN/MILL LABORER NURSE MAY PERFORM O2 SATURATION LEVEL ON ADMISSION AND PRN FOR SOB FOR RN TO ASSESS/MEDICAL DELIVERY TECHNICIAN TO OBSERVE PATIENT, WITH NOTIFICATION TO THE PHYSICIAN IF SATURATION IS 90% IN THE ABSENCE OF MORE SPECIFIC PARAMETERS FROM THE PHYSICIAN. AGENCY MAY PERFORM A RESUMPTION OF CARE VISIT FOLLOWING ANY HOSPITAL ADMISSION. RN/MEDICAL DELIVERY TECHNICIAN/MILL LABORER TO MONITOR CO-MORBID CONDITIONS LISTED ON THE PLAN OF CARE AND ANY NEW CONDITIONS THAT PRESENT THEMSELVES DURING THIS EPISODE TO IDENTIFY CHANGES AND INTERVENE TO MINIMIZE COMPLICATIONS.] Future Scheduled Test PAIN MANAG EMENT; RN TO ASSESS AND TEACH, MILL LABORER/MEDICAL DELIVERY TECHNICIAN TO OBSERVE AND TEACH AND PROVIDE EDUCATION ON PAIN MANAGEMENT TECHNIQUES. [code = PAIN MANAGEMENT; RN TO ASSESS AND TEACH, MILL LABORER/MEDICAL DELIVERY TECHNICIAN TO OBSERVE AND TEACH AND PROVIDE EDUCATION ON PAIN MANAGEMENT TECHNIQUES.] Future Scheduled Test RN/MEDICAL DELIVERY TECHNICIAN/MILL LABORER TO PERFORM/TEACH INCISION CARE TO RIGHT KNEE WITH NONREMOVABLE DRESSING. MONITOR FOR SIGNS OR SYMPTOMS OF INFECTION [code = RN/MEDICAL DELIVERY TECHNICIAN/MILL LABORER TO PERFORM/TEACH INCISION CARE TO RIGHT KNEE WITH NONREMOVABLE DRESSING. MONITOR FOR SIGNS OR SYMPTOMS OF INFECTION ] Future Scheduled Test RISK FOR H OSPITALIZATION; RN TO ASSESS/TEACH, MILL LABORER/MEDICAL DELIVERY TECHNICIAN TO OBSERVE/TEACH PATIENT/CAREGIVER ON RISK FOR HOSPITALIZATION/EMERGENCY ROOM VISITS, TEACH SIGNS AND SYMPTOMS THAT PUT PATIENT AT RISK, WHEN TO NOTIFY NURSE/PHYSICIAN OF COMPLICATIONS/DECLINE, AND WHEN TO CALL 911. [code = RISK FOR HOSPITALIZATION; RN TO ASSESS/TEACH, MILL LABORER/MEDICAL DELIVERY TECHNICIAN TO OBSERVE/TEACH PATIENT/CAREGIVER ON RISK FOR HOSPITALIZATION/EMERGENCY ROOM VISITS, TEACH SIGNS AND SYMPTOMS THAT PUT PATIENT AT RISK, WHEN TO NOTIFY NURSE/PHYSICIAN OF COMPLICATIONS/DECLINE, AND WHEN TO CALL 911.] Future Scheduled Test CARDIOVASC ULAR SYSTEM; RN TO ASSESS/TEACH, MEDICAL DELIVERY TECHNICIAN/MILL LABORER TO OBSERVE/TEACH RELATED TO ALTERED CARDIOVASCULAR STATUS TO MINIMIZE COMPLICATIONS AND REDUCE HOSPITALIZATION. [code = CARDIOVASCULAR SYSTEM; RN TO ASSESS/TEACH, MEDICAL DELIVERY TECHNICIAN/MILL LABORER TO OBSERVE/TEACH RELATED TO ALTERED CARDIOVASCULAR STATUS TO MINIMIZE COMPLICATIONS AND REDUCE HOSPITALIZATION.] Future Scheduled Test HYPERTENSI ON MANAGEMENT; RN TO ASSESS AND TEACH, MEDICAL DELIVERY TECHNICIAN/MILL LABORER TO OBSERVE AND TEACH WARNING SIGNS AND SYMPTOMS TO AVOID HOSPITALIZATION. [code = HYPERTENSION MANAGEMENT; RN TO ASSESS AND TEACH, MEDICAL DELIVERY TECHNICIAN/MILL LABORER TO OBSERVE AND TEACH WARNING SIGNS AND SYMPTOMS TO AVOID HOSPITALIZATION.] Future Scheduled Test AGENCY MAY PERFORM A RESUMPTION OF CARE VISIT FOLLOWING ANY HOSPITAL ADMISSION. PT TO EVALUATE, OBSERVE / ASSESS, AND MONITOR, COMBATANT SWIMMER TO OBSERVE AND MONITOR, PROVIDE SKILLED THERAPEUTIC INTERVENTION, ACTIVITY, EDUCATION, AND TRAINING TO ADDRESS; PT/COMBATANT SWIMMER TO PROVIDE GAIT TRAINING FOR IMPROVED MOBILITY AND /OR TO NORMALIZE GAIT PATTERN NEUROMUSCULAR RE-EDUCATION / BALANCE / POSTURAL CONTROL (PT) THERAPEUTIC EXERCISES AND ESTABLISHING A HOME EXERCISE PROGRAM (PT/COMBATANT SWIMMER) PT/COMBATANT SWIMMER TO PROVIDE STAIR TRAINING CHAIR TRANSFERS (PT/COMBATANT SWIMMER) PT / COMBATANT SWIMMER TO MONITOR FOR HYPO/HYPERGLYCEMIA AND CONDUCT ROUTINE FOOT INSPECTIONS. RECORD PATIENT REPORTED BLOOD SUGAR LEVELS AND NOTIFY PHYSICIAN AND/OR THE RN CLINICAL DELIVERY CREW MEMBER FOR PHYSICIAN NOTIFICATION IF BLOOD SUGAR LEVELS ARE OUTSIDE ORDERED PARAMETERS. TEACH PATIENT/CAREGIVER ON DAILY FOOT INSPECTIONS PT/COMBATANT SWIMMER TO TEACH KNEE REPLACEMENT SELF-MANAGEMENT PT / COMBATANT SWIMMER TO OBSERVE WOUND/INCISION AND/OR INTACT DRESSING ON R KNEE AND REPORT EARLY SIGNS AND SYMPTOMS OF WOUND DETERIORATION, COMPLICATIONS, OR INFECTION TO PHYSICIAN AND/OR THE RN CLINICAL DELIVERY CREW MEMBER FOR PHYSICIAN NOTIFICATION. PT / COMBATANT SWIMMER MAY EDUCATE ON PAIN MANAGEMENT CLINICALLY INDICATED, INCLUDING NON-PHARMACOLOGICAL PAIN REDUCTION TECHNIQUES. PT/COMBATANT SWIMMER TO IDENTIFY FALL RISK FACTORS; EDUCATE THE PATIENT/CAREGIVER ON WAYS TO REDUCE FALL RISK FACTORS AND ESTABLISH HOME EXERCISE PROGRAM TO MINIMIZE FALL RISK. MAY TEACH THE PATIENT FLOOR RECOVERY WHEN CLINICALLY APPROPRIATE [code = AGENCY MAY PERFORM A RESUMPTION OF CARE VISIT FOLLOWING ANY HOSPITAL ADMISSION. PT TO EVALUATE, OBSERVE / ASSESS, AND MONITOR, COMBATANT SWIMMER TO OBSERVE AND MONITOR, PROVIDE SKILLED THERAPEUTIC INTERVENTION, ACTIVITY, EDUCATION, AND TRAINING TO ADDRESS; PT/COMBATANT SWIMMER TO PROVIDE GAIT TRAINING FOR IMPROVED MOBILITY AND /OR TO NORMALIZE GAIT PATTERN NEUROMUSCULAR RE-EDUCATION / BALANCE / POSTURAL CONTROL (PT) THERAPEUTIC EXERCISES AND ESTABLISHING A HOME EXERCISE PROGRAM (PT/COMBATANT SWIMMER) PT/COMBATANT SWIMMER TO PROVIDE STAIR TRAINING CHAIR TRANSFERS (PT/COMBATANT SWIMMER) PT / COMBATANT SWIMMER TO MONITOR FOR HYPO/HYPERGLYCEMIA AND CONDUCT ROUTINE FOOT INSPECTIONS. RECORD PATIENT REPORTED BLOOD SUGAR LEVELS AND NOTIFY PHYSICIAN AND/OR THE RN CLINICAL DELIVERY CREW MEMBER FOR PHYSICIAN NOTIFICATION IF BLOOD SUGAR LEVELS ARE OUTSIDE ORDERED PARAMETERS. TEACH PATIENT/CAREGIVER ON DAILY FOOT INSPECTIONS PT/COMBATANT SWIMMER TO TEACH KNEE REPLACEMENT SELF-MANAGEMENT PT / COMBATANT SWIMMER TO OBSERVE WOUND/INCISION AND/OR INTACT DRESSING ON R KNEE AND REPORT EARLY SIGNS AND SYMPTOMS OF WOUND DETERIORATION, COMPLICATIONS, OR INFECTION TO PHYSICIAN AND/OR THE RN CLINICAL DELIVERY CREW MEMBER FOR PHYSICIAN NOTIFICATION. PT / COMBATANT SWIMMER MAY EDUCATE ON PAIN MANAGEMENT CLINICALLY INDICATED, INCLUDING NON-PHARMACOLOGICAL PAIN REDUCTION TECHNIQUES. PT/COMBATANT SWIMMER TO IDENTIFY FALL RISK FACTORS; EDUCATE THE PATIENT/CAREGIVER ON WAYS TO REDUCE FALL RISK FACTORS AND ESTABLISH HOME EXERCISE PROGRAM TO MINIMIZE FALL RISK. MAY TEACH THE PATIENT FLOOR RECOVERY WHEN CLINICALLY APPROPRIATE ] Future Scheduled Test OCCUPATION AL THERAPY EVALUATION PERFORMED. NO ADDITIONAL VISITS REQUIRED. PROVIDED SKILLED INTERVENTION INCLUDING LB DRESSING WITH ADAPTIVE EQUIPMENT [code = OCCUPATIONAL THERAPY EVALUATION PERFORMED. NO ADDITIONAL VISITS REQUIRED. PROVIDED SKILLED INTERVENTION INCLUDING LB DRESSING WITH ADAPTIVE EQUIPMENT ] Goal Patient Goal - ETURN TO NORM AL ACTIVITY Goal Provider Goal - Goal Provider Goal - Goal Provider Goal - PATIENT/CAREGIVER TO VERBALIZE, AND CONSISTENTLY DEMONSTRATE EFFECTIVE, SAFE MANAGEMENT OF MEDICATION INCLUDING KNOWLEDGE OF EFFECTIVENESS, POTENTIAL SIDE EFFECTS AND DRUG REACTIONS AND WHEN TO CONTACT THE APPROPRIATE CARE PROVIDER. PATIENT/CAREGIVER WILL BE ABLE TO VERBALIZE UNDERSTANDING OF MEDICATION REGIMEN AND ACCURATELY TAKE MEDICATIONS PRESCRIBED WITHOUT ADVERSE EFFECTS BY 10/20/24 Goal Provider Goal - PATIENT/CAREGIVER ABLE TO IDENTIFY FALL RISK FACTORS AND IMPLEMENT STRATEGIES TO MINIMIZE FALL RISK. PATIENT/CAREGIVER WILL VERBALIZE/DEMONSTRATE AN ABILITY TO ADHERE TO FALL REDUCTION SELF-MANAGEMENT AND LIFE-STYLE CHANGES AT DISCHARGE. PERSONAL GOAL(S) STATED BY PATIENT/CAREGIVER WILL BE MET BY 10/20/24. Goal Provider Goal - PATIENT / CAREGIVER WILL VERBALIZE / DEMONSTRATE AN ABILITY TO ADHERE TO SELF-MANAGEMENT OF DIABETES MANAGEMENT BY 10/20/24. Goal Provider Goal - INSULIN IS ADMINISTERED PER ORDERS BY 10/20/24. Goal Provider Goal - A PLAN OF CARE WILL BE ESTABLISHED THAT MEETS THE PATIENTS NEEDS. PATIENT WILL DEMONSTRATE OXYGEN SATURATION WITHIN NORMAL LIMITS OR PATIENTS OPTIMAL LEVEL ESTABLISHED BY THE PHYSICIAN THROUGHOUT CARE. CHANGES TO CO-MORBID CONDITIONS AND ANY NEW CONDITIONS WILL BE IDENTIFIED AND REPORTED TO THE PHYSICIAN. Goal Provider Goal - PATIENT / CAREGIVER WILL VERBALIZE / DEMONSTRATE UNDERSTANDING OF PAIN CONTROL MEASURES BY 10/20/24 Goal Provider Goal - PATIENT / CAREGIVER WILL VERBALIZE / DEMONSTRATE ABILITY TO PERFORM WOUND CARE. WOUND STATUS WILL IMPROVE EVIDENCED BY A DECREASE IN SIZE, DRAINAGE, ABSENCE OF INFECTION, AND DECREASED PAIN BY 10/20/24. Goal Provider Goal - PATIENT/CAREGIVER WILL VERBALIZE UNDERSTANDING OF SIGNS AND SYMPTOMS THAT PUT THE PATIENT AT RISK FOR HOSPITALIZATION /EMERGENCY ROOM VISITS, WHEN TO NOTIFY NURSE/PHYSICIAN OF COMPLICATIONS/DECLINE AND WHEN TO CALL 911. Goal Provider Goal - PATIENT / CAREGIVER WILL VERBALIZE/DEMONSTRATE UNDERSTANDING OF MEASURES TO MANAGE ALTERED CARDIOVASCULAR STATUS BY 10/20/24 Goal Provider Goal - PATIENT / CAREGIVER WILL VERBALIZE/DEMONSTRATE AN ABILITY TO ADHERE TO SELF-MANAGEMENT OF HTN TO MINIMIZE COMPLICATIONS AND AVOID HOSPITALIZATION BY END OF EPISODE. Goal Provider Goal - PT LTG: PATIENT WILL DEMONSTRATE INCREASED ROM OF R KNEE FROM 2-95 TO 0-120 WITHIN 9 WEEKS. PT LTG: PATIENT WILL DEMONSTRATE IMPROVED AMBULATION FROM SBA TO INDEPENDENT WITHIN 9 WEEKS PT LTG: PATIENT WILL DEMONSTRATE IMPROVE STAIR SKILLS FROM MINIMAL ASSISTANCE TO INDEPENDENT WITHIN 9 WEEKS TO ALLOW PATIENT TO GET TO AND FROM CAR INDEPENDENTLY. PT LTG: PATIENT WILL DEMONSTRATE INCREASED STRENGTH OF RLE LES FROM 3 TO 4/5 WITHIN 9 WEEKS IN ORDER TO RETURN TO INDEPENDENT TRANSFER AND AMBULATION SKILLS. PT STG: PATIENT WILL DEMONSTRATE IMPROVED ABILITY TO PERFORM SIT TO/FROM STAND TRANSFERS TO REDUCE THE RISK OF SKIN BREAKDOWN AND REDUCE FALL RISK FROM SBA TO INDEPENDENT WITHIN 4 WEEKS. PT STG: PATIENT WILL DEMONSTRATE IMPROVED ABILITY TO PERFORM CHAIR TRANSFERS TO REDUCE THE RISK OF SKIN BREAKDOWN AND FALL RISK FROM SBA TO INDEPENDENT WITHIN 4 WEEKS. PATIENTS BLOOD SUGAR WILL REMAIN WELL CONTROLLED WITH SELF-MANAGEMENT THROUGHOUT EPISODE OF CARE. PT GOAL: PATIENT WILL DEMONSTRATE OPTIMAL OUTCOMES, INCLUDING INCREASED ROM AND STRENGTH AND FUNCTIONAL MOBILITY FOLLOWING KNEE SURGERY BY END OF EPISODE. PT GOAL: THE PATIENT WILL NOT DEMONSTRATE ANY WOUND COMPLICATIONS DURING THE EPISODE OF CARE. PT GOAL: PATIENT WILL DEMONSTRATE UNDERSTANDING OF PAIN MANAGEMENT TECHNIQUES BY END OF EPISODE. PT LTG: PATIENT/CAREGIVER WILL DEMONSTRATE ADHERENCE TO FALL REDUCTION SELF-MANAGEMENT AND REDUCING FALL RISK FACTORS TO MINIMIZE FALL RISK BY END OF EPISODE. PT LTG: PATIENT WILL BE INDEPENDENT WITH IMPLEMENTATION OF HEP WITHIN BY END OF EPISODE. Goal Provider Goal - PATIENT / CAREGIVER WITHIN 1 VISIT WILL BE ABLE TO VERBALIZE / DEMONSTRATE UNDERSTANDING OF HOW TO UTILIZE ADAPTIVE EQUIPMENT FOR LB TO DRESS SELF. Encounters Start Date/Time End Date/Time Encounter Type Admission Type Attending [facility] Department Encounter ID Discharge Date Discharge Status Discharge Condition Discharge Reason Percent Goals Met 2024-08-22 00:00:00 2024-10-20 00:00:00 Outpatient NEW ADMISSION TIFFANIE ONEAL [facility] [id number] 63.64
== END 2024-09-16 10:22 | disposition home or self-care (01) ==
PROVIDERS: PCP Internal Medicine; Visit Provider Orthopaedic Surgery
DX: Z96.651 Presence of right artificial knee joint (principal)
CPT/HCPCS: 99024

== ENCOUNTER → 2024-09-16 09:54 | Outpatient (BNVA) | payer MEDICARE, OTHER, SELFPAY | PROVIDERS: PCP Internal Medicine; Visit Provider Orthopaedic Surgery | DX: T81.89XA Other complications of procedures, not elsewhere classified, initial encounter (principal); X58.XXXA Exposure to other specified factors, initial encounter; Y93.9 Activity, unspecified; Y92.9 Unspecified place or not applicable; Y99.9 Unspecified external cause status; Z96.651 Presence of right artificial knee joint; Z79.891 Long term (current) use of opiate analgesic | CPT/HCPCS: 99212 ==

== ENCOUNTER 2024-10-28 07:58 | Outpatient (REF) | payer MEDICARE, OTHER, SELFPAY ==
--- NOTE | ~2024-10-28 | XR_ITS ---
EXAMINATION: XR KNEE 3 VIEWS RIGHT, XR KNEE 1 VIEW LEFT HISTORY: M17.11 - Unilateral primary osteoarthritis, right knee COMPARISON: Comparison is made with prior examinations of the right knee dated 08/09/2024 and the left knee dated 08/04/2024. FINDINGS: Standing AP views of the bilateral knees and additional lateral and sunrise patellar views of the right knee are submitted. On the right, the patient is status post total knee arthroplasty. The orthopedic elements are in anatomic alignment. There is no radiographic evidence of loosening. There is no fracture or dislocation. The left, there is severe osteoarthritis of the medial compartment with joint space narrowing and osteophyte formation. The soft tissues are unremarkable. XR/XR knee LT 1V IMPRESSION: Status post right total knee arthroplasty without change. Severe osteoarthritis of the medial compartment of the left knee. Electronically signed by: Abdirizak Palmer MD 11/01/2024 08:24 AM [facility]
--- NOTE | ~2024-10-28 | XR_ITS ---
EXAMINATION: XR KNEE 3 VIEWS RIGHT, XR KNEE 1 VIEW LEFT HISTORY: M17.11 - Unilateral primary osteoarthritis, right knee COMPARISON: Comparison is made with prior examinations of the right knee dated 08/09/2024 and the left knee dated 08/04/2024. FINDINGS: Standing AP views of the bilateral knees and additional lateral and sunrise patellar views of the right knee are submitted. On the right, the patient is status post total knee arthroplasty. The orthopedic elements are in anatomic alignment. There is no radiographic evidence of loosening. There is no fracture or dislocation. The left, there is severe osteoarthritis of the medial compartment with joint space narrowing and osteophyte formation. The soft tissues are unremarkable. XR/XR knee RT 3V IMPRESSION: Status post right total knee arthroplasty without change. Severe osteoarthritis of the medial compartment of the left knee. Electronically signed by: Abdirizak Palmer MD 11/01/2024 08:24 AM [facility]
--- OUTSIDE RECORDS SUMMARY | 2024-10-28 08:03 | XMS_ITS | Clinical Summary ---
Author Organization Unknown Care Team Providers Care Director Of Recruiting Name Role Phone SUSIE HSU, TAMMIE Unavailable Unavailable KIMMY PT, TIFFANIE Unavailable Unavailable RANDAL REGISTERED VASCULAR TECHNOLOGIST (RVT), SEKOU Unavailable Unavailable CARLOS RN, RUBY Unavailable Unavailable PHAN SHRESTHAN, MARISA Unavailable Unavailabl e Payers Payer Name Policy Type Policy Number Effective Date Expira tion Date MEDICARE.NGS.PDGM [id number] Problems Condition Name Condition Details Condition Category [...] [BMI] 38.0-38.9, ADULT Active 2023-10 00:00: 00 SECURITY TESTER (CURRENT) USE OF NON-STEROIDA L NON-INFLAM (NSAID) Active 2023-10 00:00: 00 SECURITY TESTER (CURRENT) USE OF INSULIN Active 10-12 00:00: 00 HALF-WAY (CURRENT) USE OF ORAL HYPOGLYCEMIC DRUGS Active [...] 30 mg capsule 07-11 00:00: 00 Yes [id number] SLEEP 2 capsule BEDTIME 2 capsule BEDTIME (route: oral) Med Classific ation: Central Nervous System Agents tizanidine 4 mg tablet 07-11 00:00: 00 Yes [id number] SPASMS 1 tablet EVERY 8 HOURS 1 tablet EVERY 8 HOURS (route: oral) Med Classific ation: Locomotor System ibuprofen 600 mg tablet 07-07 00:00: 00 08-22 00:00 :00 No [id number] Per instruc tions EVERY 8 HOURS NEEDED FOR 30 DAYS Per instructio ns EVERY 8 HOURS NEEDED FOR 30 DAYS (route: oral) Med Classific ation: Analgesic , Anti-infl ammatory or Antipyret ic tramadol 50 mg tablet 07-07 00:00: 00 08-22 00:00 :00 No [id number] Per instruc tions 3 TIMES A DAY NEEDED FOR 30 DAYS Per instructio ns 3 TIMES A DAY NEEDED FOR 30 DAYS (route: oral) Med Classific ation: Analgesic , Anti-infl ammatory or Antipyret ic losartan 50 mg tablet 07-02 00:00: 00 08-22 00:00 :00 No [id number] Per instruc tions EVERY DAY Per instructio ns EVERY DAY (route: oral) Med Classific ation: Cardiovas cular Therapy Agents metformin ER 500 mg tablet,exte nded release 24 hr 07-02 00:00: 00 Yes [id number] DM 2 tablet TWICE A DAY 2 tablet TWICE A DAY (route: oral) Med Classific ation: Endocrine albuterol sulfate HFA 90 mcg/actuati on aerosol inhaler 06-29 00:00: 00 Yes [id number] WHEEZING 1 puff EVERY 6 HOURS 1 puff EVERY 6 HOURS (route: inhalation ) Med Classific ation: Respirato ry Therapy Agents gabapentin 800 mg tablet 06-28 00:00: 00 Yes [id number] PAIN 1 tablet 4 TIMES A DAY 1 tablet 4 TIMES A DAY (route: oral) Med Classific ation: Central Nervous System Agents pioglitazon e 30 mg tablet 06-18 00:00: 00 Yes [id number] DM 1 tablet EVERY DAY 1 tablet EVERY DAY (route: oral) Med Classific ation: Endocrine Ozempic 0.25 mg or 0.5 mg (2 mg/3 mL) subcutaneou s pen injector 06-17 00:00: 00 08-22 00:00 :00 No [id number] Per instruc tions 025 MG SUBCUTANEO USLY ONCE A WEEK FOR WEEKS 1 - 4 THEN 05 MG SUBCUTANEO USLY ONCE A WEEK Per instructio ns 025 MG SUBCUTANEO USLY ONCE A WEEK FOR WEEKS 1 - 4 THEN 05 MG SUBCUTANEO USLY ONCE A WEEK (route: subcutaneo us) Med Classific ation: Endocrine amitriptyli ne 50 mg tablet 2023-10 00:00: 00 Yes [id number] DEPRESSION 1 tablet DAILY 1 tablet DAILY (route: oral) Med Classific ation: Central Nervous System Agents atorvastati n 40 mg tablet 2023-10 00:00: 00 Yes [id number] HLD 1 tablet DAILY 1 tablet DAILY (route: oral) Med Classific ation: Cardiovas cular Therapy Agents celecoxib 200 mg capsule 2023-10 00:00: 00 Yes [id number] ANTI-INFLAM MATORY 1 capsule 2 TIMES DAILY 1 capsule 2 TIMES DAILY (route: oral) Med Classific ation: Analgesic , Anti-infl ammatory or Antipyret ic cholecalcif suyapa (vitamin D3) 50 mcg (2,000 unit) capsule 2023-10 00:00: 00 Yes [id number] SUPPLEMENT 1 capsule DAILY 1 capsule DAILY (route: oral) Med Classific ation: Electroly te Balance-N utritiona l Products citalopram 40 mg tablet 2023-10 00:00: 00 Yes [id number] DEPRESSION 1 tablet DAILY 1 tablet DAILY (route: oral) Med Classific ation: Central Nervous System Agents docusate sodium 100 mg tablet 2023-10 00:00: 00 Yes [id number] STOOL SOFTENER 1 tablet 2 TIMES DAILY 1 tablet 2 TIMES DAILY (route: oral) Med Classific ation: Gastroint estinal Therapy Agents fluticasone 100 mcg-salmete rol 50 mcg/dose blistr powdr for inhalation 2023-10 00:00: 00 Yes [id number] ASTHMA 1 inhalat ion DAILY 1 inhalation DAILY (route: inhalation ) Med Classific ation: Respirato ry Therapy Agents hydroxyzine HCl 25 mg tablet 2023-10 00:00: 00 Yes [id number] ANTIHISTAMI NE 2 tablet BEDTIME 2 tablet BEDTIME (route: oral) Med Classific ation: Central Nervous System Agents hydroxyzine HCl 25 mg tablet 2023-10 00:00: 00 Yes [id number] ANTIHISTAMI NE 1 tablet WITH MEALS 1 tablet WITH MEALS (route: oral) Med Classific ation: Central Nervous System Agents insulin glargine (U-100) 100 unit/mL (3 mL) subcutaneou s pen 2023-10 00:00: 00 Yes [id number] DM 15 unit BEDTIME 15 unit BEDTIME (route: subcutaneo us) Med Classific ation: Endocrine losartan 25 mg tablet 2023-10 00:00: 00 Yes [id number] HTN 1 tablet DAILY 1 tablet DAILY (route: oral) Med Classific ation: Cardiovas cular Therapy Agents magnesium 400 mg (as magnesium oxide) tablet 2023-10 00:00: 00 Yes [id number] HYPOMAGNESE GURJIT 1 tablet 2 TIMES DAILY 1 tablet 2 TIMES DAILY (route: oral) Med Classific ation: Electroly te Balance-N utritiona l Products montelukast 10 mg tablet 2023-10 00:00: 00 Yes [id number] ASTHMA 1 tablet BEDTIME 1 tablet BEDTIME (route: oral) Med Classific ation: Respirato ry Therapy Agents multivitami n with minerals tablet 2023-10 00:00: 00 Yes [id number] SUPPLEMENT 1 tablet DAILY 1 tablet DAILY (route: oral) Med Classific ation: Electroly te Balance-N utritiona l Products [place] 3-6-9 1,200 mg capsule 2023-10 00:00: 00 Yes [id number] SUPPLEMENT 1 capsule DAILY 1 capsule DAILY (route: oral) Med Classific ation: Cardiovas cular Therapy Agents oxycodone 5 mg tablet 2023-10 00:00: 00 Yes [id number] 1-3 PAIN 1 tablet EVERY 4 HOURS 1 tablet EVERY 4 HOURS (route: oral) Med Classific ation: Analgesic , Anti-infl ammatory or Antipyret ic oxycodone 5 mg tablet 2023-10 00:00: 00 Yes [id number] 4-10 PAIN 2 tablet EVERY 4 HOURS 2 tablet EVERY 4 HOURS (route: oral) Med Classific ation: Analgesic , Anti-infl ammatory or Antipyret ic Ozempic 1 mg/dose (4 mg/3 mL) subcutaneou s pen injector 2023-10 00:00: 00 Yes [id number] DM 0.38 mL WEEKLY 0.38 mL WEEKLY (route: subcutaneo us) Med Classific ation: Endocrine pantoprazol e 40 mg tablet,denice yed release 2023-10 00:00: 00 Yes [id number] GERD 1 tablet 2 TIMES DAILY 1 tablet 2 TIMES DAILY (route: oral) Med Classific ation: Gastroint estinal Therapy Agents propranolol 60 mg tablet 2023-10 00:00: 00 Yes [id number] HTN 1 tablet DAILY 1 tablet DAILY (route: oral) Med Classific ation: Cardiovas cular Therapy Agents Senna Lax 8.6 mg tablet 2023-10 00:00: 00 Yes [id number] LAXATIVE 1 tablet DAILY 1 tablet DAILY (route: oral) Med Classific ation: Gastroint estinal Therapy Agents acetaminoph en 325 mg tablet 2023-10 00:00: 00 Yes [id number] pain 2 tablet EVERY 6 HOURS 2 tablet EVERY 6 HOURS (route: oral) Med Classific ation: Analgesic , Anti-infl ammatory or Antipyret ic Vital Signs Vital Name Observation Time Observation Value Commen ts Temperature 2024-09-26 10:27:00.000 97.5 [degF] Temperature 2024-09-19 10:47:00.000 97.1 [degF] Temperature 2024-09-14 [...] kg/m2 Height 2024-08-22 12:33:00.000 63 [in_us] Pulse 2024-09-26 10:27:00.000 70 /min Pulse 2024-09-19 10:47:00.000 72 /min Pulse 2024-09-14 [...] 2024-08-22 12:33:00.000 76 /min O2 Saturation (%) 2024-09-26 10:27:00.000 98 % O2 Saturation (%) 2024-09-19 10:47:00.000 95 % [...] Saturation (%) 2024-08-22 12:33:00.000 99 % Respirations 2024-09-26 10:27:00.000 16 /min Respirations 2024-09-19 10:47:00.000 16 /min Respirations 2024-09-14 [...] 2024-08-22 12:33:00.000 219 [lb_av] Systolic Blood Pressure 2024-09-26 10:27:00.000 112 mm [Hg] Systolic Blood Pressure 2024-09-19 10:47:00.000 110 mm [...] 12:33:00.000 110 mm [Hg] Diastolic Blood Pressure 2024-09-26 10:27:00.000 66 mm [Hg] Diastolic Blood Pressure 2024-09-19 10:47:00.000 [...] INDICATED ] Future Scheduled Test MEDICATION MANAGEMENT; RN/COMPLAINT INVESTIGATIONS OFFICER/AVIONIC TECHNICIAN TO REVIEW MEDICATIONS FOR INTERACTIONS, EFFECTIVENESS OF DRUG THERAPY, AND SIGNS/SYMPTOMS OF ADVERSE REACTIONS. MAY INSTRUCT AND REINFORCE MEDICATION TEACHING RELATED TO THE USE OF MEDICATIONS, DOSAGE, FREQUENCY, PURPOSE, SIDE EFFECTS, AND TO REPORT COMPLICATIONS. [code = MEDICATION MANAGEMENT; RN/COMPLAINT INVESTIGATIONS OFFICER/AVIONIC TECHNICIAN TO REVIEW MEDICATIONS FOR INTERACTIONS, EFFECTIVENESS OF DRUG THERAPY, AND SIGNS/SYMPTOMS OF ADVERSE REACTIONS. MAY INSTRUCT AND REINFORCE MEDICATION TEACHING RELATED TO THE USE OF MEDICATIONS, DOSAGE, FREQUENCY, PURPOSE, SIDE EFFECTS, AND TO REPORT COMPLICATIONS.] Future Scheduled Test FALL REDUC TION MANAGEMENT; RN TO ASSESS AND TEACH, COMPLAINT INVESTIGATIONS OFFICER/AVIONIC TECHNICIAN TO OBSERVE AND TEACH ON EDUCATION AND INTERVENTION TO IDENTIFY FALL RISK FACTORS SUCH MEDICATIONS THAT MAY CAUSE DIZZINESS, CHRONIC DISEASES, PSYCHOLOGICAL FACTORS, AND EMPOWER/EDUCATE PATIENT/CAREGIVER TO MINIMIZE FALL RISK. [code = FALL REDUCTION MANAGEMENT; RN TO ASSESS AND TEACH, COMPLAINT INVESTIGATIONS OFFICER/AVIONIC TECHNICIAN TO OBSERVE AND TEACH ON EDUCATION AND INTERVENTION TO IDENTIFY FALL RISK FACTORS SUCH MEDICATIONS THAT MAY CAUSE DIZZINESS, CHRONIC DISEASES, PSYCHOLOGICAL FACTORS, AND EMPOWER/EDUCATE PATIENT/CAREGIVER TO MINIMIZE FALL RISK.] Future Scheduled Test DIABETES M ANAGEMENT; RN TO ASSESS AND TEACH, AVIONIC TECHNICIAN/COMPLAINT INVESTIGATIONS OFFICER TO OBSERVE AND TEACH INSTRUCTIONS OF DIABETIC CARE TO INCLUDE: DIET REGULAR, SKIN CARE, SIGNS AND SYMPTOMS OF HYPO/HYPERGLYCEMIA, PROPER ADMINISTRATION OF DIABETIC MEDICATION. RN/AVIONIC TECHNICIAN/COMPLAINT INVESTIGATIONS OFFICER TO INSTRUCT ON DIABETIC FOOT CARE AND MONITOR FOR SKIN LESIONS ON LOWER EXTREMITIES. BLOOD GLUCOSE TESTING BID. RN TO ASSESS AND TEACH, AVIONIC TECHNICIAN/COMPLAINT INVESTIGATIONS OFFICER TO OBSERVE AND TEACH PATIENT/CAREGIVER ABILITY TO PERFORM AND RECORD BLOOD GLUCOSE TESTING ORDERED AND TO REPORT ABNORMAL FINDINGS TO PHYSICIAN. RN/AVIONIC TECHNICIAN/COMPLAINT INVESTIGATIONS OFFICER MAY PERFORM BLOOD GLUCOSE TEST NEEDED. RN/AVIONIC TECHNICIAN/COMPLAINT INVESTIGATIONS OFFICER TO REPORT TO PHYSICIAN BLOOD GLUCOSE READINGS GREATER THAN 350 OR LESS THAN 70 RN/AVIONIC TECHNICIAN/COMPLAINT INVESTIGATIONS OFFICER TO INSTRUCT PATIENT ON IMPORTANCE OF HGBA1C MONITORING, KIDNEY FUNCTION TEST, EYE AND FOOT EXAMS. [code = DIABETES MANAGEMENT; RN TO ASSESS AND TEACH, AVIONIC TECHNICIAN/COMPLAINT INVESTIGATIONS OFFICER TO OBSERVE AND TEACH INSTRUCTIONS OF DIABETIC CARE TO INCLUDE: DIET REGULAR, SKIN CARE, SIGNS AND SYMPTOMS OF HYPO/HYPERGLYCEMIA, PROPER ADMINISTRATION OF DIABETIC MEDICATION. RN/AVIONIC TECHNICIAN/COMPLAINT INVESTIGATIONS OFFICER TO INSTRUCT ON DIABETIC FOOT CARE AND MONITOR FOR SKIN LESIONS ON LOWER EXTREMITIES. BLOOD GLUCOSE TESTING BID. RN TO ASSESS AND TEACH, AVIONIC TECHNICIAN/COMPLAINT INVESTIGATIONS OFFICER TO OBSERVE AND TEACH PATIENT/CAREGIVER ABILITY TO PERFORM AND RECORD BLOOD GLUCOSE TESTING ORDERED AND TO REPORT ABNORMAL FINDINGS TO PHYSICIAN. RN/AVIONIC TECHNICIAN/COMPLAINT INVESTIGATIONS OFFICER MAY PERFORM BLOOD GLUCOSE TEST NEEDED. RN/AVIONIC TECHNICIAN/COMPLAINT INVESTIGATIONS OFFICER TO REPORT TO PHYSICIAN BLOOD GLUCOSE READINGS GREATER THAN 350 OR LESS THAN 70 RN/AVIONIC TECHNICIAN/COMPLAINT INVESTIGATIONS OFFICER TO INSTRUCT PATIENT ON IMPORTANCE OF HGBA1C MONITORING, KIDNEY FUNCTION TEST, EYE AND FOOT EXAMS.] Future Scheduled Test INSULIN AD MINISTRATION; CLIENT/CG/RN/AVIONIC TECHNICIAN/COMPLAINT INVESTIGATIONS OFFICER TO ADMINISTER SQ INSULIN: GLARGINE 15 UNITS DAILY @ BEDTIME. OZEMPIC 0.38 ML SUBQ EVERY TU IF PATIENT/CAREGIVER UNABLE/UNWILLING [code = INSULIN ADMINISTRATION; CLIENT/CG/RN/AVIONIC TECHNICIAN/COMPLAINT INVESTIGATIONS OFFICER TO ADMINISTER SQ INSULIN: GLARGINE 15 UNITS DAILY @ BEDTIME. OZEMPIC 0.38 ML SUBQ EVERY TUES IF PATIENT/CAREGIVER UNABLE/UNWILLING ] Future Scheduled Test RN TO OBSE RVE, ASSESS, EVALUATE, AND DEVELOP AN INDIVIDUALIZED PLAN OF CARE. AGENCY MAY ACCEPT ORDERS FROM CONSULTING PHYSICIANS DR TAMMIE RICHARDS, DR DEVIN CHAHAL. RN TO OBSERVE AND ASSESS, COMPLAINT INVESTIGATIONS OFFICER/AVIONIC TECHNICIAN TO OBSERVE FOR RISK FOR FALLS AND INSTRUCT IN FALL PREVENTION, HOME SAFETY, MEDICATION MANAGEMENT, INFECTION PREVENTION, AND NUTRITION MANAGEMENT. RN/COMPLAINT INVESTIGATIONS OFFICER/AVIONIC TECHNICIAN NURSE MAY PERFORM O2 SATURATION LEVEL ON ADMISSION AND PRN FOR SOB FOR RN TO ASSESS/COMPLAINT INVESTIGATIONS OFFICER TO OBSERVE PATIENT, WITH NOTIFICATION TO THE PHYSICIAN IF SATURATION IS 90% IN THE ABSENCE OF MORE SPECIFIC PARAMETERS FROM THE PHYSICIAN. AGENCY MAY PERFORM A RESUMPTION OF CARE VISIT FOLLOWING ANY HOSPITAL ADMISSION. RN/COMPLAINT INVESTIGATIONS OFFICER/AVIONIC TECHNICIAN TO MONITOR CO-MORBID CONDITIONS LISTED ON THE PLAN OF CARE AND ANY NEW CONDITIONS THAT PRESENT THEMSELVES DURING THIS EPISODE TO IDENTIFY CHANGES AND INTERVENE TO MINIMIZE COMPLICATIONS. [code = RN TO OBSERVE, ASSESS, EVALUATE, AND DEVELOP AN INDIVIDUALIZED PLAN OF CARE. AGENCY MAY ACCEPT ORDERS FROM CONSULTING PHYSICIANS DR TAMMIE RICHARDS, DR DEVIN CHAHAL. RN TO OBSERVE AND ASSESS, COMPLAINT INVESTIGATIONS OFFICER/AVIONIC TECHNICIAN TO OBSERVE FOR RISK FOR FALLS AND INSTRUCT IN FALL PREVENTION, HOME SAFETY, MEDICATION MANAGEMENT, INFECTION PREVENTION, AND NUTRITION MANAGEMENT. RN/COMPLAINT INVESTIGATIONS OFFICER/AVIONIC TECHNICIAN NURSE MAY PERFORM O2 SATURATION LEVEL ON ADMISSION AND PRN FOR SOB FOR RN TO ASSESS/COMPLAINT INVESTIGATIONS OFFICER TO OBSERVE PATIENT, WITH NOTIFICATION TO THE PHYSICIAN IF SATURATION IS 90% IN THE ABSENCE OF MORE SPECIFIC PARAMETERS FROM THE PHYSICIAN. AGENCY MAY PERFORM A RESUMPTION OF CARE VISIT FOLLOWING ANY HOSPITAL ADMISSION. RN/COMPLAINT INVESTIGATIONS OFFICER/AVIONIC TECHNICIAN TO MONITOR CO-MORBID CONDITIONS LISTED ON THE PLAN OF CARE AND ANY NEW CONDITIONS THAT PRESENT THEMSELVES DURING THIS EPISODE TO IDENTIFY CHANGES AND INTERVENE TO MINIMIZE COMPLICATIONS.] Future Scheduled Test PAIN MANAG EMENT; RN TO ASSESS AND TEACH, AVIONIC TECHNICIAN/COMPLAINT INVESTIGATIONS OFFICER TO OBSERVE AND TEACH AND PROVIDE EDUCATION ON PAIN MANAGEMENT TECHNIQUES. [code = PAIN MANAGEMENT; RN TO ASSESS AND TEACH, AVIONIC TECHNICIAN/COMPLAINT INVESTIGATIONS OFFICER TO OBSERVE AND TEACH AND PROVIDE EDUCATION ON PAIN MANAGEMENT TECHNIQUES.] Future Scheduled Test RN/COMPLAINT INVESTIGATIONS OFFICER/AVIONIC TECHNICIAN TO PERFORM/TEACH INCISION CARE TO RIGHT KNEE WITH NONREMOVABLE DRESSING. MONITOR FOR SIGNS OR SYMPTOMS OF INFECTION [code = RN/COMPLAINT INVESTIGATIONS OFFICER/AVIONIC TECHNICIAN TO PERFORM/TEACH INCISION CARE TO RIGHT KNEE WITH NONREMOVABLE DRESSING. MONITOR FOR SIGNS OR SYMPTOMS OF INFECTION ] Future Scheduled Test RISK FOR H OSPITALIZATION; RN TO ASSESS/TEACH, AVIONIC TECHNICIAN/COMPLAINT INVESTIGATIONS OFFICER TO OBSERVE/TEACH PATIENT/CAREGIVER ON RISK FOR HOSPITALIZATION/EMERGENCY ROOM VISITS, TEACH SIGNS AND SYMPTOMS THAT PUT PATIENT AT RISK, WHEN TO NOTIFY NURSE/PHYSICIAN OF COMPLICATIONS/DECLINE, AND WHEN TO CALL 911. [code = RISK FOR HOSPITALIZATION; RN TO ASSESS/TEACH, AVIONIC TECHNICIAN/COMPLAINT INVESTIGATIONS OFFICER TO OBSERVE/TEACH PATIENT/CAREGIVER ON RISK FOR HOSPITALIZATION/EMERGENCY ROOM VISITS, TEACH SIGNS AND SYMPTOMS THAT PUT PATIENT AT RISK, WHEN TO NOTIFY NURSE/PHYSICIAN OF COMPLICATIONS/DECLINE, AND WHEN TO CALL 911.] Future Scheduled Test CARDIOVASC ULAR SYSTEM; RN TO ASSESS/TEACH, COMPLAINT INVESTIGATIONS OFFICER/AVIONIC TECHNICIAN TO OBSERVE/TEACH RELATED TO ALTERED CARDIOVASCULAR STATUS TO MINIMIZE COMPLICATIONS AND REDUCE HOSPITALIZATION. [code = CARDIOVASCULAR SYSTEM; RN TO ASSESS/TEACH, COMPLAINT INVESTIGATIONS OFFICER/AVIONIC TECHNICIAN TO OBSERVE/TEACH RELATED TO ALTERED CARDIOVASCULAR STATUS TO MINIMIZE COMPLICATIONS AND REDUCE HOSPITALIZATION.] Future Scheduled Test HYPERTENSI ON MANAGEMENT; RN TO ASSESS AND TEACH, COMPLAINT INVESTIGATIONS OFFICER/AVIONIC TECHNICIAN TO OBSERVE AND TEACH WARNING SIGNS AND SYMPTOMS TO AVOID HOSPITALIZATION. [code = HYPERTENSION MANAGEMENT; RN TO ASSESS AND TEACH, COMPLAINT INVESTIGATIONS OFFICER/AVIONIC TECHNICIAN TO OBSERVE AND TEACH WARNING SIGNS AND SYMPTOMS TO AVOID HOSPITALIZATION.] Future Scheduled Test AGENCY MAY PERFORM A RESUMPTION OF CARE VISIT FOLLOWING ANY HOSPITAL ADMISSION. PT TO EVALUATE, OBSERVE / ASSESS, AND MONITOR, REGISTERED VASCULAR TECHNOLOGIST (RVT) TO OBSERVE AND MONITOR, PROVIDE SKILLED THERAPEUTIC INTERVENTION, ACTIVITY, EDUCATION, AND TRAINING TO ADDRESS; PT/REGISTERED VASCULAR TECHNOLOGIST (RVT) TO PROVIDE GAIT TRAINING FOR IMPROVED MOBILITY AND /OR TO NORMALIZE GAIT PATTERN NEUROMUSCULAR RE-EDUCATION / BALANCE / POSTURAL CONTROL (PT) THERAPEUTIC EXERCISES AND ESTABLISHING A HOME EXERCISE PROGRAM (PT/REGISTERED VASCULAR TECHNOLOGIST (RVT)) PT/REGISTERED VASCULAR TECHNOLOGIST (RVT) TO PROVIDE STAIR TRAINING CHAIR TRANSFERS (PT/REGISTERED VASCULAR TECHNOLOGIST (RVT)) PT / REGISTERED VASCULAR TECHNOLOGIST (RVT) TO MONITOR FOR HYPO/HYPERGLYCEMIA AND CONDUCT ROUTINE FOOT INSPECTIONS. RECORD PATIENT REPORTED BLOOD SUGAR LEVELS AND NOTIFY PHYSICIAN AND/OR THE RN CLINICAL NICKER AND BREAKER FOR PHYSICIAN NOTIFICATION IF BLOOD SUGAR LEVELS ARE OUTSIDE ORDERED PARAMETERS. TEACH PATIENT/CAREGIVER ON DAILY FOOT INSPECTIONS PT/REGISTERED VASCULAR TECHNOLOGIST (RVT) TO TEACH KNEE REPLACEMENT SELF-MANAGEMENT PT / REGISTERED VASCULAR TECHNOLOGIST (RVT) TO OBSERVE WOUND/INCISION AND/OR INTACT DRESSING ON R KNEE AND REPORT EARLY SIGNS AND SYMPTOMS OF WOUND DETERIORATION, COMPLICATIONS, OR INFECTION TO PHYSICIAN AND/OR THE RN CLINICAL NICKER AND BREAKER FOR PHYSICIAN NOTIFICATION. PT / REGISTERED VASCULAR TECHNOLOGIST (RVT) MAY EDUCATE ON PAIN MANAGEMENT CLINICALLY INDICATED, INCLUDING NON-PHARMACOLOGICAL PAIN REDUCTION TECHNIQUES. PT/REGISTERED VASCULAR TECHNOLOGIST (RVT) TO IDENTIFY FALL RISK FACTORS; EDUCATE THE PATIENT/CAREGIVER ON WAYS TO REDUCE FALL RISK FACTORS AND ESTABLISH HOME EXERCISE PROGRAM TO MINIMIZE FALL RISK. MAY TEACH THE PATIENT FLOOR RECOVERY WHEN CLINICALLY APPROPRIATE [code = AGENCY MAY PERFORM A RESUMPTION OF CARE VISIT FOLLOWING ANY HOSPITAL ADMISSION. PT TO EVALUATE, OBSERVE / ASSESS, AND MONITOR, REGISTERED VASCULAR TECHNOLOGIST (RVT) TO OBSERVE AND MONITOR, PROVIDE SKILLED THERAPEUTIC INTERVENTION, ACTIVITY, EDUCATION, AND TRAINING TO ADDRESS; PT/REGISTERED VASCULAR TECHNOLOGIST (RVT) TO PROVIDE GAIT TRAINING FOR IMPROVED MOBILITY AND /OR TO NORMALIZE GAIT PATTERN NEUROMUSCULAR RE-EDUCATION / BALANCE / POSTURAL CONTROL (PT) THERAPEUTIC EXERCISES AND ESTABLISHING A HOME EXERCISE PROGRAM (PT/REGISTERED VASCULAR TECHNOLOGIST (RVT)) PT/REGISTERED VASCULAR TECHNOLOGIST (RVT) TO PROVIDE STAIR TRAINING CHAIR TRANSFERS (PT/REGISTERED VASCULAR TECHNOLOGIST (RVT)) PT / REGISTERED VASCULAR TECHNOLOGIST (RVT) TO MONITOR FOR HYPO/HYPERGLYCEMIA AND CONDUCT ROUTINE FOOT INSPECTIONS. RECORD PATIENT REPORTED BLOOD SUGAR LEVELS AND NOTIFY PHYSICIAN AND/OR THE RN CLINICAL NICKER AND BREAKER FOR PHYSICIAN NOTIFICATION IF BLOOD SUGAR LEVELS ARE OUTSIDE ORDERED PARAMETERS. TEACH PATIENT/CAREGIVER ON DAILY FOOT INSPECTIONS PT/REGISTERED VASCULAR TECHNOLOGIST (RVT) TO TEACH KNEE REPLACEMENT SELF-MANAGEMENT PT / REGISTERED VASCULAR TECHNOLOGIST (RVT) TO OBSERVE WOUND/INCISION AND/OR INTACT DRESSING ON R KNEE AND REPORT EARLY SIGNS AND SYMPTOMS OF WOUND DETERIORATION, COMPLICATIONS, OR INFECTION TO PHYSICIAN AND/OR THE RN CLINICAL NICKER AND BREAKER FOR PHYSICIAN NOTIFICATION. PT / REGISTERED VASCULAR TECHNOLOGIST (RVT) MAY EDUCATE ON PAIN MANAGEMENT CLINICALLY INDICATED, INCLUDING NON-PHARMACOLOGICAL PAIN REDUCTION TECHNIQUES. PT/REGISTERED VASCULAR TECHNOLOGIST (RVT) TO IDENTIFY FALL RISK FACTORS; EDUCATE THE [...] LB DRESSING WITH ADAPTIVE EQUIPMENT ] Goal 2024-09-26 Patient Goal - ETURN TO NORM AL [...] ADAPTIVE EQUIPMENT FOR LB TO DRESS SELF. Reason for Visit INDEPENDENT WITH USE OF ASSISTIVE DEVICE Encounters Start Date/Time End Date/Time Encounter Type Admission Type Attending [facility] Care Department Encounter ID Discharge Date Discharge Status Discharge Condition Discharge Reason Percent Goals Met 2024-08-22 00:00:00 2024-09-26 00:00:00 Outpatient NEW ADMISSION TIFFANIE ONEAL [facility] [id number] 2024-09-26 00:00:00 DISCHARGE TO HOME OR SELF CARE INDEPENDEN T WITH USE OF ASSISTIVE DEVICE HH ONLY - OUT PATIENT 100.00
== END 2024-10-28 07:59 | disposition home or self-care (01) ==
LOC: HO.HOSX 07:58
PROVIDERS: Visit Provider Physician Assistant
DX: M17.11 Unilateral primary osteoarthritis, right knee (principal); M25.562 Pain in left knee; Z96.651 Presence of right artificial knee joint
CPT/HCPCS: 73560; 73562; 99212

== ENCOUNTER 2024-10-28 11:12 | Outpatient (AMB) | payer MEDICARE, OTHER, SELFPAY ==
--- NOTE | 2024-10-28 11:24 | MHC.OFFVIS ---
Vital Signs 10/28/24 11:28 Height 5 ft 3 in Weight 208 lb BMI 36.8 Intake Visit Reasons: PO - 6 wk R TKA 08/09/24 NE Intake Note: Lee Ann is a 59 year old femlae who presents today for a post operative RT TKA, DOS 08/09/24 NE. Patient reports she is doing well, she continues to attend PT. States she is now having discomfort in her LT knee due to over compensation. Allergies linagliptin [From TRADJENTA] Allergy (Severe, Verified 10/28/24 11:31) THROAT ITCHING/COUGH Penicillins [PENICILLINS] Allergy (Severe, Verified 10/28/24 11:31) SWELLING/HIVES exenatide [From BYDUREON] Allergy (Intermediate, Verified 10/28/24 11:31) RASH wheat [WHEAT] Allergy (Intermediate, Verified 10/28/24 11:31) RASH latex [Latex] Allergy (Mild, Verified 10/28/24 11:31) SWELLING/ITCH grass, dogs, cats Allergy (Intermediate, Uncoded 10/28/24 11:31) Cough, sneezing lactose, wheat, corn syrup Allergy (Mild, Uncoded 10/28/24 11:31) rash Medication List - Last Reconciled 10/28/24 by Watson Musa PA-C acetaminophen 650 mg (2 x 325 mg) PO Q6H PRN 30 days albuterol sulfate 2.5 mg (3 mL) inhalation QID PRN 30 days albuterol sulfate 90 mcg/actuation 1 puff inhalation QID PRN amitriptyline 50 mg PO BEDTIME atorvastatin 40 mg PO DAILY 90 days Basaglar CharissaPen U-100 Insulin (insulin glargine) 10 units (0.1 mL) subcut QPM 90 days NS benzonatate 100 mg PO BID-TID PRN 30 days blood pressure monitor As directed blood sugar diagnostic (FreeStyle Precision Bob Strips) As directed once a day blood sugar diagnostic (OneTouch Ultra Test strips) As directed 2 times daily celecoxib 200 mg PO BID cholecalciferol (vitamin D3) 25 mcg PO DAILY citalopram 40 mg PO DAILY docusate sodium 100 mg PO BID 30 days gabapentin 800 mg PO QID hydroxyzine HCl 1 tablet 3 times a day and 2 tablets at bedtime PO; 90 days ibuprofen 600 mg PO Q8H PRN 30 days lancets (OneTouch Delica Lancets) 3 times a day losartan 50 mg PO DAILY magnesium oxide 400 mg PO BID metformin ER 1,000 mg (2 x 500 mg) PO BID montelukast 10 mg PO BEDTIME otvspxli-rvo-rweo-FA-vit K-lut 8 mg iron-400 mcg-50 mcg (Centrum Silver Women) 1 tab PO DAILY omega-3 fatty acids (Fish Oil Concentrate) 1,000 mg PO DAILY omeprazole 20 mg PO BID pen needle, diabetic (BD Meghann 2nd Gen Pen Needle) Twice a day pen needle, diabetic As directed pioglitazone 30 mg PO DAILY propranolol ER 60 mg PO DAILY 30 days semaglutide (Ozempic) INJECT 0.5 MG (0.4 ML) SUBCUTANEOUSLY EVERY WEEK FOR THE FIRST 4 DOSES USE 0.25MG/WEEK AND THEN PROCEED WITH 0.5MG/WEEK temazepam 30 mg PO BEDTIME PRN 30 days tizanidine 4 mg PO TID PRN 90 days tramadol 50 mg PO TID PRN 30 days walker Folding Front wheeled walker HPI HPI PO - 6 wk R TKA 08/09/24 NE: Details: 59-year-old female returns to the office today 3 months status post right total knee arthroplasty on 08/09/[address] Bill. She continues to work with therapy to work on quad strengthening and gait training. Ambulates with a cane on occasion. She states her right knee is doing well with her left knee that is causing pain due to her arthritis. [facility] [place] Medical History Vasovagal syncopes Allergic rhinitis Left knee pain Osteoarthritis of right knee Hx of flexible sigmoidoscopy (~2000) Cyst of right knee joint Right knee pain Injury of toenail GERD without esophagitis Obesity (BMI 30-39.9) Insomnia Osteoarthritis of knees, bilateral Migraine Midline low back pain without sciatica Premature ventricular contractions (PVCs) (VPCs) Benign essential hypertension Asthma Diabetes mellitus Pure hypercholesterolemia Vitamin D deficiency Anxiety GERD (gastroesophageal reflux disease) Obesity Hypertension Dyslipidemia Diabetic neuropathy associated with type 2 diabetes mellitus Diabetes type 2, uncontrolled Neuropathy Surgical History History of surgical removal of ganglion cyst Hx of colonoscopy History of esophagogastroduodenoscopy (EGD) History of laparoscopy Hx of tonsillectomy Hx of tubal ligation Family History Father Bladder cancer Skin cancer Diabetes Hypertension Hyperlipidemia Mother Diabetes CVD (cardiovascular disease) CVA (cerebral vascular accident) Hypertension Social History Household Members: Family Household Members Other:: daughter Housing: House Are you a primary careers counsellor to a significant other at home: No Do you presently have visiting nurse or other home services: No Alcohol intake: never Comment: aware of trip hazard Patient Tobacco Use Status: Never used Tobacco e-Cigarette/Vaping Use: Never Used Second Hand Smoke Exposure: Yes service: No Current occupational status: retired Sexual orientation: Straight/Heterosexual Gender identity: Female Cognitive needs: No Hearing needs: No Vision needs: Yes (glasses) Review of Systems Const All systems reviewed & are unremarkable except as noted in HPI and below Physical Exam Vital Signs: BMI result Body Mass Index 36.8 Extrem Other: Right knee incision well healed pinprick area along the most inferior portion of the incision without drainage no depth to this. She has full range of motion 0-115 degrees. Calf supple nontender neurovascular intact. Results Reviewed Results Reviewed: X-rays of the right knee obtained in the office today show intact orthopedic prosthesis without signs of loosening. Assessment & Plan Assessment & Plan (1) Status post total knee replacement, right: Code(s): Z96.651 - Presence of right artificial knee joint Category: Surgical Plan: She will continue to work with physical therapy to maintain her motion and improve her strength. She will follow up in 9 months for her annual total knee appointment. She will contact us going forward if she decides to proceed with left total knee arthroplasty. Orders: Orders XR knee RT 3V Today M17.11 - Unilateral primary osteoarthritis, right knee XR knee LT 1V Today M25.562 - Pain in left knee Coding Level of Care Code Complex EM visit Add On G2211 Diagnoses Status post total knee replacement, right Z96.651
[2024-10-28 11:28] VITALS: BMI 36.8
== END 2024-10-28 11:35 | disposition home or self-care (01) ==
PROVIDERS: PCP Internal Medicine; Visit Provider Physician Assistant
DX: Z47.1 Aftercare following joint replacement surgery (principal); Z96.651 Presence of right artificial knee joint; M25.562 Pain in left knee
CPT/HCPCS: 99213; G2211

== ENCOUNTER 2024-12-05 14:00 | Outpatient (AMB) | payer MEDICARE, OTHER, SELFPAY ==
[2024-12-05 14:27] VITALS: BP 110/76; PULSE 75; O2SAT 97; BMI 38.3
--- NOTE | 2024-12-05 14:27 | MHC.PC.OV ---
Vital Signs 12/05/24 14:27 Height 5 ft 3 in Weight 216 lb 8 oz BMI 38.3 BP 110/76 Blood Pressure Location Lt brachial Position Sitting Pulse 75 Pulse Source Pulse Oximeter Pulse Oximetry (%) 97 Oxygen Delivery Method Room Air Intake Visit Reasons: Follow Up Parts Identifier Required: No Accompanied by: Self / Same As Patient Allergies linagliptin [From TRADJENTA] Allergy (Severe, Verified 12/05/24 15:03) THROAT ITCHING/COUGH Penicillins [PENICILLINS] Allergy (Severe, Verified 12/05/24 15:03) SWELLING/HIVES exenatide [From BYDUREON] Allergy (Intermediate, Verified 12/05/24 15:03) RASH wheat [WHEAT] Allergy (Intermediate, Verified 12/05/24 15:03) RASH latex [Latex] Allergy (Mild, Verified 12/05/24 15:03) SWELLING/ITCH grass, dogs, cats Allergy (Intermediate, Uncoded 12/05/24 15:03) Cough, sneezing lactose, wheat, corn syrup Allergy (Mild, Uncoded 12/05/24 15:03) rash Medication List - Last Reconciled 12/05/24 by Jeffrey Terry MD acetaminophen 650 mg (2 x 325 mg) PO Q6H PRN 30 days albuterol sulfate 90 mcg/actuation 1 puff inhalation QID PRN albuterol sulfate 2.5 mg (3 mL) inhalation QID PRN 30 days amitriptyline 50 mg PO BEDTIME atorvastatin 40 mg PO DAILY 90 days Basaglar KwikPen U-100 Insulin (insulin glargine) 10 units (0.1 mL) subcut QPM 90 days NS benzonatate 100 mg PO BID-TID PRN 30 days blood pressure monitor As directed blood sugar diagnostic (FreeStyle Precision Bob Strips) As directed once a day blood sugar diagnostic (OneTouch Ultra Test strips) As directed 2 times daily celecoxib 200 mg PO BID cholecalciferol (vitamin D3) 25 mcg PO DAILY citalopram 40 mg PO DAILY docusate sodium 100 mg PO BID 30 days gabapentin 800 mg PO QID hydroxyzine HCl 1 tablet 3 times a day and 2 tablets at bedtime PO; 90 days ibuprofen 600 mg PO Q8H PRN 30 days lancets (OneTouch Delica Lancets) 3 times a day losartan 50 mg PO DAILY magnesium oxide 400 mg PO BID metformin ER 1,000 mg (2 x 500 mg) PO BID montelukast 10 mg PO BEDTIME dxnmpems-nfp-jlsn-FA-vit K-lut 8 mg iron-400 mcg-50 mcg (Centrum Silver Women) 1 tab PO DAILY omega-3 fatty acids (Fish Oil Concentrate) 1,000 mg PO DAILY omeprazole 20 mg PO BID pen needle, diabetic (BD Meghann 2nd Gen Pen Needle) Twice a day pen needle, diabetic As directed pioglitazone 30 mg PO DAILY propranolol ER 60 mg PO DAILY 30 days semaglutide (Ozempic) INJECT 0.5 MG (0.4 ML) SUBCUTANEOUSLY EVERY WEEK FOR THE FIRST 4 DOSES USE 0.25MG/WEEK AND THEN PROCEED WITH 0.5MG/WEEK temazepam 30 mg PO BEDTIME PRN 30 days tizanidine 4 mg PO TID PRN 90 days tramadol 50 mg PO TID PRN 30 days walker Folding Front wheeled walker Tobacco use date assessed: 12/05/24 Dental Screening Dental Screen Date: 12/05/24 Did you have a dental visit in the last 12 months?: Yes Did you have a dental problem in the last 6 months where you did not have access to dental care?: No Was dental information given to patient?: Patient has dentist HPI Follow Up HPI Details Patient comes in today for her follow up visit States that she currently feels okay She underwent R knee TKA back on 08/09/[address] Bill and she is currently still going to physical therapy for her knee States that her knee feels a lot better since her surgery She denies any headaches or dizziness Denies any chest pains, no shortness of breath No nausea/vomiting, no abdominal pain No change in bowel habits noted Needs her Hydroxyzine Rx refilled - thinks that the pharmacy shorted her at her last Rx refill as she ran out of her medication with a month to go on her original Rx She was not able to get her follow up labs done prior to her appointment today [facility] Medical History (Updated 12/05/24 @ 15:07 by Jeffrey Terry MD) Vasovagal syncopes Allergic rhinitis Osteoarthritis of right knee Hx of flexible sigmoidoscopy (~2000) Cyst of right knee joint Injury of toenail GERD without esophagitis Obesity (BMI 30-39.9) Insomnia Osteoarthritis of knees, bilateral Migraine Midline low back pain without sciatica Premature ventricular contractions (PVCs) (VPCs) Benign essential hypertension Asthma Diabetes mellitus Pure hypercholesterolemia Vitamin D deficiency Anxiety GERD (gastroesophageal reflux disease) Obesity Diabetic neuropathy associated with type 2 diabetes mellitus Diabetes type 2, uncontrolled Neuropathy Surgical History History of surgical removal of ganglion cyst Hx of colonoscopy History of esophagogastroduodenoscopy (EGD) History of laparoscopy Hx of tonsillectomy Hx of tubal ligation Family History Father Bladder cancer Skin cancer Diabetes Hypertension Hyperlipidemia Mother Diabetes CVD (cardiovascular disease) CVA (cerebral vascular accident) Hypertension Social History Household Members: Family Household Members Other:: daughter Housing: House Are you a primary doggy daycare activities director to a significant other at home: No Do you presently have visiting nurse or other home services: No Alcohol intake: never Comment: aware of trip hazard Patient Tobacco Use Status: Never used Tobacco e-Cigarette/Vaping Use: Never Used Second Hand Smoke Exposure: Yes service: No Current occupational status: retired Sexual orientation: Straight/Heterosexual Gender identity: Female Cognitive needs: No Hearing needs: No Vision needs: Yes (glasses) Questionnaire PHQ-9 Over the last 2 weeks, how often have you been bothered by any of the following problems? 1. Little interest or pleasure in doing things: several days 2. Feeling down, depressed, or hopeless: not at all 3. Trouble falling or staying asleep, or sleeping too much: several days 4. Feeling tired or having little energy: several days 5. Poor appetite or overeating: several days 6. Feeling bad about yourself - or that you are a failure or have let yourself or your family down: several days 7. Trouble concentrating on things, such as reading the newspaper or watching television: not at all 8. Moving or speaking so slowly that other people could have noticed. Or the opposite - being so fidgety or restless that you have been moving around a lot more than usual: not at all 9. Thoughts that you would be better off or of hurting yourself in some way: not at all Total score: 5 Depression Screening Interpretation: Positive Depression Screening Follow-up: Existing condition and In treatment Depression Screening Done: Yes 36237 - PHQ-9 Billing: Yes Source: Developed by Drs. Abdirizak Mai, Dione Mclaughlin, Juan Norwood and colleagues, with an educational palma from [employer] Thrive Questionnaire Date Thrive assessed: 12/05/24 I am a: Patient What is your living situation today?: I have a steady place to live Within the past 12 months, did the food you bought not last and you didn't have the money to get more?: Never true Within the past 12 months, did you worry whether your food would run out before you got money to buy more?: Never true Do you have trouble paying for medicines?: No Do you have trouble getting transportation to medical appointments?: No Do you have trouble paying your heating and electricity bill?: No Do you have trouble taking care of your child, family member or friend?: No Do you have trouble with day-to-day activities such as bathing, preparing meals, shopping, managing finances, etc.?: No Are you currently unemployed and looking for a job?: No Are you interested in more education?: No Please select the resources that you would like help with: None Currently or been in a relationship where the following occur: No concerns reported THRIVE Score: 0 AUDIT C Alcohol Use Questionnaire (AUDIT-C) 1. How often do you have a drink containing alcohol?: Never 3. How often do you have six or more drinks on one occasion?: Never Total Score: 0 Score Reviewed/Action Taken: Yes DYANA-7 AMB Questionnaire DYANA-7 Date DYANA - 7 assessed: 12/05/24 Feeling nervous, anxious, or on edge: 0 = Not at all Not being able to stop or control worryin = Not at all Worrying too much about different things: 0 = Not at all Trouble relaxin = Not at all Being so restless that it is hard to sit still: 0 = Not at all Becoming easily annoyed or irritable: 0 = Not at all Feeling afraid as if something awful might happen: 0 = Not at all Total DYANA-7 score (0-4 normal; 5-9 mild; 10-14 moderate; 15-21 severe): 0 Source: Developed by Drs. Abdirizak Mai, Dione Mclaughlin, Juan Norwood and colleagues, with an educational palma from [employer] Review of Systems Const Denies chills, Denies fatigue, Denies fever(s) and Denies headache(s) ENT Denies dysphagia, Denies dizziness, Denies otalgia, Denies headache(s), Denies neck pain, Denies odynophagia and Denies sore throat Card Denies chest pain, Denies irregular heart rhythm, Denies palpitations and Denies dyspnea Resp Denies chest congestion, Denies cough and Denies dyspnea GI Denies abdominal pain, Denies constipation, Denies dysphagia, Denies heartburn, Denies diarrhea, Denies nausea, Denies odynophagia and Denies vomiting Denies difficulty voiding, Denies nocturia, Denies dysuria, Denies urinary incontinence and Denies urinary urgency Musc Reports back pain, Reports arthralgias (both knees; R knee pain improved since surgery in July 2024) and Denies neck pain Skin/Breast Denies rash Neuro Denies dizziness and Denies headache(s) Psych Denies anxiety Endo Denies fatigue and Denies palpitations Physical exam (Primary Care) Vital Signs: Last Vital Signs Pulse 75 12/05/24 14:27 BP 110/76 12/05/24 14:27 Pulse Ox 97 12/05/24 14:27 Oxygen Delivery Method Room Air 12/05/24 14:27 BMI result Body Mass Index 38.3 Tobacco/Smoking Status: Tobacco use Status Tobacco use date assessed 12/05/24 12/05/24 14:33 Patient Tobacco Use Status Never used Tobacco 12/05/24 14:33 e-Cigarette/Vaping Use Never Used 12/05/24 14:33 PHQ-9: PHQ-9 Score PHQ-9: Total score 5 12/05/24 14:58 Depression Screening Interpretation: Positive Depression Screening Follow-up: Existing condition and In treatment Thrive Assessment: Date of Thrive Assessment Date Thrive assessed 12/05/24 12/05/24 14:33 Currently or been in a relationship where the following occur: No concerns reported Const General: no acute distress and alert HENMT Ears: TM's normal bilaterally and EAC's normal Throat: Yes posterior oropharynx normal and Yes tonsils normal (no TP congestion) Neck Neck: Yes supple and No lymphadenopathy Thyroid: Thyroid normal Resp Auscultation: clear to auscultation bilaterally, no rales and no wheezes Cardio Rate: regular rate Rhythm: regular rhythm Heart sounds: no murmurs GI Palpation (GI): Soft to palpation and nontender Auscultation: normal bowel sounds General: Yes no CVA tenderness Back/Spine/Pelvis Back: no CVA tenderness Thoracic/Lumbar Spine: lumbar spinal tenderness Skin Rashes: no rashes Extrem General: Yes no clubbing, cyanosis or edema Right lower extremity: knee (mild) Details: tenderness; no swelling Results AMB Hemoglobin A1c AMB Hemoglobin A1c 6.8 % Last Edit by CHARISSE Patiño on 12/05/24 14:59 Results Reviewed Results Reviewed: Laboratory Last Values Hgb A1c (Clinic) 6.8 % (4.0-6.0) H 12/05/24 14:51 Coding Level of Care Code Est Pt Level 4 (27461) Diagnoses Pure hypercholesterolemia E78.00 Type 2 diabetes mellitus with diabetic polyneuropathy, without long-term current use of insulin E11.42 Diabetes mellitus type: type 2 Diabetes mellitus watcher automat long goods insulin use: without watcher automat long goods use Diabetes mellitus complication status: with neurologic complications Diabetes mellitus complication detail: with polyneuropathy Diabetic polyneuropathy associated with type 2 diabetes mellitus E11.42 Diabetes mellitus complication detail: diabetic polyneuropathy Benign essential hypertension I10 Premature ventricular contractions (PVCs) (VPCs) I49.3 Moderate persistent asthma without complication J45.40 Asthma severity: moderate Asthma persistence: persistent Asthma complication type: uncomplicated Seasonal allergic rhinitis, unspecified trigger J30.2 Allergic rhinitis trigger: unspecified Allergic rhinitis seasonality: seasonal Migraine without status migrainosus, not intractable, unspecified migraine type G43.909 Migraine type: unspecified Status migrainosus presence: without status migrainosus Intractability: not intractable GERD without esophagitis K21.9 Primary osteoarthritis of both knees M17.0 Osteoarthritis type: primary Midline low back pain without sciatica, unspecified chronicity M54.5 Chronicity: unspecified Vitamin D deficiency E55.9 Insomnia, unspecified type G47.00 Insomnia type: unspecified Anxiety F41.9 Obesity (BMI 30-39.9) E66.9 Additional Codes PHQ-9 - 82299 - PHQ-9 Billing: Yes ([id number]) Assessment & Plan Assessment & Plan (1) Pure hypercholesterolemia: Code(s): E78.00 - Pure hypercholesterolemia, unspecified Category: Medical Plan: Patient was not able to get her follow up labs done prior to her appointment today Reinforced low cholesterol diet Continue Atorvastatin 40 mg QD Will recheck her labs and fasting lipids in 4 months for follow up - will just have patient use her current orders (updated) for her next lab draw (2) Diabetes mellitus: Code(s): E11.9 - Type 2 diabetes mellitus without complications Category: Medical Qualifiers: Diabetes mellitus type: type 2 Diabetes mellitus custodial insulin use: without watcher automat long goods use Diabetes mellitus complication status: with neurologic complications Diabetes mellitus complication detail: with polyneuropathy Qualified Code(s): E11.42 - Type 2 diabetes mellitus with diabetic polyneuropathy Plan: Her in-office HgbA1c today is at 6.8% (HgbA1c was at 7.2% a few months ago) - goal is <7.0% Reinforced diabetic diet Continue Pioglitazone 30 gm QD, Metformin ER 500 mg 2 tablets BID, Tresiba Flextouch 10 units Q HS and Ozempic 2 mg/1.5 ml SQ once a week Will recheck her HgbA1c and FBS in 4 months for follow up - will just have patient use her current orders (updated) for her next lab draw (3) Diabetic neuropathy associated with type 2 diabetes mellitus: Code(s): E11.40 - Type 2 diabetes mellitus with diabetic neuropathy, unspecified Category: Medical Qualifiers: Diabetes mellitus complication detail: diabetic polyneuropathy Qualified Code(s): E11.42 - Type 2 diabetes mellitus with diabetic polyneuropathy Plan: Continue Gabapentin 800 mg QID, Tramadol 50 mg TID PRN, and Acetaminophen-Codeine #4 tablets, 300-60 mg 1 tablet 3 to 4 times a day as needed for pain (4) Benign essential hypertension: Code(s): I10 - Essential (primary) hypertension Category: Medical Plan: Reinforced low sodium diet - goal is systolic BP of 120 mm or less Continue Losartan 50 mg QD (5) Premature ventricular contractions (PVCs) (VPCs): Code(s): I49.3 - Ventricular premature depolarization Category: Medical Plan: Stable; states that she's had no recurrence of her symptoms lately Continue Propranolol ER 60 mg QD Cardiac stress testing done last year to evaluate her recurrent chest pains came out completely normal Patient states that her recent chest pains have also subsided and have not bothered her lately (6) Asthma: Code(s): J45.909 - Unspecified asthma, uncomplicated Category: Medical Qualifiers: Asthma severity: moderate Asthma persistence: persistent Asthma complication type: uncomplicated Qualified Code(s): J45.40 - Moderate persistent asthma, uncomplicated Plan: Stable with no recent exacerbations Continue Montelukast 10 mg QD, Symbicort 160-4.5 mcg 2 puffs BID and ProAir HFA 108 mcg 2 puffs QID PRN (7) Allergic rhinitis: Code(s): J30.9 - Allergic rhinitis, unspecified Category: Medical Qualifiers: Allergic rhinitis trigger: unspecified Allergic rhinitis seasonality: seasonal Qualified Code(s): J30.2 - Other seasonal allergic rhinitis Plan: Continue Montelukast 10 mg QD and Cetirizine 10 mg QD PRN (8) Migraine: Code(s): G43.909 - Migraine, unspecified, not intractable, without status migrainosus Category: Medical Qualifiers: Migraine type: unspecified Status migrainosus presence: without status migrainosus Intractability: not intractable Qualified Code(s): G43.909 - Migraine, unspecified, not intractable, without status migrainosus Plan: Stable - she is on Amitriptyline 50 mg Q HS for headache prophylaxis Reinforced avoidance of migraine triggers Continue Fioricet 1 capsule 2 to 3 times a day as needed Follow up with neurology as scheduled (9) GERD without esophagitis: Code(s): K21.9 - Gastro-esophageal reflux disease without esophagitis Category: Medical Plan: Dietary restrictions reinforced Continue Omeprazole 20 mg QD (10) Osteoarthritis of knees, bilateral: Code(s): M17.0 - Bilateral primary osteoarthritis of knee Category: Medical Qualifiers: Osteoarthritis type: primary Qualified Code(s): M17.0 - Bilateral primary osteoarthritis of knee Plan: X-rays of both knees last done in November 2019 showed (+) mild OA changes in the right knee and moderate OA changes in the left knee She was seeing orthopedics for her knee issues and was getting cortisone injections in her knees a couple of years ago, with some relief of her symptoms She underwent right knee TKA back on 08/09/[address] Bill - states that her surgery went well and she has experienced a significant improvement in her knee symptoms following her surgery She is currently still going to physical therapy for her knee Follow up with orthopedics as scheduled (11) Midline low back pain without sciatica: Code(s): M54.5 - Low back pain Category: Medical Qualifiers: Chronicity: unspecified Qualified Code(s): M54.5 - Low back pain Plan: Reinforced activity and weight-lifting restrictions to avoid aggravating her lower back symptoms Continue Tizanidine 4 mg 1 to 2 tablets TID PRN (12) Vitamin D deficiency: Code(s): E55.9 - Vitamin D deficiency, unspecified Category: Medical Plan: Continue Vitamin D3 1000 units QD (13) Insomnia: Code(s): G47.00 - Insomnia, unspecified Category: Medical Qualifiers: Insomnia type: unspecified Qualified Code(s): G47.00 - Insomnia, unspecified Plan: Sleep hygiene reinforced Continue Temazepam 30 mg QHS PRN and Amitriptyline 50 mg Q HS (14) Anxiety: Code(s): F41.9 - Anxiety disorder, unspecified Category: Medical Plan: Continue Hydroxyzine 25 mg TID PRN and 50 mg Q HS as well as Citalopram 40 mg QD (15) Obesity (BMI 30-39.9): Code(s): E66.9 - Obesity, unspecified Category: Medical Plan: Reinforced diet; weight loss and exercise are unrealistic at this time due to patient's physical issues Plan Follow up in 4 months Orders: Orders AMB Hemoglobin A1c Today Z13.9 - Encounter for screening, unspecified Medications: Refilled hydroxyzine HCl 1 tablet 3 times a day and 2 tablets at bedtime PO; 90 days 450 tabs 1RF F41.9 - Anxiety disorder, unspecified
--- OUTSIDE RECORDS SUMMARY | 2024-12-05 16:03 | XMS_ITS ---
Author Organization [facility] Address [address] [place] [address] Care Team Providers Care Supervisor Type Photography Name Role Phone Jeffrey Terry MD Primary Care Provider Unava ilAlexa Cabrales [phone] REASON FOR VISIT Seen Sooner Encounters Encounter Location Date Provider Diagnosis [address] [address] 08/02/2024 Alexa Amador Plan Of Treatment Next Appt Details Provider Name:Alexa hernández, 02/17/2025 11:15:00 AM, [address] [place] [address], [phone], Progress Notes * Lee Ann SCHULTZ EDOB:1965 (59 yo F)Acc No.[id number]:08/02/2024 Progress Note Patient:?Lee Ann SCHULTZ Provider:?Alexa Amador DPM :1965???Age:59 Y???Sex:Female D ate:08/02/2024 Address:[address] [place], [place] [id number] Pcp:Jeffrey Terry MD Subjective: * Chief Complaints: * ???1. Seen Sooner. * Medical History:? Objective: * Vitals:? Assessment: Plan: * Treatment: * Images: * The named appointment provid er may or may not be the originator of this progress note, and it is not deemed complete until electronically signed by the appointment provider. Sign off status: Pending * Provider:?Alexa Amador DPM Date:? Generated for Earlene victoria/Aneta/Tremayne on:?12/05/2024 04:02 PM EST
--- OUTSIDE RECORDS SUMMARY | 2024-12-05 16:03 | XMS_ITS ---
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 Name Role Phone Hunter Terry MDneth Primary Care Provider UnaAlexa Everett Unavailable [phone] Allergies Allergen (clinical drug ingredient) Drug/Non Drug Allergy documented on EMR Reaction Allergy Type Onset Date Status Wheat Dextrin Unknown Drug Allergy Act fidelina [place] (Syrup) Unknown Drug Allergy Acti ve Cat dander Cat Dander Unknown Allergy Active Dog dander Dog Dander Unknown Allergy Active exenatide Exenatide Unknown Drug Allergy Active Lactose (Allergy) Unknown Allergy Ac tive Latex Latex Unknown Allergy Active linagliptin Linagliptin Unknown Drug Allergy Act fidelina Penicillin Unknown Drug Allergy Active Grass Pollen Standardized Ext Unknown Drug Allergy Active REASON FOR VISIT At Risk Footcare Medications Medication SIG (Take, Route, Frequency, Duration) Notes Start Date End Date Status Extra Depth Orthopedic Shoes (1 Pair) with Customized Heat Molded Multidensity Innersoles (3 Pair) as directed Dx: NIDDM/Polyneuropathy (E11.42), Hammertoe Foot Deformity (M20.41,M20.42), Preulcerative Skin Lesion(s) (L85.1 Active Ciclopirox Olamine 0.77 % APPLY 1 APPLICATIONFUL TO AFFECTED AREA EXTERNALLY TO FEET TWICE A DAY 30 DAYS for 30 Active Montelukast Sodium 10 MG 1 tablet Orally Once a day for 30 day(s) Active Acetaminophen-Codeine 300-60 MG 1 tablet as needed Orally every 6 hrs Not-Taking Aspirin 81 81 MG 1 tablet Orally Once a day for 30 day(s) Not-Taking traMADol HCl 50 MG 1 tablet as needed Orally Once a day Active tiZANidine HCl 4 MG 1 tablet as needed Orally Three times a day Active Propranolol HCl 60 MG 1 tablet Orally On ce a day for 30 day(s) Active Atorvastatin Calcium 40 MG 1 tablet Orally Once a day for 30 day(s) Active Omeprazole 20 MG 1 capsule 30 minutes before morning meal Orally Once a day for 30 day(s) Active Losartan Potassium 50 MG 1 tablet Orally Once a day for 30 day(s) Active Gabapentin 800 MG 1 tablet Orally Once a day for 30 day(s) Active Citalopram Hydrobromide 40 MG 0.5 tablet Orally Once a day for 30 day(s) Active Temazepam 30 MG 1 capsule at bedtime as needed Orally Once a day Active Amitriptyline HCl 50 MG 1 tablet at bedt shannen Orally Once a day for 30 day(s) Active hydrOXYzine HCl Acti ve Semaglutide Active Pioglitazone HCl 30 MG 1 tablet Orally O nce a day for 30 day(s) Active metFORMIN HCl 500 MG 1 tablet with a steve l Orally Once a day for 30 day(s) Active Insulin Degludec 100 UNIT/ML as directed Subcutaneous Act fidelina Social History Tobacco Use: Social History Observation Description Date Details (start date - stop date) Never Smoker NA - NA Tobacco Use/Smoking Question Answer Notes Are you a: nonsmoker Additional Findings: Tobacco Non-User Current no n-smoker Alcohol Screen Question Answer Notes Did you have a drink containing alcohol in the p ast year? No Points 0 Interpretation Negative Tobacco use other than smoking: Question Answer Notes Are you an other tobacco user? No Problems Problem Type SNOMED Code ICD Code Onset Dates Problem Status W/U Status Risk Notes Problem Plantar fascial fibromatosis (82173379) Plantar fascial fibromatosis (M72.2) Active confirmed Vital Signs Height 5ft 3in in 09/16/2024 Weight 216 lbs 09/16/2024 BMI 38.26 kg/m2 09/16/2024 Encounters Encounter Location Date Provider Diagnosis [facility] [address] [place] [address] 09/16/2024 Alexa Amador Type 2 diabetes mellitus with polyneuropathy E11.42 Assessments Encounter Date Diagnosis (ICD Code) Assessment Notes Treatment Notes Treatment Clinical Notes Section Notes 09/16/2024 Type 2 diabetes mellitus with polyneuropathy (ICD-10 - E11.42) Plan Of Treatment Next Appt Details Follow Up: 2 Months, Reason: Provider Name:lAexa hernández, 02/17/2025 11:15:00 AM, [address] [place], [address], Procedure Notes * Category Sub-Category Detail Notes Keratoma Treatment Parring or Cutting o f Benign Hyperkeratotic Lesion(s) (-56) 2-4 Lesions - Due to the at risk nature of the patients medical condition as documented in the exam findings, performance of this keratoderma treatment is medically necessary as its management by an unskilled/untrained nonprofessional would put this patients foot and overall health at risk. Therefore, the benign hyperkeratotic lesions, ( 2 ) in total, locations as stated and described in the exam, were pared, and/or cut utilizing a sterile 15 blade, tissue nippers, and/or power dremel instrumentation - [id number] Nail Reduction Nail Reduction Trimming of dyst rophic nails performed to reduce/remove overall nail length and girth, by manual and electrical means with use of a nail nipper and/or dremel, to more viable healthy nail plate or bed tissue 6-10 (G0127) Progress Notes * NILO Lee Ann EDOB:1965 (59 yo F)Acc No.[id number]:09/16/2024 Progress Note Patient:Lee Ann CAVAZOS Provider:?Alexa Amador DPM :1965???Age:59 Y???Sex:Female D ate:09/16/2024 Address:[address] [place], [place] [id number] Pcp:Jeffrey Terry MD Subjective: * Chief Complaints: * ???At Risk Footcare * HPI: ???At Risk footcare:?Pt States Last PCP Visit:?Date?06/12/2024 * ROS:?General/Constitutional:?Nausea?denies.?Vomiting?denies.?Hunger Thirst?denies.?Loss appetite?denies.?Chills?denies.?Fatigue?denies.?Fever?denies.?Night Sweats?denies.?Unexplained weight loss?denies.?Unexplained weight gain?admits.?HEENTM:?Dentures?denies.?Dizziness?denies.?Glasses/contacts?admits.?Retinopathy?den ies.?Blurred/double vision?admits.?TMJ?denies.?Discharge/drainage?denies.?Implants?denies.?Sore throat?denies.?Dental implants?denies.?Hard of hearing ?denies.?Difficulty chewing/swallowing/speaking?denies.?Nose bleeds?denies.?Sore mouth?denies.?Respiratory:?On O xygen?denies.?Pneumonia/pleurisy?denies.?Bronchitis?denies.?Emphysema?denies.?Co ughing?admits.?Cough blood?denies.?Shortness of breath?denies.?Wheezing?admits.?Cardiovascular:?Pacemaker?denies.?MVP?denies.?WPW?denies.?CHF?denies.?Heart attack?denies.?Septal defect?denies.?Rapid beat?admits.?Chest pain ?denies.?Atrial Fib.?denies.?Murmur/Palpitations?admits.?Gastrointestinal:?Hemorrhoids?denies.?Stomach/Abdominal pain?denies.?Dark blood stool?denies.?Irritable bowel ?denies.?Constipation?denies.?Diarrhea?denies.?Hematology:?Swelling?denies.?Clots?denies.?Varicose Veins?denies.?Bruising?denies.?Bleeding problem?denies.?Genitourinary:?Blood urine?denies.?Frequent/Painfu/urination/bladder control?denies.?Kidney stones?denies.?Infection (UTI)?denies.?Nephropathy?denies.?sex trans dis (STD)?denies.?Prostate?denies.?Musculoskeletal:?Hammertoes?denies.?Bunions?denies.?Back Pain?denies.?Muscle Cramps/ Resting?denies.?Muscle cramps / walking?denies.?Generalized aches and pains?admits.?Weakness?denies.?Integ.:?Calles?admits.?Scars?denies.?Corns/calluses?denies.?Ingrown nails?admits.?Painful nails?admits.?Open Sores?denies.?Rashes?denies.?Neurologic:?Difficulty sleeping?admits.?Brain disorder?denies.?Numbness?admits.?Balance t rouble?denies.?Confusion?denies.?Fainting/blackouts?denies.?Tingling?admits.?Joshua mors?denies.? * Medical History:? * Surgical History:?Laparoscop [place] cyst removal [place] [facility] [place] * Hospitalization/Major Diagno stic Procedure:[place] [place] * Family History:?Mother: shani adam, poor circulation, diagnosed with Unspecified essential hypertension, Family history of arthritis.?Father: alive, foot problems, diagnosed with Diabetic - NIDDM.?Paternal aunt: defects, diagnosed with Unspecified cerebral artery occlusion with cerebral infarction.?Paternal Grand Father: diagnosed with Other malignant neoplasm of unspecified site.? * Social History:?Tobacco Use:?Tobacco Use/Smoking?Are you a:?nonsmoker ?Additional Findings: Tobacco Non-User?Current non-smoker ?Tobacco use other than smoking?Are you an other tobacco user??No ???Drugs/Alcohol:?Drugs?Have you used drugs other than those for medical reasons in the past 12 months??No ?Alcohol Screen?Did you have a drink containing alcohol in the past year??No ?Points?0 ?Interpretation?Negative ???Miscellaneous:?Caffeine: yes, 2 cups per day. ?Children: yes, 2. ?Exercise: no. ?Marital status: single. 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 * Medications:?TakinghydrOXYzi ne HCl Semaglutide Pioglitazone HCl 30 MG Tablet 1 tablet Orally Once a day metFORMIN HCl 500 MG Tablet 1 tablet with a meal Orally Once a day Insulin Degludec 100 UNIT/ML Solution Pen-injector as directed Subcutaneous Losartan Potassium 50 MG Tablet 1 tablet Orally Once a day Gabapentin 800 MG Tablet 1 tablet Orally Once a day Temazepam 30 MG Capsule 1 capsule at bedtime as needed Orally Once a day Amitriptyline HCl 50 MG Tablet 1 tablet at bedtime Orally Once a day Citalopram Hydrobromide 40 MG Tablet 0.5 tablet Orally Once a day Omeprazole 20 MG Capsule Delayed Release 1 capsule 30 minutes before morning meal Orally Once a day traMADol HCl 50 MG Tablet 1 tablet as needed Orally Once a day tiZANidine HCl 4 MG Tablet 1 tablet as needed Orally Three times a day Propranolol HCl 60 MG Tablet 1 tablet Orally Once a day Atorvastatin Calcium 40 MG Tablet 1 tablet Orally Once a day Montelukast Sodium 10 MG Tablet 1 tablet Orally Once a day Extra Depth Orthopedic Shoes (1 Pair) with Customized Heat Molded Multidensity Innersoles (3 Pair) as directed Dx: NIDDM/Polyneuropathy (E11.42), Hammertoe Foot Deformity (M20.41,M20.42), Preulcerative Skin Lesion(s) (L85.1 Ciclopirox Olamine 0.77 % Cream APPLY 1 APPLICATIONFUL TO AFFECTED AREA EXTERNALLY TO FEET TWICE A DAY 30 DAYS Taking hydrOXYzine HCl Taking Semaglutide Taking Pioglitazone HCl 30 MG Tablet 1 tablet Orally Once a day Taking metFORMIN HCl 500 MG Tablet 1 tablet with a meal Orally Once a day Taking Insulin Degludec 100 UNIT/ML Solution Pen-injector as directed Subcutaneous Taking Losartan Potassium 50 MG Tablet 1 tablet Orally Once a day Taking Gabapentin 800 MG Tablet 1 tablet Orally Once a day Taking Temazepam 30 MG Capsule 1 capsule at bedtime as needed Orally Once a day Taking Amitriptyline HCl 50 MG Tablet 1 tablet at bedtime Orally Once a day Taking Citalopram Hydrobromide 40 MG Tablet 0.5 tablet Orally Once a day Taking Omeprazole 20 MG Capsule Delayed Release 1 capsule 30 minutes before morning meal Orally Once a day Taking traMADol HCl 50 MG Tablet 1 tablet as needed Orally Once a day Taking tiZANidine HCl 4 MG Tablet 1 tablet as needed Orally Three times a day Taking Propranolol HCl 60 MG Tablet 1 tablet Orally Once a day Taking Atorvastatin Calcium 40 MG Tablet 1 tablet Orally Once a day Taking Montelukast Sodium 10 MG Tablet 1 tablet Orally Once a day Taking Extra Depth Orthopedic Shoes (1 Pair) with Customized Heat Molded Multidensity Innersoles (3 Pair) as directed Dx: NIDDM/Polyneuropathy (E11.42), Hammertoe Foot Deformity (M20.41,M20.42), Preulcerative Skin Lesion(s) (L85.1 Taking Ciclopirox Olamine 0.77 % Cream APPLY 1 APPLICATIONFUL TO AFFECTED AREA EXTERNALLY TO FEET TWICE A DAY 30 DAYS Not-Taking/PRNAcetaminophen-Codeine 300-60 MG Tablet 1 tablet as needed Orally every 6 hrs Aspirin 81 81 MG Tablet Delayed Release 1 tablet Orally Once a day Medication List reviewed and reconciled with the patientNot-Taking/PRN Acetaminophen- Codeine 300-60 MG Tablet 1 tablet as needed Orally every 6 hrs Not-Taking/PRN Aspirin 81 81 MG Tablet Delayed Release 1 tablet Orally Once a day Medication List reviewed and reconciled with the patient * Allergies:?LinagliptinPenici llinExenatideLactose (Allergy)Wheat DextrinLatexCorn (Syrup)Grass Pollen Standardized ExtDog DanderCat Danderyes[Allergies Verified] Objective: * Vitals:?Ht: 5ft 3in, Wt:216, BMI:38.26, Shoe size: 8.5, BS: 154, Ht-cm: 160.02 cm, Wt-k.98 kg. * ???Past Orders: ???Lab:HEMOGLOBIN A1C (GLYCO HEMOGLOBIN) (Order Date - 05/12/2024) (Collection Date & Time - 05/12/2024 12:27 PM) ? Value Reference Range ?TOTAL HEMOGLOBIN (HGBA1C) 7.4 * Examination: ???Ophthalmology Referral: ?DIABETES EYE EXAM?Neurological: ?SENSORY:?Neurological exam demonstrates, reduced light touch sensation, reduced sharp/dull discrimination , reduced vibration sensation, in a stocking fashion, B/L, 5.07 monofilament test performed at plantar aspects of 5 varied sites per foot shows sensation, reduced, B/L.?Nails: ?NAILS are:? Elongated, overgrown, dystrophic 1-5 B/L.?Dermatologic: ?SKIN FINDINGS:?Skin exam reveals Keratotic lesion(s) located at , TA , T5.?General Examination: ?GENERAL APPEARANCE:?Reveals a pleasant, alert, well nourished, well developed, well hydrated individual, who demonstrates proper attention to hygene/body habitus, and is in no acute distress.?ORIENTED:?person, place, and time.?FOOT EXAM:?Footwear Evaluation?Orthopedic: ?FOOTWEAR:?fair condition.? Assessment: * Assessment: 1.?Type 2 diabetes mellitus with polyneuropathy - E11.42 (Primary)??? Plan: * Treatment: * Procedures:?Keratoma Treatment:?Parring or Cutting of Benign Hyperkeratotic Lesion(s)?(-56) 2-4 Lesions - Due to the at risk nature of the patients medical condition as documented in the exam findings, performance of this keratoderma treatment is medically necessary as its management by an unskilled/untrained nonprofessional would put this patients foot and overall health at risk. Therefore, the benign hyperkeratotic lesions, ( 2 ) in total, locations as stated and described in the exam, were pared, and/or cut utilizing a sterile 15 blade, tissue nippers, and/or power Spinback instrumentation - [id number].?Nail Reduction:?Nail Reduction?Trimming of dystrophic nails performed to reduce/remove overall nail length and girth, by manual and electrical means with use of a nail nipper and/or dremel, to more viable healthy nail plate or bed tissue 6-10 (G0127).? * Procedure Codes:?G0127 ANTOINE ING DYSTROPHIC NAILS ANY #, Modifiers: XS 63199 TRIM SKIN LESIONS, 2 TO 4, Modifiers: XS * Preventive Medicine:? ??Screening/Special Tests:?Fall Risk?Assessment:?Performed ?Screening:?No falls in the past year ?FALLS: Screening for Future Fall Risk?Have you had two or more falls in the past year??No ?Have you had any falls with injury in the past year??No * Follow Up:?2 Months * Images: * Sign off status: Completed true * Provider:?Alexa Amador DPM Date:?03/2024 Generated for Earlene victoria/Aneta/Tremayne on:?12/05/2024 04:02 PM EST History and Physical Notes * HPI (History of Present Illness) Category Sub-Category Detail Notes Category Not es At Risk footcare Pt States Last PCP Visit: Date: 4 Examination Category Sub-Category Detail Notes Category Not es Neurological SENSORY: Neurological exa m demonstrates, reduced light touch sensation, reduced sharp/dull discrimination , reduced vibration sensation, in a stocking fashion, B/L, 5.07 monofilament test performed at plantar aspects of 5 varied sites per foot shows sensation, reduced, B/L Dermatologic SKIN FINDINGS: Skin exam reveal s Keratotic lesion(s) located at , TA , T5 Orthopedic FOOTWEAR: fair condition General Examination GENERAL APPEARANCE: Reveals a pleasant, alert, well nourished, well developed, well hydrated individual, who demonstrates proper attention to hygene/body habitus, and is in no acute distress FOOT EXAM: Lower Extremity Neurological Exa m performed:: Yes Visual exam of foot performed:: Yes Date: 09/16/2024 Sensory testing performed:: sensations d iminished ORIENTED: person, place, and t shannen Footwear Evaluation Footwear Evaluation performe d:: Yes Ophthalmology Referral DIABETES EYE EXAM Procedure Perform ed:: Yes ?Date of Exam Performed: 10/12/2023 Findings of Diabetic Eye Exam:: no retin opathy Nails NAILS are: Elongated, overgrown, dystro phic 1-5 B/L
--- OUTSIDE RECORDS SUMMARY | 2024-12-05 16:03 | XMS_ITS ---
[facility] Address [address] [place] [address] Care Team Providers Care Manipulator Operator Name Role Phone Hunter Terry MDneth Primary Care Provider Alexa Ace Unavailable [phone] Allergies Allergen (clinical drug ingredient) Drug/Non Drug Allergy documented on EMR Reaction Allergy Type Onset Date Status Wheat Dextrin Unknown Drug Allergy Act fidelina [place] (Syrup) Unknown Drug Allergy Acti ve Cat dander Cat Dander Unknown Allergy Active Dog dander Dog Dander Unknown Allergy Active exenatide Exenatide Unknown Drug Allergy Active Lactose (Allergy) Unknown Allergy Ac tive Latex Latex Unknown Allergy Active linagliptin Linagliptin Unknown Drug Allergy Act fidelina Penicillin Unknown Drug Allergy Active Grass Pollen Standardized Ext Unknown Drug Allergy Active REASON FOR VISIT At Risk Footcare, Toe Irritation Medications Medication SIG (Take, Route, Frequency, Duration) Notes Start Date End Date Status Aspirin 81 81 MG 1 tablet Orally Once a day for 30 day(s) Not-Taking Acetaminophen-Codeine 300-60 MG 1 tablet as needed Orally every 6 hrs Not-Taking Montelukast Sodium 10 MG 1 tablet Orally Once a day for 30 day(s) Active Ciclopirox Olamine 0.77 % APPLY 1 APPLICATIONFUL TO AFFECTED AREA EXTERNALLY TO FEET TWICE A DAY 30 DAYS for 30 Active Extra Depth Orthopedic Shoes (1 Pair) with Customized Heat Molded Multidensity Innersoles (3 Pair) as directed Dx: NIDDM/Polyneuropathy (E11.42), Hammertoe Foot Deformity (M20.41,M20.42), Preulcerative Skin Lesion(s) (L85.1 Active Omeprazole 20 MG 1 capsule 30 minutes before morning meal Orally Once a day for 30 day(s) Active tiZANidine HCl 4 MG 1 tablet as needed Orally Three times a day Active traMADol HCl 50 MG 1 tablet as needed Orally Once a day Active Atorvastatin Calcium 40 MG 1 tablet Orally Once a day for 30 day(s) Active Propranolol HCl 60 MG 1 tablet Orally On ce a day for 30 day(s) Active Amitriptyline HCl 50 MG 1 tablet at bedt shannen Orally Once a day for 30 day(s) Active Temazepam 30 MG 1 capsule at bedtime as needed Orally Once a day Active Citalopram Hydrobromide 40 MG 0.5 tablet Orally Once a day for 30 day(s) Active Gabapentin 800 MG 1 tablet Orally Once a day for 30 day(s) Active Losartan Potassium 50 MG 1 tablet Orally Once a day for 30 day(s) Active Insulin Degludec 100 UNIT/ML as directed Subcutaneous Act fidelina Semaglutide Active hydrOXYzine HCl Acti ve metFORMIN HCl 500 MG 1 tablet with a steve l Orally Once a day for 30 day(s) Active Pioglitazone HCl 30 MG 1 tablet Orally O nce a day for 30 day(s) Active Extra Depth Orthopedic Shoes (1 Pair) with Customized Heat Molded Multidensity Innersoles (3 Pair) as directed Dx: NIDDM/Polyneuropathy (E11.42), Hammertoe Foot Deformity (M20.41,M20.42), Preulcerative Skin Lesion(s) (L85.1 11/30/2024 Active Social History Tobacco Use: Social History Observation Description Date Details (start date - stop date) Never Smoker NA - NA Tobacco Use/Smoking Question Answer Notes Are you a: nonsmoker Additional Findings: Tobacco Non-User Current no n-smoker Tobacco use other than smoking: Question Answer Notes Are you an other tobacco user? No Problems Problem Type SNOMED Code ICD Code Onset Dates Problem Status W/U Status Risk Notes Problem Acquired hammer toe of right foot (4028617399257 105) Other hammer toe(s) (acquired), right foot (M20.41) Active confirmed Problem Acquired hammer toe of left foot (7045016434040 103) Other hammer toe(s) (acquired), left foot (M20.42) Active confirmed Vital Signs Height 5ft3in in 11/30/2024 Weight 220 lbs 11/30/2024 BMI 38.97 kg/m2 11/30/2024 Blood pressure systolic 135 mm Hg 11/30/19 25 Blood pressure diastolic 82 mm Hg 025 Encounters Encounter Location Date Provider Diagnosis [facility] [place] [address] [place] [address] 11/30/2024 Alexa Amador Type 2 diabetes mellitus with polyneuropathy E11.42 ; Other hammer toe(s) (acquired), right foot M20.41 and Other hammer toe(s) (acquired), left foot M20.42 Assessments Encounter Date Diagnosis (ICD Code) Assessment Notes Treatment Notes Treatment Clinical Notes Section Notes 11/30/2024 Type 2 diabetes mellitus with polyneuropathy (ICD-10 - E11.42) 11/30/2024 Other hammer toe(s) (acquired), right foot (ICD-10 - M20.41) Patient Educated with: DIABETIC FOOT CARE INSTRUCTIONS. pdf (DIABETIC FOOT CARE INSTRUCTIONS. pdf) 11/30/2024 Other hammer toe(s) (acquired), left foot (ICD-10 - M20.42) Plan Of Treatment Medication Medication Name Sig Start Date Stop Date Notes Extra Depth Orthopedic Shoes (1 Pair) with Customized Heat Molded Multidensity Innersoles (3 Pair) as directed Dx: NIDDM/Polyneuropathy (E11.42), Hammertoe Foot Deformity (M20.41,M20.42), Preulcerative Skin Lesion(s) (L85.1 11/30/2024 Treatment Notes Assessment Notes Other hammer toe(s) (acquired), right fo ot Patient Educated with: DIABETIC FOOT CARE INSTRUCTIONS.pdf (DIABETIC FOOT CARE INSTRUCTIONS.pdf) Next Appt Details Follow Up: 2 Months, Reason: Provider Name:Alexa hernández, 02/17/2025 11:15:00 AM, [address] [place], [address], Procedure Notes * Category Sub-Category Detail Notes [...] locations as stated and described in the exam ( TA, T5 ), were pared, and/or cut utilizing a sterile 15 blade, tissue nippers, and/or power dremel instrumentation by the physician of record - 91147 Nail Reduction Nail Reduction (-27) Trimming o f all dystrophic nails - Due to the at risk nature of the patients medical condition as documented in the exam findings, performance of this nail treatment is medically necessary as its management by an unskilled/untrained nonprofessional would put this patients foot and overall health at risk. Therefore, the dystrophic nails, in locations as stated and described in the exam ( TA, T1, T2, T3, T4, T5, T6, T7, T8, T9, ), were debrided by the phisician of record to reduce/remove overall nail length and girth, by manual and electrical means with use of a nail nipper and/or dremel, to more viable healthy nail plate or bed tissue - G0127 Progress Notes * Lee Ann SCHULTZ EDOB:1965 (59 yo F)Acc No.[id number]:11/30/2024 Progress Note Patient:?NILO Lee Ann E Provider:?Alexa Amador DPM :1965???Age:59 Y???Sex:Female D ate:11/30/2024 Address:[address] [place], [place] [id number] Pcp:Jeffrey Terry MD Subjective: * Chief Complaints: * ???At Risk FootcareToe Irrit ation * HPI: ???At Risk footcare:?Pt States Last PCP Visit:?Date?06/12/2024 ???Toe pain:?Location:?B/L feet.?Duration:?several years.?Course:?worse.?Aggravated by:?shoes, any pressure.?Treatments:?change in shoes.? * ROS:?General/Constitutional:?Nausea?denies.?Vomiting?denies.?Hunger Thirst?denies.?Loss appetite?denies.?Chills?denies.?Fatigue?denies.?Fever?denies.?Night Sweats?denies.?Unexplained weight loss?denies.?Unexplained [...] History:?Laparoscop y cyst removal 2019knee replacment right [facility] [place] 08/09/2024 * Hospitalization/Major Diagno stic Procedure:?[facility] [place] - 10 days knee replacement surgery * Family History:?Mother: shani e, poor circulation, diagnosed with Unspecified essential hypertension, Family history of arthritis.?Father: alive, foot problems, diagnosed with Diabetic - NIDDM.?Paternal aunt: defects, diagnosed with Unspecified cerebral artery occlusion with cerebral infarction.?Paternal Grand Father: diagnosed with Other malignant neoplasm of unspecified site.? * Social History:?Tobacco Use:?Tobacco Use/Smoking?Are you a:?nonsmoker ?Additional Findings: Tobacco Non-User?Current non-smoker ?Tobacco use other than smoking?Are you an other tobacco user??No ???Miscellaneous:?Caffeine: yes, 2 cups per day. ?Children: [...] ExtDog DanderCat Danderyes[Allergies Verified] Objective: * Vitals:?Ht: 5ft3in, Wt:220, BMI:38.97, Shoe size: 8.5, BP:135/82mm Hg, BS: 144, Ht-cm: 160.02 cm, Wt-k.79 kg. * ???Past Orders: ???Lab:HEMOGLOBIN A1C (GLYCO HEMOGLOBIN) (Order Date - 08/12/2024) (Collection Date & Time - 08/12/2024 10:50 AM) ? Value Reference Range ?HEMOGLOBIN A1C % (HH) 7.1 * Examination: ???Ophthalmology Referral: ?DIABETES EYE EXAM?Neurological: ?SENSORY:?Neurological exam demonstrates, reduced light touch sensation, reduced sharp/dull discrimination , reduced vibration sensation, in a stocking fashion, B/L, 5.07 monofilament test performed at plantar aspects of 5 varied sites per foot shows sensation, reduced, B/L.?Nails: ?NAILS are:? Elongated, overgrown, dystrophic, TA, T1, T2, T3, T4, T5, T6, T7, T8, T9.?Dermatologic: ?SKIN FINDINGS:?Skin exam reveals Keratotic lesion(s) located at , TA , T5.?General Examination: ?GENERAL APPEARANCE:?Reveals a pleasant, alert, well nourished, well developed, well hydrated individual, who demonstrates proper attention to hygene/body habitus, and is in no acute distress.?ORIENTED:?person, place, and time.?FOOT EXAM:?Footwear Evaluation?Orthopedic: ?MUSCLE STRENGTH:?5/5 all groups in a symmetrical fashion, B/L.?DIGITAL DEFORMITIES:?Digital contracture, PIPJ, 2-5 B/L, incompl-reducible to push-up test, no over, nor underlapping,?there is?evidence of shoe producing skin irritation.?FOOTWEAR:??worn, non-supportive, shoe gear properties exacerbate patient's foot/toe deformity.? Assessment: * Assessment: 1.?Other hammer toe(s) (acqu ired), right foot - M20.41 (Primary)???Specify :Chronic problem, Worse (4),Rx Management (4)???2.?Type 2 diabetes mellitus with polyneuropathy - E11.42???3.?Other hammer toe(s) (acquired), left foot - M20.42???Specify :Chronic problem, Worse (4),Rx Management (4)??? Plan: * Treatment: * Procedures:?Keratoma Treatment:?Parring or [...] locations as stated and described in the exam ( TA, T5 ), were pared, and/or cut utilizing a sterile 15 blade, tissue nippers, and/or power dremel instrumentation by the physician of record - 90090.?Nail Reduction:?Nail Reduction?(-27) Trimming of all dystrophic nails - Due to the at risk nature of the patients medical condition as documented in the exam findings, performance of this nail treatment is medically necessary as its management by an unskilled/untrained nonprofessional would put this patients foot and overall health at risk. Therefore, the dystrophic nails, in locations as stated and described in the exam ( TA, T1, T2, T3, T4, T5, T6, T7, T8, T9, ), were debrided by the phisician of record to reduce/remove overall nail length and girth, by manual and electrical means with use of a nail nipper and/or dremel, to more viable healthy nail plate or bed tissue - G0127.? * Procedure Codes:?G0127 ANTOINE ING DYSTROPHIC NAILS ANY #, Modifiers: XS 09807 TRIM SKIN LESIONS, 2 TO 4, Modifiers: XS * Preventive Medicine:? ??Counseling:?Discussion:?-14: Office or other outpatient visit for the evaluation and management of an established patient, which required a medically appropriate history and/or examination and MODERATE level of DECISION MAKING for: 1 OR MORE CHRONIC PROBLEM(S) THATS WORSENING, 2 STABLE CHRONIC PROBLEMS, A NEWLY DIAGNOSED PROBLEM WITH UNCERTAIN PROGNOSIS, AN ACUTE COMPLICATED INJURY WITH MULTIPLE TREATMENT OPTIONS, OR AN ACUTE PROBLEM WITH ACCOMPANYING SYSTEMIC SYMPTOMS, THAT POSE(S) A MODERATE RISK OF MORBIDITY. THIS CONDITION MAY ALSO INCLUDE RX DRUG MANAGEMENT, OR A DECISON FOR MINOR SURGERY. The visit on the day of the encounter encompassed interpreting the data and educating the patient as to the nature of their condition, treatment options available according to their individual PMH, meds, allergies, and overall health/living conditions, as well as any potential risks or complications that may occur from a failure to adhere to, and participate in, the recommended course of therapy. The discussion included a complete verbal, and/or written explanation of the examination results, any x-rays taken, the proposed diagnosis, and outline of the treatment plan. A schedule for future care needs was also explained. The patient verbalized an understanding of the instructions at this time and agreed to be an active participant in their treatment. If the patient should think of any questions or concerns after the visit, I have encouraged the patient to call the office.?Digital Surgery:?Digital surgery was discussed with the patient, We elected to try conservative treatment at the present time, due to the patients medical history and increased asssociated post-operative risks.?Digital Treatment:?HT- I explained to the patient the possible etiologies of Hammertoes, including genetics/foot type/shoegear/activity level/exercise routine and the risks/benefits of all the different treatment options for their pain including: No treatment at all, Rest, Ice, New/supportive/wider/deeper Shoegear, Digital Padding/Strapping/Taping/Bracing/Gel protective sleeves, Foot/Ankle AFO Bracing, Stretching exercises, Deep Tissue Massage, Arch support/shoe inserts with splay metatarsal padding, and Custom orthoses. I insisted that any digital devices be removed daily and not worn overnight for safety. The patient is to carefully examine the toes daily for any skin irritation while using any splinting or padding device. The advantages and disadvantages of each option were discussed and the patients questions re: shoegear, padding, custom vs prefabricated inserts, activity level, and consistency in home treatment regimens for optimal success were answered to their verbally confirmed satisfaction.?Shoe Gear Counseling:?SHOE Rx - The patient was counseled in great detail on their muscoloskeletal foot and toe deformities which coincided with the dermatological presentations visualized on exam. We discussed how their deformities put the integrity of their feet at risk for potential pedal complications which makes the accomidative diabetic shoes and cutomizable inserts medically necessary. We discussed the different shoe and insert treatment types and options, as well as the important advantages for adhering to regularly wearing these accomidative devices daily. The patient was made aware of the fact that a failure to abide by these recommedations may be deleterious to their foot health as they are able to prevent many pedal complications such as skin irritation, skin ulceration, infection, and even loss of toe/foot/leg/or life. Time was also spent with the patient dispensing and discussing proper diabetic footcare techniques including daily skin moisturization, daily foot inspection for any interruption in skin integrity including open lesions, or sign of infection such as redness/malodor/drainage/swelling. Also discussed and recommended were procedures regarding daily shoe inspection for the presence of internal foreign bodies as well as any visualized irregular shoe or insert wear. Patient questions re: shoes, inserts, and self foot inspections were answered to their satisfaction as the patient verbally confirmed a full understanding of the above information. A Rx for Extra Depth Orthopedic Shoes with 3 pair of custom heat-molded inserts was dispensed.? ??Screening/Special Tests:?Fall Risk?Assessment:?Performed ?Screening:?No falls in the past year ?FALLS: Screening for Future Fall Risk?Have you had two or more falls in the past year??No ?Have you had any falls with injury in the past year??No * Follow Up:?2 Months * Images: * Sign off status: Completed true * Provider:?Alexa Amador DPM Date:? Generated for Earlene Joyner/[place] on:?12/05/2024 04:02 PM EST History and Physical Notes * HPI (History of Present Illness) Category Sub-Category Detail Notes Category Not es Toe pain Location: B/L feet Duration: several years Course: worse Aggravated by: shoes, any pressure Treatments: change in shoes At Risk footcare Pt States Last PCP [...] at , TA , T5 Orthopedic FOOTWEAR: worn, non-suppor tive, shoe gear properties exacerbate patient's foot/toe deformity DIGITAL DEFORMITIES: Digital contracture , PIPJ, 2-5 B/L, incompl-reducible to push-up test, no over, nor underlapping, there is evidence of shoe producing skin irritation MUSCLE STRENGTH: 5/5 all groups in a symmetrical fashion, B/L General Examination GENERAL APPEARANCE: Reveals a pleasant, alert, well nourished, well developed, well hydrated individual, who demonstrates proper attention to hygene/body habitus, and is in no acute distress FOOT EXAM: Lower Extremity Neurological Exa m performed:: Yes Visual exam of foot performed:: Yes Date: 11/30/2024 Sensory testing performed:: sensations d iminished ORIENTED: person, place, and t shannen Footwear Evaluation Footwear Evaluation performe d:: Yes Ophthalmology Referral DIABETES EYE EXAM Procedure Perform ed:: Yes ?Date of Exam Performed: 04/11/2024 Findings of Diabetic Eye Exam:: no retin opathy Nails NAILS are: Elongated, overg rown, dystrophic, TA, T1, T2, T3, T4, T5, T6, T7, T8, T9
--- OUTSIDE RECORDS SUMMARY | 2024-12-05 16:03 | XMS_ITS | Patient Health Record ---
Author Organization [facility] Address [address] [place] [address] Care Team Providers Care Hamper Maker Machine Name Role Phone Harrison HSU, [place] Primary Care Provider Alexa Ace Unavailable [phone] Allergies Allergen (clinical drug ingredient) Drug/Non Drug Allergy documented on EMR Reaction Allergy Type Onset Date Status Wheat Dextrin Unknown Drug Allergy Act fidelina [place] (Syrup) Unknown Drug Allergy Acti ve Cat dander Cat Dander Unknown Allergy Active Dog dander Dog Dander Unknown Allergy Active exenatide Exenatide Unknown Drug Allergy Active Lactose (Allergy) Unknown Allergy Ac tive Latex Latex Unknown Allergy Active linagliptin Linagliptin Unknown Drug Allergy Act fidelina Penicillin Unknown Drug Allergy Active Grass Pollen Standardized Ext Unknown Drug Allergy Active Results Component Value Reference Range Notes HEMOGLOBIN A1C (GLYCOHEMOGLO BIN) Reviewed date:07/08/2024 12:27:57 PM Interpretation: Performing Lab: Notes/Report: TOTAL HEMOGLOBIN (HGBA1C) 7.4 HEMOGLOBIN A1C (GLYCOHEMOGLO BIN) Reviewed date:11/30/2024 10:51:23 AM Interpretation: Performing Lab: Notes/Report: HEMOGLOBIN A1C % (HH) 7.1 Reason For Referral No Information Medications Medication SIG (Take, Route, Frequency, Duration) Notes Start Date End Date Status Amitriptyline HCl 50 MG 1 tablet at bedt shannen Orally Once a day for 30 day(s) Active Aspirin 81 81 MG 1 tablet Orally Once a day for 30 day(s) Not-Taking Temazepam 30 MG 1 capsule at bedtime as needed Orally Once a day Active Acetaminophen-Codeine 300-60 MG 1 tablet as needed Orally every 6 hrs Not-Taking Omeprazole 20 MG 1 capsule 30 minutes before morning meal Orally Once a day for 30 day(s) Active Extra Depth Orthopedic Shoes (1 Pair) with Customized Heat Molded Multidensity Innersoles (3 Pair) as directed Dx: NIDDM/Polyneuropathy (E11.42), Hammertoe Foot Deformity (M20.41,M20.42), Preulcerative Skin Lesion(s) (L85.1 11/30/2024 Active Citalopram Hydrobromide 40 MG 0.5 tablet Orally Once a day for 30 day(s) Active Montelukast Sodium 10 MG 1 tablet Orally Once a day for 30 day(s) Active Gabapentin 800 MG 1 tablet Orally Once a day for 30 day(s) Active Ciclopirox Olamine 0.77 % APPLY 1 APPLICATIONFUL TO AFFECTED AREA EXTERNALLY TO FEET TWICE A DAY 30 DAYS for 30 Active Losartan Potassium 50 MG 1 tablet Orally Once a day for 30 day(s) Active Extra Depth Orthopedic Shoes (1 Pair) with Customized Heat Molded Multidensity Innersoles (3 Pair) as directed Dx: NIDDM/Polyneuropathy (E11.42), Hammertoe Foot Deformity (M20.41,M20.42), Preulcerative Skin Lesion(s) (L85.1 Active Insulin Degludec 100 UNIT/ML as directed Subcutaneous Act fidelina Semaglutide Active tiZANidine HCl 4 MG 1 tablet as needed Orally Three times a day Active hydrOXYzine HCl Acti ve traMADol HCl 50 MG 1 tablet as needed Orally Once a day Active metFORMIN HCl 500 MG 1 tablet with a steve l Orally Once a day for 30 day(s) Active Atorvastatin Calcium 40 MG 1 tablet Orally Once a day for 30 day(s) Active Pioglitazone HCl 30 MG 1 tablet Orally O nce a day for 30 day(s) Active Propranolol HCl 60 MG 1 tablet Orally On ce a day for 30 day(s) Active Immunizations Vaccine Route Administration Date Status Comme nts COVID-19 Ricardo & Ricardo/Yary Unknown 01/16/2021 A dministered Influenza Unknown 07/12/2020 Administered Influenza Unknown 07/29/2023 Administered Social History Tobacco Use: Social History Observation [...] Problem Acquired hammer toe of right foot (600960223266010 5) Other hammer toe(s) (acquired), right foot (M20.41) Active confirmed Problem Acquired hammer toe of left foot (779454263902524 3) Other hammer toe(s) (acquired), left foot (M20.42) Active confirmed Problem Plantar fascial fibromatosis (50547690) Plantar fascial fibromatosis (M72.2) Active confirmed Problem 262306224 Hammer toe of le ft foot (M20.42) Active confirmed Problem 83657911 Type 2 diabetes mellitus with polyneuropathy (E11.42) Active confirmed Vital Signs Blood pressure diastolic 82 mm Hg 11/30/2024 Height 5ft3in in 11/30/2024 Blood pressure systolic 135 mm Hg 11/30/2024 Weight 220 lbs 11/30/2024 BMI 38.97 kg/m2 11/30/2024 Encounters Encounter Location Date Provider Diagnosis [address] [address] 12/18/2023 Alexa Amador Type 2 diabetes mellitus with polyneuropathy E11.42 and Ingrown nail L60.[address] [address] 03/04/2024 Alexa Tiradoa Type 2 diabetes mellitus with polyneuropathy E11.42 ; Plantar fascial fibromatosis M72.2 ; Strain of left foot, initial encounter S96.912A and Strain of right foot, initial encounter S96.911A [address] [address] 07/08/2024 Alexa Tiradoa Type 2 diabetes mellitus with polyneuropathy E11.42 ; Plantar fascial fibromatosis M72.2 ; Strain of left foot, initial encounter S96.912A and Strain of right foot, initial encounter S96.911A [address] [address] 09/16/2024 Alexa Amador Type 2 diabetes mellitus with polyneuropathy E11.[address] [address] 11/30/2024 Alexa Amador Type 2 diabetes mellitus with polyneuropathy E11.42 ; Other hammer toe(s) (acquired), right foot M20.41 and Other hammer toe(s) (acquired), left foot M20.[address] [address] 05/24/2024 Alexa Amador Assessments Encounter Date Diagnosis (ICD Code) Assessment Notes Treatment Notes Treatment Clinical Notes Section Notes 12/18/2023 Ingrown nail (ICD-10 - L60.0) 12/18/2023 Type 2 diabetes mellitus with polyneuropathy (ICD-10 - E11.42) 03/04/2024 Plantar fascial fibromatosis (ICD-10 - M72.2) 03/04/2024 Type 2 diabetes mellitus with polyneuropathy (ICD-10 - E11.42) 07/08/2024 Type 2 diabetes mellitus with polyneuropathy (ICD-10 - E11.42) 09/16/2024 Type 2 diabetes mellitus with polyneuropathy (ICD-10 - E11.42) 11/30/2024 Other hammer toe(s) (acquired), right foot (ICD-10 - M20.41) Patient Educated with: DIABETIC FOOT CARE INSTRUCTIONS. pdf (DIABETIC FOOT CARE INSTRUCTIONS. pdf) 11/30/2024 Type 2 diabetes mellitus with polyneuropathy (ICD-10 - E11.42) 07/08/2024 Plantar fascial fibromatosis (ICD-10 - M72.2) 11/30/2024 Other hammer toe(s) (acquired), left foot (ICD-10 - M20.42) 03/04/2024 Strain of left foot, initial encounter (ICD-10 - S96.912A) 03/04/2024 Strain of right foot, initial encounter (ICD-10 - S96.911A) 07/08/2024 Strain of left foot, initial encounter (ICD-10 - S96.912A) 07/08/2024 Strain of right foot, initial encounter (ICD-10 - S96.911A) Plan Of Treatment Next Appt Details Provider Name:Alexaze hernández, 02/17/2025 11:15:00 AM, [address] [facility], [place], [address], Insurance Providers Payer Name Payer Address Payer Phone Subscriber Number Group Number Insured Name Patient Relationship to Insured Coverage Start Date Coverage End Date Medicare National Govt Svcs Inc [address] [facility] [place] [address] [id number] Lee Ann Schultz Self - patient is the insured [facility] [address] [place] [address] [id number] Lee Ann Schultz Self - patient is the insured Medical (General) History Medical History History ICD Code Insomnia osteoarthritis Diabetes mellitus Hypertension, benign dyslipidemia Anxiety Premature Ventricular contractions Migraines Hypercholesterolemia Back pain Neuropathy Reflux ( GERD) Vitamin D deficiency asthma Surgical History Surgery Date(Month/Year) Laparoscopy cyst removal 2019 knee replacment right [facility] 08/09/2024 Hospitalization History Reason Date(Month/Year) [facility] - 10 days knee replacement surgery
== END 2024-12-05 15:15 | disposition home or self-care (01) ==
PROVIDERS: PCP Internal Medicine; Visit Provider Internal Medicine
DX: E78.00 Pure hypercholesterolemia, unspecified (principal); E11.42 Type 2 diabetes mellitus with diabetic polyneuropathy; I10 Essential (primary) hypertension; I49.3 Ventricular premature depolarization; J45.40 Moderate persistent asthma, uncomplicated; J30.2 Other seasonal allergic rhinitis; G43.909 Migraine, unspecified, not intractable, without status migrainosus; K21.9 Gastro-esophageal reflux disease without esophagitis; M17.0 Bilateral primary osteoarthritis of knee; M54.50 Low back pain, unspecified; E55.9 Vitamin D deficiency, unspecified; G47.00 Insomnia, unspecified

== ENCOUNTER → 2024-12-05 14:00 | Outpatient (BNVA) | payer MEDICARE, OTHER, SELFPAY | PROVIDERS: PCP Internal Medicine; Visit Provider Internal Medicine | DX: E78.00 Pure hypercholesterolemia, unspecified (principal); E11.42 Type 2 diabetes mellitus with diabetic polyneuropathy; I10 Essential (primary) hypertension; I49.3 Ventricular premature depolarization; J30.2 Other seasonal allergic rhinitis; G43.909 Migraine, unspecified, not intractable, without status migrainosus; K21.9 Gastro-esophageal reflux disease without esophagitis; M17.0 Bilateral primary osteoarthritis of knee; M54.50 Low back pain, unspecified; E55.9 Vitamin D deficiency, unspecified; E66.9 Obesity, unspecified; F41.9 Anxiety disorder, unspecified; G47.00 Insomnia, unspecified | CPT/HCPCS: 83036; 96127; 99212 ==

== ENCOUNTER 2024-12-07 11:51 | Outpatient (RCR) | payer MEDICARE, OTHER, SELFPAY ==
--- NOTE | 2024-10-17 12:25 | MHC.PT.OD ---
[facility] [place] [facility] [place] [facility] [place] Office [address] Jonathan Molina [address] [phone] F: [phone] F: [phone] F: [phone] F: [phone] Physical Therapy Daily Note Diagnosis: PT eval and treat Z96.561 Presence of right artificial knee joint. Status post knee replacement, right signed by Dr. Bill 09/30/24 Date of Surgery: 08/09/24 Date of Evaluation: 10/17/24 Date of Treatment: 10/17/24 Treatments to Date: Cancellations to Date: No Shows to Date: Authorized Visits: 1 Insurance End Date: Precautions/ Contraindications:DMII, vasovagal syncope, delayed knee closure R TKA inferior aspect incision Subjective: I want to be able to cook, do stairs, and go back to hindu Pain Score and Location: 5-6 Objective Flowsheet: Tests & Measures see eval Exercises HEP handouts/education issued see eval Education for isometric QS x 2 sets 10R, SLR into flexion (modified range due to lag) x 10R, seated HS stretch x 20 sec hold x 4R, seated gastroc stretch x 20 sec hold x 4R, passive knee ext for both knees with heel prop x 10 minutes anterior/posterior x10 minutes. Handout given Education re: inquiry for patient to discuss desire to obtain therapist/ counselor with PCP regarding split from of 36 years. Pt noted to address this repeatedly ----> impacting her motivation/depression./activity at home Modalities Assessment: Pt is a RHD 59 y/o female with PMH significant for Vasovagal syncopes Allergic rhinitis Left knee pain Osteoarthritis of right knee Hx of flexible sigmoidoscopy (~2000) Cyst of right knee joint Right knee pain Injury of toenail GERD without esophagitis Obesity (BMI 30-39.9) Insomnia Osteoarthritis of knees, bilateral Migraine Midline low back pain without sciatica Premature ventricular contractions (PVCs) (VPCs) Benign essential hypertension Asthma Diabetes mellitus Pure hypercholesterolemia Vitamin D deficiency Anxiety GERD (gastroesophageal reflux disease) Obesity Hypertension Dyslipidemia Diabetic neuropathy associated with type 2 diabetes mellitus Diabetes type 2, uncontrolled Neuropathy History of surgical removal of ganglion cyst Hx of colonoscopy History of esophagogastroduodenoscopy (EGD) History of laparoscopy Hx of tonsillectomy Hx of tubal ligation. Pt is s/p R TKA Dr. Bill DOS 08/09/24. Pt went to [facility] 08/10/24-08/21/24. Pt had home PT through mid September. Pt post op course complicated by delayed closure of inferior aspect of incision (today for PT eval appears scabbed over). Pt appt on 09/16/24 was encouraged to perform wet<>dry dressing. Pt presents to office with std cane, exhibiting flexed posture with poor confidence *(cane height was raised two levels up). Pt Pt exhibits decreased knee ROM -10 to 105 R knee , impaired strength, increased edema and decreased mobility. Pt currently not going out for shopping or hindu, expressed poor confidence with stairs (bedroom on second level navigating with support from family). Pt retired in 2018, speaks of emotional toll of split from her of 36 years (expresses interest in seeking counseling as she states this is impacting her motivation and movements at home. Pt was not performing SLR or isometric QS at home, has tight hamstring and calf musculature. Pt would benefit from attending skilled PT services at a frequency twice a week x 6 weeks to address impairments, implement HEP, and restore functional mobility to resume PLOF. Pt expressing walking in step-to pattern for stairs. Pt exhibits good rehab potential. Post PT eval pt was issued a written HEP to include: HS stretch in sitting, gastroc stretch in sitting, isometric QS, SLR into flexion, and passive knee extension heel prop with ice. Pt was educated/encouraged to ice her L knee as well (OA pending TKA on L side as well). Positive education carryover post education verbalized. PT Plan: 2x/week x 6 weeks Short Term Goals: 1. AROM L knee ext to -5. (IR -10). 2. AAROM L knee flexion to 120. (IR: AROM 105). 3. SLR in to flexion with good quad control (IR: fair strength). 4. Pt will ambulate with std cane community distances with good dynamic balance (IR: arrived with cane wrong height, poor confidence, fatigue /pain in R knee x 200ft). Alf Goals: 1. AROM R knee 0 to 120 degrees. 2. Strength R knee 5/5 flex/ext (IR: flex 4-/5, ext 4-/5). 3. Negotiate stairs reciprocally with good dynamic balance (IR: stairs step to ascending/descending). 4. Pt will demonstrate good strength hip abd 4-/5. Electronically signed by: Olga Ruggiero, PT, DPT
== END 2025-07-06 15:03 | disposition home or self-care (01) ==
LOC: HO.PTWFD 11:51
PROVIDERS: PCP Internal Medicine; Visit Provider Orthopaedic Surgery
DX: Z96.651 Presence of right artificial knee joint (principal)
CPT/HCPCS: 97110; 97116; 97140; 97162; 97535

== ENCOUNTER 2025-01-27 09:44 | Outpatient (REF) | payer MEDICARE, OTHER, SELFPAY ==
[2025-01-27 15:34] LABS: Influenza A PCR NEGATIVE (Negative); Influenza B PCR NEGATIVE (Negative); Resp Syncy Virus RNA Qual PCR NEGATIVE (Negative); SARS COV2 PCR INHOUSE NEGATIVE (Negative)
== END 2025-01-27 09:45 | disposition home or self-care (01) ==
LOC: HO.LAB 09:44
PROVIDERS: Nurse Practitioner Family; PCP Internal Medicine
DX: J45.41 Moderate persistent asthma with (acute) exacerbation (principal); J06.9 Acute upper respiratory infection, unspecified
CPT/HCPCS: 0241U; 99212

== ENCOUNTER 2025-01-27 09:44 | Outpatient (AMB) | payer MEDICARE, OTHER, SELFPAY ==
[2025-01-27 10:05] VITALS: BP 128/72; PULSE 101; RESP 18; TEMP 36.8; O2SAT 99; BMI 35.4
--- NOTE | 2025-01-27 10:05 | AM.OFFWIN_ITS ---
Intake Vital Signs 01/27/25 10:05 Height 5 ft 3 in Weight 200 lb BMI 35.4 BP 128/72 Blood Pressure Location Rt brachial Position Sitting Respiration 18 Pulse 101 H Pulse Source Pulse Oximeter Temp 98.2 F Temp Source Oral Pulse Oximetry (%) 99 Oxygen Delivery Method Room Air Intake Visit Reasons: EP Flu like symptoms Intake Note: Pt is here today c/o cough,wheezing and bodyaches Patient Tobacco Use Status: Never used Tobacco Allergies linagliptin [From TRADJENTA] Allergy (Severe, Verified 01/27/25 10:14) THROAT ITCHING/COUGH Penicillins [PENICILLINS] Allergy (Severe, Verified 01/27/25 10:14) SWELLING/HIVES exenatide [From BYDUREON] Allergy (Intermediate, Verified 01/27/25 10:14) RASH wheat [WHEAT] Allergy (Intermediate, Verified 01/27/25 10:14) RASH latex [Latex] Allergy (Mild, Verified 01/27/25 10:14) SWELLING/ITCH grass, dogs, cats Allergy (Intermediate, Uncoded 01/27/25 10:14) Cough, sneezing lactose, wheat, corn syrup Allergy (Mild, Uncoded 01/27/25 10:14) rash HPI HPI Comments History of Present Illness Details 59 y/o Female patient who presents to [facility] walk in clinic with c/o URI symptoms. Pt reports cough, wheezing and body aches for 3 weeks now. She has been taking her medications with no relief. H/o Asthma and uses Albuterol Inhaler with some relief. Reports that the Cough has been keeping her up at night. [facility] Medical History (Updated 01/27/25 @ 10:46 by Tiffanie Noonan NP) Asthma with acute exacerbation Acute respiratory disease Vasovagal syncopes Allergic rhinitis Osteoarthritis of right knee Hx of flexible sigmoidoscopy (~2000) Cyst of right knee joint Injury of toenail GERD without esophagitis Obesity (BMI 30-39.9) Insomnia Osteoarthritis of knees, bilateral Migraine Midline low back pain without sciatica Premature ventricular contractions (PVCs) (VPCs) Benign essential hypertension Asthma Diabetes mellitus Pure hypercholesterolemia Vitamin D deficiency Anxiety GERD (gastroesophageal reflux disease) Obesity Diabetic neuropathy associated with type 2 diabetes mellitus Diabetes type 2, uncontrolled Neuropathy Surgical History History of surgical removal of ganglion cyst Hx of colonoscopy History of esophagogastroduodenoscopy (EGD) History of laparoscopy Hx of tonsillectomy Hx of tubal ligation Family History Father Bladder cancer Skin cancer Diabetes Hypertension Hyperlipidemia Mother Diabetes CVD (cardiovascular disease) CVA (cerebral vascular accident) Hypertension Social History Household Members: Family Household Members Other:: daughter Housing: House Are you a primary manager care to a significant other at home: No Do you presently have visiting nurse or other home services: No Alcohol intake: never Comment: aware of trip hazard Patient Tobacco Use Status: Never used Tobacco e-Cigarette/Vaping Use: Never Used Second Hand Smoke Exposure: Yes service: No Current occupational status: retired Sexual orientation: Straight/Heterosexual Gender identity: Female Cognitive needs: No Hearing needs: No Vision needs: Yes (glasses) Review of Systems Const All systems reviewed & are unremarkable except as noted in HPI and below Physical Exam Vital Signs: Last Vital Signs Temp 98.2 F 01/27/25 10:05 Pulse 101 H 01/27/25 10:05 Resp 18 01/27/25 10:05 BP 128/72 01/27/25 10:05 Pulse Ox 99 01/27/25 10:05 Oxygen Delivery Method Room Air 01/27/25 10:05 BMI result Body Mass Index 35.4 Const General: no acute distress Nutritional Appearance: obese Orientation/consciousness: patient oriented x3 HEENT Head: Yes normocephalic Ears: external ears normal and TM abnormal with fluid behind the TM bilateral General nose exam: Nasal discharge present Face and sinus: Yes sinuses nontender Mouth: moist mucous membranes Throat: Yes tonsils normal and Yes uvula midline Resp Effort & Inspection: normal respiratory effort, able to speak in complete sentences and Actively coughing Auscultation: clear to auscultation bilaterally, no crackles, no rales, no rhonchi and no wheezes Cardio Heart sounds: S1 normal heart sound present and S2 normal heart sound present Neuro General: patient oriented x3 Assessment & Plan Assessment & Plan (1) Asthma with acute exacerbation: Code(s): J45.901 - Unspecified asthma with (acute) exacerbation Qualifiers: Asthma severity: moderate Asthma persistence: persistent Qualified Code(s): J45.41 - Moderate persistent asthma with (acute) exacerbation Plan: Ordered SARs. Ordered Doxy for 5 days. Ordered cough medicine. (2) Acute respiratory disease: Code(s): J06.9 - Acute upper respiratory infection, unspecified Plan: Ordered SARs. Ordered Doxy for 5 days. Ordered cough medicine. Orders: Orders SARS-CoV2/FLU/RSV Today J06.9 - Acute upper respiratory infection, unspecified Medications: New fluticasone propionate 50 mcg/actuation (Flonase Allergy Relief) administer into each nostril 1 spray intranasal BID 16 grams 0RF J06.9 - Acute upper respiratory infection, unspecified, J45.41 - Moderate persistent asthma with (acute) exacerbation doxycycline hyclate 100 mg PO BID 5 days 10 caps 0RF J45.41 - Moderate persistent asthma with (acute) exacerbation benzonatate 100 mg PO BID 60 caps 0RF J06.9 - Acute upper respiratory infection, unspecified, J45.41 - Moderate persistent asthma with (acute) exacerbation Coding Level of Care Code Est Pt Level 4 (85826) Diagnoses Moderate persistent asthma with acute exacerbation J45.41 Asthma severity: moderate Asthma persistence: persistent Acute respiratory disease J06.9 Time Spent (min) 20
--- OUTSIDE RECORDS SUMMARY | 2025-01-27 10:23 | XMS_ITS ---
Author Organization [facility] Address [address] [place] [address] Care Team Providers Care Supervising Fire Marshal Name Role Phone Hunter Terry MDneth Primary Care Provider UnaAlexa Everett Unavailable [phone] Allergies Allergen (clinical drug ingredient) Drug/Non Drug Allergy documented on EMR Reaction Allergy Type Onset Date Status Wheat Dextrin Unknown Drug Allergy Act fidelina [place] (Syrup) Unknown Drug Allergy Acti ve Cat [...] Status Risk Notes Problem Plantar fascial fibromatosis (83119043) Plantar fascial fibromatosis (M72.2) Active confirmed Vital Signs Height 5ft 3in in 09/16/2024 Weight 216 lbs 09/16/2024 BMI 38.26 kg/m2 09/16/2024 Encounters Encounter Location Date Provider Diagnosis [facility] [place] [address] [place] [address] 09/16/2024 Alexa Amador Type 2 diabetes mellitus with polyneuropathy E11.42 Assessments Encounter Date Diagnosis (ICD Code) Assessment Notes Treatment Notes Treatment Clinical Notes Section Notes 09/16/2024 Type 2 diabetes mellitus with polyneuropathy (ICD-10 - E11.42) Plan Of Treatment Next Appt Details Follow Up: 2 Months, Reason: Provider Name:Alexa hernández, 02/17/2025 11:15:00 AM, [address] [place], [address], Procedure Notes * Category Sub-Category Detail Notes [...] tissue nippers, and/or power dremel instrumentation - 69199 Nail Reduction Nail Reduction Trimming of dyst rophic nails performed to reduce/remove overall nail length and girth, by manual and electrical means with use of a nail nipper and/or dremel, to more viable healthy nail plate or bed tissue 6-10 (G0127) Progress Notes * NILO Lee Ann EDOB:1965 (59 yo F)Acc No.[id number]:09/16/2024 Progress Note Patient:Lee Ann CAVAZOS Provider:?Alexa Amador DPM :1965???Age:59 Y???Sex:Female D ate:09/16/2024 Address:[address] [place], [place] [id number] Pcp:Jeffrey Terry MD Subjective: * Chief Complaints: [...] History:?Laparoscop y cyst removal 2019knee replacment right [facility] 08/09/2024 * Hospitalization/Major Diagno stic Procedure:?[facility] - 10 days knee replacement surgery * [...] 7.4 * Examination: ???Ophthalmology Referral: ?DIABETES EYE EXAM?Procedure Performed:?Yes ?Date of Exam Performed?10/12/2023 ?Findings of Diabetic Eye Exam:?no retinopathy?Neurological: ?SENSORY:?Neurological exam demonstrates, reduced light touch sensation, [...] in no acute distress.?ORIENTED:?person, place, and time.?FOOT EXAM:?Lower Extremity Neurological Exam performed:?Yes ?Visual exam of foot performed:?Yes ?Date?09/16/2024 ?Sensory testing performed:?sensations diminished ?Footwear Evaluation?Footwear Evaluation performed:?Yes?Orthopedic: ?FOOTWEAR:?fair condition.? Assessment: * Assessment: 1.?Type 2 [...] tissue nippers, and/or power dremel instrumentation - 83417.?Nail Reduction:?Nail Reduction?Trimming of dystrophic nails performed to reduce/remove overall nail length and girth, by manual and electrical means with use of a nail nipper and/or dremel, to more viable healthy nail plate or bed tissue 6-10 (G0127).? * Procedure Codes:?G0127 ANTOINE ING DYSTROPHIC NAILS ANY #, Modifiers: XS 00665 TRIM SKIN LESIONS, 2 TO 4, Modifiers: [...] Amador DPM Date:?03/2024 Generated for Earlene victoria/Aneta/Tremayne on:?01/27/2025 10:22 AM EDT History and Physical Notes * HPI [...] located at , TA , T5 Orthopedic FOOTWEAR EVALUATION: fair condition General Examination GENERAL APPEARANCE: Reveals [...]
--- OUTSIDE RECORDS SUMMARY | 2025-01-27 10:23 | XMS_ITS ---
Author Organization [facility] Address [address] [place] [address] Care Team Providers Care Procurement Professional Name Role Phone Hunter Terry MDneth Primary Care Provider Alexa Ace Unavailable [phone] Allergies Allergen (clinical drug ingredient) Drug/Non Drug Allergy documented on EMR Reaction Allergy Type Onset Date Status Wheat Dextrin Unknown Drug Allergy Act fidelina [place] (Syrup) Unknown Drug Allergy Acti ve Cat [...] Problem Acquired hammer toe of right foot (3049821390657 105) Other hammer toe(s) (acquired), right foot (M20.41) Active confirmed Problem Acquired hammer toe of left foot (2365067871900 103) Other hammer toe(s) (acquired), left foot (M20.42) Active confirmed Vital Signs Height 5ft3in in 11/30/2024 Weight 220 lbs 11/30/2024 BMI 38.97 kg/m2 11/30/2024 Blood pressure systolic 135 mm Hg 11/30/19 25 Blood pressure diastolic 82 mm Hg 025 Encounters Encounter Location Date Provider Diagnosis [facility] [place] [address] [place] [address] 11/30/2024 Alexa Amador Type 2 diabetes mellitus [...] Provider Name:Alexa hernández, 02/17/2025 11:15:00 AM, [address] [place], [address], Procedure Notes * Category Sub-Category Detail Notes [...] instrumentation by the physician of record - 44468 Nail Reduction Nail Reduction (-27) Trimming o [...] Lee Ann SCHULTZ EDOB:1965 (59 yo F)Acc No.[id number]:11/30/2024 Progress Note Patient:?NILO Lee Ann E Provider:?Alexa Amador DPM :1965???Age:59 Y???Sex:Female D ate:11/30/2024 Address:[address] [place], [place] [id number] Pcp:Jeffrey Terry MD Subjective: * Chief Complaints: [...] History:?Laparoscop y cyst removal 2019knee replacment right [facility] 08/09/2024 * Hospitalization/Major Diagno stic Procedure:?[facility] - 10 days [...] 7.1 * Examination: ???Ophthalmology Referral: ?DIABETES EYE EXAM?Procedure Performed:?Yes ?Date of Exam Performed?04/11/2024 ?Findings of Diabetic Eye Exam:?no retinopathy?Neurological: ?SENSORY:?Neurological [...] Exam performed:?Yes ?Visual exam of foot performed:?Yes ?Date?11/30/2024 ?Sensory testing performed:?sensations diminished ?Footwear Evaluation?Footwear Evaluation performed:?Yes?Orthopedic: ?MUSCLE STRENGTH:?5/5 all groups in a symmetrical [...] instrumentation by the physician of record - 34810.?Nail Reduction:?Nail Reduction?(-27) Trimming of all dystrophic nails [...] ING DYSTROPHIC NAILS ANY #, Modifiers: XS 88527 TRIM SKIN LESIONS, 2 TO 4, Modifiers: [...] * Sign off status: Completed true * Provider:Krystin Amador, DPOtf Date:? Generated for Arabellai esme/Aneta/eTransmitting on:?01/27/2025 10:22 AM EDT History and Physical Notes * HPI (History of Present Illness) Category Sub-Category Detail Notes Category Not es Toe pain Location: B/L feet Duration: several years Course: worse Aggravated by: shoes, any pressure Treatments: change in shoes At Risk footcare Pt States Last PCP Visit: Date: Examination Category Sub-Category Detail Notes Category Not [...] , TA , T5 Orthopedic FOOTWEAR EVALUATION: worn, non-s upportive, shoe gear properties exacerbate patient's foot/toe deformity [...]
--- OUTSIDE RECORDS SUMMARY | 2025-01-27 10:23 | XMS_ITS | Patient Health Record ---
Author Organization [facility] Address [address] [place] [address] Care Team Providers Care Ecological Technical Officer Name Role Phone Harrison HSU, [place] Primary Care Provider Alexa Ace Unavailable [phone] Allergies Allergen (clinical drug ingredient) Drug/Non Drug Allergy documented on EMR Reaction Allergy Type Onset Date Status Wheat Dextrin Unknown Drug Allergy Act fidelina [place] (Syrup) Unknown Drug Allergy Acti ve Cat [...] Problem Acquired hammer toe of right foot (266093730535178 5) Other hammer toe(s) (acquired), right foot (M20.41) Active confirmed Problem Acquired hammer toe of left foot (207005605871904 3) Other hammer toe(s) (acquired), left foot (M20.42) Active confirmed Problem Plantar fascial fibromatosis (55795425) Plantar fascial fibromatosis (M72.2) Active confirmed Problem 105730617 Hammer toe of le ft foot (M20.42) Active confirmed Problem 18461725 Type 2 diabetes mellitus with polyneuropathy (E11.42) Active confirmed Vital Signs Blood pressure diastolic 82 mm Hg 11/30/2024 Height 5ft3in in 11/30/2024 Blood pressure systolic 135 mm Hg 11/30/2024 Weight 220 lbs 11/30/2024 BMI 38.97 kg/m2 11/30/2024 Encounters Encounter Location Date Provider Diagnosis [address] [address] 03/04/2024 Alexa Perica Type 2 diabetes mellitus with polyneuropathy E11.42 ; Plantar fascial fibromatosis M72.2 ; Strain of left foot, initial encounter S96.912A and Strain of right foot, initial encounter S96.911A [address] [address] 07/08/2024 Alexa Perica Type 2 diabetes mellitus with polyneuropathy E11.42 ; Plantar fascial fibromatosis M72.2 ; Strain of left foot, initial encounter S96.912A and Strain of right foot, initial encounter S96.911A [address] [address] 09/16/2024 Alexa Perica Type 2 diabetes mellitus with polyneuropathy E11.[address] [address] 11/30/2024 Alexa Perica Type 2 diabetes mellitus with polyneuropathy E11.42 ; Other hammer toe(s) (acquired), right foot M20.41 and Other hammer toe(s) (acquired), left foot M20.42 [facility] [address] [address] 05/24/2024 Alexa Marjorie Assessments Encounter Date Diagnosis (ICD Code) Assessment Notes Treatment Notes Treatment Clinical Notes Section Notes 03/04/2024 Plantar fascial fibromatosis (ICD-10 - M72.2) [...] Details Provider Name:Alexa hernández, 02/17/2025 11:15:00 AM, [address] [place] [address], [address], Insurance Providers Payer Name Payer Address Payer Phone Subscriber Number Group Number Insured Name Patient Relationship to Insured Coverage Start Date Coverage End Date Medicare National Govt Svcs Inc [address] [place] [address] [id number] Lee Ann Schultz Self - patient is the insured [facility] [address] [place] [address] [phone] [id number] Lee Ann Schultz Self - patient is the insured Medical (General) History Medical History History ICD Code Insomnia osteoarthritis Diabetes mellitus Hypertension, benign dyslipidemia Anxiety Premature Ventricular contractions Migraines Hypercholesterolemia Back pain Neuropathy Reflux ( GERD) Vitamin D deficiency asthma Surgical History Surgery Date(Month/Year) Laparoscopy cyst removal [address] [facility] 08/09/2024 Hospitalization History Reason Date(Month/Year) [facility] - 10 days knee replacement surgery
--- OUTSIDE RECORDS SUMMARY | 2025-01-27 10:23 | XMS_ITS ---
Author Organization [facility] Address [address] [place] [address] Care Team Providers Care Core Dipper Name Role Phone Jeffrey Terry MD Primary Care Provider Unava ilAlexa Cabrales [phone] REASON FOR VISIT Seen Sooner Encounters Encounter Location Date Provider Diagnosis [address] [address] 08/02/2024 Alexa Amador Plan Of Treatment Next Appt Details Provider Name:Alexa hernández, 02/17/2025 11:15:00 AM, [address] [place] [address], [phone], Progress Notes * Lee Ann SCHULTZ EDOB:1965 (59 yo F)Acc No.[id number]:08/02/2024 Progress Note Patient:?Lee Ann SCHULTZ Provider:?Alexa Amador DPM :1965???Age:59 Y???Sex:Female D ate:08/02/2024 Address:[address] [place], [place] [id number] Pcp:Jeffrey Terry MD Subjective: * Chief Complaints: [...] Provider:?Alexa Amador DPM Date:? Generated for Earlene victoria/Antea/Tremayne on:?01/27/2025 10:22 AM EDT
== END 2025-01-27 10:48 | disposition home or self-care (01) ==
PROVIDERS: PCP Internal Medicine; Visit Provider Nurse Practitioner Family
DX: J45.41 Moderate persistent asthma with (acute) exacerbation (principal); J06.9 Acute upper respiratory infection, unspecified

== ENCOUNTER 2025-03-01 10:03 | Outpatient (AMB) | payer MEDICARE, OTHER, SELFPAY ==
[2025-03-01 10:06] VITALS: BP 122/62; PULSE 70; TEMP 36.7; O2SAT 99; BMI 38.6
--- NOTE | 2025-03-01 10:06 | MHC.PC.OV ---
Vital Signs 03/01/25 10:06 Height 5 ft 3 in Weight 218 lb BMI 38.6 BP 122/62 Blood Pressure Location Lt brachial Position Sitting Pulse 70 Pulse Source Pulse Oximeter Temp 98.1 F Temp Source Oral Pulse Oximetry (%) 99 Oxygen Delivery Method Room Air Intake Visit Reasons: cough/cold Allergies linagliptin [From TRADJENTA] Allergy (Severe, Verified 03/01/25 10:06) THROAT ITCHING/COUGH Penicillins [PENICILLINS] Allergy (Severe, Verified 03/01/25 10:06) SWELLING/HIVES exenatide [From BYDUREON] Allergy (Intermediate, Verified 03/01/25 10:06) RASH wheat [WHEAT] Allergy (Intermediate, Verified 03/01/25 10:06) RASH latex [Latex] Allergy (Mild, Verified 03/01/25 10:06) SWELLING/ITCH grass, dogs, cats Allergy (Intermediate, Uncoded 03/01/25 10:06) Cough, sneezing lactose, wheat, corn syrup Allergy (Mild, Uncoded 03/01/25 10:06) rash Medication List - Last Reconciled 03/01/25 by Renay Berry MD acetaminophen 650 mg (2 x 325 mg) PO Q6H PRN 30 days albuterol sulfate 90 mcg/actuation 1 puff inhalation QID PRN albuterol sulfate 2.5 mg (3 mL) inhalation QID PRN 30 days amitriptyline 50 mg PO BEDTIME atorvastatin 40 mg PO DAILY 90 days azithromycin (Zithromax) For 250 mg dose pack: take 500 mg today (day 1), then 250 mg for 4 days (days 2-5) PO. knows to hold citalopram while on antibiotic Karen Rajput U-100 Insulin (insulin glargine) 10 units (0.1 mL) subcut QPM 90 days NS benzonatate 100 mg PO BID blood pressure monitor As directed blood sugar diagnostic (FreeStyle Precision Bob Strips) As directed once a day blood sugar diagnostic (OneTouch Ultra Test strips) As directed 2 times daily cetirizine 10 mg PO DAILY PRN cholecalciferol (vitamin D3) 25 mcg PO DAILY citalopram 40 mg PO DAILY fluticasone propionate 50 mcg/actuation 1 spray intranasal BID gabapentin 800 mg PO QID hydrocodone-chlorpheniramine 10-8 mg/5 mL 5 mL PO Q12H PRN hydroxyzine HCl 1 tablet 3 times a day and 2 tablets at bedtime PO; 90 days ibuprofen 600 mg PO Q8H PRN 30 days lancets (OneTouch Delica Lancets) 3 times a day losartan 50 mg PO DAILY magnesium oxide 400 mg PO BID metformin ER 1,000 mg (2 x 500 mg) PO BID montelukast 10 mg PO BEDTIME showjapy-aiu-yjzj-FA-vit K-lut 8 mg iron-400 mcg-50 mcg (Centrum Silver Women) 1 tab PO DAILY 90 days nebulizers As directed omega-3 fatty acids 1,000 mg PO DAILY 90 days omeprazole 20 mg PO BID pen needle, diabetic Twice a day pen needle, diabetic As directed once a day pioglitazone 30 mg PO DAILY prednisone 4 tabs QD x 2 days then 3 tabs QD x 2 days then 2 tabs Qd x 2 days then 1 tab QD x 2 days PO daily; propranolol ER 60 mg PO DAILY 30 days semaglutide (Ozempic) INJECT 0.5 MG (0.4 ML) SUBCUTANEOUSLY EVERY WEEK FOR THE FIRST 4 DOSES USE 0.25MG/WEEK AND THEN PROCEED WITH 0.5MG/WEEK temazepam 30 mg PO BEDTIME PRN 30 days tizanidine 4 mg PO TID PRN 90 days tramadol 50 mg PO TID PRN 30 days walker Folding Front wheeled walker Tobacco use date assessed: 03/01/25 Dental Screening Dental Screen Date: 12/05/24 HPI cough/cold HPI Details states allergy, coughing, 3 week, chills, , wheezing, has gone to the urgent center. [facility] Medical History (Updated 03/01/25 @ 10:18 by Renay Berry MD) Pure hypercholesterolemia Asthma with acute exacerbation Acute respiratory disease Vasovagal syncopes Allergic rhinitis Osteoarthritis of right knee Hx of flexible sigmoidoscopy (~2000) Cyst of right knee joint Injury of toenail GERD without esophagitis Obesity (BMI 30-39.9) Insomnia Osteoarthritis of knees, bilateral Migraine Midline low back pain without sciatica Premature ventricular contractions (PVCs) (VPCs) Benign essential hypertension Asthma Diabetes mellitus Vitamin D deficiency Anxiety GERD (gastroesophageal reflux disease) Obesity Diabetic neuropathy associated with type 2 diabetes mellitus Diabetes type 2, uncontrolled Neuropathy Surgical History History of surgical removal of ganglion cyst Hx of colonoscopy History of esophagogastroduodenoscopy (EGD) History of laparoscopy Hx of tonsillectomy Hx of tubal ligation Family History Father Bladder cancer Skin cancer Diabetes Hypertension Hyperlipidemia Mother Diabetes CVD (cardiovascular disease) CVA (cerebral vascular accident) Hypertension Social History Household Members: Family Household Members Other:: daughter Housing: House Are you a primary customer care manager to a significant other at home: No Do you presently have visiting nurse or other home services: No Alcohol intake: never Comment: aware of trip hazard Patient Tobacco Use Status: Never used Tobacco Tobacco use type: Cigarette e-Cigarette/Vaping Use: Never Used Second Hand Smoke Exposure: Yes service: No Current occupational status: retired Sexual orientation: Straight/Heterosexual Gender identity: Female Cognitive needs: No Hearing needs: No Vision needs: Yes (glasses) Questionnaire PHQ-9 Over the last 2 weeks, how often have you been bothered by any of the following problems? 1. Little interest or pleasure in doing things: nearly every day 2. Feeling down, depressed, or hopeless: nearly every day 3. Trouble falling or staying asleep, or sleeping too much: nearly every day 4. Feeling tired or having little energy: nearly every day 5. Poor appetite or overeating: several days 6. Feeling bad about yourself - or that you are a failure or have let yourself or your family down: several days 7. Trouble concentrating on things, such as reading the newspaper or watching television: nearly every day 8. Moving or speaking so slowly that other people could have noticed. Or the opposite - being so fidgety or restless that you have been moving around a lot more than usual: several days 9. Thoughts that you would be better off or of hurting yourself in some way: not at all Total score: 18 Depression Screening Interpretation: Positive Depression Screening Done: Yes Source: Developed by Drs. Abdirizak Mai, Dione Mclaughlin, Juan Norwood and colleagues, with an educational palma from [email or web address]. Thrive Questionnaire Date Thrive assessed: 03/01/25 I am a: Patient What is your living situation today?: I have a steady place to live Within the past 12 months, did the food you bought not last and you didn't have the money to get more?: I choose not to answer this question Within the past 12 months, did you worry whether your food would run out before you got money to buy more?: Sometimes True Do you have trouble paying for medicines?: No Do you have trouble getting transportation to medical appointments?: No Do you have trouble paying your heating and electricity bill?: No Do you have trouble taking care of your child, family member or friend?: No Do you have trouble with day-to-day activities such as bathing, preparing meals, shopping, managing finances, etc.?: No Are you currently unemployed and looking for a job?: I choose not to answer this question Are you interested in more education?: No Please select the resources that you would like help with: Food and Paying for medicine Currently or been in a relationship where the following occur: I choose not to answer THRIVE Score: 1 AUDIT C Alcohol Use Questionnaire (AUDIT-C) 1. How often do you have a drink containing alcohol?: Never 3. How often do you have six or more drinks on one occasion?: Never Total Score: 0 DYANA-7 AMB Questionnaire DYANA-7 Date DYANA - 7 assessed: 03/01/25 Feeling nervous, anxious, or on edge: 1 = Several days Not being able to stop or control worryin = Several days Worrying too much about different things: 3 = Nearly every day Trouble relaxin = Several days Being so restless that it is hard to sit still: 1 = Several days Becoming easily annoyed or irritable: 2 = More than half the days Feeling afraid as if something awful might happen: 1 = Several days Total DYANA-7 score (0-4 normal; 5-9 mild; 10-14 moderate; 15-21 severe): 10 Source: Developed by Drs. Abdirizak Mai, Dione Mclaughlin, Juan Norwood and colleagues, with an educational palma from [email or web address]. Physical exam (Primary Care) Vital Signs: Last Vital Signs Temp 98.1 F 03/01/25 10:06 Pulse 70 03/01/25 10:06 BP 122/62 03/01/25 10:06 Pulse Ox 99 03/01/25 10:06 Oxygen Delivery Method Room Air 03/01/25 10:06 BMI result Body Mass Index 38.6 Tobacco/Smoking Status: Tobacco use Status Tobacco use date assessed 03/01/25 03/01/25 10:14 Patient Tobacco Use Status Never used Tobacco 03/01/25 10:14 Tobacco use type Cigarette 03/01/25 10:14 e-Cigarette/Vaping Use Never Used 03/01/25 10:14 PHQ-9: PHQ-9 Score PHQ-9: Total score 18 03/01/25 10:21 Depression Screening Interpretation: Positive Thrive Assessment: Date of Thrive Assessment Date Thrive assessed 03/01/25 03/01/25 10:14 Currently or been in a relationship where the following occur: I choose not to answer Const General: alert; No acute distress Eyes Conjunctivae: conjunctivae normal Resp Auscultation: clear to auscultation bilaterally Cardio Rate: regular rate Rhythm: regular rhythm GI Inspection: Yes normal to inspection Extrem General: Yes normal to inspection and No edema Coding Level of Care Code Est Pt Level 4 (92973) Diagnoses Diabetes type 2, uncontrolled E11.65 Dyslipidemia E78.5 Hypertension I10 Class 2 severe obesity due to excess calories with serious comorbidity and body mass index (BMI) of 39.0 to 39.9 in adult E66.01; Z68.39 Body mass index: BMI 39.0-39.9 Obesity classification: adult class 2 (BMI 35 - 39.9) Obesity type: due to excess calories Serious obesity comorbidity presence: with serious comorbidity GERD (gastroesophageal reflux disease) K21.9 Moderate persistent asthma without complication J45.40 Asthma complication type: uncomplicated Asthma persistence: persistent Asthma severity: moderate Moderate persistent asthma with acute exacerbation J45.41 Asthma persistence: persistent Asthma severity: moderate Assessment & Plan Assessment & Plan (1) Diabetes type 2, uncontrolled: Code(s): E11.65 - Type 2 diabetes mellitus with hyperglycemia Category: Medical Plan: Decrease the amount of carbohydrate intake, pasta, bread, rice and potatoes are all sugar and that is aside from all the sweet stuff, remember that fruits are good but they are Sweet also. Patient is on Basaglar 10 units once a day metformin a 1000 mg twice a day pioglitazone 30 mg once a day, and Ozempic (2) Dyslipidemia: Code(s): E78.5 - Hyperlipidemia, unspecified Category: Medical Plan: Avoid fried foods, chicken skin, eggs, butter margarine, pastries and meat. Be it pork or beef they have a lot of cholesterol LDL goal of less than 100 and triglyceride of less than 150 on atorvastatin 40 mg once a day LDL goal of less than 100 and triglyceride of less than 150 (3) Hypertension: Code(s): I10 - Essential (primary) hypertension Category: Medical Plan: Continue with blood pressure medication. Decrease salt intake and exercise patient is taking losartan 50 mg once a day propranolol 60 mg once a day (4) Obesity: Code(s): E66.9 - Obesity, unspecified Category: Medical Qualifiers: Body mass index: BMI 39.0-39.9 Obesity classification: adult class 2 (BMI 35 - 39.9) Obesity type: due to excess calories Serious obesity comorbidity presence: with serious comorbidity Qualified Code(s): E66.01 - Morbid (severe) obesity due to excess calories; Z68.39 - Body mass index [BMI] 39.0-39.9, adult Plan: Diet and exercise (5) GERD (gastroesophageal reflux disease): Code(s): K21.9 - Gastro-esophageal reflux disease without esophagitis Category: Medical Plan: Avoid the foods that causes that usually spicy foods, tomato products, juices, coffee, soda and foods that your sensitive to. After eating do not lie down, allow 3-4 hours before in lie down. And keep the head of bed above 30 degrees to avoid the acid from going up. (6) Asthma: Code(s): J45.909 - Unspecified asthma, uncomplicated Category: Medical Qualifiers: Asthma complication type: uncomplicated Asthma persistence: persistent Asthma severity: moderate Qualified Code(s): J45.40 - Moderate persistent asthma, uncomplicated Plan: Patient has albuterol inhaler montelukast (7) Asthma with acute exacerbation: Code(s): J45.901 - Unspecified asthma with (acute) exacerbation Category: Medical Qualifiers: Asthma persistence: persistent Asthma severity: moderate Qualified Code(s): J45.41 - Moderate persistent asthma with (acute) exacerbation Plan History of Present Illness The patient is a 59-year-old female presenting with increased coughing and worsening allergies. Her symptoms began three weeks ago with increased coughing, associated wheezing, and worsened allergies, particularly at night. Despite receiving doxycycline a month earlier for respiratory complaints, her symptoms have worsened. The progression includes nighttime chills and significant headaches developing over time. Her medical history includes poorly controlled asthma and allergic rhinitis, which she's been managing with current inhaler and montelukast use but finds less effective recently. Despite attempts with common allergy medications such as Flonase and Zyrtec, relief is minimal. Additionally, the patient experiences fatigue, lack of sleep, and worsening throat discomfort. Her recent lab results last noted anemia and well-managed diabetes and cholesterol levels. Health Maintenance - Last Pap smear: July 2023 - Last cholesterol test: July 2024 (LDL: 70 mg/dL) - Last Hemoglobin A1c: November 2022 (6.8%) - Last EGD: January 2021 - Anemia noted in last bloodwork: Hemoglobin at 9.5 Social History - No specific social determinants of health were discussed in the conversation. Review of Systems - Respiratory: Reports increased coughing, wheezing, and worsening allergies. Denies diarrhea. - Neurological: Reports significant headaches. - General: Reports chills, particularly at night. - Sleep: Reports difficulty sleeping due to cough. Physical Exam - Respiratory- Lungs are clear upon examination. Results - Labs: Recent anemia with Hemoglobin at 9.5 - Tests: Hemoglobin A1c at 6.8% (November 2022). LDL level at 70 mg/dL (July 2024). Plan I recommended Zithromax (azithromycin) to address worsening cough and allergy symptoms, as the initial course of doxycycline was ineffective. A chest X-ray will be pursued to further assess any underlying pulmonary conditions that may contribute to current symptoms, ruling out any latent infections. Consideration of a short corticosteroid course is suggested since prednisone has helped before; however, monitoring blood glucose levels will be vital given the patient's diabetes. The patient should continue with current medications such as Flonase and Zyrtec, adjusting if symptoms persist. Coordination with a pharmacist will be necessary for prescriptions, alongside ensuring adequate hydration to alleviate symptoms. Patient was informed and verbally consented to the use of an ambient scribe for clinic note documentation during this visit. Discussion Notes I discussed the patient's condition and diagnosis; she was informed about the options for managing increased coughing and asthma exacerbation. The primary step involves trying a new antibiotic regimen with Zithromax, considering insufficiency with doxycycline. The need for a chest X-ray was thoroughly explained due to the persistently worsening symptoms, helping identify any underlining pathology. We touched upon the benefits of steroid intervention, recognizing considerations for diabetics with glucose elevation risk. We also agreed on the continued use of allergy medications (Flonase, Zyrtec) alongside discussing insurance's role in medication management. The patient was advised to maintain hydration and eventually return for follow-up based on symptom progression or improvement. Patient Instructions - Take Zithromax as per the provided prescription. - Get a chest X-ray as instructed. - Continue with current allergy medications?Flonase and Zyrtec. - Maintain adequate hydration to help ease symptoms. - Return if symptoms worsen or do not improve. - Monitor blood glucose levels, especially if steroid use is considered. - Follow dietary advice and rest adequately to improve recovery. Orders: Orders XR chest 2V Today J45.41 - Moderate persistent asthma with (acute) exacerbation Medications: New azithromycin (Zithromax) For 250 mg dose pack: take 500 mg today (day 1), then 250 mg for 4 days (days 2-5) PO. knows to hold citalopram while on antibiotic 6 tabs 0RF J45.41 - Moderate persistent asthma with (acute) exacerbation cetirizine 10 mg PO DAILY PRN 30 tabs 0RF allergy symptoms J45.41 - Moderate persistent asthma with (acute) exacerbation hydrocodone-chlorpheniramine 10-8 mg/5 mL Partial Fill upon patient request. 5 mL PO Q12H PRN 70 mL 0RF cold symptoms J45.41 - Moderate persistent asthma with (acute) exacerbation prednisone 4 tabs QD x 2 days then 3 tabs QD x 2 days then 2 tabs Qd x 2 days then 1 tab QD x 2 days PO daily; 20 tabs 0RF J45.41 - Moderate persistent asthma with (acute) exacerbation, J45.909 - Unspecified asthma, uncomplicated
--- OUTSIDE RECORDS SUMMARY | 2025-03-01 11:31 | XMS_ITS ---
[facility] Address [address] [place] [address] Care Team Providers Care Operator Electronic Warfare Name Role Phone Hunter Terry MDneth Primary Care Provider Alexa Ace Unavailable [phone] Allergies Allergen (clinical drug ingredient) Drug/Non Drug Allergy documented on EMR Reaction Allergy Type Onset Date Status Wheat Dextrin Unknown Drug Allergy Act fidelina [place] (Syrup) Unknown Drug Allergy Acti ve Cat [...] Problem Acquired hammer toe of right foot ([id number] 105) Other hammer toe(s) (acquired), right foot (M20.41) Active confirmed Problem Acquired hammer toe of left foot ([id number] 103) Other hammer toe(s) (acquired), left foot (M20.42) Active confirmed Vital Signs Height 5ft3in in 11/30/2024 Weight 220 lbs 11/30/2024 BMI 38.97 kg/m2 11/30/2024 Blood pressure systolic 135 mm Hg 11/30/19 25 Blood pressure diastolic 82 mm Hg 025 Encounters Encounter Location Date Provider Diagnosis [facility] [address] [place] [address] 11/30/2024 Alexa Amador Type 2 diabetes mellitus [...] Up: 2 Months, Reason: Provider Name:Alexa hernández, 04/07/2025 01:15:00 PM, [address] [place], [address], Procedure Notes * Category Sub-Category Detail Notes [...] instrumentation by the physician of record - 11525 Nail Reduction Nail Reduction (-27) Trimming o [...] Lee Ann SCHULTZ EDOB:1965 (59 yo F)Acc No.[id number]:11/30/2024 Progress Note Patient:?NILO Lee Ann E Provider:?Alexa Amador DPM :1965???Age:59 Y???Sex:Female D ate:11/30/2024 Address:[address] [place], [place] [id number] Pcp:Jeffrey Terry MD Subjective: * Chief Complaints: [...] History:?Laparoscop y cyst removal 2019[place] replac[place] [facility] [place] * Hospitalization/Major Diagno stic Procedure:[place] [place] surgery * [...] instrumentation by the physician of record - 60969.?Nail Reduction:?Nail Reduction?(-27) Trimming of all dystrophic nails [...] ING DYSTROPHIC NAILS ANY #, Modifiers: XS 82814 TRIM SKIN LESIONS, 2 TO 4, Modifiers: [...] Amador, DPOtf Date:? Generated for Arabellai esme/Aneta/eTransmitting on:?03/01/2025 11:31 AM EDT History and Physical Notes * [...]
--- OUTSIDE RECORDS SUMMARY | 2025-03-01 11:31 | XMS_ITS ---
[facility] Organization [facility] Address [address] [place] [address] Care Team Providers Care Donation Specialist Name Role Phone Nella Terry MDh Primary Care Provider UnaAlexa Everett Unavailable [phone] Allergies Allergen (clinical drug ingredient) Drug/Non Drug Allergy documented on EMR Reaction Allergy Type Onset Date Status Wheat Dextrin Unknown Drug Allergy Act fidelina [place] (Syrup) Unknown Drug Allergy Acti ve Cat [...] ce a day for 30 day(s) Active Montelukast [...] Once a day for 30 day(s) Active Amitriptyline [...] nce a day for 30 day(s) Active Semaglutide Active hydrOXYzine HCl Acti ve Encounters Encounter Location Date Provider Diagnosis [facility] [address] [address] 02/17/2025 Alexa Amador Plan Of Treatment Next Appt Details Provider Name:Alexa hernández, 04/07/2025 01:15:00 PM, [address] [place] [address], [phone], Progress Notes * Lee Ann SCHULTZ EDOB:1965 (59 yo F)Acc No.[id number]:02/17/2025 Progress Note Patient:?Lee Ann SCHULZT Provider:?Alexa Amador DPM :1965???Age:59 Y???Sex:Female D ate:02/17/2025 Address:[address] [place] [address] [place], [id number] Pcp:Jeffrey Terry MD Subjective: * Chief Complaints: * ???1. Dr Horne. * Medical History:?Insomnia, O steoarthritis, Diabetes mellitus, Hypertension, benign, Dyslipidemia, Anxiety, Premature Ventricular contractions, Migraines, Hypercholesterolemia, Back pain, Neuropathy, Reflux ( GERD), Vitamin D deficiency, Asthma. * Medications:?Taking hydrOXYz ine HCl , Taking Semaglutide , Taking Pioglitazone [...] 1 tablet Orally Once a day * Allergies:?Linagliptin, Peni cillin, Exenatide, Lactose (Allergy), Wheat Dextrin, Latex, [place] (Syrup), Grass Pollen Standardized Ext, Dog Dander, Cat Dander. Objective: * Vitals:? Assessment: Plan: * Treatment: * Images: * The named appointment provid er may or may not be the originator of this progress note, and it is not deemed complete until electronically signed by the appointment provider. Sign off status: Pending * Provider:?Alexa Amador DPM Date:?06/2025 Generated for Earlene victoria/Aneta/[place] on:?03/01/2025 11:31 AM EDT
--- OUTSIDE RECORDS SUMMARY | 2025-03-01 11:31 | XMS_ITS ---
[facility] Address [address] [place] [address] Care Team Providers Care C++ Quant Developer Name Role Phone Hunter Terry MDneth Primary Care Provider UnaAlexa Everett Unavailable [phone] Allergies Allergen (clinical drug ingredient) Drug/Non Drug Allergy documented on EMR Reaction Allergy Type Onset Date Status Wheat Dextrin Unknown Drug Allergy Act fidelina [place] (S[place]up) Unknown Drug Allergy Acti ve Cat [...] Degludec 100 UNIT/ML as directed Subcutaneous Act ifdelina Social History Tobacco Use: Social History Observation [...] Status Risk Notes Problem Plantar fascial fibromatosis (01389337) Plantar fascial fibromatosis (M72.2) Active confirmed Vital Signs Height 5ft 3in in 09/16/2024 Weight 216 lbs 09/16/2024 BMI 38.26 kg/m2 09/16/2024 Encounters Encounter Location Date Provider Diagnosis [facility] [address] [place] [address] 09/16/2024 Alexa Amador Type 2 diabetes mellitus with polyneuropathy E11.42 Assessments Encounter Date Diagnosis (ICD Code) Assessment Notes Treatment Notes Treatment Clinical Notes Section Notes 09/16/2024 Type 2 diabetes mellitus with polyneuropathy (ICD-10 - E11.42) Plan Of Treatment Next Appt Details Follow Up: 2 Months, Reason: Provider Name:Alexa hernández, 04/07/2025 01:15:00 PM, [address] [place], [address], Procedure Notes * Category Sub-Category Detail Notes [...] tissue nippers, and/or power dremel instrumentation - 95151 Nail Reduction Nail Reduction Trimming of dyst rophic nails performed to reduce/remove overall nail length and girth, by manual and electrical means with use of a nail nipper and/or dremel, to more viable healthy nail plate or bed tissue 6-10 (G0127) Progress Notes * NILO Lee Ann EDOB:1965 (59 yo F)Acc No.[id number]:09/16/2024 Progress Note Patient:Lee Ann CAVAZOS Provider:?Alexa Amador DPM :1965???Age:59 Y???Sex:Female D ate:09/16/2024 Address:[address] [place], [place] [id number] Pcp:Jeffrey Terry MD Subjective: * Chief Complaints: [...] History:?Laparoscop y [place] [facility] [place] * Hospitalization/Major Diagno stic [place] [place] * [...] tissue nippers, and/or power dremel instrumentation - 06995.?Nail Reduction:?Nail Reduction?Trimming of dystrophic nails performed to reduce/remove overall nail length and girth, by manual and electrical means with use of a nail nipper and/or dremel, to more viable healthy nail plate or bed tissue 6-10 (G0127).? * Procedure Codes:?G0127 ANTOINE ING DYSTROPHIC NAILS ANY #, Modifiers: XS 11747 TRIM SKIN LESIONS, 2 TO 4, Modifiers: [...] Amador DPM Date:?03/2024 Generated for Earlene victoria/Aneta/Tremayne on:?03/01/2025 11:31 AM EDT History and Physical [...]
--- OUTSIDE RECORDS SUMMARY | 2025-03-01 11:32 | XMS_ITS | Patient Health Record ---
[facility] Address [address] [place] [address] Care Team Providers Care Primary Special Educator Name Role Phone Harrison [facility], [place] Primary Care Provider Alexa Ace Unavailable [phone] Allergies Allergen (clinical drug ingredient) Drug/Non Drug Allergy documented on EMR Reaction Allergy Type Onset Date Status Wheat Dextrin Unknown Drug Allergy Act fidelina [place] ([place]up) Unknown Drug Allergy Acti ve Cat [...] Duration) Notes Start Date End Date Status Propranolol HCl 60 MG 1 tablet Orally On ce a day for 30 day(s) Active Gabapentin [...] 100 UNIT/ML as directed Subcutaneous Act fidelina Montelukast Sodium 10 MG 1 tablet Orally Once a day for 30 day(s) Active metFORMIN [...] Once a day for 30 day(s) Not-Taking Amitriptyline HCl 50 MG 1 tablet at bedt shannen Orally Once a day for 30 day(s) Active Acetaminophen-Codeine 300-60 MG 1 tablet as needed Orally every 6 hrs Not-Taking Temazepam 30 MG 1 capsule at bedtime as needed Orally Once a day Active Extra Depth Orthopedic Shoes (1 Pair) with Customized Heat Molded Multidensity Innersoles (3 Pair) as directed Dx: NIDDM/Polyneuropathy (E11.42), Hammertoe Foot Deformity (M20.41,M20.42), Preulcerative Skin Lesion(s) (L85.1 11/30/2024 Active Pioglitazone HCl 30 MG 1 tablet Orally O nce a day for 30 day(s) Active Semaglutide Active tiZANidine HCl 4 MG 1 tablet as needed Orally Three times a day Active hydrOXYzine HCl Acti ve traMADol HCl 50 MG 1 tablet as needed Orally Once a day Active Immunizations Vaccine Route Administration Date Status [...] Problem Acquired hammer toe of right foot (246365601601911 5) Other hammer toe(s) (acquired), right foot (M20.41) Active confirmed Problem Acquired hammer toe of left foot (809169993219688 3) Other hammer toe(s) (acquired), left foot (M20.42) Active confirmed Problem Plantar fascial fibromatosis (47653110) Plantar fascial fibromatosis (M72.2) Active confirmed Problem 447001005 Hammer toe of le ft foot (M20.42) Active confirmed Problem [id number] Type 2 diabetes mellitus with polyneuropathy (E11.42) Active confirmed Vital Signs Blood pressure diastolic 82 mm Hg 11/30/2024 Height 5ft3in in 11/30/2024 Blood pressure systolic 135 mm Hg 11/30/2024 Weight 220 lbs 11/30/2024 BMI 38.97 kg/m2 11/30/2024 Encounters Encounter Location Date Provider Diagnosis [address] [address] 03/04/2024 Alexa Perica Type 2 diabetes mellitus with polyneuropathy E11.42 ; Plantar fascial fibromatosis M72.2 ; Strain of left foot, initial encounter S96.912A and Strain of right foot, initial encounter S96.911A [address] [address] 07/08/2024 Alexa Perica Type 2 diabetes mellitus with polyneuropathy E11.42 ; Plantar fascial fibromatosis M72.2 ; Strain of left foot, initial encounter S96.912A and Strain of right foot, initial encounter S96.911A [address] [address] 09/16/2024 Alexa Perica Type 2 diabetes mellitus with polyneuropathy E11.[address] [address] 11/30/2024 Alexa Perica Type 2 diabetes mellitus with polyneuropathy E11.42 ; Other hammer toe(s) (acquired), right foot M20.41 and Other hammer toe(s) (acquired), left foot M20.42 [facility] [address] [address] 05/24/2024 Alexa Candidaedgar Assessments Encounter Date Diagnosis (ICD Code) Assessment [...] Details Provider Name:Alexa hernández, 04/07/2025 01:15:00 PM, [address] [place] [address], [phone], Insurance Providers Payer Name Payer Address Payer Phone Subscriber Number Group Number Insured Name Patient Relationship to Insured Coverage Start Date Coverage End Date Medicare [employer] [address] [place] [address] [id number] Lee Ann Schultz Self - patient is the insured [facility] [address] [place] [address] [id number] Lee Ann Schultz Self - patient is the insured Medical (General) History Medical History History ICD Code Insomnia osteoarthritis Diabetes mellitus Hypertension, benign dyslipidemia Anxiety Premature Ventricular contractions Migraines Hypercholesterolemia Back pain Neuropathy Reflux ( GERD) Vitamin D deficiency asthma Surgical History Surgery Date(Month/Year) Laparoscopy cyst removal 2019 [place] [facility] [place] Hospitalization History Reason Date(Month/Year) [facility] [place] surgery
== END 2025-03-01 10:34 | disposition home or self-care (01) ==
LOC: HO.HMCH 10:04
PROVIDERS: PCP Internal Medicine; Visit Provider Internal Medicine
DX: E11.65 Type 2 diabetes mellitus with hyperglycemia (principal); E78.5 Hyperlipidemia, unspecified; I10 Essential (primary) hypertension; E66.01 Morbid (severe) obesity due to excess calories; Z68.39 Body mass index [BMI] 39.0-39.9, adult; K21.9 Gastro-esophageal reflux disease without esophagitis; J45.40 Moderate persistent asthma, uncomplicated; J45.41 Moderate persistent asthma with (acute) exacerbation

== ENCOUNTER 2025-03-01 10:03 | Outpatient (REF) | payer MEDICARE, OTHER, SELFPAY ==
--- NOTE | ~2025-03-01 | XR_ITS ---
EXAMINATION: XR CHEST CLINICAL INFORMATION: J45.41 - Moderate persistent asthma with (acute) exacerbation COMPARISON: December 10, 2023. TECHNIQUE: 2 views of the chest were obtained. FINDINGS: Pulmonary reticular pattern. No consolidation, pleural fissure thorax. Cardiomediastinal silhouette size is normal. Calcified plaque thoracic aortic arch. Multilevel mild spondylosis, thoracolumbar spine. Degenerative changes in the acromioclavicular joint. Patient's large body habitus. XR/XR chest 2V IMPRESSION: No acute airspace disease. Probable chronic interstitial lung disease. Electronically signed by: Kahlil Hernandez MD 03/01/2025 11:18 AM EDT
== END 2025-03-01 10:04 | disposition home or self-care (01) ==
LOC: HO.XRAY 10:03
PROVIDERS: PCP Internal Medicine; Visit Provider Internal Medicine
DX: E11.65 Type 2 diabetes mellitus with hyperglycemia (principal); E78.5 Hyperlipidemia, unspecified; I10 Essential (primary) hypertension; E66.01 Morbid (severe) obesity due to excess calories; Z68.39 Body mass index [BMI] 39.0-39.9, adult; K21.9 Gastro-esophageal reflux disease without esophagitis; R05.9 Cough, unspecified; E66.812 Obesity, class 2; Z68.38 Body mass index [BMI] 38.0-38.9, adult; J45.41 Moderate persistent asthma with (acute) exacerbation; Z79.899 Other long term (current) drug therapy
CPT/HCPCS: 71046; 96127; 99212

== ENCOUNTER → 2025-03-01 10:53 | Outpatient (BNV) | payer MEDICARE, OTHER, SELFPAY | PROVIDERS: PCP Internal Medicine; Visit Provider Radiology Diagnostic Radiology | DX: J84.9 Interstitial pulmonary disease, unspecified (principal) | CPT/HCPCS: 71046 ==

== ENCOUNTER 2025-04-07 10:44 | Outpatient (REF) | payer MEDICARE, OTHER, SELFPAY ==
--- OUTSIDE RECORDS SUMMARY | 2025-02-17 07:30 | XMS_ITS ---
Author Organization [facility] Address [address] [place] [address] Care Team Providers Care Big Data Solutions Architect Name Role Phone Nella Terry MDh Primary Care Provider UnaAlexa Everett Unavailable [phone] Allergies Allergen (clinical drug ingredient) Drug/Non Drug Allergy documented on EMR Reaction Allergy Type Onset Date Status Wheat Dextrin Unknown Drug Allergy Act fidelina [place] (Syrup) Unknown Drug Allergy Acti ve Cat [...] ve Encounters Encounter Location Date Provider Diagnosis [facility] [address] [address] 02/17/2025 Alexa Amador Plan Of Treatment Next Appt Details Provider Name:Alexa hernández, 04/07/2025 01:15:00 PM, [address] [place] [address], [phone], Progress Notes * Lee Ann SCHULTZ EDOB:1965 (59 yo F)Acc No.[id number]:02/17/2025 Progress Note Patient: Otf Lee Ann GAITAN Provider: Cherelle Amador DPM :1965 A ge:59 Y S ex:Female Date:02/17/2025 Address:[address] [place] [address] [id number] Pcp:Jeffrey Terry MD Subjective: * Chief Complaints: [...] Penicillin, Exenatide, Lactose (Allergy), Wheat Dextrin, Latex, [place] (Syrup), Grass Pollen Standardized Ext, Dog Dander, Cat Dander. Objective: * Vitals: Assessment: Plan: * Treatment: * Images: * The named appointment provid er may or may not be the originator of this progress note, and it is not deemed complete until electronically signed by the appointment provider. Sign off status: Pending * Provider: Cherelle Amador DPM Date: 0 02/17/2025 Generated for Earlene victorai/Aneta/Tremayne on: 0 04/07/2025 11:44 AM EDT
[2025-04-07 11:17] LABS: MANUAL DIFF FLAG NO
[2025-04-07 11:41] LABS: Basophils Percent Auto 0.4 % (0-2); Eosinophils Absolute Auto 0.2 X10*3/uL (0.0-0.4); Eosinophils Percent Auto 3.1 % (0-4); Hematocrit 31.6 % (37.0-47.0); Hemoglobin 10.4 g/dl (12.0-16.0); Imm Gran Abs Auto 0.03 X10*3/uL (0.00-0.03); Imm Gran Pct Auto 0.4 % (0.0-0.4); Mean Corpuscular HGB Conc 32.9 g/dl (31.0-35.0); Mean Corpuscular Hemoglobin 24.2 pg (27.0-33.0); Mean Corpuscular Volume 73.5 fL (80.0-98.0); Mean Platelet Volume 9.8 fL (9.4-12.3); Monocytes Absolute Auto 0.6 X10*3/uL (0.1-1.2); Monocytes Percent Auto 7.8 % (2-11); Neutrophils Absolute Auto 4.6 x10*3/uL (2.0-8.3); Neutrophils Percent Auto 61.3 % (45-73); Platelet Count 459 X10*3/uL (160-400); White Blood Count 7.4 X10*3/uL (4.8-10.8)
[2025-04-07 11:48] LABS: Appearance Urine Clear; Color Urine Yellow; Glucose Urine UA Negative (Negative); Leukocyte Esterase Urine Trace (Negative); Nitrite Urine Negative (Negative); PH 8.5 (5.0-9.0); UMIC TRIGGER UACC YES; Urine Blood Negative (Negative); Urine Ketones Negative (Negative); Urine Protein Negative (Neg-Trace)
[2025-04-07 11:51] LABS: Bacteria Urine None Seen (None Seen); Hyaline Casts Urine 0-2 /LPF (0-2); RBC Urine 0-2 /HPF (0-2); Squamous Epithelial Cell Urine 0-2 /HPF (0-2); WBC Urine 0-5 /HPF (0-5)
[2025-04-07 11:55] LABS: Estimated Average Glucose 154 mg/dL
[2025-04-07 12:20] LABS: Microalbum/Creatinine Ratio Ur 14.7 ug/mg cr (<30)
[2025-04-07 12:25] LABS: Alanine Aminotransferase 16 U/L (0-31); Albumin Level 4.4 g/dL (3.5-5.0); Alkaline Phosphatase 92 U/L (39-117); Anion Gap 14 (12-20); Aspartate Amino Transferase 20 U/L (5-31); Bilirubin Total 0.4 mg/dL (0.0-1.0); Blood Urea Nitrogen 7 mg/dL (9-16); Calcium 9.3 mg/dL (8.4-10.2); Carbon Dioxide 25 mmol/L (22-29); Chloride 97 mmol/L (96-108); Cholesterol 156 mg/dL (<200); Estimated Glomerular Filt Rate > 60; Glucose Fasting 129 mg/dL (60-99); HDL Cholesterol 61 mg/dL (>40); LDL Cholesterol Calculated 77 mg/dL (<100); Potassium 4.3 mmol/L (3.3-5.1); Sodium 132 mmol/L (135-145); Total Protein 7.2 g/dL (6.5-8.0); Triglycerides 93 mg/dL (<150)
[2025-04-07 12:41] LABS: TSH reflex Free T4 1.54 uIU/mL (0.32-4.0); Vitamin D 25-OH Total 56.2 ng/mL (>30)
[2025-04-07 12:54] LABS: Folate 15.5 ng/mL (> or = 4.0); Vitamin B12 287 pg/mL (200-900)
== END 2025-04-07 10:45 | disposition home or self-care (01) ==
LOC: HO.LAB 10:44
PROVIDERS: PCP Internal Medicine; Visit Provider Internal Medicine
DX: E11.9 Type 2 diabetes mellitus without complications (principal); D64.9 Anemia, unspecified; E78.00 Pure hypercholesterolemia, unspecified; E53.8 Deficiency of other specified B group vitamins; E55.9 Vitamin D deficiency, unspecified
CPT/HCPCS: 36415; 80053; 80061; 81001; 82043; 82306; 82570; 82607; 82746; 83036; 84443; 85025

== ENCOUNTER 2025-04-12 15:05 | Outpatient (AMB) | payer MEDICARE, OTHER, SELFPAY ==
--- OUTSIDE RECORDS SUMMARY | 2025-02-17 07:30 | XMS_ITS ---
Author Organization [facility] Address [address] [place] [address] Care Team Providers Care Book Reviewer Name Role Phone Nella Terry MDh Primary Care Provider UnaAlexa Everett Unavailable [phone] Allergies Allergen (clinical drug ingredient) Drug/Non Drug Allergy documented on EMR Reaction Allergy Type Onset Date Status Wheat Dextrin Unknown Drug Allergy Act fidelina [place] (Syrup) Unknown Drug Allergy Acti ve Cat [...] ve Encounters Encounter Location Date Provider Diagnosis [facility] [address] [address] 02/17/2025 Alexa Amador Plan Of Treatment Next Appt Details Provider Name:Alexa hernández, 07/07/2025 02:00:00 PM, [address] [place] [address], [phone], Progress Notes * Lee Ann SCHULTZ EDOB:1965 (59 yo F)Acc No.[id number]:02/17/2025 Progress Note Patient: Otf Lee Ann GAITAN Provider: Cherelle Amador DPM :1965 A ge:59 Y S ex:Female Date:02/17/2025 Address:[address] [place] [address] [id number] Pcp:Jeffrey Terry MD Subjective: * Chief Complaints: [...] Penicillin, Exenatide, Lactose (Allergy), Wheat Dextrin, Latex, [place] (Syrup), Grass Pollen Standardized Ext, Dog Dander, [...] 02/17/2025 Generated for Earlene victoria/Aneta/Tremayne on: 0 04/12/2025 03:26 PM EDT
[2025-04-12 15:06] VITALS: BP 122/80; PULSE 81; O2SAT 94; BMI 38.8
--- NOTE | 2025-04-12 15:06 | A.OFFPC_ITS ---
Vital Signs 04/12/25 15:06 Height 5 ft 3 in Weight 219 lb BMI 38.8 BP 122/80 Blood Pressure Location Lt brachial Position Sitting Pulse 81 Pulse Source Pulse Oximeter Pulse Oximetry (%) 94 Oxygen Delivery Method Room Air Intake Visit Reasons: 4 months Range Scientist Required: No Accompanied by: Self / Same As Patient Allergies linagliptin (From TRADJENTA) Allergy (Severe, Verified 04/12/25 15:47) THROAT ITCHING/COUGH Penicillins (PENICILLINS) Allergy (Severe, Verified 04/12/25 15:47) SWELLING/HIVES exenatide (From BYDUREON) Allergy (Intermediate, Verified 04/12/25 15:47) RASH wheat (WHEAT) Allergy (Intermediate, Verified 04/12/25 15:47) RASH latex (Latex) Allergy (Mild, Verified 04/12/25 15:47) SWELLING/ITCH grass, dogs, cats Allergy (Intermediate, Uncoded 04/12/25 15:47) Cough, sneezing lactose, wheat, corn syrup Allergy (Mild, Uncoded 04/12/25 15:47) rash Medication List - Last Reconciled 04/12/25 by Jeffrey Terry MD acetaminophen 650 mg (2 x 325 mg) PO Q6H PRN 30 days albuterol sulfate 90 mcg/actuation 1 puff inhalation QID PRN albuterol sulfate 2.5 mg (3 mL) inhalation QID PRN 30 days amitriptyline 50 mg PO BEDTIME atorvastatin 40 mg PO DAILY 90 days Basaglar KwikPen U-100 Insulin (insulin glargine) 10 units (0.1 mL) subcut QPM 90 days NS benzonatate 100 mg PO BID blood pressure monitor As directed blood sugar diagnostic (FreeStyle Precision Bob Strips) As directed once a day blood sugar diagnostic (OneTouch Ultra Test strips) As directed 2 times daily cetirizine 10 mg PO DAILY PRN cholecalciferol (vitamin D3) 25 mcg PO DAILY citalopram 40 mg PO DAILY fluticasone propionate 50 mcg/actuation 1 spray intranasal BID gabapentin 800 mg PO QID hydrocodone-chlorpheniramine 10-8 mg/5 mL 5 mL PO Q12H PRN hydroxyzine HCl 1 tablet 3 times a day and 2 tablets at bedtime PO; 90 days ibuprofen 600 mg PO Q8H PRN 30 days lancets (OneTouch Delica Lancets) 3 times a day losartan 50 mg PO DAILY magnesium oxide 400 mg PO BID metformin ER 1,000 mg (2 x 500 mg) PO BID montelukast 10 mg PO BEDTIME kaqfnqsr-ayg-otmz-FA-vit K-lut 8 mg iron-400 mcg-50 mcg (Centrum Silver Women) 1 tab PO DAILY 90 days nebulizers As directed omega-3 fatty acids 1,000 mg PO DAILY 90 days omeprazole 20 mg PO BID pen needle, diabetic Twice a day pen needle, diabetic As directed once a day pioglitazone 30 mg PO DAILY propranolol ER 60 mg PO DAILY 30 days semaglutide (Ozempic) INJECT 0.5 MG (0.4 ML) SUBCUTANEOUSLY EVERY WEEK FOR THE FIRST 4 DOSES USE 0.25MG/WEEK AND THEN PROCEED WITH 0.5MG/WEEK temazepam 30 mg PO BEDTIME PRN 30 days tizanidine 4 mg PO TID PRN 90 days tramadol 50 mg PO TID PRN 30 days walker Folding Front wheeled walker Tobacco use date assessed: 04/12/25 Dental Screening Dental Screen Date: 04/12/25 Did you have a dental visit in the last 12 months?: Yes Did you have a dental problem in the last 6 months where you did not have access to dental care?: No Was dental information given to patient?: Patient has dentist HPI 4 months HPI Details Patient comes in today for her follow up visit States that she feels okay She denies any headaches or dizziness Denies any chest pains, no increased shortness of breath states that she came into the office for a same-day visit a couple of months ago for increased cough and congestion and asthma flare-up She was sent for chest x-rays which revealed the possibility of interstitial lung disease and she has been referred to Pulmonary for further evaluation of this - states that she has an appointment coming up to see pulmonary at [facility] in a couple of weeks on 04/28/2025 No nausea/vomiting but reports (+) on and off epigastric pain for the past few weeks No change in bowel habits noted Lastly, patient adds that she has been experiencing increasing depression lately and would like to get a referral to see Psychiatry for at least some counseling She had her follow up labs done a few days ago - to discuss her results [facility] Medical History (Updated 04/16/25 @ 17:22 by Jeffrey Terry MD) Depression Pure hypercholesterolemia Asthma with acute exacerbation Acute respiratory disease Vasovagal syncopes Allergic rhinitis Osteoarthritis of right knee Hx of flexible sigmoidoscopy (~2000) Cyst of right knee joint Injury of toenail GERD without esophagitis Obesity (BMI 30-39.9) Insomnia Osteoarthritis of knees, bilateral Migraine Midline low back pain without sciatica Premature ventricular contractions (PVCs) (VPCs) Benign essential hypertension Asthma Diabetes mellitus Vitamin D deficiency Anxiety GERD (gastroesophageal reflux disease) Obesity Diabetic neuropathy associated with type 2 diabetes mellitus Diabetes type 2, uncontrolled Neuropathy Surgical History History of surgical removal of ganglion cyst Hx of colonoscopy History of esophagogastroduodenoscopy (EGD) History of laparoscopy Hx of tonsillectomy Hx of tubal ligation Family History Father Bladder cancer Skin cancer Diabetes Hypertension Hyperlipidemia Mother Diabetes CVD (cardiovascular disease) CVA (cerebral vascular accident) Hypertension Social History Household Members: Family Household Members Other:: daughter Housing: House Are you a primary special needs child caregiver to a significant other at home: No Do you presently have visiting nurse or other home services: No Alcohol intake: never Comment: aware of trip hazard Patient Tobacco Use Status: Never used Tobacco Tobacco use type: Cigarette e-Cigarette/Vaping Use: Never Used Second Hand Smoke Exposure: Yes service: No Current occupational status: retired Current occupational exposures/hazards: No Sexual orientation: Straight/Heterosexual Gender identity: Female Cognitive needs: No Hearing needs: No Vision needs: Yes (glasses) Questionnaire PHQ-9 Over the last 2 weeks, how often have you been bothered by any of the following problems? 1. Little interest or pleasure in doing things: nearly every day 2. Feeling down, depressed, or hopeless: nearly every day 3. Trouble falling or staying asleep, or sleeping too much: nearly every day 4. Feeling tired or having little energy: nearly every day 5. Poor appetite or overeating: several days 6. Feeling bad about yourself - or that you are a failure or have let yourself or your family down: several days 7. Trouble concentrating on things, such as reading the newspaper or watching television: nearly every day 8. Moving or speaking so slowly that other people could have noticed. Or the opposite - being so fidgety or restless that you have been moving around a lot more than usual: several days 9. Thoughts that you would be better off or of hurting yourself in some way: not at all Total score: 18 Depression Screening Interpretation: Positive Depression Screening Follow-up: Existing condition and In treatment Depression Screening Done: Yes 84436 - PHQ-9 Billing: Yes Source: Developed by Drs. Abdirizak Mai, Dione Mclaughlin, Juan Norwood and colleagues, with an educational palma from [employer]. Thrive Questionnaire Date Thrive assessed: 04/12/25 I am a: Patient What is your living situation today?: I have a steady place to live Within the past 12 months, did the food you bought not last and you didn't have the money to get more?: I choose not to answer this question Within the past 12 months, did you worry whether your food would run out before you got money to buy more?: Sometimes True Do you have trouble paying for medicines?: No Do you have trouble getting transportation to medical appointments?: No Do you have trouble paying your heating and electricity bill?: No Do you have trouble taking care of your child, family member or friend?: No Do you have trouble with day-to-day activities such as bathing, preparing meals, shopping, managing finances, etc.?: No Are you currently unemployed and looking for a job?: I choose not to answer this question Are you interested in more education?: No Please select the resources that you would like help with: None Currently or been in a relationship where the following occur: I choose not to answer THRIVE Score: 1 AUDIT C Alcohol Use Questionnaire (AUDIT-C) 1. How often do you have a drink containing alcohol?: Never 3. How often do you have six or more drinks on one occasion?: Never Total Score: 0 Score Reviewed/Action Taken: Yes DYANA-7 AMB Questionnaire DYANA-7 Date DYANA - 7 assessed: 04/12/25 Feeling nervous, anxious, or on edge: 1 = Several days Not being able to stop or control worryin = Several days Worrying too much about different things: 3 = Nearly every day Trouble relaxin = Several days Being so restless that it is hard to sit still: 1 = Several days Becoming easily annoyed or irritable: 2 = More than half the days Feeling afraid as if something awful might happen: 1 = Several days Total DYANA-7 score (0-4 normal; 5-9 mild; 10-14 moderate; 15-21 severe): 10 Source: Developed by Drs. Abdirizak Mai, Dione Mclaughlin, Juan Norwood and colleagues, with an educational palma from [employer]. Review of Systems Const Denies chills, Denies fatigue, Denies fever(s) and Denies headache(s) ENT Denies dysphagia, Denies dizziness, Denies otalgia, Denies headache(s), Denies neck pain, Denies odynophagia and Denies sore throat Card Denies chest pain, Denies irregular heart rhythm, Denies palpitations and Reports dyspnea on exertion (mild) Resp Denies chest congestion, Denies cough and Reports dyspnea on exertion (mild) GI Reports abdominal pain (on and off over the epigastric area), Denies constipation, Denies dysphagia, Denies heartburn, Denies diarrhea, Denies nausea, Denies odynophagia and Denies vomiting Denies difficulty voiding, Denies nocturia, Denies dysuria, Denies urinary incontinence and Denies urinary urgency Musc Reports back pain, Reports arthralgias (both knees; R knee pain improved since surgery in July 2024) and Denies neck pain Skin/Breast Denies rash Neuro Denies dizziness and Denies headache(s) Psych Denies anxiety and Reports depression (increasing lately) Endo Denies fatigue and Denies palpitations Physical exam (Primary Care) Vital Signs: Last Vital Signs Pulse 81 04/12/25 15:06 BP 122/80 04/12/25 15:06 Pulse Ox 94 04/12/25 15:06 Oxygen Delivery Method Room Air 04/12/25 15:06 BMI result Body Mass Index 38.8 Tobacco/Smoking Status: Tobacco use Status Tobacco use date assessed 04/12/25 04/12/25 15:09 Patient Tobacco Use Status Never used Tobacco 04/12/25 15:09 Tobacco use type Cigarette 04/12/25 15:09 e-Cigarette/Vaping Use Never Used 04/12/25 15:09 PHQ-9: PHQ-9 Score PHQ-9: Total score 18 04/12/25 15:50 Depression Screening Interpretation: Positive Depression Screening Follow-up: Existing condition and In treatment Thrive Assessment: Date of Thrive Assessment Date Thrive assessed 04/12/25 04/12/25 15:09 Currently or been in a relationship where the following occur: I choose not to answer Const General: no acute distress and alert HENMT Ears: TM's normal bilaterally and EAC's normal Throat: Yes posterior oropharynx normal and Yes tonsils normal (no TP congestion) Neck Neck: Yes supple and No lymphadenopathy Thyroid: Thyroid normal Resp Auscultation: clear to auscultation bilaterally, no rales and no wheezes Cardio Rate: regular rate Rhythm: regular rhythm Heart sounds: no murmurs GI Palpation (GI): Soft to palpation, Tenderness to palpation present (GI) (mild) in the epigastrum, no guarding, not rigid and No Rebound tenderness present Auscultation: normal bowel sounds General: Yes no CVA tenderness Back/Spine/Pelvis Back: no CVA tenderness Thoracic/Lumbar Spine: lumbar spinal tenderness Skin Rashes: no rashes Extrem General: Yes no clubbing, cyanosis or edema Right lower extremity: knee (mild) Details: tenderness; no swelling Results Reviewed Results Reviewed: Laboratory Tests 04/07/25 04/07/25 11:06 11:14 WBC 7.4 Hgb 10.4 L Hct 31.6 L Plt Count 459 H D Sodium 132 L Potassium 4.3 Creatinine 0.61 Estimated GFR > 60 Fasting Glucose 129 H Hemoglobin A1c % 7.0 H Calcium 9.3 AST 20 ALT 16 Triglycerides 93 Cholesterol 156 LDL Cholesterol, Calc 77 HDL Cholesterol 61 Vitamin B12 287 25-OH Vitamin D Total 56.2 TSH 1.54 Ur Specific Goode 1.010 Urine Protein Negative Urine Glucose (UA) Negative Urine Blood Negative Urine Nitrite Negative Ur Leukocyte Esterase Trace H Microalb/Creat Ratio 14.7 Coding Level of Care Code Est Pt Level 4 (78434) Complex EM visit Add On G2211 Diagnoses Pure hypercholesterolemia E78.00 Type 2 diabetes mellitus with diabetic polyneuropathy, without long-term current use of insulin E11.42 Diabetes mellitus complication detail: with polyneuropathy Diabetes mellitus complication status: with neurologic complications Diabetes mellitus intermediate insulin use: without intermediate use Diabetes mellitus type: type 2 Benign essential hypertension I10 Diabetic polyneuropathy associated with type 2 diabetes mellitus E11.42 Diabetes mellitus complication detail: diabetic polyneuropathy Premature ventricular contractions (PVCs) (VPCs) I49.3 Moderate persistent asthma without complication J45.40 Asthma complication type: uncomplicated Asthma persistence: persistent Asthma severity: moderate Seasonal allergic rhinitis, unspecified trigger J30.2 Allergic rhinitis seasonality: seasonal Allergic rhinitis trigger: unspecified Migraine without status migrainosus, not intractable, unspecified migraine type G43.909 Intractability: not intractable Migraine type: unspecified Status migrainosus presence: without status migrainosus GERD without esophagitis K21.9 Interstitial lung disease J84.9 Primary osteoarthritis of both knees M17.0 Osteoarthritis type: primary Epigastric pain R10.13 Midline low back pain without sciatica, unspecified chronicity M54.5 Chronicity: unspecified Vitamin D deficiency E55.9 Insomnia, unspecified type G47.00 Insomnia type: unspecified Anxiety F41.9 Depression, unspecified depression type F32.A Depression Type: unspecified Obesity (BMI 30-39.9) E66.9 Additional Codes PHQ-9 - 51589 - PHQ-9 Billing: Yes ([id number]) Assessment & Plan Assessment & Plan (1) Pure hypercholesterolemia: Code(s): E78.00 - Pure hypercholesterolemia, unspecified Category: Medical Plan: Results of her labs done a few days ago reviewed and discussed with patient Reinforced low cholesterol diet Continue Atorvastatin 40 mg QD Will recheck her labs and fasting lipids in 4 months for follow up (2) Diabetes mellitus: Code(s): E11.9 - Type 2 diabetes mellitus without complications Category: Medical Qualifiers: Diabetes mellitus complication detail: with polyneuropathy Diabetes mellitus complication status: with neurologic complications Diabetes mellitus superintendent container terminal insulin use: without superintendent container terminal use Diabetes mellitus type: type 2 Qualified Code(s): E11.42 - Type 2 diabetes mellitus with diabetic p olyneuropathy Plan: Her HgbA1c was at 7.0% on her labs done a few days ago (in-office HgbA1c was at 6.8% a few months ago) - goal is <7.0% Reinforced diabetic diet Continue Pioglitazone 30 gm QD, Metformin ER 500 mg 2 tablets BID, Tresiba Flextouch 10 units Q HS and Ozempic 2 mg/1.5 ml SQ once a week Will recheck her HgbA1c and FBS in 4 months for follow up (3) Benign essential hypertension: Code(s): I10 - Essential (primary) hypertension Category: Medical Plan: Reinforced low sodium diet - goal is systolic BP of 120 mm or less Continue Losartan 50 mg QD (4) Diabetic neuropathy associated with type 2 diabetes mellitus: Code(s): E11.40 - Type 2 diabetes mellitus with diabetic neuropathy, unspecified Category: Medical Qualifiers: Diabetes mellitus complication detail: diabetic polyneuropathy Qualified Code(s): E11.42 - Type 2 diabetes mellitus with diabetic polyneuropathy Plan: Continue Gabapentin 800 mg QID, Tramadol 50 mg TID PRN, and Acetaminophen- Codeine #4 tablets, 300-60 mg 1 tablet 3 to 4 times a day as needed for pain (5) Premature ventricular contractions (PVCs) (VPCs): Code(s): I49.3 - Ventricular premature depolarization Category: Medical Plan: Stable; states that she's had no recurrence of her symptoms for the past few months Continue Propranolol ER 60 mg QD Cardiac stress testing done last year to evaluate her recurrent chest pains came out completely normal Patient states that her recent chest pains have also subsided and have not bothered her lately (6) Asthma: Code(s): J45.909 - Unspecified asthma, uncomplicated Category: Medical Qualifiers: Asthma complication type: uncomplicated Asthma persistence: persistent Asthma severity: moderate Qualified Code(s): J45.40 - Moderate persistent asthma, uncomplicated Plan: Controlled with no recent exacerbations Continue Montelukast 10 mg QD, Symbicort 160-4.5 mcg 2 puffs BID and ProAir HFA 108 mcg 2 puffs QID PRN (7) Allergic rhinitis: Code(s): J30.9 - Allergic rhinitis, unspecified Category: Medical Qualifiers: Allergic rhinitis seasonality: seasonal Allergic rhinitis trigger: unspecified Qualified Code(s): J30.2 - Other seasonal allergic rhinitis Plan: Continue Montelukast 10 mg QD and Cetirizine 10 mg QD PRN (8) Migraine: Code(s): G43.909 - Migraine, unspecified, not intractable, without status migrainosus Category: Medical Qualifiers: Intractability: not intractable Migraine type: unspecified Status migrainosus presence: without status migrainosus Qualified Code(s): G43.909 - Migraine, unspecified, not intractable, without status migrainosus Plan: Controlled - she is on Amitriptyline 50 mg Q HS for headache prophylaxis Reinforced avoidance of migraine triggers Continue Fioricet 1 capsule 2 to 3 times a day as needed Follow up with neurology as scheduled (9) GERD without esophagitis: Code(s): K21.9 - Gastro-esophageal reflux disease without esophagitis Category: Medical Plan: Dietary restrictions reinforced Continue Omeprazole 20 mg QD (10) Interstitial lung disease: Code(s): J84.9 - Interstitial pulmonary disease, unspecified Category: Medical Plan: Recent chest x-rays done in February 2025 revealed findings suggestive of ILD Patient has been referred to pulmonary for further evaluation and she has an appt coming up with pulmonary on 04/28/2025 (11) Osteoarthritis of knees, bilateral: Code(s): M17.0 - Bilateral primary osteoarthritis of knee Category: Medical Qualifiers: Osteoarthritis type: primary Qualified Code(s): M17.0 - Bilateral primary osteoarthritis of knee Plan: X-rays of both knees last done in November 2019 showed (+) mild OA changes in the right knee and moderate OA changes in the left knee She was seeing orthopedics for her knee issues and was getting cortisone injections in her knees a couple of years ago, with some relief of her symptoms She underwent right knee TKA back on 08/09/[address] Bill - states that her surgery went well and she has experienced a significant improvement in her knee symptoms following her surgery She is currently still going to physical therapy for her knee Follow up with orthopedics as scheduled (12) Epigastric pain: Code(s): R10.13 - Epigastric pain Category: Medical Plan: On and off x about 1 month now - will send patient for abdominal US for further evaluation (13) Midline low back pain without sciatica: Code(s): M54.5 - Low back pain Category: Medical Qualifiers: Chronicity: unspecified Qualified Code(s): M54.5 - Low back pain Plan: Reinforced activity and weight-lifting restrictions to avoid aggravating her lower back symptoms Continue Tizanidine 4 mg 1 to 2 tablets TID PRN (14) Vitamin D deficiency: Code(s): E55.9 - Vitamin D deficiency, unspecified Category: Medical Plan: Continue Vitamin D3 1000 units QD (15) Insomnia: Code(s): G47.00 - Insomnia, unspecified Category: Medical Qualifiers: Insomnia type: unspecified Qualified Code(s): G47.00 - Insomnia, unsp ecified Plan: Sleep hygiene reinforced Continue Temazepam 30 mg QHS PRN and Amitriptyline 50 mg Q HS (16) Anxiety: Code(s): F41.9 - Anxiety disorder, unspecified Category: Medical Plan: Continue Hydroxyzine 25 mg TID PRN and 50 mg Q HS as well as Citalopram 40 mg QD (17) Depression: Code(s): F32.A - Depression, unspecified Category: Medical Qualifiers: Depression Type: unspecified Qualified Code(s): F32.A - Depression, unspecified Plan: Per request, will refer her to psychiatry for further evaluation and management and counseling (18) Obesity (BMI 30-39.9): Code(s): E66.9 - Obesity, unspecified Category: Medical Plan: Reinforced diet; weight loss and exercise are unrealistic due to patient's physical issues Plan Follow up in 4 months Orders: Orders Complete Blood Count Auto Diff 4 Months D64.9 - Anemia, unspecified Lipid Panel 4 Months E78.00 - Pure hypercholesterolemia, unspecified US abdomen complete 02/ R10.13 - Epigastric pain Hemoglobin A1c 4 Months E11.9 - Type 2 diabetes mellitus without complications Comprehensive [place]. Panel Fast 4 Months E78.00 - Pure hypercholesterolemia, unspecified Microalbumin, Random (w Creat) 4 Months E11.9 - Type 2 diabetes mellitus without complications Referrals Psychiatry Referral F32.A - Depression, unspecified, F41.9 - Anxiety disorder, unspecified Medications: Refilled blood sugar diagnostic (FreeStyle Precision Bob Strips) As directed once a day 100 ea 1RF E11.65 - Type 2 diabetes mellitus with hyperglycemia
== END 2025-04-12 16:05 | disposition home or self-care (01) ==
LOC: HO.HMCH 15:05
PROVIDERS: PCP Internal Medicine; Visit Provider Internal Medicine
DX: E78.00 Pure hypercholesterolemia, unspecified (principal); E11.42 Type 2 diabetes mellitus with diabetic polyneuropathy; J84.9 Interstitial pulmonary disease, unspecified; I10 Essential (primary) hypertension; I49.3 Ventricular premature depolarization; J45.40 Moderate persistent asthma, uncomplicated; J30.2 Other seasonal allergic rhinitis; G43.909 Migraine, unspecified, not intractable, without status migrainosus; K21.9 Gastro-esophageal reflux disease without esophagitis; M17.0 Bilateral primary osteoarthritis of knee; R10.13 Epigastric pain; M54.50 Low back pain, unspecified

== ENCOUNTER → 2025-04-12 15:05 | Outpatient (BNVA) | payer MEDICARE, OTHER, SELFPAY | PROVIDERS: PCP Internal Medicine; Visit Provider Internal Medicine | DX: E78.00 Pure hypercholesterolemia, unspecified (principal); E11.42 Type 2 diabetes mellitus with diabetic polyneuropathy; I10 Essential (primary) hypertension; J30.2 Other seasonal allergic rhinitis; G43.909 Migraine, unspecified, not intractable, without status migrainosus; K21.9 Gastro-esophageal reflux disease without esophagitis; J84.9 Interstitial pulmonary disease, unspecified; M17.0 Bilateral primary osteoarthritis of knee; R10.13 Epigastric pain; M54.50 Low back pain, unspecified; E55.9 Vitamin D deficiency, unspecified; F41.9 Anxiety disorder, unspecified; F32.A Depression, unspecified; E66.9 Obesity, unspecified; Z68.38 Body mass index [BMI] 38.0-38.9, adult; Z71.3 Dietary counseling and surveillance | CPT/HCPCS: 96127; 99212 ==

== ENCOUNTER 2025-05-19 15:04 | Outpatient (REF) | payer MEDICARE, OTHER, SELFPAY ==
--- OUTSIDE RECORDS SUMMARY | 2025-02-17 07:30 | XMS_ITS ---
Author Organization [facility] Address [address] [place] [address] Care Team Providers Care Materials Research Engineer Name Role Phone Nella Terry MDh Primary Care Provider UnaAlexa Everett Unavailable [phone] Allergies Allergen (clinical drug ingredient) Drug/Non Drug Allergy documented on EMR Reaction Allergy Type Onset Date Status Wheat Dextrin Unknown Drug Allergy Act fidelina [place] (Syrup) Unknown Drug Allergy Acti ve Cat [...] ve Encounters Encounter Location Date Provider Diagnosis [facility] [address] [address] 02/17/2025 Alexa Amador Plan Of Treatment Next Appt Details Provider Name:Alexa hernández, 07/07/2025 02:00:00 PM, [address] [place] [address], [phone], Progress Notes * Lee Ann SCHULTZ EDOB:1965 (60 yo F)Acc No.[id number]:02/17/2025 Progress Note Patient: Otf Lee Ann GAITAN Provider: Cherelle Amador DPM :1965 A ge:59 Y S ex:Female Date:02/17/2025 Address:[address] [place] [address] [id number] Pcp:Jeffrey Terry MD Subjective: * Chief Complaints: [...] Penicillin, Exenatide, Lactose (Allergy), Wheat Dextrin, Latex, [place] (Syrup), Grass Pollen Standardized Ext, Dog Dander, [...] 0 02/17/2025 Generated for Earlene victoria/Aneta/Tremayne on: 0 05/19/2025 03:06 PM EDT
== END 2025-05-19 15:05 | disposition home or self-care (01) ==
LOC: HO.MAMMO 15:04
PROVIDERS: PCP Internal Medicine; Visit Provider Internal Medicine
DX: Z12.31 Encounter for screening mammogram for malignant neoplasm of breast (principal)
CPT/HCPCS: 77063; 77067

== ENCOUNTER → 2025-05-19 15:30 | Outpatient (BNV) | payer MEDICARE, OTHER, SELFPAY | PROVIDERS: PCP Internal Medicine; Visit Provider Radiology Body Imaging | DX: Z12.31 Encounter for screening mammogram for malignant neoplasm of breast (principal) | CPT/HCPCS: 77063; 77067 ==

== ENCOUNTER 2025-05-30 09:10 | Outpatient (REF) | payer MEDICARE, OTHER, SELFPAY ==
--- OUTSIDE RECORDS SUMMARY | 2025-02-17 07:30 | XMS_ITS ---
Author Organization [facility] Address [address] [place] [address] Care Team Providers Care Pattern Data Operator Name Role Phone Nella Terry MDh Primary Care Provider UnaAlexa Everett Unavailable [phone] Allergies Allergen (clinical drug ingredient) Drug/Non Drug Allergy documented on EMR Reaction Allergy Type Onset Date Status Wheat Dextrin Unknown Drug Allergy Act fidelina [place] (Syrup) Unknown Drug Allergy Acti ve Cat [...] ve Encounters Encounter Location Date Provider Diagnosis [facility] [address] [address] 02/17/2025 Alexa Amador Plan Of Treatment Next Appt Details Provider Name:Alexa hernández, 07/07/2025 02:00:00 PM, [address] [place] [address], [phone], Progress Notes * Lee Ann SCHULTZ EDOB:1965 (60 yo F)Acc No.[id number]:02/17/2025 Progress Note Patient: Otf Lee Ann GAITAN Provider: Cherelle Amador DPM :1965 A ge:59 Y S ex:Female Date:02/17/2025 Address:[address] [place] [address] [id number] Pcp:Jeffrey Terry MD Subjective: * Chief Complaints: [...] Penicillin, Exenatide, Lactose (Allergy), Wheat Dextrin, Latex, [place] (Syrup), Grass Pollen Standardized Ext, Dog Dander, [...] 02/17/2025 Generated for Earlene victoria/Aneta/Tremayne on: 0 05/30/2025 10:08 AM EDT
--- NOTE | ~2025-05-30 | US_ITS ---
CLINICAL HISTORY: R10.13 - Epigastric pain US abdomen complete Comparison: None Provided Findings: Gallbladder unremarkable, no stone formation or wall thickening. Common duct measures 3 mm. No sonographic Evans sign. Fatty infiltration of the liver without focal abnormality. Main portal vein patent with normal direction of flow. Pancreas is unremarkable. Aorta and IVC patent and normal in caliber. The right kidney is normal, 10.8 cm in length. No focal abnormality or hydronephrosis. The left kidney is normal, 11.8 cm in length. No focal abnormality or hydronephrosis. The spleen is normal, 8.7 cm in length. No focal abnormality. Impression: Fatty infiltration of the liver, otherwise unremarkable This document has been electronically signed by: Shady Mccray MD on 05/30/2025 20:59:33
== END 2025-05-30 09:11 | disposition home or self-care (01) ==
LOC: HO.US 09:10
PROVIDERS: PCP Internal Medicine; Visit Provider Internal Medicine
DX: R10.13 Epigastric pain (principal)
CPT/HCPCS: 76700

== ENCOUNTER → 2025-05-30 09:30 | Outpatient (BNV) | payer MEDICARE, OTHER, SELFPAY | PROVIDERS: PCP Internal Medicine; Visit Provider Radiology Diagnostic Radiology | DX: K76.0 Fatty (change of) liver, not elsewhere classified (principal) | CPT/HCPCS: 76700 ==

== ENCOUNTER 2025-05-31 13:00 | Outpatient (AMB) | payer MEDICARE, OTHER, SELFPAY ==
--- OUTSIDE RECORDS SUMMARY | 2025-02-17 07:30 | XMS_ITS ---
Author Organization [facility] Address [address] [place] [address] Care Team Providers Care Stations Superintendent Name Role Phone Nella Terry MDh Primary Care Provider UnaAlexa Everett Unavailable [phone] Allergies Allergen (clinical drug ingredient) Drug/Non Drug Allergy documented on EMR Reaction Allergy Type Onset Date Status Wheat Dextrin Unknown Drug Allergy Act fidelina [place] (Syrup) Unknown Drug Allergy Acti ve Cat [...] ve Encounters Encounter Location Date Provider Diagnosis [facility] [address] [address] 02/17/2025 Alexa Amador Plan Of Treatment Next Appt Details Provider Name:Alexa hernández, 07/07/2025 02:00:00 PM, [address] [place] [address], [phone], Progress Notes * Lee Ann SCHULTZ EDOB:1965 (60 yo F)Acc No.[id number]:02/17/2025 Progress Note Patient: Otf Lee Ann GAITAN Provider: Cherelle Amador DPM :1965 A ge:59 Y S ex:Female Date:02/17/2025 Address:[address] [place] [address] [id number] Pcp:Jeffrey Terry MD Subjective: * Chief Complaints: [...] Penicillin, Exenatide, Lactose (Allergy), Wheat Dextrin, Latex, [place] (Syrup), Grass Pollen Standardized Ext, Dog Dander, [...] 02/17/2025 Generated for Earlene victoria/Aneta/Tremayne on: 0 05/31/2025 01:55 PM EDT
[2025-05-31 13:11] VITALS: BP 108/64; PULSE 75; O2SAT 98; BMI 39.2
--- NOTE | 2025-05-31 13:11 | A.OFFVIS_ITS ---
Vital Signs 05/31/25 13:11 Height 5 ft 3 in Weight 221 lb 6 oz BMI 39.2 BP 108/64 Blood Pressure Location Rt brachial Position Sitting Pulse 75 Pulse Source Pulse Oximeter Pulse Oximetry (%) 98 Oxygen Delivery Method Room Air Intake Visit Reasons: Interstitial pulmonary disease Allergies linagliptin (From TRADJENTA) Allergy (Severe, Verified 05/31/25 13:17) THROAT ITCHING/COUGH Penicillins (PENICILLINS) Allergy (Severe, Verified 05/31/25 13:17) SWELLING/HIVES exenatide (From BYDUREON) Allergy (Intermediate, Verified 05/31/25 13:17) RASH wheat (WHEAT) Allergy (Intermediate, Verified 05/31/25 13:17) RASH latex (Latex) Allergy (Mild, Verified 05/31/25 13:17) SWELLING/ITCH grass, dogs, cats Allergy (Intermediate, Uncoded 05/31/25 13:17) Cough, sneezing lactose, wheat, corn syrup Allergy (Mild, Uncoded 05/31/25 13:17) rash HPI HPI Interstitial pulmonary disease: Details: Lee Ann is a pleasant 60 year old female, never smoker, with underlying asthma, GERD, DMII and HTN. She was referred by PCP for pulmonary evaluation presenting with chronic cough and asthma symptoms. The patient has a history of asthma, which began in adulthood, and she experiences wheezing and dyspnea on exertion. She uses albuterol daily and has previously used daily inhalers. She has not required intubation or supplemental oxygen in the past. She also reports chronic cough which has been present for most of her life, attributed to exposure to secondhand smoke from her father during childhood. The cough is typically dry and she experiences it year-round. She also reports h/o recurrent bronchitis. She has been treated with antibiotics and prednisone, most recently last month with overall improvements. During work up for cough CXR was performed which revealed chronic interstitial changes, denies prior abnormal imaging. The patient also reports a history of rheumatoid arthritis, managed by her primary care provider, with symptoms including joint pain and also experiences dry mouth. She has not undergone recent blood work for this condition and has not been under the care of Rheumatology. REPLACED BY [facility] Medical History (Updated 06/05/25 @ 08:16 by Kelli Currie NP) Depression Pure hypercholesterolemia Asthma with acute exacerbation Acute respiratory disease Vasovagal syncopes Allergic rhinitis Osteoarthritis of right knee Hx of flexible sigmoidoscopy (~2000) Cyst of right knee joint Injury of toenail GERD without esophagitis Obesity (BMI 30-39.9) Insomnia Osteoarthritis of knees, bilateral Migraine Midline low back pain without sciatica Premature ventricular contractions (PVCs) (VPCs) Benign essential hypertension Asthma Diabetes mellitus Vitamin D deficiency Anxiety GERD (gastroesophageal reflux disease) Obesity Diabetic neuropathy associated with type 2 diabetes mellitus Diabetes type 2, uncontrolled Neuropathy Surgical History History of surgical removal of ganglion cyst Hx of colonoscopy History of esophagogastroduodenoscopy (EGD) History of laparoscopy Hx of tonsillectomy Hx of tubal ligation Family History Father Bladder cancer Skin cancer Diabetes Hypertension Hyperlipidemia Mother Diabetes CVD (cardiovascular disease) CVA (cerebral vascular accident) Hypertension Social History Household Members: Family Household Members Other:: daughter Housing: House Are you a primary care center manager to a significant other at home: No Do you presently have visiting nurse or other home services: No Alcohol intake: never Comment: aware of trip hazard Patient Tobacco Use Status: Never used Tobacco Tobacco use type: Cigarette e-Cigarette/Vaping Use: Never Used Second Hand Smoke Exposure: Yes service: No Current occupational status: retired Current occupational exposures/hazards: No Sexual orientation: Straight/Heterosexual Gender identity: Female Cognitive needs: No Hearing needs: No Vision needs: Yes (glasses) Review of Systems Const Denies chills, Denies excessive sweating, Denies fever(s), Denies headache(s) and Denies night sweats Eyes Denies dry eyes, Denies irritation and Denies itchy eyes ENT Reports Normal hearing present, Denies headache(s), Denies nasal congestion, Denies nasal discharge, Denies post nasal drip and Denies sore throat Card Denies chest pain, Denies chest pain at rest, Denies chest pain with activity, Denies claudication, Denies leg edema, Denies orthopnea and Denies paroxysmal nocturnal dyspnea Resp Denies chest congestion, Denies excessive phlegm production, Denies pain on inspiration, Denies pain with cough, Denies stridor and Denies wheezing Musc Denies myalgias Neuro Reports Normal hearing present and Denies headache(s) Endo Denies excessive sweating Víctor/Lymph Denies lymphadenopathy Aller/Immun Denies itchy eyes, Denies seasonal rhinorrhea and Denies wheezing Physical Exam Vital Signs: Last Vital Signs Pulse 75 05/31/25 13:11 BP 108/64 05/31/25 13:11 Pulse Ox 98 05/31/25 13:11 Oxygen Delivery Method Room Air 05/31/25 13:11 BMI result Body Mass Index 39.2 Const General: cooperative, healthy appearing, comfortable, no acute distress, well developed and alert Nutritional Appearance: obese Orientation/consciousness: patient oriented x3 Limitations: no limitations HEENT Head: Yes normal to inspection, Yes normocephalic and Yes atraumatic Ears: hearing grossly normal bilaterally and external ears normal Eyes General: appearance normal, both eyes and all related structures Eyelids: Yes eyelids normal Sclerae: sclerae normal EOM: EOMs intact bilaterally Neck Neck: Yes normal visual inspection and Yes no lymphadenopathy Lymphatic: no lymphadenopathy noted Chest Chest palpation & inspection: normal inspection of the chest Resp Effort & Inspection: normal respiratory effort, able to speak in complete sentences, no audible wheezes, no cough, no stridor, not tachypneic, no tripod positioning and no use of accessory muscles Auscultation: clear to auscultation bilaterally Cardio Jugular venous distension: no JVD Rate: regular rate Rhythm: regular rhythm Skin Other: warm, dry General skin exam: no rashes or lesions noted Neuro General: patient oriented x3 Cranial nerves: Yes Normal hearing present Cognition (Neuro): normal cognition Gait exam (Neuro): Normal gait present Extrem General: Yes normal to inspection, Yes capillary refill normal, Yes no clubbing, cyanosis or edema and Yes no pedal edema Psych Appearance: grossly normal and well kempt Speech and movement: Normal speech and movement present and Clear speech present Affect: normal affect Attitude: cooperative Thought process: Normal thought process present Thought content: Normal thought content present Insight: Good insight present (Psych) Judgement: Good judgement present (Psych) Assessment & Plan Assessment & Plan (1) Asthma: Code(s): J45.909 - Unspecified asthma, uncomplicated Category: Medical Qualifiers: Asthma severity: moderate Asthma persistence: persistent Asthma complication type: uncomplicated Qualified Code(s): J45.40 - Moderate persistent asthma, uncomplicated (2) Cough: Code(s): R05.9 - Cough, unspecified Category: Medical (3) Abnormal chest xray: Code(s): R93.89 - Abnormal findings on diagnostic imaging of other specified body structures Category: Medical Plan Lee Ann presents with uncontrolled asthma, continues to report dyspnea on exertion and wheezing, requiring frequent use of albuterol MDI. Will start Breo. We discussed the importance of using a daily inhaler to manage asthma symptoms and prevent exacerbations requiring antibiotics and prednisone. We reviewed the procedure for using the Breo inhaler and the necessity of rinsing the mouth after use to prevent oral side effects. Will also send for PFT and CT chest to further evaluate her respiratory symptoms and potential underlying conditions, given abnormal CXR. We also discussed the possibility of rheumatoid arthritis contributing to her symptoms and the need for blood work to assess this condition and rule out HSP. All questions were answered and patient is in agreement of plan. Will follow up to review results or sooner if needed. Orders: Orders Rheumatoid Factor 05/31/25 M25.50 - Pain in unspecified joint WILMER Reflex Titer and Pattern 05/31/25 M25.50 - Pain in unspecified joint Anti DNA DS Antibody 05/31/25 M25.50 - Pain in unspecified joint Hypersensitive Pneumonitis Prf 05/31/25 R05.9 - Cough, unspecified CT chest wo IV con Today R05.9 - Cough, unspecified, R93.89 - Abnormal findings on diagnostic imaging of other specified body structures PFT pulmonary function test Today J45.40 - Moderate persistent asthma, uncomplicated Scleroderma 70 Antibody 05/31/25 M25.50 - Pain in unspecified joint Sjogren's Antibodies 05/31/25 M25.50 - Pain in unspecified joint Cyclic Citrullinated Peptide 05/31/25 M25.50 - Pain in unspecified joint Coding Level of Care Code New Pt Level 4 (27074) Diagnoses Moderate persistent asthma without complication J45.40 Asthma severity: moderate Asthma persistence: persistent Asthma complication type: uncomplicated Cough R05.9 Abnormal chest xray R93.89
== END 2025-05-31 13:48 | disposition home or self-care (01) ==
LOC: HO.HPSW 13:02
PROVIDERS: PCP Internal Medicine; Visit Provider Nurse Practitioner Family
DX: J45.40 Moderate persistent asthma, uncomplicated (principal); R05.9 Cough, unspecified; R93.89 Abnormal findings on diagnostic imaging of other specified body structures
CPT/HCPCS: 99204

== ENCOUNTER → 2025-05-31 13:00 | Outpatient (BNVA) | payer MEDICARE, OTHER, SELFPAY | PROVIDERS: PCP Internal Medicine; Visit Provider Nurse Practitioner Family | DX: J45.40 Moderate persistent asthma, uncomplicated (principal); R05.9 Cough, unspecified; R93.89 Abnormal findings on diagnostic imaging of other specified body structures | CPT/HCPCS: 99202 ==

== ENCOUNTER 2025-05-31 14:04 | Outpatient (REF) | payer MEDICARE, OTHER, SELFPAY ==
[2025-05-31 17:33] LABS: Appearance Urine Clear; Glucose Urine UA Negative (Negative); PH 7.0 (5.0-9.0); Specific Gravity - Urine 1.010 (1.005-1.025); UMIC TRIGGER UACC YES
[2025-06-01 21:23] LABS: Antibody to SS-A Antigen <1.0 NEG AI (<1.0 NEG); Antibody to SS-B Antigen <1.0 NEG AI (<1.0 NEG)
[2025-06-03 14:19] LABS: Anti Nuclear Antibody Screen NEGATIVE (NEGATIVE)
[2025-06-06 13:19] LABS: Asperg fumigatus Precip Abs NEGATIVE (NEGATIVE); Micropoly faeni Abs NEGATIVE (NEGATIVE); Saccharo pora viridis Abs NEGATIVE (NEGATIVE); Thermo candidus Abs NEGATIVE (NEGATIVE)
== END 2025-05-31 14:05 | disposition home or self-care (01) ==
LOC: HO.WFDLDS 14:04
PROVIDERS: Nurse Practitioner Family; Referring Provider Internal Medicine; Visit Provider Nurse Practitioner Family
DX: Z01.84 Encounter for antibody response examination (principal); J30.9 Allergic rhinitis, unspecified; M25.50 Pain in unspecified joint; R05.9 Cough, unspecified; R30.0 Dysuria
CPT/HCPCS: 36415; 81001; 82785; 86038; 86200; 86225; 86235; 86331; 86431; 86606; 86609

== ENCOUNTER 2025-07-25 12:52 | Outpatient (AMB) | payer MEDICARE, OTHER, SELFPAY ==
--- OUTSIDE RECORDS SUMMARY | 2025-02-17 07:30 | XMS_ITS ---
Author Organization [facility] Address [address] [place] [address] Care Team Providers Care Carrier Loader Name Role Phone Nella Terry MDh Primary Care Provider UnaAlexa Everett Unavailable [phone] Allergies Allergen (clinical drug ingredient) Drug/Non Drug Allergy documented on EMR Reaction Allergy Type Onset Date Status Wheat Dextrin Unknown Drug Allergy Act fidelina [place] (Syrup) Unknown Drug Allergy Acti ve Cat [...] ve Encounters Encounter Location Date Provider Diagnosis [facility] [address] [address] 02/17/2025 Alexa Amador Plan Of Treatment Next Appt Details Provider Name:Alexa hernández, 08/16/2025 02:00:00 PM, [address] [place] [address], [phone], Progress Notes * Lee Ann SCHULTZ EDOB:1965 (60 yo F)Acc No.[id number]:02/17/2025 Progress Note Patient: Otf Lee Ann GAITAN Provider: Cherelle Amador DPM :1965 A ge:59 Y S ex:Female Date:02/17/2025 Address:[address] [place] [address] [id number] Pcp:Jeffrey Terry MD Subjective: * Chief Complaints: [...] Penicillin, Exenatide, Lactose (Allergy), Wheat Dextrin, Latex, [place] (Syrup), Grass Pollen Standardized Ext, Dog Dander, [...] 02/17/2025 Generated for Earlene victoria/Aneta/Tremayne on: 1 03:32 PM EDT
--- OUTSIDE RECORDS SUMMARY | 2025-07-07 10:00 | XMS_ITS ---
Author Organization [facility] Address [address] [place] [address] Care Team Providers Care Stoker Erector Name Role Phone Jeffrey Terry MD Primary Care Provider Unava ilAlexa Cabrales Unavailable [phone] Horne Encounters Encounter Location Date Provider Diagnosis [address] [address] 07/07/2025 Alexa Amador Plan Of Treatment Next Appt Details Provider Name:Alexa hernández, 08/16/2025 02:00:00 PM, [address] [place] [address], [phone], Progress Notes * Lee Ann SCHULTZ EDOB:1965 (60 yo F)Acc No.[id number]:07/07/2025 Progress Note Patient: Chilo EVANSa Yoselin Provider: Cherelle Amador DPM :1965 A ge:60 Y S ex:Female Date:07/07/2025 Address:[address] [place] [address] Pcp:Jeffrey Terry MD Subjective: * Chief Complaints: [...] 07/07/2025 Generated for Earlene victoria/Aneta/Tremayne on: 1 03:33 PM EDT
--- NOTE | 2025-07-25 13:03 | MHC.OFFVIS ---
Vital Signs 07/25/25 13:04 Height 5 ft 3 in Weight 225 lb 4 oz BMI 39.9 BP 108/72 Blood Pressure Location Rt brachial Position Sitting Pulse 53 Pulse Source Pulse Oximeter Pulse Oximetry (%) 97 Oxygen Delivery Method Room Air Intake Visit Reasons: Interstitial pulmonary disease Allergies linagliptin (From TRADJENTA) Allergy (Severe, Verified 07/25/25 13:08) THROAT ITCHING/COUGH Penicillins (PENICILLINS) Allergy (Severe, Verified 07/25/25 13:08) SWELLING/HIVES exenatide (From BYDUREON) Allergy (Intermediate, Verified 07/25/25 13:08) RASH wheat (WHEAT) Allergy (Intermediate, Verified 07/25/25 13:08) RASH latex (Latex) Allergy (Mild, Verified 07/25/25 13:08) SWELLING/ITCH grass, dogs, cats Allergy (Intermediate, Uncoded 07/25/25 13:08) Cough, sneezing lactose, wheat, corn syrup Allergy (Mild, Uncoded 07/25/25 13:08) rash HPI HPI Interstitial pulmonary disease: Details: Lee Ann is a pleasant 60 year old female, never smoker, with underlying asthma, GERD, DMII and HTN. At the last visit patient was started on Breo 100 mcg with some improvements in dyspnea, wheezing and cough however symptoms persist mostly with moderate exertion and exposures to cleaning products, requiring albuterol MDI frequently. She has upcoming PFT and chest CT as prior CXR revealed chronic interstitial changes. Of note, patient also reports worsening nonrestorative sleep, morning headaches and daytime fatigue. Denies prior sleep study. [facility] Medical History (Updated 07/25/25 @ 13:34 by Kelli Currie NP) Depression Pure hypercholesterolemia Asthma with acute exacerbation Acute respiratory disease Vasovagal syncopes Allergic rhinitis Osteoarthritis of right knee Hx of flexible sigmoidoscopy (~2000) Cyst of right knee joint Injury of toenail GERD without esophagitis Obesity (BMI 30-39.9) Insomnia Osteoarthritis of knees, bilateral Migraine Midline low back pain without sciatica Premature ventricular contractions (PVCs) (VPCs) Benign essential hypertension Asthma Diabetes mellitus Vitamin D deficiency Anxiety GERD (gastroesophageal reflux disease) Obesity Diabetic neuropathy associated with type 2 diabetes mellitus Diabetes type 2, uncontrolled Neuropathy Surgical History History of surgical removal of ganglion cyst Hx of colonoscopy History of esophagogastroduodenoscopy (EGD) History of laparoscopy Hx of tonsillectomy Hx of tubal ligation Family History Father Bladder cancer Skin cancer Diabetes Hypertension Hyperlipidemia Mother Diabetes CVD (cardiovascular disease) CVA (cerebral vascular accident) Hypertension Social History Household Members: Family Household Members Other:: daughter Housing: House Are you a primary career development counselor to a significant other at home: No Do you presently have visiting nurse or other home services: No Alcohol intake: never Comment: aware of trip hazard Patient Tobacco Use Status: Never used Tobacco Tobacco use type: Cigarette e-Cigarette/Vaping Use: Never Used Second Hand Smoke Exposure: Yes service: No Current occupational status: retired Current occupational exposures/hazards: No Sexual orientation: Straight/Heterosexual Gender identity: Female Cognitive needs: No Hearing needs: No Vision needs: Yes (glasses) Review of Systems Const Denies chills, Denies excessive sweating, Denies fever(s), Denies headache(s) and Denies night sweats Eyes Denies dry eyes, Denies irritation and Denies itchy eyes ENT Reports Normal hearing present, Denies headache(s), Denies nasal congestion, Denies nasal discharge, Denies post nasal drip and Denies sore throat Card Denies chest pain, Denies chest pain at rest, Denies chest pain with activity, Denies claudication, Denies leg edema, Reports dyspnea on exertion, Denies orthopnea and Denies paroxysmal nocturnal dyspnea Resp Denies chest congestion, Reports cough, Denies excessive phlegm production, Denies pain on inspiration, Denies pain with cough, Reports dyspnea on exertion, Denies stridor and Reports wheezing Musc Denies myalgias Neuro Reports Normal hearing present and Denies headache(s) Endo Denies excessive sweating Víctor/Lymph Denies lymphadenopathy Aller/Immun Denies itchy eyes, Denies seasonal rhinorrhea and Reports wheezing Physical Exam Vital Signs: Last Vital Signs Pulse 53 07/25/25 13:04 BP 108/72 07/25/25 13:04 Pulse Ox 97 07/25/25 13:04 Oxygen Delivery Method Room Air 07/25/25 13:04 BMI result Body Mass Index 39.9 Const General: cooperative, healthy appearing, comfortable, no acute distress, well developed and alert Nutritional Appearance: obese Orientation/consciousness: patient oriented x3 Limitations: no limitations HEENT Head: Yes normal to inspection, Yes normocephalic and Yes atraumatic Ears: hearing grossly normal bilaterally and external ears normal Eyes General: appearance normal, both eyes and all related structures Eyelids: Yes eyelids normal Sclerae: sclerae normal EOM: EOMs intact bilaterally Neck Neck: Yes normal visual inspection and Yes no lymphadenopathy Lymphatic: no lymphadenopathy noted Chest Chest palpation & inspection: normal inspection of the chest Resp Effort & Inspection: normal respiratory effort, able to speak in complete sentences, no audible wheezes, no cough, no stridor, not tachypneic, no tripod positioning and no use of accessory muscles Auscultation: clear to auscultation bilaterally Cardio Jugular venous distension: no JVD Rate: regular rate Rhythm: regular rhythm Skin Other: warm, dry General skin exam: no rashes or lesions noted Neuro General: patient oriented x3 Cranial nerves: Yes Normal hearing present Cognition (Neuro): normal cognition Gait exam (Neuro): Normal gait present Extrem General: Yes normal to inspection, Yes capillary refill normal, Yes no clubbing, cyanosis or edema and Yes no pedal edema Psych Appearance: grossly normal and well kempt Speech and movement: Normal speech and movement present and Clear speech present Affect: normal affect Attitude: cooperative Thought process: Normal thought process present Thought content: Normal thought content present Insight: Good insight present (Psych) Judgement: Good judgement present (Psych) Assessment & Plan Assessment & Plan (1) Asthma: Code(s): J45.909 - Unspecified asthma, uncomplicated Category: Medical Qualifiers: Asthma severity: moderate Asthma persistence: persistent Asthma complication type: uncomplicated Qualified Code(s): J45.40 - Moderate persistent asthma, uncomplicated (2) Cough: Code(s): R05.9 - Cough, unspecified Category: Medical (3) Abnormal chest xray: Code(s): R93.89 - Abnormal findings on diagnostic imaging of other specified body structures Category: Medical (4) Daytime somnolence: Code(s): R40.0 - Somnolence Category: Medical Plan Lee Ann reports moderate improvements in respiratory symptoms with the initiation of Breo, however symptoms persist, will increase to Breo 200 mcg. She is aware to call if symptoms do not improve. Cautioned patient on overuse of albuterol. Will send order for home sleep study given symptoms suggestive of CEDRIC. Patient scheduled for PFT in two weeks and chest CT next month, will review when available. All questions were answered and patient is in agreement of plan. Will follow up to review results or sooner if needed. Orders: Orders RT home sleep study Today G47.8 - Other sleep disorders, R40.0 - Somnolence Medications: New fluticasone furoate-vilanterol 200-25 mcg/dose (Breo Ellipta) 1 inh inhalation DAILY 60 ea 3RF Refilled albuterol sulfate 90 mcg/actuation 1 puff inhalation QID PRN 6.7 ea 3RF for wheezing Coding Level of Care Code Est Pt Level 4 (33794) Diagnoses Moderate persistent asthma without complication J45.40 Asthma severity: moderate Asthma persistence: persistent Asthma complication type: uncomplicated Cough R05.9 Abnormal chest xray R93.89 Daytime somnolence R40.0
[2025-07-25 13:04] VITALS: BP 108/72; PULSE 53; O2SAT 97; BMI 39.9
--- OUTSIDE RECORDS SUMMARY | 2025-07-25 15:33 | XMS_ITS | Patient Health Record ---
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 Name Role Phone Harrison HSU, Jeffrey Primary Care Provider Alexa Ace Unavailable [phone] Allergies Allergen (clinical drug ingredient) Drug/Non Drug Allergy documented on EMR Reaction Allergy Type Onset Date Status Wheat Dextrin Unknown Drug Allergy Act fidelina [place] (Syrup) Unknown Drug Allergy Acti ve Cat [...] Range Notes HEMOGLOBIN A1C (GLYCOHEMOGLO BIN) Reviewed date:11/30/2024 10:51:23 AM Interpretation: Performing Lab: Notes/Report: HEMOGLOBIN A1C % (HH) 7.1 Reason For Referral No Information Medications Medication SIG (Take, Route, Frequency, Duration) Notes Start Date End Date Status Omeprazole 20 MG 1 capsule 30 minutes before morning meal Orally Once a day; Duration: 30 day(s) Active hydrOXYzine HCl Acti ve traMADol HCl 50 MG 1 tablet as needed Orally Once a day Active Amitriptyline HCl 50 MG 1 tablet at bedt shannen Orally Once a day; Duration: 30 day(s) Active Acetaminophen-Codeine 300-60 MG 1 tablet as needed Orally every 6 hrs Not-Taking Citalopram Hydrobromide 40 MG 0.5 tablet Orally Once a day; Duration: 30 day(s) Active Aspirin 81 81 MG 1 tablet Orally Once a day; Duration: 30 day(s) Not-Rios ing Gabapentin 800 MG 1 tablet Orally Once a day; Duration: 30 day(s) Active Ciclopirox Olamine 0.77 % APPLY 1 APPLICATIONFUL TO AFFECTED AREA EXTERNALLY TO FEET TWICE A DAY 30 DAYS; Duration: 30 Active Temazepam 30 MG 1 capsule at bedtime as needed Orally Once a day Active Insulin Degludec 100 UNIT/ML as directed Subcutaneous Act fidelina Montelukast Sodium 10 MG 1 tablet Orally Once a day; Duration: 30 day(s) Active Losartan Potassium 50 MG 1 tablet Orally Once a day; Duration: 30 day(s) Active Extra Depth Orthopedic Shoes (1 Pair) with Customized Heat Molded Multidensity Innersoles (3 Pair) as directed Dx: NIDDM/Polyneuropathy (E11.42), Hammertoe Foot Deformity (M20.41,M20.42), Preulcerative Skin Lesion(s) (L85.1 Active Extra Depth Orthopedic Shoes (1 Pair) with Customized Heat Molded Multidensity Innersoles (3 Pair) as directed Dx: NIDDM/Polyneuropathy (E11.42), Hammertoe Foot Deformity (M20.41,M20.42), Preulcerative Skin Lesion(s) (L85.1 Active Semaglutide Active tiZANidine HCl 4 MG 1 tablet as needed Orally Three times a day Active Pioglitazone HCl 30 MG 1 tablet Orally O nce a day; Duration: 30 day(s) Active Propranolol HCl 60 MG 1 tablet Orally On ce a day; Duration: 30 day(s) Active metFORMIN HCl 500 MG 1 tablet with a steve l Orally Once a day; Duration: 30 day(s) Active Atorvastatin Calcium 40 MG 1 tablet Orally Once a day; Duration: 30 day(s) Active Immunizations Vaccine Route Administration Date Status Comme nts Influenza Unknown 07/12/2020 Administered Influenza Unknown 07/29/2023 Administered Influenza Unknown 06/12/2024 Administered COVID-19 Ricardo & Ricardo/Yary Unknown 01/16/2021 A dministered Social History Tobacco Use: Social History Observation [...] Problem Acquired hammer toe of right foot (0710475093335489 ) Other hammer toe(s) (acquired), right foot (M20.41) Active confirmed Problem Acquired hammer toe of left foot (9276565479490018 ) Other hammer toe(s) (acquired), left foot (M20.42) Active confirmed Problem Plantar fascial fibromatosis (72382921) Plantar fascial fibromatosis (M72.2) Active confirmed Problem Acquired hammer toe of lesser toe of left foot (3865852160566182 3) Hammer toe of left foot (M20.42) Active confirmed Problem Polyneuropathy due to type 2 diabetes mellitus (584203257) Type 2 diabetes mellitus with polyneuropathy (E11.42) Active confirmed Vital Signs Blood pressure diastolic 85 mm Hg 04/07/2025 Height 5ft3in in 04/07/2025 Blood pressure systolic 132 mm Hg 04/07/2025 Weight 220 lbs 04/07/2025 BMI 38.97 kg/m2 04/07/2025 Encounters Encounter [facility] Date [facility] [address] [facility]16[facility] Alexa Amador Type 2 diabetes mellitus with polyneuropathy E11.[address] [address] 11/30/2024 Alexa Amador Type 2 diabetes mellitus with polyneuropathy E11.42 ; Other hammer toe(s) (acquired), right foot M20.41 and Other hammer toe(s) (acquired), left foot M20.42 [facility] [address] 04/07/2025 Alexa Amador Type 2 diabetes mellitus with [...] diabetes mellitus with polyneuropathy (ICD-10 - E11.42) 04/07/2025 Type 2 diabetes mellitus with polyneuropathy (ICD-10 - E11.42) 04/07/2025 Other hammer toe(s) (acquired), right foot (ICD-10 - M20.41) Patient Educated with: DIABETIC FOOT CARE INSTRUCTIONS. pdf (DIABETIC FOOT CARE INSTRUCTIONS. pdf) 11/30/2024 Other hammer toe(s) (acquired), left foot (ICD-10 - M20.42) 04/07/2025 Other hammer toe(s) (acquired), left foot (ICD-10 - M20.42) Plan Of Treatment Next Appt Details Provider Name:Alexa hernández, 08/16/2025 02:00:00 PM, [address] [place], [address], Insurance Providers Payer Name Payer Address Payer Phone Subscriber Number Group Number Insured Name Patient Relationship to Insured Coverage Start Date Coverage End Date Medicare National Govt Svcs Inc [address] [place] [address] [id number] Lee Ann Schultz Self - patient is the insured [facility] [address] [place] [address] [id number] Lee Ann Schultz Self - patient is the insured Medical (General) History Medical History History ICD Code Insomnia osteoarthritis Diabetes mellitus Hypertension, benign dyslipidemia Anxiety Premature Ventricular contractions Migraines Hypercholesterolemia Back pain Neuropathy Reflux ( GERD) Vitamin D deficiency asthma Surgical History Surgery Date(Month/Year) Laparoscopy cyst removal 2019 knee replacment right [facility] 08/09/2024 Hospitalization History Reason Date(Month/Year) [facility] - 10 days knee replacement surgery
== END 2025-07-25 13:23 | disposition home or self-care (01) ==
LOC: HO.HPSW 12:52
PROVIDERS: PCP Internal Medicine; Visit Provider Nurse Practitioner Family
DX: J45.40 Moderate persistent asthma, uncomplicated (principal); R05.9 Cough, unspecified; R93.89 Abnormal findings on diagnostic imaging of other specified body structures; R40.0 Somnolence
CPT/HCPCS: 99214

== ENCOUNTER → 2025-07-25 12:52 | Outpatient (BNVA) | payer MEDICARE, OTHER, SELFPAY | PROVIDERS: PCP Internal Medicine; Visit Provider Nurse Practitioner Family | DX: J45.40 Moderate persistent asthma, uncomplicated (principal); R05.9 Cough, unspecified; R93.89 Abnormal findings on diagnostic imaging of other specified body structures; R40.0 Somnolence | CPT/HCPCS: 99212 ==

== ENCOUNTER 2025-07-27 10:22 | Outpatient (REF) | payer MEDICARE, OTHER, SELFPAY ==
--- OUTSIDE RECORDS SUMMARY | 2024-05-24 11:00 | XMS_ITS ---
Author Organization [facility] Address [address] [place] [address] Care Team Providers Care Shrimp Packer Name Role Phone Hunter Terry MDneth Primary Care Provider Alexa Ace Unavailable [phone] Medications Medication SIG (Take, Route, Frequency, Duration) [...] ve Encounters Encounter Location Date Provider Diagnosis [facility] [address] [address] 05/24/2024 Alexa Amador Plan Of Treatment Next Appt Details Provider Name:Alexa hernández, 08/16/2025 02:00:00 PM, [address] [place] [address], [phone], Progress Notes * Lee Ann SCHULTZ EDOB:1965 (60 yo F)Acc No.[id number]:05/24/2024 Progress Note Patient: Lee Ann EVANS Provider: Cherelle Amador DPM :1965 A ge:59 Y S ex:Female Date:05/24/2024 Address:[address] [place], [place] [phone] Pcp:Jeffrey Terry MD Subjective: * Chief Complaints: [...] 05/24/2024 Generated for Earlene victoria/Aneta/Tremayne on: 1 12:26 PM EDT History and Physical Notes * HPI (History of Present Illness) Category Sub-Category Detail Notes Category Not es At Risk footcare Pt States Last PCP Visit: Date: 4
--- OUTSIDE RECORDS SUMMARY | 2024-08-02 12:00 | XMS_ITS ---
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 Role Phone Jeffrey Terry MD Primary Care Provider Unava ilAlexa Cabrales Unavailable [phone] REASON FOR VISIT Seen Sooner Encounters Encounter Location Date Provider Diagnosis [address] [address] 08/02/2024 Alexa Amador Plan Of Treatment Next Appt Details Provider Name:Alexa hernández, 08/16/2025 02:00:00 PM, [address] [place] [address], [phone], Progress Notes * Lee Ann SCHULTZ EDOB:1965 (60 yo F)Acc No.[id number]:08/02/2024 Progress Note Patient: Chilo EVANSa Yoselin Provider: Cherelle Amador DPM :1965 A ge:59 Y S ex:Female Date:08/02/2024 Address:[address] [place], [place] [id number] Pcp:Jeffrey Terry MD Subjective: * Chief Complaints: [...] Pending * Provider: Cherelle Amador, DPOtf Date: 1 Generated for Earlene victoria/Aneta/Tremayne on: 12:25 PM EDT
--- OUTSIDE RECORDS SUMMARY | 2025-02-17 07:30 | XMS_ITS ---
Author Organization [facility] Address [address] [place] [address] Care Team Providers Care Sewer And Drain Technician Name Role Phone Nella Terry MDh Primary Care Provider UnaAlexa Everett Unavailable [phone] Allergies Allergen (clinical drug ingredient) Drug/Non Drug Allergy documented on EMR Reaction Allergy Type Onset Date Status Wheat Dextrin Unknown Drug Allergy Act fidelina [place] (Syrup) Unknown Drug Allergy Acti ve Cat [...] ve Encounters Encounter Location Date Provider Diagnosis [facility] [address] [address] 02/17/2025 Alexa Amador Plan Of Treatment Next Appt Details Provider Name:Alexa hernández, 08/16/2025 02:00:00 PM, [address] [place] [address], [phone], Progress Notes * Lee Ann SCHULTZ EDOB:1965 (60 yo F)Acc No.[id number]:02/17/2025 Progress Note Patient: Otf Lee Ann GAITAN Provider: Cherelle Amador DPM :1965 A ge:59 Y S ex:Female Date:02/17/2025 Address:[address] [place] [address] [id number] Pcp:Jeffrey Terry MD Subjective: * Chief Complaints: [...] Penicillin, Exenatide, Lactose (Allergy), Wheat Dextrin, Latex, [place] (Syrup), Grass Pollen Standardized Ext, Dog Dander, [...] 02/17/2025 Generated for Earlene victoria/Aneta/Tremayne on: 1 12:25 PM EDT
--- OUTSIDE RECORDS SUMMARY | 2025-07-07 10:00 | XMS_ITS ---
Author Organization [facility] Address [address] [place] [address] Care Team Providers Care Net Ui Developer Name Role Phone Jeffrey Terry MD Primary Care Provider Unava ilAlexa Cabrales Unavailable [phone] Horne Encounters Encounter Location Date Provider Diagnosis [address] [address] 07/07/2025 Alexa Amador Plan Of Treatment Next Appt Details Provider Name:Alexa hernández, 08/16/2025 02:00:00 PM, [address] [place] [address], [phone], Progress Notes * Lee Ann SCHULTZ EDOB:1965 (60 yo F)Acc No.[id number]:07/07/2025 Progress Note Patient: Chilo EVANSa Yoselni Provider: Cherelle Amador DPM :1965 A ge:60 Y S ex:Female Date:07/07/2025 Address:[address] [place] [address] Pcp:Jeffrey Terry MD Subjective: * Chief Complaints: [...] 07/07/2025 Generated for Earlene victoria/Aneta/Tremayne on: 1 12:26 PM EDT
--- NOTE | ~2025-07-27 | XR_ITS ---
EXAMINATION: XR KNEE, RIGHT CLINICAL INFORMATION: M17.11 - Unilateral primary osteoarthritis, right knee COMPARISON: X-ray 10/28/2024 TECHNIQUE: Two views of the right knee. AP bilateral knees one view. FINDINGS: Right knee: Total knee arthroplasty with expected position alignment of the arthroplasty components. No hardware fracture. No suspicious perihardware lucency. No periprosthetic fractures. Trace suprapatellar joint fluid. No suspicious bony lesions. No suspicious soft tissue calcifications. Left knee: Severe medial compartment arthritis. No acute osseous finding seen. XR/XR knee RT 3V IMPRESSION: [Left total knee arthroplasty without radiographic evidence of complications. Electronically signed by: Anatoly An MD 07/27/2025 01:21 PM EDT
--- OUTSIDE RECORDS SUMMARY | 2025-07-28 12:26 | XMS_ITS | Patient Health Record ---
[facility] Address [address] [place] [address] Care Team Providers Care Academic Support Specialist Name Role Phone Harrison HSU, Jeffrey Primary Care Provider Alexa Ace Unavailable [phone] Allergies Allergen (clinical drug ingredient) Drug/Non Drug Allergy documented on EMR Reaction Allergy Type Onset Date Status Wheat Dextrin Unknown Drug Allergy Act fidelina [place] ([place]yrup) Unknown Drug Allergy Acti ve Cat [...] Problem Acquired hammer toe of right foot (9327422454637590 ) Other hammer toe(s) (acquired), right foot (M20.41) Active confirmed Problem Acquired hammer toe of left foot (8711433239876388 ) Other hammer toe(s) (acquired), left foot (M20.42) Active confirmed Problem Plantar fascial fibromatosis (80928313) Plantar fascial fibromatosis (M72.2) Active confirmed Problem Acquired hammer toe of lesser toe of left foot (5799924138304989 3) Hammer toe of left foot (M20.42) Active confirmed Problem Polyneuropathy due to type 2 diabetes mellitus (303631652) Type 2 diabetes mellitus with polyneuropathy (E11.42) Active confirmed Vital Signs Blood pressure diastolic 85 mm Hg 04/07/2025 Height 5ft3in in 04/07/2025 Blood pressure systolic 132 mm Hg 04/07/2025 Weight 220 lbs 04/07/2025 BMI 38.97 kg/m2 04/07/2025 Encounters Encounter Location Date [facility] [address] [facility]/16/[facility] Alexa Amador Type 2 diabetes mellitus with polyneuropathy E11.[address] [address] 11/30/2024 Alexa Amador Type 2 diabetes mellitus with polyneuropathy E11.42 ; Other hammer toe(s) (acquired), right foot M20.41 and Other hammer toe(s) (acquired), left foot M20.42 [facility] [address] 04/07/2025 Alexa Amador Type 2 diabetes mellitus [...] Provider Name:Alexa hernández, 08/16/2025 02:00:00 PM, [address] [place], [address], Insurance Providers Payer Name Payer Address Payer Phone Subscriber Number Group Number Insured Name Patient Relationship to Insured Coverage Start Date Coverage End Date Medicare National Govt Svcs Inc [address] [place] [address] [phone] [id number] Lee Ann Schultz Self - patient is the insured [facility] [address] [place] [address] [id number] Lee Ann Schultz Self - patient is the insured Medical (General) History Medical History History ICD Code Insomnia osteoarthritis Diabetes mellitus Hypertension, benign dyslipidemia Anxiety Premature Ventricular contractions Migraines Hypercholesterolemia Back pain Neuropathy Reflux ( GERD) Vitamin D deficiency asthma Surgical History Surgery Date(Month/Year) Laparoscopy cyst removal 2019 knee [place]ac[place] [facility] [place] Hospitalization History Reason Date(Month/Year) [facility] [place] knee replacement surgery
== END 2025-07-27 10:23 | disposition home or self-care (01) ==
LOC: HO.HOSX 10:22
PROVIDERS: Visit Provider Physician Assistant
DX: Z47.1 Aftercare following joint replacement surgery (principal); Z96.651 Presence of right artificial knee joint; Z79.899 Other long term (current) drug therapy
CPT/HCPCS: 73562; 99212

== ENCOUNTER 2025-07-27 12:50 | Outpatient (AMB) | payer MEDICARE, OTHER, SELFPAY ==
--- NOTE | 2025-07-27 13:35 | A.OFFVIS_ITS ---
Vital Signs 07/27/25 13:42 Height 5 ft 3 in Weight 225 lb BMI 39.9 Intake Visit Reasons: OV-Rt tka w xrays-9month follow up Intake Note: Lee Ann is a 60 year old female who presents today for a post operative RT TKA, DOS 08/09/24 NE. At her last visit she was instructed to continue working with physical therapy, she will follow up for a follow up in 9 months . Today patient reports her knee is doing well, states discomfort with prolong walking and stair use. She has complaints of left knee pain since her surgery. She also complains of severe right hip pain at the lateral side of hip that started this past week, states that she almost fell. Allergies linagliptin (From TRADJENTA) Allergy (Severe, Verified 07/27/25 13:41) THROAT ITCHING/COUGH Penicillins (PENICILLINS) Allergy (Severe, Verified 07/27/25 13:41) SWELLING/HIVES exenatide (From BYDUREON) Allergy (Intermediate, Verified 07/27/25 13:41) RASH wheat (WHEAT) Allergy (Intermediate, Verified 07/27/25 13:41) RASH latex (Latex) Allergy (Mild, Verified 07/27/25 13:41) SWELLING/ITCH grass, dogs, cats Allergy (Intermediate, Uncoded 07/27/25 13:41) Cough, sneezing lactose, wheat, corn syrup Allergy (Mild, Uncoded 07/27/25 13:41) rash Medication List - Last Reconciled 07/27/25 by Watson Musa PA-C albuterol sulfate 2.5 mg (3 mL) inhalation QID PRN 30 days albuterol sulfate 90 mcg/actuation 1 puff inhalation QID PRN amitriptyline 50 mg PO BEDTIME atorvastatin 40 mg PO DAILY 90 days Basaglar KwikPen U-100 Insulin (insulin glargine) 10 units (0.1 mL) subcut QPM 90 days NS benzonatate 100 mg PO BID blood pressure monitor As directed blood sugar diagnostic (OneTouch Ultra Test strips) As directed 2 times daily blood sugar diagnostic (FreeStyle Precision Bob Strips) As directed once a day celecoxib 200 mg PO BID cetirizine 10 mg PO DAILY PRN cholecalciferol (vitamin D3) 25 mcg PO DAILY citalopram 40 mg PO DAILY codeine-guaifenesin 10-100 mg/5 mL 5 mL PO Q6H PRN fluticasone furoate-vilanterol 100-25 mcg/dose (Breo Ellipta) 1 inh inhalation DAILY fluticasone furoate-vilanterol 200-25 mcg/dose (Breo Ellipta) 1 inh inhalation DAILY fluticasone propionate 50 mcg/actuation 1 spray intranasal BID gabapentin 800 mg PO QID hydroxyzine HCl 1 tablet 3 times a day and 2 tablets at bedtime PO; 90 days ibuprofen 600 mg PO Q8H PRN 30 days lancets (OneTouch Delica Lancets) 3 times a day losartan 50 mg PO DAILY magnesium oxide 400 mg PO BID metformin ER 1,000 mg (2 x 500 mg) PO BID montelukast 10 mg PO BEDTIME lbyvcuaq-jex-sfll-FA-vit K-lut 8 mg iron-400 mcg-50 mcg (Centrum Silver Women) 1 tab PO DAILY 90 days nebulizers As directed omega-3 fatty acids 1,000 mg PO DAILY 90 days omeprazole 20 mg PO BID pen needle, diabetic Twice a day pen needle, diabetic As directed once a day pioglitazone 30 mg PO DAILY propranolol ER 60 mg PO DAILY 30 days semaglutide (Ozempic) INJECT 0.5 MG (0.4 ML) SUBCUTANEOUSLY EVERY WEEK FOR THE FIRST 4 DOSES USE 0.25MG/WEEK AND THEN PROCEED WITH 0.5MG/WEEK temazepam 30 mg PO BEDTIME PRN 30 days tizanidine 4 mg PO TID PRN 90 days tramadol 50 mg PO TID PRN 30 days walker Folding Front wheeled walker HPI HPI OV-Rt tka w xrays-9month follow up: Details: 60-year-old female returns to the office today status post right total knee arthroplasty 08/09/2024. The patient continues to do well. She has some discomfort in the right hip along the lateral aspect. She also complains of worsening left knee pain which is affecting her ability to perform daily activities. [facility] Medical History (Updated 07/25/25 @ 13:34 by Kelli Currie NP) Depression Pure hypercholesterolemia Asthma with acute exacerbation Acute respiratory disease Vasovagal syncopes Allergic rhinitis Osteoarthritis of right knee Hx of flexible sigmoidoscopy (~2000) Cyst of right knee joint Injury of toenail GERD without esophagitis Obesity (BMI 30-39.9) Insomnia Osteoarthritis of knees, bilateral Migraine Midline low back pain without sciatica Premature ventricular contractions (PVCs) (VPCs) Benign essential hypertension Asthma Diabetes mellitus Vitamin D deficiency Anxiety GERD (gastroesophageal reflux disease) Obesity Diabetic neuropathy associated with type 2 diabetes mellitus Diabetes type 2, uncontrolled Neuropathy Surgical History History of surgical removal of ganglion cyst Hx of colonoscopy History of esophagogastroduodenoscopy (EGD) History of laparoscopy Hx of tonsillectomy Hx of tubal ligation Family History Father Bladder cancer Skin cancer Diabetes Hypertension Hyperlipidemia Mother Diabetes CVD (cardiovascular disease) CVA (cerebral vascular accident) Hypertension Social History Household Members: Family Household Members Other:: daughter Housing: House Are you a primary wound care rn to a significant other at home: No Do you presently have visiting nurse or other home services: No Alcohol intake: never Comment: aware of trip hazard Patient Tobacco Use Status: Never used Tobacco Tobacco use type: Cigarette e-Cigarette/Vaping Use: Never Used Second Hand Smoke Exposure: Yes service: No Current occupational status: retired Current occupational exposures/hazards: No Sexual orientation: Straight/Heterosexual Gender identity: Female Cognitive needs: No Hearing needs: No Vision needs: Yes (glasses) Review of Systems Const All systems reviewed & are unremarkable except as noted in HPI and below Physical Exam Vital Signs: BMI result Body Mass Index 39.9 Extrem Other: Right knee incision well healed pinprick area along the most inferior portion of the incision without drainage no depth to this. She has full range of motion 0- 115 degrees. Calf supple nontender neurovascular intact. Results Reviewed Results Reviewed: X-rays of the right knee obtained in the office today show intact orthopedic prosthesis without signs of loosening. Assessment & Plan Assessment & Plan (1) Status post total knee replacement, right: Code(s): Z96.651 - Presence of right artificial knee joint Category: Surgical Plan: She will continue to work with physical therapy to maintain her motion and improve her strength. She will follow up in 1 year for her annual total knee appointment. I did give Jackelin her information to contact to schedule a left total knee arthroplasty. Orders: Orders XR knee RT 3V Today M17.11 - Unilateral primary osteoarthritis, right knee Coding Level of Care Code Est Pt Level 3 (77057) Complex EM visit Add On G2211 Diagnoses Status post total knee replacement, right Z96.651
[2025-07-27 13:42] VITALS: BMI 39.9
== END 2025-07-27 14:21 | disposition home or self-care (01) ==
LOC: HO.HOS 12:51
PROVIDERS: PCP Internal Medicine; Visit Provider Physician Assistant
DX: Z47.1 Aftercare following joint replacement surgery (principal); Z96.651 Presence of right artificial knee joint
CPT/HCPCS: 99213; G2211

== ENCOUNTER → 2025-07-27 12:54 | Outpatient (BNV) | payer MEDICARE, OTHER, SELFPAY | PROVIDERS: Visit Provider Radiology Diagnostic Ultrasound | DX: M17.11 Unilateral primary osteoarthritis, right knee (principal); Z96.651 Presence of right artificial knee joint | CPT/HCPCS: 73562 ==

== ENCOUNTER 2025-08-07 14:47 | Outpatient (AMB) | payer MEDICARE, OTHER, SELFPAY ==
--- OUTSIDE RECORDS SUMMARY | 2024-05-24 11:00 | XMS_ITS ---
Author Organization [facility] Address [address] [place] [address] Care Team Providers Care Ending Machine Operator Name Role Phone Hunter Terry MDneth Primary Care Provider Alexa Ace Unavailable [phone] Medications Medication SIG (Take, Route, Frequency, Duration) [...] ve Encounters Encounter Location Date Provider Diagnosis [facility] [address] [address] 05/24/2024 Alexa Amador Plan Of Treatment Next Appt Details Provider Name:Alexa hernández, 08/16/2025 02:00:00 PM, [address] [place] [address], [phone], Progress Notes * Lee Ann SCHULTZ EDOB:1965 (60 yo F)Acc No.[id number]:05/24/2024 Progress Note Patient: Lee Ann EVANS Provider: Cherelle Amador DPM :1965 A ge:59 Y S ex:Female Date:05/24/2024 Address:[address] [place], [place] [phone] Pcp:Jeffrey Terry MD Subjective: * Chief Complaints: [...] 05/24/2024 Generated for Earlene victoria/Aneta/Tremayne on: 1 06:15 PM EDT History and Physical Notes * HPI (History of Present Illness) Category Sub-Category Detail Notes Category Not es At Risk footcare Pt States Last PCP Visit: Date: 4
--- OUTSIDE RECORDS SUMMARY | 2024-08-02 12:00 | XMS_ITS ---
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 Role Phone Jeffrey Terry MD Primary Care Provider Unava ilAlexa Cabrales Unavailable [phone] REASON FOR VISIT Seen Sooner Encounters Encounter Location Date Provider Diagnosis [address] [address] 08/02/2024 Alexa Amador Plan Of Treatment Next Appt Details Provider Name:Alexa hernández, 08/16/2025 02:00:00 PM, [address] [place] [address], [phone], Progress Notes * Lee Ann SCHULTZ EDOB:1965 (60 yo F)Acc No.[id number]:08/02/2024 Progress Note Patient: Chilo EVANSa Yoselin Provider: Cherelle Amador DPM :1965 A ge:59 Y S ex:Female Date:08/02/2024 Address:[address] [place], [place] [id number] Pcp:Jeffrey Terry MD Subjective: * Chief Complaints: * 1 . Seen Sooner. * Medical History: Objective: * Vitals: Assessment: Plan: * Treatment: * Images: * The named appointment provid er may or may not be the originator of this progress note, and it is not deemed complete until electronically signed by the appointment provider. Sign off status: Pending * Provider: Cherelle Amador, DPOtf Date: Generated for Earlene victoria/Aneta/Tremayne on: 06:15 PM EDT
--- OUTSIDE RECORDS SUMMARY | 2025-02-17 07:30 | XMS_ITS ---
Author Organization [facility] Address [address] [place] [address] Care Team Providers Care Certified Shorthand Reporter Name Role Phone Nella Terry MDh Primary Care Provider UnaAlexa Everett Unavailable [phone] Allergies Allergen (clinical drug ingredient) Drug/Non Drug Allergy documented on EMR Reaction Allergy Type Onset Date Status Wheat Dextrin Unknown Drug Allergy Act fidelina [place] (Syrup) Unknown Drug Allergy Acti ve Cat [...] ve Encounters Encounter Location Date Provider Diagnosis [facility] [address] [address] 02/17/2025 Alexa Amador Plan Of Treatment Next Appt Details Provider Name:Alexa hernández, 08/16/2025 02:00:00 PM, [address] [place] [address], [phone], Progress Notes * Lee Ann SCHULTZ EDOB:1965 (60 yo F)Acc No.[id number]:02/17/2025 Progress Note Patient: Otf Lee Ann GAITAN Provider: Cherelle Amador DPM :1965 A ge:59 Y S ex:Female Date:02/17/2025 Address:[address] [place] [address] [id number] Pcp:Jeffrey Terry MD Subjective: * Chief Complaints: [...] Penicillin, Exenatide, Lactose (Allergy), Wheat Dextrin, Latex, [place] (Syrup), Grass Pollen Standardized Ext, Dog Dander, [...] 02/17/2025 Generated for Earlene victoria/Aneta/Tremayne on: 1 06:15 PM EDT
--- OUTSIDE RECORDS SUMMARY | 2025-07-07 10:00 | XMS_ITS ---
Author Organization [facility] Address [address] [place] [address] Care Team Providers Care Manager Test Name Role Phone Jeffrey Terry MD Primary Care Provider Unava ilAlexa Cabrales Unavailable [phone] Horne Encounters Encounter Location Date Provider Diagnosis [address] [address] 07/07/2025 Alexa Amador Plan Of Treatment Next Appt Details Provider Name:Alexa hernández, 08/16/2025 02:00:00 PM, [address] [place] [address], [phone], Progress Notes * Lee Ann SCHULTZ EDOB:1965 (60 yo F)Acc No.[id number]:07/07/2025 Progress Note Patient: Chilo EVANSa Yoselin Provider: Cherelle Amador DPM :1965 A ge:60 Y S ex:Female Date:07/07/2025 Address:[address] [place] [address] Pcp:Jeffrey Terry MD Subjective: * Chief Complaints: [...] Pending * Provider: Cherelle Amador, DPOtf Date: 0 07/07/2025 Generated for Earlene victoria/Aneta/Tremayne on: 1 06:16 PM EDT
[2025-08-07 14:57] VITALS: BP 90/72; PULSE 80; BMI 39.2
--- NOTE | 2025-08-07 14:57 | A.OFFVIS_ITS ---
Vital Signs 08/07/25 14:57 Height 5 ft 3 in Weight 221 lb 5.506 oz BMI 39.2 BP 90/72 Blood Pressure Location Lt brachial Position Sitting Pulse 80 Pulse Source Monitor Intake Visit Reasons: 1 yr follow up r/s 06-15-25 Geographic Information Systems Director Required: No Allergies linagliptin (From TRADJENTA) Allergy (Severe, Verified 08/07/25 15:02) THROAT ITCHING/COUGH Penicillins (PENICILLINS) Allergy (Severe, Verified 08/07/25 15:02) SWELLING/HIVES exenatide (From BYDUREON) Allergy (Intermediate, Verified 08/07/25 15:02) RASH wheat (WHEAT) Allergy (Intermediate, Verified 08/07/25 15:02) RASH latex (Latex) Allergy (Mild, Verified 08/07/25 15:02) SWELLING/ITCH grass, dogs, cats Allergy (Intermediate, Uncoded 08/07/25 15:02) Cough, sneezing lactose, wheat, corn syrup Allergy (Mild, Uncoded 08/07/25 15:02) rash Medication List - Last Reconciled 08/07/25 by MICHELLE GoodC albuterol sulfate 2.5 mg (3 mL) inhalation QID PRN 30 days albuterol sulfate 90 mcg/actuation 1 puff inhalation QID PRN amitriptyline 50 mg PO BEDTIME atorvastatin 40 mg PO DAILY 90 days Basaglar KwikPen U-100 Insulin (insulin glargine) 10 units (0.1 mL) subcut QPM 90 days NS benzonatate 100 mg PO BID blood pressure monitor As directed blood sugar diagnostic (OneTouch Ultra Test strips) As directed 2 times daily blood sugar diagnostic (FreeStyle Precision Bob Strips) As directed once a day celecoxib 200 mg PO BID cetirizine 10 mg PO DAILY PRN cholecalciferol (vitamin D3) 25 mcg PO DAILY citalopram 40 mg PO DAILY codeine-guaifenesin 10-100 mg/5 mL 5 mL PO Q6H PRN fluticasone furoate-vilanterol 100-25 mcg/dose (Breo Ellipta) 1 inh inhalation DAILY fluticasone furoate-vilanterol 200-25 mcg/dose (Breo Ellipta) 1 inh inhalation DAILY fluticasone propionate 50 mcg/actuation 1 spray intranasal BID gabapentin 800 mg PO QID hydroxyzine HCl 1 tablet 3 times a day and 2 tablets at bedtime PO; 90 days ibuprofen 600 mg PO Q8H PRN 30 days lancets (OneTouch Delica Lancets) 3 times a day losartan 50 mg PO DAILY magnesium oxide 400 mg PO BID metformin ER 1,000 mg (2 x 500 mg) PO BID montelukast 10 mg PO BEDTIME vbrnztrx-uoh-xugs-FA-vit K-lut 8 mg iron-400 mcg-50 mcg (Centrum Silver Women) 1 tab PO DAILY 90 days nebulizers As directed omega-3 fatty acids 1,000 mg PO DAILY 90 days omeprazole 20 mg PO BID pen needle, diabetic Twice a day pen needle, diabetic As directed once a day pioglitazone 30 mg PO DAILY propranolol ER 60 mg PO DAILY 30 days semaglutide (Ozempic) INJECT 0.5 MG (0.4 ML) SUBCUTANEOUSLY EVERY WEEK FOR THE FIRST 4 DOSES USE 0.25MG/WEEK AND THEN PROCEED WITH 0.5MG/WEEK temazepam 30 mg PO BEDTIME PRN 30 days tizanidine 4 mg PO TID PRN 90 days tramadol 50 mg PO TID PRN 30 days walker Folding Front wheeled walker HPI HPI 1 yr follow up r/s 06-15-25: Details: Lee Ann is a 60-year-old female with past medical history of hypertension, hyperlipidemia, diabetes, PVCs, reported history of vasovagal syncope, atypical chest pain who had total right knee replacement this past year and now plans to have left knee replaced in the near future. Today she reports that she is waiting for her left total knee replacement to be scheduled. She continues to get periodic sharp pains in her chest which occur randomly. She does not recall any cardiac issues during her last surgery. She has some intermittent shortness of breath with activity that she relates to her asthma. No PND, orthopnea or edema. No presyncope, syncope, falls. She is still living with her daughter and helping to take care of the house. She needs to climb the stairs into the cellar a few times daily to let the dogs outside. This activity is limited by knee pain and some shortness of breath. Uses a cane. Taking medications as directed. [facility] Medical History Depression Pure hypercholesterolemia Asthma with acute exacerbation Acute respiratory disease Vasovagal syncopes Allergic rhinitis Osteoarthritis of right knee Hx of flexible sigmoidoscopy (~2000) Cyst of right knee joint Injury of toenail GERD without esophagitis Obesity (BMI 30-39.9) Insomnia Osteoarthritis of knees, bilateral Migraine Midline low back pain without sciatica Premature ventricular contractions (PVCs) (VPCs) Benign essential hypertension Asthma Diabetes mellitus Vitamin D deficiency Anxiety GERD (gastroesophageal reflux disease) Obesity Diabetic neuropathy associated with type 2 diabetes mellitus Diabetes type 2, uncontrolled Neuropathy Surgical History History of surgical removal of ganglion cyst Hx of colonoscopy History of esophagogastroduodenoscopy (EGD) History of laparoscopy Hx of tonsillectomy Hx of tubal ligation Family History Father Bladder cancer Skin cancer Diabetes Hypertension Hyperlipidemia Mother Diabetes CVD (cardiovascular disease) CVA (cerebral vascular accident) Hypertension Social History Household Members: Family Household Members Other:: daughter Housing: House Are you a primary career information specialist to a significant other at home: No Do you presently have visiting nurse or other home services: No Alcohol intake: never Comment: aware of trip hazard Patient Tobacco Use Status: Never used Tobacco Tobacco use type: Cigarette e-Cigarette/Vaping Use: Never Used Second Hand Smoke Exposure: Yes service: No Current occupational status: retired Current occupational exposures/hazards: No Sexual orientation: Straight/Heterosexual Gender identity: Female Cognitive needs: No Hearing needs: No Vision needs: Yes (glasses) Review of Systems Const All systems reviewed & are unremarkable except as noted in HPI and below ENT Denies dizziness Card Reports chest pain, Denies chest pain at rest, Denies chest pain with activity, Denies rapid heart rate, Denies pedal edema, Denies edema, Denies leg edema, Denies lightheadedness, Denies palpitations, Denies dyspnea, Denies dyspnea on exertion and Denies orthopnea Resp Denies cough, Denies dyspnea and Denies dyspnea on exertion GI Denies hematochezia and Denies change in stool character Musc Denies abnormal gait, Denies limited range of motion, Denies muscle cramps, Denies muscle weakness, Denies numbness, Denies radiating pain into limb, Denies stiffness and Denies tingling Neuro Denies abnormal gait, Denies dizziness, Denies numbness and Denies tingling Endo Denies palpitations Physical Exam Vital Signs: Last Vital Signs Pulse 80 08/07/25 14:57 BP 90/72 08/07/25 14:57 BMI result Body Mass Index 39.2 Const General: cooperative, healthy appearing, comfortable and no acute distress Orientation/consciousness: patient oriented x3 Neck Neck: Yes normal visual inspection Resp Effort & Inspection: normal respiratory effort Auscultation: clear to auscultation bilaterally, no crackles, no rales, no rhonchi and no wheezes Cardio Jugular venous distension: no JVD Rate: regular rate Rhythm: regular rhythm Heart sounds: S1 normal heart sound present, S2 normal heart sound present, no murmurs and no rubs Neuro General: patient oriented x3 Extrem General: Yes normal to inspection Psych Appearance: grossly normal Mental Status: mental status grossly normal Speech and movement: Normal speech and movement present Office Procedures EKG Details: Today, read by me, normal sinus rhythm, nonspecific ST-T abnormality, rate 80, QTC 426 milliseconds [id number], Complete Assessment & Plan Assessment & Plan (1) Chest discomfort: Code(s): R07.89 - Other chest pain Category: Medical Plan: Reports of sharp random atypical chest discomfort, not new. She does have multiple cardiac risk factors including hypertension, hyperlipidemia, diabetes and obesity. She did have a coronary CTA scan in 2019 which was reported to be normal. A pharmacological nuclear stress test was done on 08/24/2023 which showed normal myocardial perfusion imaging. Echocardiogram done 07/11/2024 showed EF greater than 70%, no valve abnormalities and no regional wall motion abnormalities, grade 1 diastolic dysfunction. She has no diagnosis of coronary artery disease. Her chest symptom has not changed in the last 2 years. Reviewed ongoing cardiac risk factors modification including weight loss, good blood pressure, cholesterol control. Good diabetes control with hemoglobin A1c less than 7. Will work on getting CTA results for our system. Cardiology follow-up 1 year, sooner if needed. (2) Preop cardiovascular exam: Code(s): Z01.810 - Encounter for preprocedural cardiovascular examination Category: Medical Plan: Preop for total knee replacement with Dr. Bill at [facility], no date yet. She has cardiac risk factors but no known CAD. She has atypical chest discomfort with normal nuclear stress test 08/24/2023. EKG done today shows no evidence of ischemia. She can proceed with low cardiac risk. Call/consult Cardiology if needed. (3) Benign essential hypertension: Code(s): I10 - Essential (primary) hypertension Category: Medical Plan: Blood pressure goal less than 130/80. Blood pressure on low side today, asymptomatic. Reviewed good hydration. No med changes made. Has follow-up with her PCP in 2 weeks. If blood pressure remains low then losartan dose can be reduced. (4) Pure hypercholesterolemia: Code(s): E78.00 - Pure hypercholesterolemia, unspecified Category: Medical Plan: [place] LDL goal less than 70 in patient with diabetes. Labs done 04/07/2025 showed LDL 77. Continue atorvastatin. This is being followed by her PCP (5) Vasovagal syncope: Code(s): R55 - Syncope and collapse Category: Medical Plan: She reports that she has a history of vasovagal syncope, no episodes in the last few years. She does not have known clear triggers. Instructed to maintain good hydration, recognize symptoms and sit/lay down if she becomes symptomatic. Plan Time spent on chart review, documentation interview and assessment Coding Level of Care Code Est Pt Level 4 (16389) Complex EM visit Add On G2211 Diagnoses Chest discomfort R07.89 Preop cardiovascular exam Z01.810 Benign essential hypertension I10 Pure hypercholesterolemia E78.00 Vasovagal syncope R55 CPT Codes EKG - CPT: 27389-[id number], Complete ([id number]) Time Spent (min) 32
--- OUTSIDE RECORDS SUMMARY | 2025-08-07 18:16 | XMS_ITS | Patient Health Record ---
Author Organization [facility] Address [address] [place] [address] Care Team Providers Care Sketch Artist Name Role Phone Harrison [facility], Jeffrey Primary Care Provider Alexa Ace Unavailable [phone] Allergies Allergen (clinical drug ingredient) Drug/Non Drug Allergy documented on EMR Reaction Allergy Type Onset Date Status Wheat Dextrin Unknown Drug Allergy Act fidelina [place] (Syrup) Unknown Drug Allergy Acti ve Cat [...] Problem Acquired hammer toe of right foot (0963108192361564 ) Other hammer toe(s) (acquired), right foot (M20.41) Active confirmed Problem Acquired hammer toe of left foot (6097253127497730 ) Other hammer toe(s) (acquired), left foot (M20.42) Active confirmed Problem Plantar fascial fibromatosis (71392848) Plantar fascial fibromatosis (M72.2) Active confirmed Problem Acquired hammer toe of lesser toe of left foot (0942980833393834 3) Hammer toe of left foot (M20.42) Active confirmed Problem Polyneuropathy due to type 2 diabetes mellitus (570009458) Type 2 diabetes mellitus with polyneuropathy (E11.42) Active confirmed Vital Signs Blood pressure diastolic 85 mm Hg 04/07/2025 Height 5ft3in in 04/07/2025 Blood pressure systolic 132 mm Hg 04/07/2025 Weight 220 lbs 04/07/2025 BMI 38.97 kg/m2 04/07/2025 Encounters Encounter Location Date Provider Diagnosis [facility] [address] 09/16/2024 Alexa Amador Type 2 diabetes mellitus with polyneuropathy E11.[address] [address] 11/30/2024 Alexa Amador Type 2 diabetes mellitus with polyneuropathy E11.42 ; Other hammer toe(s) (acquired), right foot M20.41 and Other hammer toe(s) (acquired), left foot M20.[address] [facility] [address] 04/07/2025 Alexa Amador Type 2 diabetes mellitus [...] Provider Name:Alexa hernández, 08/16/2025 02:00:00 PM, [address] [place], [address], Insurance Providers Payer Name Payer Address Payer Phone Subscriber Number Group Number Insured Name Patient Relationship to Insured Coverage Start Date Coverage End Date Medicare National [employer] [address] [place] [address] [phone] [id number] Lee Ann Schultz Self - patient is the insured [facility] [address] [place] [address] [phone] [id number] Lee Ann Schultz Self - patient is the insured Medical (General) History Medical History History ICD Code Insomnia osteoarthritis Diabetes mellitus Hypertension, benign dyslipidemia Anxiety Premature Ventricular contractions Migraines Hypercholesterolemia Back pain Neuropathy Reflux ( GERD) Vitamin D deficiency asthma Surgical History Surgery Date(Month/Year) Laparoscopy cyst removal 2019 knee replacment right [facility] [place] 08/09/2024 Hospitalization History Reason Date(Month/Year) [facility] [place] - 10 days knee replacement surgery
== END 2025-08-07 15:37 | disposition home or self-care (01) ==
LOC: HO.HCS 14:49
PROVIDERS: PCP Internal Medicine; Visit Provider Nurse Practitioner Family
DX: R07.89 Other chest pain (principal); Z01.810 Encounter for preprocedural cardiovascular examination; I10 Essential (primary) hypertension; E78.00 Pure hypercholesterolemia, unspecified; R55 Syncope and collapse
CPT/HCPCS: 93010; 99214; G2211

== ENCOUNTER → 2025-08-07 14:47 | Outpatient (BNVA) | payer MEDICARE, OTHER, SELFPAY | PROVIDERS: PCP Internal Medicine; Visit Provider Nurse Practitioner Family | DX: I10 Essential (primary) hypertension (principal); R07.89 Other chest pain; E78.00 Pure hypercholesterolemia, unspecified; Z01.810 Encounter for preprocedural cardiovascular examination | CPT/HCPCS: 93005; 99212 ==

== ENCOUNTER 2025-08-22 12:18 | Outpatient (REF) | payer MEDICARE, OTHER, SELFPAY ==
[2025-08-22 12:31] LABS: MANUAL DIFF FLAG NO
[2025-08-22 12:49] LABS: Hematocrit 34.4 % (37.0-47.0); Hemoglobin 10.9 g/dl (12.0-16.0); Imm Gran Abs Auto 0.03 X10*3/uL (0.00-0.03); Imm Gran Pct Auto 0.3 % (0.0-0.4); Lymphocytes Absolute Auto 2.6 X10*3/uL (1.2-4.9); Mean Corpuscular HGB Conc 31.7 g/dl (31.0-35.0); Mean Corpuscular Hemoglobin 23.8 pg (27.0-33.0); Mean Corpuscular Volume 75.1 fL (80.0-98.0); NRBC Abs Auto 0.000 X10*3/uL (0.0-0.012); NRBC Pct Auto 0.0 /100WBC (0.0-0.2); Platelet Count 501 X10*3/uL (160-400); Red Blood Count 4.58 X10*6/uL (4.20-5.50); White Blood Count 9.2 X10*3/uL (4.8-10.8)
[2025-08-22 13:21] LABS: Alanine Aminotransferase 14 U/L (0-31); Albumin Level 4.6 g/dL (3.5-5.0); Alkaline Phosphatase 82 U/L (39-117); Anion Gap 11 (12-20); Aspartate Amino Transferase 22 U/L (5-31); Blood Urea Nitrogen 7 mg/dL (9-16); Calcium 9.9 mg/dL (8.4-10.2); Carbon Dioxide 29 mmol/L (22-29); Chloride 97 mmol/L (96-108); Cholesterol 157 mg/dL (<200); Estimated Glomerular Filt Rate > 60; HDL Cholesterol 59 mg/dL (>40); Potassium 4.9 mmol/L (3.3-5.1); Sodium 132 mmol/L (135-145); Total Protein 7.7 g/dL (6.5-8.0); Triglycerides 89 mg/dL (<150)
[2025-08-22 13:44] LABS: Appearance Urine Clear; Glucose Urine UA Negative (Negative); PH 7.0 (5.0-9.0); Specific Gravity - Urine <= 1.005 (1.005-1.025)
== END 2025-08-22 12:19 | disposition home or self-care (01) ==
LOC: HO.LAB 12:18
PROVIDERS: PCP Internal Medicine; Visit Provider Internal Medicine
DX: E11.9 Type 2 diabetes mellitus without complications (principal); E78.00 Pure hypercholesterolemia, unspecified; D64.9 Anemia, unspecified; R30.0 Dysuria
CPT/HCPCS: 36415; 80053; 80061; 81003; 82043; 82570; 83036; 85025

== ENCOUNTER 2025-08-23 13:48 | Outpatient (REF) | payer MEDICARE, OTHER, SELFPAY ==
--- NOTE | ~2025-08-23 | XR_ITS ---
EXAMINATION: XR HIP, RIGHT CLINICAL INFORMATION: M25.551 - Pain in right hip for 2 weeks, no trauma COMPARISON: None available. TECHNIQUE: AP and frog-leg lateral views of the right hip. FINDINGS: There is mild axial joint space narrowing. There are small marginal osteophytes involving acetabular roof No fracture is identified. XR/XR hip RT min 2V IMPRESSION: Minimal degenerative change. Electronically signed by: Chava Fuentes MD 08/23/2025 04:33 PM EST
== END 2025-08-23 13:49 | disposition home or self-care (01) ==
LOC: HO.XRAY 13:48
PROVIDERS: PCP Internal Medicine
DX: Z01.818 Encounter for other preprocedural examination (principal); M25.551 Pain in right hip; E11.42 Type 2 diabetes mellitus with diabetic polyneuropathy; I10 Essential (primary) hypertension; K21.9 Gastro-esophageal reflux disease without esophagitis; E78.00 Pure hypercholesterolemia, unspecified; I49.3 Ventricular premature depolarization; J45.40 Moderate persistent asthma, uncomplicated; J30.2 Other seasonal allergic rhinitis; G43.909 Migraine, unspecified, not intractable, without status migrainosus; J94.9 Pleural condition, unspecified; M17.0 Bilateral primary osteoarthritis of knee; R10.13 Epigastric pain; M54.50 Low back pain, unspecified; E55.9 Vitamin D deficiency, unspecified; G47.00 Insomnia, unspecified; F41.9 Anxiety disorder, unspecified; F32.A Depression, unspecified; E66.9 Obesity, unspecified; Z68.39 Body mass index [BMI] 39.0-39.9, adult; Z79.899 Other long term (current) drug therapy
CPT/HCPCS: 73502; 99212

== ENCOUNTER 2025-08-23 13:48 | Outpatient (AMB) | payer MEDICARE, OTHER, SELFPAY ==
--- OUTSIDE RECORDS SUMMARY | 2024-05-24 10:00 | XMS_ITS ---
Author Organization [facility] Address [address] [place] [address] Care Team Providers Care Business English Instructor Name Role Phone Hunter Terry MDneth Primary Care Provider Alexa Ace Unavailable [phone] Medications Medication SIG (Take, Route, Frequency, Duration) Notes Start Date End Date Status Ciclopirox Olamine 0.77 % APPLY 1 APPLICATIONFUL TO AFFECTED AREA EXTERNALLY TO FEET TWICE A DAY 30 DAYS; Duration: 30 Active Montelukast Sodium 10 MG 1 tablet Orally Once a day; Duration: 30 day(s) Active Extra Depth Orthopedic Shoes (1 Pair) with Customized Heat Molded Multidensity Innersoles (3 Pair) as directed Dx: NIDDM/Polyneuropathy (E11.42), Hammertoe Foot Deformity (M20.41,M20.42), Preulcerative Skin Lesion(s) (L85.1 Active Aspirin 81 81 MG 1 tablet Orally Once a day; Duration: 30 day(s) Not-Rios ing Atorvastatin Calcium 40 MG 1 tablet Orally Once a day; Duration: 30 day(s) Active Propranolol HCl 60 MG 1 tablet Orally On ce a day; Duration: 30 day(s) Active traMADol HCl 50 MG 1 tablet as needed Orally Once a day Active tiZANidine HCl 4 MG 1 tablet as needed Orally Three times a day Active Omeprazole 20 MG 1 capsule 30 minutes before morning meal Orally Once a day; Duration: 30 day(s) Active Acetaminophen-Codeine 300-60 MG 1 tablet as needed Orally every 6 hrs Not-Taking Amitriptyline HCl 50 MG 1 tablet at bedt shannen Orally Once a day; Duration: 30 day(s) Active Citalopram Hydrobromide 40 MG 0.5 tablet Orally Once a day; Duration: 30 day(s) Active Gabapentin 800 MG 1 tablet Orally Once a day; Duration: 30 day(s) Active Temazepam 30 MG 1 capsule at bedtime as needed Orally Once a day Active Losartan Potassium 50 MG 1 tablet Orally Once a day; Duration: 30 day(s) Active metFORMIN HCl 500 MG 1 tablet with a steve l Orally Once a day; Duration: 30 day(s) Active Insulin Degludec 100 UNIT/ML as directed Subcutaneous Act fidelina Semaglutide Active Pioglitazone HCl 30 MG 1 tablet Orally O nce a day; Duration: 30 day(s) Active hydrOXYzine HCl Acti ve Encounters Encounter Location Date Provider Diagnosis [facility] [address] [address] 05/24/2024 Alexa Amador Plan Of Treatment Next Appt Details Provider Name:Alexa hernández, 12/12/2025 01:00:00 PM, [address] [place] [address], [phone], Progress Notes * Lee Ann SCHULTZ EDOB:1965 (60 yo F)Acc No.[id number]:05/24/2024 Progress Note Patient: Lee Ann EVANS Provider: Cherelle Amador DPM :1965 A ge:59 Y S ex:Female Date:05/24/2024 Address:[address] [place], [place] [id number] Pcp:Jeffrey Terry MD Subjective: * Chief Complaints: * * HPI: A t Risk footcare: Pt States Last PCP Visit: Arvind ate 0 11/11/2023 * Medical History: * Medications: T aking hydrOXYzine HCl , Taking Semaglutide , Taking Pioglitazone HCl 30 MG Tablet 1 tablet Orally Once a day , Taking metFORMIN HCl 500 MG Tablet 1 tablet with a meal Orally Once a day , Taking Insulin Degludec 100 UNIT/ML Solution Pen-injector as directed Subcutaneous , Taking Losartan Potassium 50 MG Tablet 1 tablet Orally Once a day , Taking Gabapentin 800 MG Tablet 1 tablet Orally Once a day , Taking Temazepam 30 MG Capsule 1 capsule at bedtime as needed Orally Once a day , Taking Amitriptyline HCl 50 MG Tablet 1 tablet at bedtime Orally Once a day , Taking Citalopram Hydrobromide 40 MG Tablet 0.5 tablet Orally Once a day , Taking Omeprazole 20 MG Capsule Delayed Release 1 capsule 30 minutes before morning meal Orally Once a day , Taking traMADol HCl 50 MG Tablet 1 tablet as needed Orally Once a day , Taking tiZANidine HCl 4 MG Tablet 1 tablet as needed Orally Three times a day , Taking Propranolol HCl 60 MG Tablet 1 tablet Orally Once a day , Taking Atorvastatin Calcium 40 MG Tablet 1 tablet Orally Once a day , Taking Montelukast Sodium 10 MG Tablet 1 tablet Orally Once a day , Taking Extra Depth Orthopedic Shoes (1 Pair) with Customized Heat Molded Multidensity Innersoles (3 Pair) as directed Dx: NIDDM/Polyneuropathy (E11.42), Hammertoe Foot Deformity (M20.41,M20.42), Preulcerative Skin Lesion(s) (L85.1 , Taking Ciclopirox Olamine 0.77 % Cream APPLY 1 APPLICATIONFUL TO AFFECTED AREA EXTERNALLY TO FEET TWICE A DAY 30 DAYS , Not-Taking/PRN Acetaminophen-Codeine 300-60 MG Tablet 1 tablet as needed Orally every 6 hrs , Not-Taking/PRN Aspirin 81 81 MG Tablet Delayed Release 1 tablet Orally Once a day Objective: * Vitals: Assessment: Plan: * Treatment: * Images: * The named appointment provid er may or may not be the originator of this progress note, and it is not deemed complete until electronically signed by the appointment provider. Sign off status: Pending * Provider: Cherelle Amador DPM Date: 0 05/24/2024 Generated for Earlene victoria/Aneta/Tremayne on: 1 10/23/2024 04:53 PM EST History and Physical Notes * HPI (History of Present Illness) Category Sub-Category Detail Notes Category Not es At Risk footcare Pt States Last PCP Visit: Date: 4
--- OUTSIDE RECORDS SUMMARY | 2024-08-02 11:00 | XMS_ITS ---
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 Role Phone Jeffrey Terry MD Primary Care Provider Unava ilAlexa Cabrales Unavailable [phone] REASON FOR VISIT Seen Sooner Encounters Encounter Location Date Provider Diagnosis [address] [address] 08/02/2024 Alexa Amador Plan Of Treatment Next Appt Details Provider Name:Alexa hernández, 12/12/2025 01:00:00 PM, [address] [place] [address], [phone], Progress Notes * Lee Ann SCHULTZ EDOB:1965 (60 yo F)Acc No.[id number]:08/02/2024 Progress Note Patient: Chilo EVANSa Yoselin Provider: Cherelle Amador DPM :1965 A ge:59 Y S ex:Female Date:08/02/2024 Address:[address] [place], [place] [id number] Pcp:Jeffrey Terry MD Subjective: * Chief Complaints: * 1 . Seen Sooner. * Medical History: Objective: * Vitals: Assessment: Plan: * Treatment: * Images: * The named appointment provid er may or may not be the originator of this progress note, and it is not deemed complete until electronically signed by the appointment provider. Sign off status: Pending * Provider: Cherelle Amador, SARABJIT Date: Generated for Earlene victoria/Aneta/Tremayne on: 10/23/2024 04:53 PM EST
--- OUTSIDE RECORDS SUMMARY | 2025-02-17 06:30 | XMS_ITS ---
[facility] Address [address] [place] [address] Care Team Providers Care Inpatient Nursing Aide Name Role Phone Nella Terry MDh Primary Care Provider UnaAlexa Everett Unavailable [phone] Allergies Allergen (clinical drug ingredient) Drug/Non Drug Allergy documented on EMR Reaction Allergy Type Onset Date Status Wheat Dextrin Unknown Drug Allergy Act fidelina [place] (Syrup) Unknown Drug Allergy Acti ve Cat dander Cat Dander Unknown Allergy Active Dog dander Dog Dander Unknown Allergy Active exenatide Exenatide Unknown Drug Allergy Active Lactose (Allergy) Unknown Allergy Ac tive Latex Latex Unknown Allergy Active linagliptin Linagliptin Unknown Drug Allergy Act fidelina Penicillin Unknown Drug Allergy Active Grass Pollen Standardized Ext Unknown Drug Allergy Active REASON FOR VISIT Dr Horne Medications Medication SIG (Take, Route, Frequency, Duration) Notes Start Date End Date Status Ciclopirox Olamine 0.77 % APPLY 1 APPLICATIONFUL TO AFFECTED AREA EXTERNALLY TO FEET TWICE A DAY 30 DAYS; Duration: 30 Active Extra Depth Orthopedic Shoes (1 Pair) with Customized Heat Molded Multidensity Innersoles (3 Pair) as directed Dx: NIDDM/Polyneuropathy (E11.42), Hammertoe Foot Deformity (M20.41,M20.42), Preulcerative Skin Lesion(s) (L85.1 Active Aspirin 81 81 MG 1 tablet Orally Once a day; Duration: 30 day(s) Not-Rios ing Acetaminophen-Codeine 300-60 MG 1 tablet as needed Orally every 6 hrs Not-Taking Extra Depth Orthopedic Shoes (1 Pair) with Customized Heat Molded Multidensity Innersoles (3 Pair) as directed Dx: NIDDM/Polyneuropathy (E11.42), Hammertoe Foot Deformity (M20.41,M20.42), Preulcerative Skin Lesion(s) (L85.1 11/30/2024 Active Propranolol HCl 60 MG 1 tablet Orally On ce a day; Duration: 30 day(s) Active Montelukast Sodium 10 MG 1 tablet Orally Once a day; Duration: 30 day(s) Active Atorvastatin Calcium 40 MG 1 tablet Orally Once a day; Duration: 30 day(s) Active tiZANidine HCl 4 MG 1 tablet as needed Orally Three times a day Active traMADol HCl 50 MG 1 tablet as needed Orally Once a day Active Gabapentin 800 MG 1 tablet Orally Once a day; Duration: 30 day(s) Active Omeprazole 20 MG 1 capsule 30 minutes before morning meal Orally Once a day; Duration: 30 day(s) Active Citalopram Hydrobromide 40 MG 0.5 tablet Orally Once a day; Duration: 30 day(s) Active Amitriptyline HCl 50 MG 1 tablet at bedt shannen Orally Once a day; Duration: 30 day(s) Active Temazepam 30 MG 1 capsule at bedtime as needed Orally Once a day Active Losartan Potassium 50 MG 1 tablet Orally Once a day; Duration: 30 day(s) Active Insulin Degludec 100 UNIT/ML as directed Subcutaneous Act fidelina metFORMIN HCl 500 MG 1 tablet with a steve l Orally Once a day; Duration: 30 day(s) Active Pioglitazone HCl 30 MG 1 tablet Orally O nce a day; Duration: 30 day(s) Active Semaglutide Active hydrOXYzine HCl Acti ve Encounters Encounter Location Date Provider Diagnosis [facility] [address] [address] 02/17/2025 Alexa Amador Plan Of Treatment Next Appt Details Provider Name:Alexa hernández, 12/12/2025 01:00:00 PM, [address] [place] [address], [phone], Progress Notes * Lee Ann SCHULTZ EDOB:1965 (60 yo F)Acc No.[id number]:02/17/2025 Progress Note Patient: Otf Lee Ann GAITAN Provider: Cherelle Amador DPM :1965 A ge:59 Y S ex:Female Date:02/17/2025 Address:[address] [place] [address] [id number] Pcp:Jeffrey Terry MD Subjective: * Chief Complaints: * [address] Horne. * Medical History: I nsomnia, Osteoarthritis, Diabetes mellitus, Hypertension, benign, Dyslipidemia, Anxiety, Premature Ventricular contractions, Migraines, Hypercholesterolemia, Back pain, Neuropathy, Reflux ( GERD), Vitamin D deficiency, Asthma. * Medications: T aking hydrOXYzine HCl , [...] FEET TWICE A DAY 30 DAYS , Taking Extra Depth Orthopedic Shoes (1 Pair) with Customized Heat Molded Multidensity Innersoles (3 Pair) as directed Dx: NIDDM/Polyneuropathy (E11.42), Hammertoe Foot Deformity (M20.41,M20.42), Preulcerative Skin Lesion(s) (L85.1 , Not-Taking/PRN Acetaminophen-Codeine 300-60 MG Tablet 1 tablet as needed Orally every 6 hrs , Not-Taking/PRN Aspirin 81 81 MG Tablet Delayed Release 1 tablet Orally Once a day * Allergies: L inagliptin, Penicillin, Exenatide, Lactose (Allergy), Wheat Dextrin, Latex, [place] (Syrup), Grass Pollen Standardized Ext, Dog Dander, Cat Dander. Objective: * Vitals: Assessment: Plan: * Treatment: * Images: * The named appointment provid er may or may not be the originator of this progress note, and it is not deemed complete until electronically signed by the appointment provider. Sign off status: Pending * Provider: Cherelle Amador DPM Date: 0 02/17/2025 Generated for Earlene victoria/Aneta/Tremayne on: 1 10/23/2024 04:53 PM EST
--- OUTSIDE RECORDS SUMMARY | 2025-07-07 09:00 | XMS_ITS ---
Author Organization [facility] Address [address] [place] [address] Care Team Providers Care Cotton Header Name Role Phone Jeffrey Terry MD Primary Care Provider Unava ilAlexa Cabrales Unavailable [phone] Horne Encounters Encounter Location Date Provider Diagnosis [address] [address] 07/07/2025 Alexa Amador Plan Of Treatment Next Appt Details Provider Name:Alexa hernández, 12/12/2025 01:00:00 PM, [address] [place] [address], [phone], Progress Notes * Lee Ann SCHULTZ EDOB:1965 (60 yo F)Acc No.[id number]:07/07/2025 Progress Note Patient: Chilo EVANSa Yoselin Provider: Cherelle Amador DPM :1965 A ge:60 Y S ex:Female Date:07/07/2025 Address:[address] [place] [address] Pcp:Jeffrey Teryr MD Subjective: * Chief Complaints: * [address] Horne. * Medical History: Objective: * Vitals: Assessment: Plan: * Treatment: * Images: * The named appointment provid er may or may not be the originator of this progress note, and it is not deemed complete until electronically signed by the appointment provider. Sign off status: Pending * Provider: Cherelle Amador, SARABJIT Date: 0 07/07/2025 Generated for Earlene victoria/Aneta/Tremayne on: 1 10/23/2024 04:53 PM EST
--- OUTSIDE RECORDS SUMMARY | 2025-08-16 09:00 | XMS_ITS ---
Author Organization [facility] Address [address] [place] [address] Care Team Providers Care Class A Regional Drivers Name Role Phone Hunter Terry MDneth Primary Care Provider Alexa Ace Unavailable [phone] Medications Medication SIG (Take, Route, Frequency, Duration) Notes Start Date End Date Status Aspirin 81 81 MG 1 tablet Orally Once a day; Duration: 30 day(s) Not-Rios ing Extra Depth Orthopedic Shoes (1 Pair) with Customized Heat Molded Multidensity Innersoles (3 Pair) as directed Dx: NIDDM/Polyneuropathy (E11.42), Hammertoe Foot Deformity (M20.41,M20.42), Preulcerative Skin Lesion(s) (L85.1 Active Acetaminophen-Codeine 300-60 MG 1 tablet as needed Orally every 6 hrs Not-Taking hydrOXYzine HCl Acti ve Semaglutide Active Montelukast Sodium 10 MG 1 tablet [...] A DAY 30 DAYS; Duration: 30 Active Propranolol HCl 60 MG 1 tablet Orally On ce a day; Duration: 30 day(s) Active Atorvastatin [...] Once a day; Duration: 30 day(s) Active traMADol HCl 50 MG 1 tablet as needed Orally Once a day Active tiZANidine HCl 4 MG 1 tablet as needed Orally Three times a day Active Insulin Degludec 100 UNIT/ML as directed Subcutaneous Act fidelina Losartan Potassium 50 MG 1 tablet Orally [...] nce a day; Duration: 30 day(s) Active Encounters Encounter Location Date Provider Diagnosis [facility] [address] [address] 08/16/2025 Alexa Amador Plan Of Treatment Next Appt Details Provider Name:Alexa hernández, 12/12/2025 01:00:00 PM, [address] [place] [address], [phone], Progress Notes * Lee Ann SCHULTZ EDOB:1965 (60 yo F)Acc No.[id number]:08/16/2025 Progress Note Patient: Lee Ann EVANS Provider: Cherelle Amador DPM :1965 A ge:60 Y S ex:Female Date:08/16/2025 Address:[address] [place] [address] Pcp:Jeffrey Terry MD Subjective: * Chief Complaints: * * HPI: A t Risk footcare: Pt States Last PCP Visit: Arvind ate 0 02/21/2025 * Medical History: * Medications: T aking Extra Depth Orthopedic Shoes (1 Pair) with Customized Heat Molded Multidensity Innersoles (3 Pair) as directed Dx: NIDDM/Polyneuropathy (E11.42), Hammertoe Foot Deformity (M20.41,M20.42), Preulcerative Skin Lesion(s) (L85.1 , Taking hydrOXYzine HCl , Taking Semaglutide , Taking [...] Pending * Provider: Cherelle Amador DPM Date: 10/16/2024 Generated for Earlene victoria/Aneta/[place] on: 10/23/2024 04:53 PM EST History and Physical Notes * HPI (History of Present Illness) Category Sub-Category Detail Notes Category Not es At Risk footcare Pt States Last PCP Visit: Date:
--- OUTSIDE RECORDS SUMMARY | 2025-08-22 06:30 | XMS_ITS ---
Author Organization [facility] Address [address] [place] [address] Care Team Providers Care Deputy General Counsel Name Role Phone Hunter Terry MDneth Primary Care Provider Alexa Ace Unavailable [phone] Allergies Allergen (clinical drug ingredient) Drug/Non Drug Allergy documented on EMR Reaction Allergy Type Onset Date Status Wheat Dextrin Unknown Drug Allergy Act fidelina [place] (Syrup) Unknown Drug Allergy Acti ve Cat dander Cat Dander Unknown Allergy Active Dog dander Dog Dander Unknown Allergy Active exenatide Exenatide Unknown Drug Allergy Active Lactose (Allergy) Unknown Allergy Ac tive Latex Latex Unknown Allergy Active linagliptin Linagliptin Unknown Drug Allergy Act fidelina Penicillin Unknown Drug Allergy Active Grass Pollen Standardized Ext Unknown Drug Allergy Active REASON FOR VISIT At Risk Footcare, ingrown nail Medications Medication SIG (Take, Route, Frequency, Duration) Notes Start Date End Date Status Aspirin 81 81 MG 1 tablet Orally Once a day; Duration: 30 day(s) Not-Rios ing Ciclopirox Olamine 0.77 % APPLY 1 APPLICATIONFUL TO AFFECTED AREA EXTERNALLY TO FEET TWICE A DAY 30 DAYS; Duration: 30 Active Acetaminophen-Codeine 300-60 MG 1 tablet as needed Orally every 6 hrs Not-Taking Montelukast Sodium 10 MG 1 tablet Orally Once a day; Duration: 30 day(s) Active Extra Depth Orthopedic Shoes (1 Pair) with Customized Heat Molded Multidensity Innersoles (3 Pair) as directed Dx: NIDDM/Polyneuropathy (E11.42), Hammertoe Foot Deformity (M20.41,M20.42), Preulcerative Skin Lesion(s) (L85.1 Active tiZANidine HCl 4 MG 1 tablet as needed Orally Three times a day Active Propranolol HCl 60 MG 1 tablet Orally On ce a day; Duration: 30 day(s) Active Omeprazole [...] Once a day; Duration: 30 day(s) Active Semaglutide Active Pioglitazone HCl 30 MG 1 tablet Orally O nce a day; Duration: 30 day(s) Active hydrOXYzine HCl Acti ve metFORMIN HCl 500 MG 1 tablet with a steve l Orally Once a day; Duration: 30 day(s) Active Insulin Degludec 100 UNIT/ML as directed Subcutaneous Act fidelina Extra Depth Orthopedic Shoes (1 Pair) with Customized Heat Molded Multidensity Innersoles (3 Pair) as directed Dx: NIDDM/Polyneuropathy (E11.42), Hammertoe Foot Deformity (M20.41,M20.42), Preulcerative Skin Lesion(s) (L85.1 Active Social History Tobacco Use: Social History Observation Description Date Details (start date - stop date) Never Smoker NA - NA Tobacco use other than smoking: Question Answer Notes Are you an other tobacco user? No Tobacco Control (Standard) Question Answer Notes Tobacco use: Nonsmoker Additional Findings: Tobacco non-user Current no nsmoker AUDIT-C (Standard) Question Answer Notes Did you have a drink containing alcohol in the p ast year? No Points 0 Interpretation Negative Vital Signs Height 5ft3in in 08/22/2025 Weight 220 lbs 08/22/2025 BMI 38.97 kg/m2 08/22/2025 Blood pressure systolic 128 mm Hg 08/22/20 25 Blood pressure diastolic 65 mm Hg 025 Encounters Encounter Location Date Provider Diagnosis [facility] [address] [place] [address] 08/22/2025 Alexa Amador Type 2 diabetes mellitus with polyneuropathy E11.42 and Ingrown nail L60.0 Assessments Encounter Date Diagnosis (ICD Code) Assessment Notes Treatment Notes Treatment Clinical Notes Section Notes 08/22/2025 Type 2 diabetes mellitus with polyneuropathy (ICD-10 - E11.42) 08/22/2025 Ingrown nail (ICD-10 - L60.0) 08/22/2025 Other Plan Of Treatment Next Appt Details Follow Up: 3 Months, Reason: Provider Name:Alexa hernández, 12/12/2025 01:00:00 PM, [address] [place] [address], [phone], Procedure Notes * Category Sub-Category Detail Notes [...] stated and described in the exam ( Plantar Heel(s), B/L ), were pared, and/or cut utilizing a sterile 15 blade, tissue nippers, and/or power dremel instrumentation by the physician of record - 70706 Nail Reduction Nail Reduction (-27) Trimming o [...] Lee Ann SCHULTZ EDOB:1965 (60 yo F)Acc No.[id number]:08/22/2025 Progress Note Patient: Lee Ann EVANS Provider: Cherelle Amador DPM :1965 A ge:60 Y S ex:Female Date:08/22/2025 Address:[address] [place] [address], [id number] Pcp:Jeffrey Terry MD Subjective: * Chief Complaints: * A t Risk FootcareIngrown nail * HPI: A t Risk footcare: Pt States Last PCP Visit: D ate 0 03/29/2025 T oe pain: Location: G reat toe, Right foot. Course: w trinh. * ROS: G eneral/Constitutional: Nausea d enies. V omiting d enies. H ciaran Thirst d enies. L oss appetite d enies. C hills d enies. F atigue d enies.?Fever d enies. N ight Sweats d enies. U nexplained weight loss d enies. U nexplained weight gain a dmits. H EENTM: Dentures d enies. D izziness d enies. G lasses/contacts a dmits. R etinopathy d enies. B lurred/double vision a dmits. T MJ?denies. D ischarge/drainage d enies. I mplants d enies. S ore throat d enies. D ental implants d enies. H anderson of hearing d enies. D ifficulty chewing/swallowing/speaking d enies. N ose bleeds d enies. S ore mouth d enies. ? R espiratory: On Oxygen d enies. P neumonia/pleurisy d enies.?Bronchitis d enies. E mphysema d enies. C oughing a dmits. C ough blood?denies. S hortness of breath d enies. W heezing a dmits. C ardiovascular: Pacemaker d enies. M INTER COM INSTALLER d enies. W PW d enies. C HF d enies. H eart attack d enies. S eptal defect d enies. R apid beat a dmits. C hest pain d enies. A trial Fib. d enies. M urmur/Palpitations a dmits. G astrointestinal: Hemorrhoids d enies. S tomach/Abdominal pain d enies. D ark blood stool d enies. I rritable bowel d enies. C onstipation d enies. D iarrhea d enies. H ematology: Swelling d enies. C lots d enies. V aricose Veins d enies. B ruising d enies. B leeding problem d enies. G enitourinary: Blood urine d enies. F requent/Painfu/urination/bladder control d enies. K idney stones d enies. I nfection (UTI) d enies. N ephropathy d enies. s ex trans dis (STD) d enies. P rostate d enies. M usculoskeletal: Hammertoes d enies. B unions d enies. B ack Pain d enies. M uscle Cramps/ Resting d enies. M uscle cramps / walking d enies.?Generalized aches and pains a dmits. W eakness d enies. I nteg.: Calles a dmits. S cars d enies. C orns/calluses?denies. I ngrown nails a dmits. P ainful nails a dmits. O pen Sores d enies. R ashes d enies. N eurologic: Difficulty sleeping a dmits. B rain disorder d enies. N umbness a dmits. B alance trouble d enies. C onfusion d enies. F ainting/blackouts d enies. T ingling a dmits. T remors d enies. * Medical History: * Surgical History: L aparoscopy cyst removal [place] [facility] [place] * Hospitalization/Major Diagno stic Procedure: [facility] - 10 days knee replacement surgery * Family History: M other: alive, poor circulation, diagnosed with Unspecified essential hypertension, Family history of arthritis. F ather: alive, foot problems, diagnosed with Diabetic - NIDDM. P aternal aunt: defects, diagnosed with Unspecified cerebral artery occlusion with cerebral infarction. P aternal Grand Father: diagnosed with Other malignant neoplasm of unspecified site. * Social History: T obacco Use: T obacco use other than smoking A re you an other tobacco user? N o Tobacco Control (Standard) T obacco use: N onsmoker A dditional Findings: Tobacco non-user C urrent nonsmoker D rugs/Alcohol: D rugs H ave you used drugs other than those for medical reasons in the past 12 months? N o M iscellaneous: C affeine: yes, 2 cups per day. Children: yes, 2. Exercise: no. Marital status: single. 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 D rug/Alcohol: A MANUEL-C (Standard) D id you have a drink containing alcohol in the past year? N o P oints 0 I nterpretation N egative * Medications: T akingExtra Depth Orthopedic Shoes (1 Pair) with Customized Heat Molded Multidensity Innersoles (3 Pair) as directed Dx: NIDDM/Polyneuropathy (E11.42), Hammertoe Foot Deformity (M20.41,M20.42), Preulcerative Skin Lesion(s) (L85.1 hydrOXYzine HCl Semaglutide Pioglitazone HCl 30 MG Tablet [...] FEET TWICE A DAY 30 DAYS Taking Extra Depth Orthopedic Shoes (1 Pair) with Customized Heat Molded Multidensity Innersoles (3 Pair) as directed Dx: NIDDM/Polyneuropathy (E11.42), Hammertoe Foot Deformity (M20.41,M20.42), Preulcerative Skin Lesion(s) (L85.1 Taking hydrOXYzine HCl Taking Semaglutide Taking Pioglitazone [...] reviewed and reconciled with the patient * Allergies: L inagliptinPenicillinExenatideLactose (Allergy)Wheat DextrinLatexCorn (Syrup)Grass Pollen Standardized ExtDog DanderCat Danderyes[Allergies Verified] Objective: * Vitals: H t:5ft3in, Wt:220, BMI:38.97, Shoe size:8.5, BP:128/65mm Hg, BS:116, Ht-cm: 160.02 cm, Wt-k.79 kg. * P ast Orders: L ab:HEMOGLOBIN A1C (GLYCOHEMOGLOBIN) (Order Date - 02/21/2025) (Collection Date & Time - 08/22/2025 11:41 AM) Value Reference Range HEMOGLOBIN A1C % (HH) 7.1 * Examination: O phthalmology Referral: DIABETES EYE EXAM P rocedure Performed: Elías Samuels ate of Exam Performed 0 04/11/2024 D iabetic Retinopathy Screening: Y es R etinal Screening Performed: Y rajat F indings of Diabetic Eye Exam: n o retinopathy N eurological: SENSORY: N eurological exam demonstrates, reduced light touch sensation, reduced sharp/dull discrimination , reduced vibration sensation, in a stocking fashion, B/L, 5.07 monofilament test performed at plantar aspects of 5 varied sites per foot shows sensation, reduced, B/L. N ails: NAILS are: Elongated, overgrown, dystrophic, TA, T1, T2, T3, T4, T5, T6, T7, T8, T9. D ermatologic: SKIN FINDINGS: S kin exam reveals Keratotic lesion(s) located at , P lantar Heel(s), B/L. G eneral Examination: GENERAL APPEARANCE: R neftalieals a pleasant, alert, well nourished, well developed, well hydrated individual, who demonstrates proper attention to hygene/body habitus, and is in no acute distress. ORIENTED: p erson, place, and time. FOOT EXAM: L ower Extremity Neurological Exam performed:?Yes V isual exam of foot performed: Y es D ate 1 10/22/2024 S ensory testing performed: s ensations diminished Footwear Evaluation F ootwear Evaluation performed: Y es O rthopedic: MUSCLE STRENGTH: 5 /5 all groups in a symmetrical fashion, B/L. I ngrown Nail: INSPECTION: R eveals nail incurvation, pain on palpation, groove hypertrophy, Lateral nail border, T5. Assessment: * Assessment: 1. I ngrown nail - L60.0 (Primary) S pecify :Acute Problem, Uncomplicated (3) 2 . T ype 2 diabetes mellitus with polyneuropathy - E11.42 Plan: * Treatment: * Procedures: K eratoma Treatment: Parring or Cutting of Benign Hyperkeratotic Lesion(s) ( -56) 2-4 Lesions - Due to the at [...] stated and described in the exam ( P lantar Heel(s), B /L ) , were pared, and/or cut utilizing a sterile 15 blade, tissue nippers, and/or power dremel instrumentation by the physician of record - [id number]. N ail Reduction: Nail Reduction ( -27) Trimming of all dystrophic nails - Due [...] healthy nail plate or bed tissue - G0127. * Procedure Codes: G 0127 TRIMMING DYSTROPHIC NAILS ANY #, Modifiers: XS 27469 TRIM SKIN LESIONS, 2 TO 4, Modifiers: XS * Preventive Medicine: Counseling: D iscussion: - 13: Office or other outpatient visit for the evaluation and management of an established patient, which required a medically appropriate history and/or examination and LOW level of DECISION MAKING for: 1 STABLE ACUTE UNCOMPLICATED PROBLEM, 2 OR MORE MINOR PROBLEMS, OR 1 STABLE CHRONIC PROBLEM, THAT POSE(S) A LOW RISK FOR MORBIDITY/MORTALITY. The visit on the day of the [...] have encouraged the patient to call the office. A bscess/Paraonychia/Ingrown Nails: W e discussed the possible etiologies (genetic, improper nail care, shoe gear, nail trauma) which may lead to ingrown nails and/or paronychial infections. We discussed and reviewed palliative/nonsurgical/deferring definitive treatment (vs) undergoing the treatment procedures of nail avulsion(s) or PNA, which may prevent recurrence and give more lasting results. The possible risks/complications such as worsened condition/delayed healing/nonhealing/failure/recurrence/infection, the potential benefits/advantages of decreased pain/deformity, as well as alterative treatment options including applying nail softening agents/nail groove packing were discussed. No guarantees were given regarding any outcome for any procedure. The patient was educated in the length of time for the affected nail to regrow once completely healed from a nail avulsion procedure. Once the condition has completely healed, the patient was consulted on proper nail care. Patient questions such as details of each procedure, varying time to heal, activity post procedure, and shoe gear were discussed and the answers were verbally confirmed fully understood, slant back performed with good relief of pain, pt to monitor for any signs of infection, pt should soak in warm water and epsom salts and apply antibotic ointment, call with any issues. Screening/Special Tests: F all Risk Assessment: P erformed Screening: N o falls in the past year F ALLS: Screening for Future Fall Risk Have you had two or more falls in the past year? N o Have you had any falls with injury in the past year? N o * Follow Up: 3 Months * Images: * Sign off status: Completed true * Provider: Cherelle Amador, DPOtf Date: 10/22/2024 Generated for Earlene victoria/Aneta/Tremayne on: 10/23/2024 04:53 PM EST History and Physical Notes * HPI (History of Present Illness) Category Sub-Category Detail Notes Category Not es Toe pain Location: Great toe, Right foot Course: worse At Risk footcare Pt States Last PCP Visit: Date: Examination Category Sub-Category Detail Notes Category Not es Ingrown Nail INSPECTION: Reveals nail inc urvation, pain on palpation, groove hypertrophy, Lateral nail border, T5 Neurological SENSORY: Neurological exa m demonstrates, reduced light touch sensation, reduced sharp/dull discrimination , reduced vibration sensation, in a stocking fashion, B/L, 5.07 monofilament test performed at plantar aspects of 5 varied sites per foot shows sensation, reduced, B/L Dermatologic SKIN FINDINGS: Skin exam reveal s Keratotic lesion(s) located at , Plantar Heel(s), B/L Orthopedic MUSCLE STRENGTH: 5/5 all groups in a symmetrical fashion, B/L General Examination GENERAL APPEARANCE: Reveals a pleasant, alert, well nourished, well developed, well hydrated individual, who demonstrates proper attention to hygene/body habitus, and is in no acute distress FOOT EXAM: Lower Extremity Neurological Exa m performed:: Yes Visual exam of foot performed:: Yes Date: 08/22/2025 Sensory testing performed:: sensations d iminished ORIENTED: person, place, and t shannen Footwear Evaluation Footwear Evaluation performe d:: Yes Ophthalmology Referral DIABETES EYE EXAM Procedure Perform ed:: Yes Date of Exam Performed: 04/11/2024 Diabetic Retinopathy Screening:: Yes Retinal Screening Performed:: Yes Findings of Diabetic Eye Exam:: no retin opathy Nails NAILS are: Elongated, overg rown, dystrophic, TA, T1, T2, T3, T4, T5, T6, T7, T8, T9
[2025-08-23 13:53] VITALS: BP 140/68; PULSE 58; RESP 18; O2SAT 94; BMI 39.7
--- NOTE | 2025-08-23 13:53 | MHC.PC.OV ---
Vital Signs 08/23/25 13:53 Height 5 ft 3 in Weight 224 lb 4 oz BMI 39.7 BP 140/68 H Blood Pressure Location Lt brachial Position Sitting Respiration 18 Pulse 58 Pulse Source Pulse Oximeter Temp Source Temporal Artery Scan Pulse Oximetry (%) 94 Oxygen Delivery Method Room Air Intake Visit Reasons: DM/HTN/GERD Delivery Clerk Required: No Accompanied by: Self / Same As Patient Allergies linagliptin (From TRADJENTA) Allergy (Severe, Verified 08/23/25 21:43) THROAT ITCHING/COUGH Penicillins (PENICILLINS) Allergy (Severe, Verified 08/23/25 21:43) SWELLING/HIVES exenatide (From BYDUREON) Allergy (Intermediate, Verified 08/23/25 21:43) RASH wheat (WHEAT) Allergy (Intermediate, Verified 08/23/25 21:43) RASH latex (Latex) Allergy (Mild, Verified 08/23/25 21:43) SWELLING/ITCH grass, dogs, cats Allergy (Intermediate, Uncoded 08/23/25 21:43) Cough, sneezing lactose, wheat, corn syrup Allergy (Mild, Uncoded 08/23/25 21:43) rash Medication List - Last Reconciled 08/23/25 by BESSY Ruff albuterol sulfate 2.5 mg (3 mL) inhalation QID PRN 30 days albuterol sulfate 90 mcg/actuation 1 puff inhalation QID PRN amitriptyline 50 mg PO BEDTIME atorvastatin 40 mg PO DAILY 90 days Basaglar KwikPen U-100 Insulin (insulin glargine) 10 units (0.1 mL) subcut QPM 90 days NS benzonatate 100 mg PO BID blood pressure monitor As directed blood sugar diagnostic (OneTouch Ultra Test strips) As directed 2 times daily blood sugar diagnostic (FreeStyle Precision Bob Strips) As directed once a day celecoxib 200 mg PO BID cetirizine 10 mg PO DAILY PRN cholecalciferol (vitamin D3) 25 mcg PO DAILY citalopram 40 mg PO DAILY codeine-guaifenesin 10-100 mg/5 mL 5 mL PO Q6H PRN fluticasone furoate-vilanterol 100-25 mcg/dose (Breo Ellipta) 1 inh inhalation DAILY fluticasone furoate-vilanterol 200-25 mcg/dose (Breo Ellipta) 1 inh inhalation DAILY fluticasone propionate 50 mcg/actuation 1 spray intranasal BID [Folding Front Wheeled walker Duration: 99 days] gabapentin 800 mg PO QID hydroxyzine HCl 1 tablet 3 times a day and 2 tablets at bedtime PO; 90 days ibuprofen 600 mg PO Q8H PRN 30 days lancets (OneTouch Delica Lancets) 3 times a day losartan 50 mg PO DAILY magnesium oxide 400 mg PO BID metformin ER 1,000 mg (2 x 500 mg) PO BID montelukast 10 mg PO BEDTIME dkdikddw-pot-dzap-FA-vit K-lut 8 mg iron-400 mcg-50 mcg (Centrum Silver Women) 1 tab PO DAILY 90 days nebulizers As directed omega-3 fatty acids 1,000 mg PO DAILY 90 days omeprazole 20 mg PO BID pen needle, diabetic Twice a day pen needle, diabetic As directed once a day pioglitazone 30 mg PO DAILY propranolol ER 60 mg PO DAILY 30 days semaglutide (Ozempic) 0.5 mg; temazepam 30 mg PO BEDTIME PRN 30 days tizanidine 4 mg PO TID PRN 90 days tramadol 50 mg PO TID PRN 30 days walker Folding Front wheeled walker Tobacco use date assessed: 08/23/25 Dental Screening Dental Screen Date: 08/23/25 Did you have a dental visit in the last 12 months?: Yes Did you have a dental problem in the last 6 months where you did not have access to dental care?: No Was dental information given to patient?: Patient has dentist HPI DM/HTN/GERD HPI Details The patient is a 60-year-old female presenting for DM, HTN, GERD, asthma follow up Patient also wanted preoperative evaluation for an upcoming left knee surgery and management of new-onset right hip pain. She has a left knee surgery scheduled for October 17. Discussed with the patient that is too early to clear her for surgery in October and that the clearance has to be within 30 days. The patient was given an appointment in September. The patient reports new-onset right hip pain which started last week as a light pain and has progressed to a very strong pain this week. The pain is getting progressively worse, is exacerbated by walking, and is now strong enough that she cannot sleep on her right side. She has been taking Tramadol, which is not providing sufficient relief, and Motrin. She denies any imaging of the hip and denies any associated vomiting. The patient has a history of right knee surgery performed this year by Dr. Bill, who will also perform the upcoming left knee surgery. She also has a history of stomach problems and confirms a history of stomach ulcers, per patient. She reports being anemic. For her diabetes, the patient takes insulin every night and Ozempic 0.25 mg once a week. Her HbA1c has improved from 7.0 to 6.7. but has not lost any weight in fact she has gain more. She has remained on the 0.25 mg dose of Ozempic for over one year now per patient. The patient lives alone and must climb 13 steps to her room, which causes shortness of breath. She retired 6 years ago and was very active but has gained weight since. Intermittent heartburn depending on what she eats. Denies constipation reports that if she does not have a bowel movement she eats yogurt and that helps. [facility] Medical History Depression Pure hypercholesterolemia Asthma with acute exacerbation Acute respiratory disease Vasovagal syncopes Allergic rhinitis Osteoarthritis of right knee Hx of flexible sigmoidoscopy (~2000) Cyst of right knee joint Injury of toenail GERD without esophagitis Obesity (BMI 30-39.9) Insomnia Osteoarthritis of knees, bilateral Migraine Midline low back pain without sciatica Premature ventricular contractions (PVCs) (VPCs) Benign essential hypertension Asthma Diabetes mellitus Vitamin D deficiency Anxiety GERD (gastroesophageal reflux disease) Obesity Diabetic neuropathy associated with type 2 diabetes mellitus Diabetes type 2, uncontrolled Neuropathy Surgical History History of surgical removal of ganglion cyst Hx of colonoscopy History of esophagogastroduodenoscopy (EGD) History of laparoscopy Hx of tonsillectomy Hx of tubal ligation Family History Father Bladder cancer Skin cancer Diabetes Hypertension Hyperlipidemia Mother Diabetes CVD (cardiovascular disease) CVA (cerebral vascular accident) Hypertension Social History Household Members: Family Household Members Other:: daughter Housing: House Are you a primary weekend caregiver to a significant other at home: No Do you presently have visiting nurse or other home services: No Alcohol intake: never Comment: aware of trip hazard Patient Tobacco Use Status: Never used Tobacco Tobacco use type: Cigarette e-Cigarette/Vaping Use: Never Used Second Hand Smoke Exposure: Yes service: No Current occupational status: retired Current occupational exposures/hazards: No Sexual orientation: Straight/Heterosexual Gender identity: Female Cognitive needs: No Hearing needs: No Vision needs: Yes (glasses) Questionnaire PHQ-9 Over the last 2 weeks, how often have you been bothered by any of the following problems? Depression Screening Interpretation: Positive Depression Screening Follow-up: Existing condition and In treatment Depression Screening Done: Yes Source: Developed by Drs. Abdirizak Mai, Dione Mclaughlin, Juan Norwood and colleagues, with an educational palma from [employer]. Thrive Questionnaire Date Thrive assessed: 03/01/25 I am a: Patient What is your living situation today?: I have a steady place to live Within the past 12 months, did the food you bought not last and you didn't have the money to get more?: I choose not to answer this question Within the past 12 months, did you worry whether your food would run out before you got money to buy more?: Sometimes True Do you have trouble paying for medicines?: No Do you have trouble getting transportation to medical appointments?: No Do you have trouble paying your heating and electricity bill?: No Do you have trouble taking care of your child, family member or friend?: No Do you have trouble with day-to-day activities such as bathing, preparing meals, shopping, managing finances, etc.?: No Are you currently unemployed and looking for a job?: I choose not to answer this question Are you interested in more education?: No Currently or been in a relationship where the following occur: I choose not to answer THRIVE Score: 1 DYANA-7 AMB Questionnaire DYANA-7 Date DYANA - 7 assessed: 04/12/25 Source: Developed by Drs. Abdirizak Mai, Dione Mclaughlin, Juan Norwood and colleagues, with an educational palma from [employer]. Review of Systems Const Denies chills, Denies fatigue, Denies fever(s) and Denies headache(s) ENT Denies dysphagia, Denies dizziness, Denies otalgia, Denies headache(s), Denies neck pain, Denies odynophagia and Denies sore throat Card Denies chest pain, Denies irregular heart rhythm, Denies palpitations and Reports dyspnea on exertion (mild) Resp Denies chest congestion, Denies cough and Reports dyspnea on exertion (mild) GI Reports abdominal pain (on and off over the epigastric area), Denies constipation, Denies dysphagia, Reports heartburn (Depending on what she eats), Denies diarrhea, Denies nausea, Denies odynophagia and Denies vomiting Denies difficulty voiding, Denies nocturia, Denies dysuria, Denies urinary incontinence and Denies urinary urgency Musc Reports back pain, Reports arthralgias (Left knee and right hip) and Denies neck pain Skin/Breast Denies rash Neuro Denies dizziness and Denies headache(s) Psych Denies anxiety and Reports depression (increasing lately) Endo Denies fatigue and Denies palpitations Physical exam (Primary Care) Vital Signs: Last Vital Signs Pulse 58 08/23/25 13:53 Resp 18 08/23/25 13:53 BP 140/68 H 08/23/25 13:53 Pulse Ox 94 08/23/25 13:53 Oxygen Delivery Method Room Air 08/23/25 13:53 BMI result Body Mass Index 39.7 Tobacco/Smoking Status: Tobacco use Status Tobacco use date assessed 08/23/25 08/23/25 13:58 Patient Tobacco Use Status Never used Tobacco 08/23/25 13:58 Tobacco use type Cigarette 08/23/25 13:58 e-Cigarette/Vaping Use Never Used 08/23/25 13:58 Depression Screening Interpretation: Positive Depression Screening Follow-up: Existing condition and In treatment Thrive Assessment: Date of Thrive Assessment Date Thrive assessed 03/01/25 08/23/25 13:58 Currently or been in a relationship where the following occur: I choose not to answer Const General: no acute distress and alert HENMT Ears: TM's normal bilaterally and EAC's normal Throat: Yes posterior oropharynx normal and Yes tonsils normal (no TP congestion) Neck Neck: Yes supple and No lymphadenopathy Thyroid: Thyroid normal Resp Auscultation: clear to auscultation bilaterally, no rales and no wheezes Cardio Rate: regular rate Rhythm: regular rhythm Heart sounds: S1 normal heart sound present, S2 normal heart sound present and no murmurs GI Palpation (GI): Soft to palpation, nontender, no guarding, not rigid and No Rebound tenderness present Auscultation: normal bowel sounds General: Yes no CVA tenderness Back/Spine/Pelvis Back: no CVA tenderness Thoracic/Lumbar Spine: lumbar spinal tenderness Skin Rashes: no rashes Extrem General: Yes no clubbing, cyanosis or edema Right lower extremity: hip/thigh Details: no tenderness and no swelling and knee Details: no tenderness and no swelling Left lower extremity: knee Details: tenderness; no swelling Results Reviewed Results Reviewed: Laboratory Tests 08/22/25 08/22/25 12:23 12:29 WBC 9.2 RBC 4.58 Hgb 10.9 L Hct 34.4 L MCV 75.1 L MCH 23.8 L MCHC 31.7 RDW 17.7 H Plt Count 501 H Sodium 132 L Potassium 4.9 Chloride 97 Carbon Dioxide 29 Anion Gap 11 L BUN 7 L Creatinine 0.63 Estimated GFR > 60 Fasting Glucose 105 H Estimat Average Glucose 146 Hemoglobin A1c % 6.7 H Calcium 9.9 D Total Bilirubin 0.3 AST 22 ALT 14 Alkaline Phosphatase 82 Total Protein 7.7 Albumin 4.6 Triglycerides 89 Cholesterol 157 LDL Cholesterol, Calc 81 HDL Cholesterol 59 Urine Color Yellow Urine Appearance Clear Urine pH 7.0 Ur Specific West <= 1.005 Urine Protein Negative Urine Glucose (UA) Negative Urine Ketones Negative Urine Blood Negative Urine Nitrite Negative Ur Leukocyte Esterase Negative Urine Creatinine 28.73 Urine Microalbumin < 5.0 Microalb/Creat Ratio TNP Coding Level of Care Code Est Pt Level 4 (26207) Diagnoses Preoperative clearance Z01.818 Pure hypercholesterolemia E78.00 Type 2 diabetes mellitus with diabetic polyneuropathy, without long-term current use of insulin E11.42 Diabetes mellitus complication detail: with polyneuropathy Diabetes mellitus complication status: with neurologic complications Diabetes mellitus sterile products processor insulin use: without halfway use Diabetes mellitus type: type 2 Benign essential hypertension I10 Diabetic polyneuropathy associated with type 2 diabetes mellitus E11.42 Diabetes mellitus complication detail: diabetic polyneuropathy Premature ventricular contractions (PVCs) (VPCs) I49.3 Moderate persistent asthma without complication J45.40 Asthma complication type: uncomplicated Asthma persistence: persistent Asthma severity: moderate Seasonal allergic rhinitis, unspecified trigger J30.2 Allergic rhinitis seasonality: seasonal Allergic rhinitis trigger: unspecified Migraine without status migrainosus, not intractable, unspecified migraine type G43.909 Intractability: not intractable Migraine type: unspecified Status migrainosus presence: without status migrainosus GERD without esophagitis K21.9 Interstitial lung disease J84.9 Primary osteoarthritis of both knees M17.0 Osteoarthritis type: primary Epigastric pain R10.13 Midline low back pain without sciatica, unspecified chronicity M54.5 Chronicity: unspecified Vitamin D deficiency E55.9 Insomnia, unspecified type G47.00 Insomnia type: unspecified Anxiety F41.9 Depression, unspecified depression type F32.A Depression Type: unspecified Obesity (BMI 30-39.9) E66.9 Right hip pain M25.551 Time Spent (min) 43 Assessment & Plan Assessment & Plan (1) Preoperative clearance: Code(s): Z01.818 - Encounter for other preprocedural examination Category: Medical Plan: Discussed with the patient that she needs to be cleared within 30 days of the procedure. She was given a new appointment in September for preoperative clearance. (2) Pure hypercholesterolemia: Code(s): E78.00 - Pure hypercholesterolemia, unspecified Category: Medical Plan: Triglycerides 89, total cholesterol 157, LDL 81, HDL 59 The patient LDL has increased from 77-stress dietary modifications, reinforced low-cholesterol diet Continue Atorvastatin 40 mg QD, Ozempic increased to 0.5mg q weekly. Will recheck her labs and fasting lipids in 4 months for follow up (3) Diabetes mellitus: Code(s): E11.9 - Type 2 diabetes mellitus without complications Category: Medical Qualifiers: Diabetes mellitus complication detail: with polyneuropathy Diabetes mellitus complication status: with neurologic complications Diabetes mellitus sterile products processor insulin use: without sterile products processor use Diabetes mellitus type: type 2 Qualified Code(s): E11.42 - Type 2 diabetes mellitus with diabetic polyneuropathy Plan: A1c 6.7% decrease some 7%, goal less than 7% Reinforced low sugar/carbohydrate diet Continue Pioglitazone 30 gm QD, metformin 1000 mg b.i.d., Ozempic increased from 0.25 to 0.5 mg q.week, Basaglar KwikPen 10 units q.h.s. We will recheck fasting glucose and A1c in 4 months (4) Benign essential hypertension: Code(s): I10 - Essential (primary) hypertension Category: Medical Plan: 140/68 mm Hg, c/o new right hip pain Reinforced low sodium diet - goal is systolic BP of 130 mm or less Continue Losartan 50 mg QD (5) Diabetic neuropathy associated with type 2 diabetes mellitus: Code(s): E11.40 - Type 2 diabetes mellitus with diabetic neuropathy, unspecified Category: Medical Qualifiers: Diabetes mellitus complication detail: diabetic polyneuropathy Qualified Code(s): E11.42 - Type 2 diabetes mellitus with diabetic polyneuropathy Plan: Continue Gabapentin 800 mg QID, Tramadol 50 mg TID PRN, RX refilled. (6) Premature ventricular contractions (PVCs) (VPCs): Code(s): I49.3 - Ventricular premature depolarization Category: Medical Plan: Stable; states that she's had no recurrence of her symptoms for the past few months Continue Propranolol ER 60 mg QD Continues to have recurrent chest pains with normal findings, normal nuclear stress test on 08/24/2023. Recent EKG showed no ischemic event. She was cleared by Cardiology for upcoming left knee surgery. (7) Asthma: Code(s): J45.909 - Unspecified asthma, uncomplicated Category: Medical Qualifiers: Asthma complication type: uncomplicated Asthma persistence: persistent Asthma severity: moderate Qualified Code(s): J45.40 - Moderate persistent asthma, uncomplicated Plan: Continues to have intermittent dyspnea with exertion. Recently the patient rare was increased by pulmonology. She reports better controlled. Continue albuterol sulfate 2.5 mg q.i.d. via neb Tx p.r.n., albuterol sulfate 90 mcg/actuation 1 puff inhalation q.i.d. p.r.n., fluticasone furoate-vilanterol 200-25 mgc/dose 1 inh daily, montelukast 10 mg at bedtime. (8) Allergic rhinitis: Code(s): J30.9 - Allergic rhinitis, unspecified Category: Medical Qualifiers: Allergic rhinitis seasonality: seasonal Allergic rhinitis trigger: unspecified Qualified Code(s): J30.2 - Other seasonal allergic rhinitis Plan: Continue Montelukast 10 mg QD, fluticasone propionate 50 mcg/actuation 1 spray inhalation b.i.d., and Cetirizine 10 mg QD PRN (9) Migraine: Code(s): G43.909 - Migraine, unspecified, not intractable, without status migrainosus Category: Medical Qualifiers: Intractability: not intractable Migraine type: unspecified Status migrainosus presence: without status migrainosus Qualified Code(s): G43.909 - Migraine, unspecified, not intractable, without status migrainosus Plan: Controlled - she is on Amitriptyline 50 mg Q HS for headache prophylaxis Reinforced avoidance of migraine triggers Follow up with neurology as scheduled (10) GERD without esophagitis: Code(s): K21.9 - Gastro-esophageal reflux disease without esophagitis Category: Medical Plan: Dietary restrictions reinforced Continue Omeprazole 20 mg QD (11) Interstitial lung disease: Code(s): J84.9 - Interstitial pulmonary disease, unspecified Category: Medical Plan: Recent chest x-rays done in February 2025 revealed findings suggestive of ILD. The patient was seen by pulmonology and was started on Breo, which was recently increased with better controlled. She was also ordered pulmonary function test, CT of the chest, and a home sleep study and is currently waiting for these tests to get done. Her respiratory status is stable at this point. (12) Osteoarthritis of knees, bilateral: Code(s): M17.0 - Bilateral primary osteoarthritis of knee Category: Medical Qualifiers: Osteoarthritis type: primary Qualified Code(s): M17.0 - Bilateral primary osteoarthritis of knee Plan: X-rays of both knees last done in November 2019 showed (+) mild OA changes in the right knee and moderate OA changes in the left knee She was seeing orthopedics for her knee issues and was getting cortisone injections in her knees a couple of years ago, with some relief of her symptoms She underwent right knee TKA back on 08/09/[address] Bill - states that her surgery went well and she has experienced a significant improvement in her knee symptoms following her surgery. The patient left knee pain has increased and she is currently scheduled on October 17 to have right knee TKA. She is reporting increased pain in office, she is out of tramadol Rx refilled (13) Epigastric pain: Code(s): R10.13 - Epigastric pain Category: Medical Plan: On and off-seems to be depending on what the patient eats. Abdominal ultrasound on 05/30/2025 showed fatty liver otherwise unremarkable imaging Diet restriction discussed, suspects heartburn related (14) Midline low back pain without sciatica: Code(s): M54.5 - Low back pain Category: Medical Qualifiers: Chronicity: unspecified Qualified Code(s): M54.5 - Low back pain Plan: Reinforced activity and weight-lifting restrictions to avoid aggravating her lower back symptoms Continue Tizanidine 4 mg 1 to 2 tablets TID PRN (15) Vitamin D deficiency: Code(s): E55.9 - Vitamin D deficiency, unspecified Category: Medical Plan: Continue Vitamin D3 1000 units QD (16) Insomnia: Code(s): G47.00 - Insomnia, unspecified Category: Medical Qualifiers: Insomnia type: unspecified Qualified Code(s): G47.00 - Insomnia, unspecified Plan: Sleep hygiene reinforced Continue Temazepam 30 mg QHS PRN and Amitriptyline 50 mg Q HS (17) Anxiety: Code(s): F41.9 - Anxiety disorder, unspecified Category: Medical Plan: Continue Hydroxyzine 25 mg TID PRN and 50 mg Q HS as well as Citalopram 40 mg QD (18) Depression: Code(s): F32.A - Depression, unspecified Category: Medical Qualifiers: Depression Type: unspecified Qualified Code(s): F32.A - Depression, unspecified Plan: Encouraged CBT Continue citalopram 40 mg daily She was referred to Psychiatry prior by Dr. Terry, unclear if she was seen (19) Obesity (BMI 30-39.9): Code(s): E66.9 - Obesity, unspecified Category: Medical Plan: Reinforced diet; weight loss and exercise are unrealistic due to patient's physical issues. Ozempic increased from 0 0.25-0.5 mg Q weekly (20) Right hip pain: Code(s): M25.551 - Pain in right hip Category: Medical Plan: Patient complain of new onset of right hip pain. Right upper x-ray ordered to further evaluate. The patient is requesting medication stronger than her tramadol. Discussed with the patient that this will be deferred to her PCP. Plan We will have the patient return in September for preop clearance. Few repeat labs ordered. Orders: Orders Hemoglobin A1c 4 Months E11.42 - Type 2 diabetes mellitus with diabetic polyneuropathy, E55.9 - Vitamin D deficiency, unspecified, E66.01 - Morbid (severe) obesity due to excess calories, E66.9 - Obesity, unspecified, E78.5 - Hyperlipidemia, unspecified, F32.A - Depression, unspecified, F41.9 - Anxiety disorder, unspecified, I10 - Essential (primary) hypertension, I49.3 - Ventricular premature depolarization, K21.9 - Gastro-esophageal reflux disease without esophagitis, Z68.39 - Body mass index [BMI] 39.0-39.9, adult Complete Blood Count Auto Diff 4 Months E11.42 - Type 2 diabetes mellitus with diabetic polyneuropathy, E55.9 - Vitamin D deficiency, unspecified, E66.01 - Morbid (severe) obesity due to excess calories, E66.9 - Obesity, unspecified, E78.5 - Hyperlipidemia, unspecified, F32.A - Depression, unspecified, F41.9 - Anxiety disorder, unspecified, I10 - Essential (primary) hypertension, I49.3 - Ventricular premature depolarization, K21.9 - Gastro-esophageal reflux disease without esophagitis, Z68.39 - Body mass index [BMI] 39.0-39.9, adult XR hip RT min 2V 08/23/25 M25.551 - Pain in right hip Hemoglobin A1c 08/23/25 Z01.818 - Encounter for other preprocedural examination Comprehensive Met. Panel 08/23/25 Z01.818 - Encounter for other preprocedural examination TSH reflex Free T4 08/23/25 Z01.818 - Encounter for other preprocedural examination UA CC w/rflx Micro + Cult 08/23/25 Z01.818 - Encounter for other preprocedural examination Prothrombin Time INR 08/23/25 Z01.818 - Encounter for other preprocedural examination Comprehensive [place]. Panel Fast 4 Months E11.42 - Type 2 diabetes mellitus with diabetic polyneuropathy, E55.9 - Vitamin D deficiency, unspecified, E66.01 - Morbid (severe) obesity due to excess calories, E66.9 - Obesity, unspecified, E78.5 - Hyperlipidemia, unspecified, F32.A - Depression, unspecified, F41.9 - Anxiety disorder, unspecified, I10 - Essential (primary) hypertension, I49.3 - Ventricular premature depolarization, K21.9 - Gastro-esophageal reflux disease without esophagitis, Z68.39 - Body mass index [BMI] 39.0-39.9, adult Lipid Panel 4 Months E11.42 - Type 2 diabetes mellitus with diabetic polyneuropathy, E55.9 - Vitamin D deficiency, unspecified, E66.01 - Morbid (severe) obesity due to excess calories, E66.9 - Obesity, unspecified, E78.5 - Hyperlipidemia, unspecified, F32.A - Depression, unspecified, F41.9 - Anxiety disorder, unspecified, I10 - Essential (primary) hypertension, I49.3 - Ventricular premature depolarization, K21.9 - Gastro-esophageal reflux disease without esophagitis, Z68.39 - Body mass index [BMI] 39.0-39.9, adult UA CC w/rflx Micro + Cult 4 Months E11.42 - Type 2 diabetes mellitus with diabetic polyneuropathy, E55.9 - Vitamin D deficiency, unspecified, E66.01 - Morbid (severe) obesity due to excess calories, E66.9 - Obesity, unspecified, E78.5 - Hyperlipidemia, unspecified, F32.A - Depression, unspecified, F41.9 - Anxiety disorder, unspecified, I10 - Essential (primary) hypertension, I49.3 - Ventricular premature depolarization, K21.9 - Gastro-esophageal reflux disease without esophagitis, Z68.39 - Body mass index [BMI] 39.0-39.9, adult TSH reflex Free T4 4 Months E11.42 - Type 2 diabetes mellitus with diabetic polyneuropathy, E55.9 - Vitamin D deficiency, unspecified, E66.01 - Morbid (severe) obesity due to excess calories, E66.9 - Obesity, unspecified, E78.5 - Hyperlipidemia, unspecified, F32.A - Depression, unspecified, F41.9 - Anxiety disorder, unspecified, I10 - Essential (primary) hypertension, I49.3 - Ventricular premature depolarization, K21.9 - Gastro-esophageal reflux disease without esophagitis, Z68.39 - Body mass index [BMI] 39.0-39.9, adult Vitamin D 25-OH Total 4 Months E11.42 - Type 2 diabetes mellitus with diabetic polyneuropathy, E55.9 - Vitamin D deficiency, unspecified, E66.01 - Morbid (severe) obesity due to excess calories, E66.9 - Obesity, unspecified, E78.5 - Hyperlipidemia, unspecified, F32.A - Depression, unspecified, F41.9 - Anxiety disorder, unspecified, I10 - Essential (primary) hypertension, I49.3 - Ventricular premature depolarization, K21.9 - Gastro-esophageal reflux disease without esophagitis, Z68.39 - Body mass index [BMI] 39.0-39.9, adult Medications: Changed From semaglutide (Ozempic) INJECT 0.5 MG (0.4 ML) SUBCUTANEOUSLY EVERY WEEK FOR THE FIRST 4 DOSES USE 0.25MG/WEEK AND THEN PROCEED WITH 0.5MG/WEEK 3 mL 7RF To semaglutide (Ozempic) 0.5 mg; 3 mL 7RF Refilled tramadol 50 mg PO TID PRN 90 tabs 0RF pain 30 days M17.0 - Bilateral primary osteoarthritis of knee, M25.561 - Pain in right knee, M54.5 - Low back pain
--- OUTSIDE RECORDS SUMMARY | 2025-08-23 16:53 | XMS_ITS | Patient Health Record ---
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 Name Role Phone [facility], [place] Primary Care Provider Alexa Ace Unavailable [phone] Allergies Allergen (clinical drug ingredient) Drug/Non Drug Allergy documented on EMR Reaction Allergy Type Onset Date Status Wheat Dextrin Unknown Drug Allergy Act fidelina [place] ([place]) Unknown Drug Allergy Acti ve Cat [...] Range Notes HEMOGLOBIN A1C (GLYCOHEMOGLO BIN) Reviewed date:08/22/2025 11:42:13 AM Interpretation: Performing Lab: Notes/Report: HEMOGLOBIN A1C % (HH) 7.1 Reason For Referral No Information Medications Medication SIG (Take, Route, Frequency, Duration) Notes Start Date End Date Status Insulin Degludec 100 UNIT/ML as directed Subcutaneous [...] Deformity (M20.41,M20.42), Preulcerative Skin Lesion(s) (L85.1 Active Atorvastatin Calcium 40 MG 1 tablet Orally Once a day; Duration: 30 day(s) Active Amitriptyline HCl 50 MG 1 tablet at bedt shannen Orally Once a day; Duration: 30 day(s) Active Aspirin 81 81 MG 1 tablet Orally Once a day; Duration: 30 day(s) Not-Rios ing Citalopram Hydrobromide 40 MG 0.5 tablet Orally [...] as needed Orally every 6 hrs Not-Taking Semaglutide Active tiZANidine HCl 4 MG 1 tablet as needed Orally Three times a day Active Pioglitazone HCl 30 MG 1 tablet Orally O nce a day; Duration: 30 day(s) Active Propranolol HCl 60 MG 1 tablet Orally On ce a day; Duration: 30 day(s) Active Extra [...] Unknown 07/29/2023 Administered Influenza Unknown 06/12/2024 Administered Influenza Unknown 07/14/2025 Administered COVID-19 Ricardo [employer] Ricardo/Yary Unknown 01/16/2021 [...] ast year? No Points 0 Interpretation Negative Problems Problem Type SNOMED Code ICD Code Onset Dates Problem Status W/U Status Risk Notes Problem Plantar fascial fibromatosis (89252320) Plantar fascial fibromatosis (M72.2) Active confirmed Problem Acquired hammer toe of lesser toe of left foot (1299098006960103 3) Hammer toe of left foot (M20.42) Active confirmed Problem Polyneuropathy due to type 2 diabetes mellitus (613050631) Type 2 diabetes mellitus with polyneuropathy (E11.42) Active confirmed Vital Signs Blood pressure diastolic 65 mm Hg 08/22/2025 Height 5ft3in in 08/22/2025 Blood pressure systolic 128 mm Hg 08/22/2025 Weight 220 lbs 08/22/2025 BMI 38.97 kg/m2 08/22/2025 Encounters Encounter Location Date Provider Diagnosis [address] [id number] 09/16/2024 Alexa Amador Type 2 diabetes mellitus with polyneuropathy E11.[address] [address] 11/30/2024 Alexa Amador Type 2 diabetes mellitus with polyneuropathy E11.42 ; Other hammer toe(s) (acquired), right foot M20.41 and Other hammer toe(s) (acquired), left foot M20.[address] [address] 04/07/2025 Alexa Amador Type 2 diabetes mellitus with polyneuropathy E11.42 ; Other hammer toe(s) (acquired), right foot M20.41 and Other hammer toe(s) (acquired), left foot M20.[address] [address] 08/22/2025 Alexa Amadro Type 2 diabetes mellitus with polyneuropathy E11.42 and Ingrown nail L60.[address] [address] 08/16/2025 Alexa Amador Assessments Encounter Date Diagnosis (ICD [...] 08/22/2025 Ingrown nail (ICD-10 - L60.0) 08/22/2025 Type 2 diabetes mellitus with polyneuropathy (ICD-10 - E11.42) 04/07/2025 Other hammer toe(s) (acquired), right foot (ICD-10 - M20.41) Patient Educated with: DIABETIC FOOT CARE INSTRUCTIONS. pdf (DIABETIC FOOT CARE INSTRUCTIONS. pdf) 11/30/2024 Other hammer toe(s) (acquired), left foot (ICD-10 - M20.42) 04/07/2025 Other hammer toe(s) (acquired), left foot (ICD-10 - M20.42) 08/22/2025 Other Plan Of Treatment Next Appt Details Provider Name:Alexa hernández, 12/12/2025 01:00:00 PM, [address] [place] [address], [phone], Insurance Providers Payer Name Payer Address Payer Phone Subscriber Number Group Number Insured Name Patient Relationship to Insured Coverage Start Date Coverage End Date [employer] [address] [place] [address] [id number] Lee Ann Schultz Self - patient is the insured [facility] [address] [place] [address] [id number] Lee Ann Schultz Self - patient is the insured Medical (General) History Medical History History ICD Code Insomnia osteoarthritis Diabetes mellitus Hypertension, benign dyslipidemia Anxiety Premature Ventricular contractions Migraines Hypercholesterolemia Back pain Neuropathy Reflux ( GERD) Vitamin D deficiency asthma Surgical History Surgery Date(Month/Year) Laparoscopy cyst removal 2018 knee replacment right [facility] [place] 08/09/2024 Hospitalization History Reason Date(Month/Year) [facility] [place] - 10 days knee replacement surgery
== END 2025-08-23 14:48 | disposition home or self-care (01) ==
LOC: HO.HMCH 13:49
PROVIDERS: PCP Internal Medicine
DX: Z01.818 Encounter for other preprocedural examination (principal); E78.00 Pure hypercholesterolemia, unspecified; E11.42 Type 2 diabetes mellitus with diabetic polyneuropathy; I10 Essential (primary) hypertension; I49.3 Ventricular premature depolarization; J45.40 Moderate persistent asthma, uncomplicated; J30.2 Other seasonal allergic rhinitis; G43.909 Migraine, unspecified, not intractable, without status migrainosus; K21.9 Gastro-esophageal reflux disease without esophagitis; J84.9 Interstitial pulmonary disease, unspecified; M17.0 Bilateral primary osteoarthritis of knee; R10.13 Epigastric pain; M54.50 Low back pain, unspecified; E55.9 Vitamin D deficiency, unspecified; G47.00 Insomnia, unspecified; F41.9 Anxiety disorder, unspecified; F32.A Depression, unspecified; E66.9 Obesity, unspecified; M25.551 Pain in right hip

== ENCOUNTER → 2025-08-23 15:11 | Outpatient (BNV) | payer MEDICARE, OTHER, SELFPAY | PROVIDERS: PCP Internal Medicine; Visit Provider Radiology Diagnostic Radiology | DX: M25.551 Pain in right hip (principal) | CPT/HCPCS: 73502 ==

== ENCOUNTER 2025-09-06 13:16 | Outpatient (AMB) | payer MEDICARE, OTHER, SELFPAY ==
[2025-09-06 13:31] VITALS: BP 124/78; PULSE 79; O2SAT 95; BMI 40.1
--- NOTE | 2025-09-06 13:31 | MHC.PC.OV ---
Vital Signs 09/06/25 13:31 Height 5 ft 3 in Weight 226 lb 10.163 oz BMI 40.1 BP 124/78 Blood Pressure Location Lt brachial Position Sitting Pulse 79 Pulse Source Pulse Oximeter Pulse Oximetry (%) 95 Oxygen Delivery Method Room Air Intake Visit Reasons: Racinestate Solano 09/02 Handwriting Expert Required: No Accompanied by: Self / Same As Patient Allergies linagliptin (From TRADJENTA) Allergy (Severe, Verified 09/07/25 16:37) THROAT ITCHING/COUGH Penicillins (PENICILLINS) Allergy (Severe, Verified 09/07/25 16:37) SWELLING/HIVES exenatide (From BYDUREON) Allergy (Intermediate, Verified 09/07/25 16:37) RASH wheat (WHEAT) Allergy (Intermediate, Verified 09/07/25 16:37) RASH latex (Latex) Allergy (Mild, Verified 09/07/25 16:37) SWELLING/ITCH grass, dogs, cats Allergy (Intermediate, Uncoded 09/07/25 16:37) Cough, sneezing lactose, wheat, corn syrup Allergy (Mild, Uncoded 09/07/25 16:37) rash Medication List - Last Reconciled 09/07/25 by Jeffrey Terry MD albuterol sulfate 2.5 mg (3 mL) inhalation QID PRN 30 days albuterol sulfate 90 mcg/actuation 1 puff inhalation QID PRN amitriptyline 50 mg PO BEDTIME atorvastatin 40 mg PO DAILY 90 days Basaglar KwikPen U-100 Insulin (insulin glargine) 10 units (0.1 mL) subcut QPM 90 days NS benzonatate 100 mg PO BID blood pressure monitor As directed blood sugar diagnostic (OneTouch Ultra Test strips) As directed 2 times daily blood sugar diagnostic (FreeStyle Precision Bob Strips) As directed once a day celecoxib 200 mg PO BID cetirizine 10 mg PO DAILY PRN cholecalciferol (vitamin D3) 25 mcg PO DAILY citalopram 40 mg PO DAILY codeine-guaifenesin 10-100 mg/5 mL 5 mL PO Q6H PRN fluticasone furoate-vilanterol 100-25 mcg/dose (Breo Ellipta) 1 inh inhalation DAILY fluticasone furoate-vilanterol 200-25 mcg/dose (Breo Ellipta) 1 inh inhalation DAILY fluticasone propionate 50 mcg/actuation 1 spray intranasal BID [Folding Front Wheeled walker Duration: 99 days] gabapentin 800 mg PO QID hydromorphone 4 mg PO Q8H PRN hydroxyzine HCl 1 tablet 3 times a day and 2 tablets at bedtime PO; 90 days ibuprofen 600 mg PO Q8H PRN 30 days lancets (OneTouch Delica Lancets) 3 times a day losartan 50 mg PO DAILY magnesium oxide 400 mg PO BID metformin ER 1,000 mg (2 x 500 mg) PO BID montelukast 10 mg PO BEDTIME cyemcpru-drz-zreg-FA-vit K-lut 8 mg iron-400 mcg-50 mcg (Centrum Silver Women) 1 tab PO DAILY 90 days nebulizers As directed omega-3 fatty acids 1,000 mg PO DAILY 90 days omeprazole 20 mg PO BID oxycodone ER 10 mg PO BID pen needle, diabetic Twice a day pen needle, diabetic As directed once a day pioglitazone 30 mg PO DAILY propranolol ER 60 mg PO DAILY 30 days semaglutide (Ozempic) 0.5 mg; temazepam 30 mg PO BEDTIME PRN 30 days tizanidine 4 mg PO TID PRN 90 days tramadol 50 mg PO TID PRN 30 days walker Folding Front wheeled walker Tobacco use date assessed: 09/06/25 Dental Screening Dental Screen Date: 09/06/25 Did you have a dental visit in the last 12 months?: Yes Did you have a dental problem in the last 6 months where you did not have access to dental care?: No Was dental information given to patient?: Patient has dentist HPI [facility] 09/02 HPI Details Patient comes in today for her follow-up visit She continues to complain of increased pain near her right hip area She apparently went to the ER at [facility] last week for progressive and increased pain around her right hip area for about 1 week and was found to have a large soft tissue mass near her right hip area that was likely the source of her recent increasing pain She reportedly had CT and MRI done (we do not have the results of these imaging studies at present) and was advised that she will need to have a biopsy of the mass done for further evaluation and that she should see her PCP ELLIOT to get this started Patient states that she has been experiencing increased pain that starts around the right hip area and would radiate at times down her right thigh along the lateral aspect, down to just below the knee She has not experienced any weakness of the right lower extremity but states that because of the abovementioned pain, she has a hard time walking when the pain shoots down her leg She was prescribed some Oxycontin 10 mg BID and Hydromorphone 4 mg TID PRN for pain and she is wondering if she can get these refilled when they are due for refills at least until her Bx is done and her mass is removed or addressed Patient states that she feels okay otherwise She denies any fever, headaches or dizziness Denies any chest pains, no increased shortness of breath No nausea/vomiting, no abdominal pain No change in bowel habits noted [facility] Medical History Depression Pure hypercholesterolemia Asthma with acute exacerbation Acute respiratory disease Vasovagal syncopes Allergic rhinitis Osteoarthritis of right knee Hx of flexible sigmoidoscopy (~2000) Cyst of right knee joint Injury of toenail GERD without esophagitis Obesity (BMI 30-39.9) Insomnia Osteoarthritis of knees, bilateral Migraine Midline low back pain without sciatica Premature ventricular contractions (PVCs) (VPCs) Benign essential hypertension Asthma Diabetes mellitus Vitamin D deficiency Anxiety GERD (gastroesophageal reflux disease) Obesity Diabetic neuropathy associated with type 2 diabetes mellitus Diabetes type 2, uncontrolled Neuropathy Surgical History History of surgical removal of ganglion cyst Hx of colonoscopy History of esophagogastroduodenoscopy (EGD) History of laparoscopy Hx of tonsillectomy Hx of tubal ligation Family History Father Bladder cancer Skin cancer Diabetes Hypertension Hyperlipidemia Mother Diabetes CVD (cardiovascular disease) CVA (cerebral vascular accident) Hypertension Social History Household Members: Family Household Members Other:: daughter Housing: House Are you a primary disabilities caregiver to a significant other at home: No Do you presently have visiting nurse or other home services: No Alcohol intake: never Comment: aware of trip hazard Patient Tobacco Use Status: Never used Tobacco Tobacco use type: Cigarette e-Cigarette/Vaping Use: Never Used Second Hand Smoke Exposure: Yes service: No Current occupational status: retired Current occupational exposures/hazards: No Sexual orientation: Straight/Heterosexual Gender identity: Female Cognitive needs: No Hearing needs: No Vision needs: Yes (glasses) Questionnaire PHQ-9 Over the last 2 weeks, how often have you been bothered by any of the following problems? 1. Little interest or pleasure in doing things: not at all 2. Feeling down, depressed, or hopeless: not at all 3. Trouble falling or staying asleep, or sleeping too much: not at all 4. Feeling tired or having little energy: not at all 5. Poor appetite or overeating: not at all 6. Feeling bad about yourself - or that you are a failure or have let yourself or your family down: not at all 7. Trouble concentrating on things, such as reading the newspaper or watching television: not at all 8. Moving or speaking so slowly that other people could have noticed. Or the opposite - being so fidgety or restless that you have been moving around a lot more than usual: not at all 9. Thoughts that you would be better off or of hurting yourself in some way: not at all Total score: 0 Depression Screening Interpretation: Negative Depression Screening Done: Yes 51550 - PHQ-9 Billing: Yes Source: Developed by Drs. Abdirizak Mai, Dione Mclaughlin, Juan Norwood and colleagues, with an educational palma from [employer]. Thrive Questionnaire Date Thrive assessed: 09/06/25 I am a: Patient What is your living situation today?: I have a steady place to live Within the past 12 months, did the food you bought not last and you didn't have the money to get more?: I choose not to answer this question Within the past 12 months, did you worry whether your food would run out before you got money to buy more?: Sometimes True Do you have trouble paying for medicines?: No Do you have trouble getting transportation to medical appointments?: No Do you have trouble paying your heating and electricity bill?: No Do you have trouble taking care of your child, family member or friend?: No Do you have trouble with day-to-day activities such as bathing, preparing meals, shopping, managing finances, etc.?: No Are you currently unemployed and looking for a job?: I choose not to answer this question Are you interested in more education?: No Please select the resources that you would like help with: None Currently or been in a relationship where the following occur: I choose not to answer THRIVE Score: 1 AUDIT C Alcohol Use Questionnaire (AUDIT-C) 1. How often do you have a drink containing alcohol?: Never 3. How often do you have six or more drinks on one occasion?: Never Total Score: 0 Score Reviewed/Action Taken: Yes DYANA-7 AMB Questionnaire DYANA-7 Date DYANA - 7 assessed: 09/06/25 Feeling nervous, anxious, or on edge: 0 = Not at all Not being able to stop or control worryin = Not at all Worrying too much about different things: 0 = Not at all Trouble relaxin = Not at all Being so restless that it is hard to sit still: 0 = Not at all Becoming easily annoyed or irritable: 0 = Not at all Feeling afraid as if something awful might happen: 0 = Not at all Total DYANA-7 score (0-4 normal; 5-9 mild; 10-14 moderate; 15-21 severe): 0 Source: Developed by Drs. Abdirizak Mai, Dione Mclaughlin, Juan Norwood and colleagues, with an educational palma from [employer]. Review of Systems Const Denies chills, Reports fatigue, Denies fever(s) and Denies headache(s) ENT Denies dysphagia, Denies dizziness, Denies otalgia, Denies headache(s), Denies neck pain, Denies odynophagia and Denies sore throat Card Denies chest pain, Denies irregular heart rhythm, Denies palpitations and Reports dyspnea on exertion (mild) Resp Denies chest congestion, Denies cough and Reports dyspnea on exertion (mild) GI Reports abdominal pain (on and off over the epigastric area), Denies constipation, Denies dysphagia, Denies heartburn, Denies diarrhea, Denies nausea, Denies odynophagia and Denies vomiting Denies difficulty voiding, Denies nocturia, Denies dysuria, Denies urinary incontinence and Denies urinary urgency Musc Details: increasingly painful mass around her right hip area Reports back pain, Reports arthralgias (both knees; R knee pain improved since surgery in July 2024) and Denies neck pain Skin/Breast Details: (+) large mass around the right hip area Denies rash Neuro Denies dizziness and Denies headache(s) Psych Denies anxiety and Reports depression (increasing lately) Endo Reports fatigue and Denies palpitations Physical exam (Primary Care) Vital Signs: Last Vital Signs Pulse 79 09/06/25 13:31 BP 124/78 09/06/25 13:31 Pulse Ox 95 09/06/25 13:31 Oxygen Delivery Method Room Air 09/06/25 13:31 BMI result Body Mass Index 40.1 Tobacco/Smoking Status: Tobacco use Status Tobacco use date assessed 09/06/25 09/06/25 13:33 Patient Tobacco Use Status Never used Tobacco 09/06/25 13:33 Tobacco use type Cigarette 09/06/25 13:33 e-Cigarette/Vaping Use Never Used 09/06/25 13:33 PHQ-9: PHQ-9 Score PHQ-9: Total score 0 09/06/25 15:24 Depression Screening Interpretation: Negative Thrive Assessment: Date of Thrive Assessment Date Thrive assessed 09/06/25 09/06/25 13:33 Currently or been in a relationship where the following occur: I choose not to answer Const General: no acute distress and alert HENMT Ears: TM's normal bilaterally and EAC's normal Throat: Yes posterior oropharynx normal and Yes tonsils normal (no TP congestion) Neck Neck: Yes supple and No lymphadenopathy Thyroid: Thyroid normal Resp Auscultation: clear to auscultation bilaterally, no rales and no wheezes Cardio Rate: regular rate Rhythm: regular rhythm Heart sounds: no murmurs GI Palpation (GI): Soft to palpation and nontender Auscultation: normal bowel sounds General: Yes no CVA tenderness Back/Spine/Pelvis Back: no CVA tenderness Thoracic/Lumbar Spine: lumbar spinal tenderness Skin Other: (+) large, soft mass around the area of the right hip (anterolaterally) that is tender on deep palpation Rashes: no rashes Extrem Other: (+) large soft tissue mass around the right hip area anterolaterally General: Yes no clubbing, cyanosis or edema Right lower extremity: hip/thigh and knee (mild) Details: tenderness; no swelling Coding Level of Care Code Est Pt Level 4 (70719) Diagnoses Mass of right lower extremity R22.41 Pure hypercholesterolemia E78.00 Type 2 diabetes mellitus with diabetic polyneuropathy, without long-term current use of insulin E11.42 Diabetes mellitus complication detail: with polyneuropathy Diabetes mellitus complication status: with neurologic complications Diabetes mellitus skilled nursing insulin use: without watermelon inspector use Diabetes mellitus type: type 2 Benign essential hypertension I10 Diabetic polyneuropathy associated with type 2 diabetes mellitus E11.42 Diabetes mellitus complication detail: diabetic polyneuropathy Premature ventricular contractions (PVCs) (VPCs) I49.3 Moderate persistent asthma without complication J45.40 Asthma complication type: uncomplicated Asthma persistence: persistent Asthma severity: moderate Seasonal allergic rhinitis, unspecified trigger J30.2 Allergic rhinitis seasonality: seasonal Allergic rhinitis trigger: unspecified Migraine without status migrainosus, not intractable, unspecified migraine type G43.909 Intractability: not intractable Migraine type: unspecified Status migrainosus presence: without status migrainosus GERD without esophagitis K21.9 Interstitial lung disease J84.9 Primary osteoarthritis of both knees M17.0 Osteoarthritis type: primary Midline low back pain without sciatica, unspecified chronicity M54.5 Chronicity: unspecified Vitamin D deficiency E55.9 Insomnia, unspecified type G47.00 Insomnia type: unspecified Anxiety F41.9 Depression, unspecified depression type F32.A Depression Type: unspecified Obesity (BMI 30-39.9) E66.9 Additional Codes PHQ-9 - 51596 - PHQ-9 Billing: Yes ([id number]) Assessment & Plan Assessment & Plan (1) Mass of right lower extremity: Code(s): R22.41 - Localized swelling, mass and lump, right lower limb Category: Medical Plan: She reportedly had CT and MRI done at the ER at [facility] last week for evaluation of this mass - will try to obtain a copy of her results for documentation Will refer her to surgery ELLIOT for further evaluation and consideration for biopsy Continue Oxycontin 10 mg BID and Hydropmorphone 4 mg TID PRN - have advised patient that I will agree to refill her pain medications for now until her biopsy is done the her right hip mass is completely addressed and emphasized that as soon as this is done, I will no longer continue her on her pain medication as she would not need to stay on it any longer at that time (2) Pure hypercholesterolemia: Code(s): E78.00 - Pure hypercholesterolemia, unspecified Category: Medical Plan: She had her follow up labs done a couple of weeks ago and these have already been reviewed with her at her recent follow up visit earlier this month Reinforced low cholesterol diet Continue Atorvastatin 40 mg QD Will recheck her labs and fasting lipids in 4 months for follow up (3) Diabetes mellitus: Code(s): E11.9 - Type 2 diabetes mellitus without complications Category: Medical Qualifiers: Diabetes mellitus complication detail: with polyneuropathy Diabetes mellitus complication status: with neurologic complications Diabetes mellitus skilled nursing insulin use: without skilled nursing use Diabetes mellitus type: type 2 Qualified Code(s): E11.42 - Type 2 diabetes mellitus with diabetic polyneuropathy Plan: Her HgbA1c was at 6.7% on her labs done a couple of weeks ago (HgbA1c was previously at 7.0% a few months ago) - goal is <7.0% Reinforced diabetic diet Continue Pioglitazone 30 gm QD, Metformin ER 500 mg 2 tablets BID, Tresiba Flextouch 10 units Q HS and Ozempic 2 mg/1.5 ml SQ once a week Will recheck her HgbA1c and FBS in 4 months for follow up (4) Benign essential hypertension: Code(s): I10 - Essential (primary) hypertension Category: Medical Plan: Reinforced low sodium diet - goal is systolic BP of 120 mm or less Continue Losartan 50 mg QD (5) Diabetic neuropathy associated with type 2 diabetes mellitus: Code(s): E11.40 - Type 2 diabetes mellitus with diabetic neuropathy, unspecified Category: Medical Qualifiers: Diabetes mellitus complication detail: diabetic polyneuropathy Qualified Code(s): E11.42 - Type 2 diabetes mellitus with diabetic polyneuropathy Plan: Continue Gabapentin 800 mg QID, Tramadol 50 mg TID PRN, and Acetaminophen-Codeine #4 tablets, 300-60 mg 1 tablet 3 to 4 times a day as needed for pain (6) Premature ventricular contractions (PVCs) (VPCs): Code(s): I49.3 - Ventricular premature depolarization Category: Medical Plan: Stable; states that she's had no recurrence of her symptoms for the past few months Continue Propranolol ER 60 mg QD Cardiac stress testing done last year to evaluate her recurrent chest pains came out completely normal Patient states that her recent chest pains have also subsided and have not bothered her lately (7) Asthma: Code(s): J45.909 - Unspecified asthma, uncomplicated Category: Medical Qualifiers: Asthma complication type: uncomplicated Asthma persistence: persistent Asthma severity: moderate Qualified Code(s): J45.40 - Moderate persistent asthma, uncomplicated Plan: Controlled with no recent exacerbations Continue Montelukast 10 mg QD, Symbicort 160-4.5 mcg 2 puffs BID and ProAir HFA 108 mcg 2 puffs QID PRN (8) Allergic rhinitis: Code(s): J30.9 - Allergic rhinitis, unspecified Category: Medical Qualifiers: Allergic rhinitis seasonality: seasonal Allergic rhinitis trigger: unspecified Qualified Code(s): J30.2 - Other seasonal allergic rhinitis Plan: Continue Montelukast 10 mg QD and Cetirizine 10 mg QD PRN (9) Migraine: Code(s): G43.909 - Migraine, unspecified, not intractable, without status migrainosus Category: Medical Qualifiers: Intractability: not intractable Migraine type: unspecified Status migrainosus presence: without status migrainosus Qualified Code(s): G43.909 - Migraine, unspecified, not intractable, without status migrainosus Plan: Controlled - she is on Amitriptyline 50 mg Q HS for headache prophylaxis Reinforced avoidance of migraine triggers Continue Fioricet 1 capsule 2 to 3 times a day as needed Follow up with neurology as scheduled (10) GERD without esophagitis: Code(s): K21.9 - Gastro-esophageal reflux disease without esophagitis Category: Medical Plan: Dietary restrictions reinforced Continue Omeprazole 20 mg QD (11) Interstitial lung disease: Code(s): J84.9 - Interstitial pulmonary disease, unspecified Category: Medical Plan: Recent chest x-rays done in February 2025 revealed findings suggestive of ILD She is currently on Breo Ellipta 200 mcg 1 inhalation QD and is being referred for a home sleep study for further evaluation Follow up with pulmonary as scheduled (12) Osteoarthritis of knees, bilateral: Code(s): M17.0 - Bilateral primary osteoarthritis of knee Category: Medical Qualifiers: Osteoarthritis type: primary Qualified Code(s): M17.0 - Bilateral primary osteoarthritis of knee Plan: X-rays of both knees last done in November 2019 showed (+) mild OA changes in the right knee and moderate OA changes in the left knee She was seeing orthopedics for her knee issues and was getting cortisone injections in her knees a couple of years ago, with some relief of her symptoms She underwent right knee TKA back on 08/09/[address] Bill - states that her surgery went well and she has experienced a significant improvement in her knee symptoms following her surgery She is currently still going to physical therapy for her knee Follow up with orthopedics as scheduled (13) Midline low back pain without sciatica: Code(s): M54.5 - Low back pain Category: Medical Qualifiers: Chronicity: unspecified Qualified Code(s): M54.5 - Low back pain Plan: Reinforced activity and weight-lifting restrictions to avoid aggravating her lower back symptoms Continue Tizanidine 4 mg 1 to 2 tablets TID PRN (14) Vitamin D deficiency: Code(s): E55.9 - Vitamin D deficiency, unspecified Category: Medical Plan: Continue Vitamin D3 1000 units QD (15) Insomnia: Code(s): G47.00 - Insomnia, unspecified Category: Medical Qualifiers: Insomnia type: unspecified Qualified Code(s): G47.00 - Insomnia, unspecified Plan: Sleep hygiene reinforced Continue Temazepam 30 mg QHS PRN and Amitriptyline 50 mg Q HS (16) Anxiety: Code(s): F41.9 - Anxiety disorder, unspecified Category: Medical Plan: Continue Hydroxyzine 25 mg TID PRN and 50 mg Q HS as well as Citalopram 40 mg QD (17) Depression: Code(s): F32.A - Depression, unspecified Category: Medical Qualifiers: Depression Type: unspecified Qualified Code(s): F32.A - Depression, unspecified Plan: Follow up with psychiatry as scheduled (18) Obesity (BMI 30-39.9): Code(s): E66.9 - Obesity, unspecified Category: Medical Plan: Reinforced diet; weight loss and exercise are unrealistic due to patient's physical issues Plan Follow up in 4 months Orders: Orders Complete Blood Count Auto Diff 4 Months D64.9 - Anemia, unspecified Comprehensive [place]. Panel Fast 4 Months E78.00 - Pure hypercholesterolemia, unspecified TSH reflex Free T4 4 Months E78.00 - Pure hypercholesterolemia, unspecified UA CC w/rflx Micro + Cult 4 Months R30.0 - Dysuria Microalbumin, Random (w Creat) 4 Months E11.9 - Type 2 diabetes mellitus without complications Hemoglobin A1c 4 Months E11.9 - Type 2 diabetes mellitus without complications Lipid Panel 4 Months E78.00 - Pure hypercholesterolemia, unspecified Vitamin D 25-OH Total 4 Months E55.9 - Vitamin D deficiency, unspecified Referrals General Surgery Referral R22.41 - Localized swelling, mass and lump, right lower limb
== END 2025-09-06 14:23 | disposition home or self-care (01) ==
LOC: HO.HMCH 13:17
PROVIDERS: PCP Internal Medicine; Visit Provider Internal Medicine
DX: R22.41 Localized swelling, mass and lump, right lower limb (principal); E11.42 Type 2 diabetes mellitus with diabetic polyneuropathy; J84.9 Interstitial pulmonary disease, unspecified; Z68.41 Body mass index [BMI] 40.0-44.9, adult; E78.00 Pure hypercholesterolemia, unspecified; I10 Essential (primary) hypertension; I49.3 Ventricular premature depolarization; J45.40 Moderate persistent asthma, uncomplicated; J30.2 Other seasonal allergic rhinitis; G43.909 Migraine, unspecified, not intractable, without status migrainosus; K21.9 Gastro-esophageal reflux disease without esophagitis; M17.0 Bilateral primary osteoarthritis of knee; E66.9 Obesity, unspecified; M54.50 Low back pain, unspecified; E55.9 Vitamin D deficiency, unspecified; G47.00 Insomnia, unspecified; F41.9 Anxiety disorder, unspecified; F32.A Depression, unspecified

== ENCOUNTER → 2025-09-06 13:16 | Outpatient (BNVA) | payer MEDICARE, OTHER, SELFPAY | PROVIDERS: PCP Internal Medicine; Visit Provider Internal Medicine | DX: R22.41 Localized swelling, mass and lump, right lower limb (principal); E11.42 Type 2 diabetes mellitus with diabetic polyneuropathy; I10 Essential (primary) hypertension; I49.3 Ventricular premature depolarization; J30.2 Other seasonal allergic rhinitis; J45.40 Moderate persistent asthma, uncomplicated; G43.909 Migraine, unspecified, not intractable, without status migrainosus; K21.9 Gastro-esophageal reflux disease without esophagitis; J84.9 Interstitial pulmonary disease, unspecified; M17.0 Bilateral primary osteoarthritis of knee; M54.50 Low back pain, unspecified; E55.9 Vitamin D deficiency, unspecified; G47.00 Insomnia, unspecified; F41.9 Anxiety disorder, unspecified; F32.A Depression, unspecified; E66.9 Obesity, unspecified; Z68.41 Body mass index [BMI] 40.0-44.9, adult; Z71.3 Dietary counseling and surveillance | CPT/HCPCS: 96127; 99212 ==

== ENCOUNTER 2025-09-12 12:59 | Outpatient (AMB) | payer MEDICARE, OTHER, SELFPAY ==
[2025-09-12 13:11] VITALS: BP 121/68; PULSE 89; BMI 39.3
--- NOTE | 2025-09-12 13:11 | MHC.OFFVIS ---
Vital Signs 09/12/25 13:11 Height 5 ft 3 in Weight 222 lb BMI 39.3 BP 121/68 Blood Pressure Location Rt radial Position Sitting Pulse 89 Intake Visit Reasons: mass over anterolateral aspect of proximal right Intake Note: Patient referred by PCP Dr. Terry for mass on Rt proximal thigh. Patient c/o: unbearable pain that spreads from upper upper hip down leg. Pt cancelled Lt knee surgery due to pain related to ball growth on hip area. On-call MD prescribed hydromorphone 4mg and Oxycodone ER 10mg on 09-11-2025. 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 (son Zay) Allergies linagliptin (From TRADJ[facility]A) Allergy (Severe, Verified 09/12/25 13:20) THROAT ITCHING/COUGH Penicillins (PENICILLINS) Allergy (Severe, Verified 09/12/25 13:20) SWELLING/HIVES exenatide (From BYDUREON) Allergy (Intermediate, Verified 09/12/25 13:20) RASH wheat (WHEAT) Allergy (Intermediate, Verified 09/12/25 13:20) RASH latex (Latex) Allergy (Mild, Verified 09/12/25 13:20) SWELLING/ITCH grass, dogs, cats Allergy (Intermediate, Uncoded 09/12/25 13:20) Cough, sneezing lactose, wheat, corn syrup Allergy (Mild, Uncoded 09/12/25 13:20) rash Medication List - Last Reconciled 09/12/25 by Robson Buckley MD albuterol sulfate 2.5 mg (3 mL) inhalation QID PRN 30 days albuterol sulfate 90 mcg/actuation 1 puff inhalation QID PRN amitriptyline 50 mg PO BEDTIME atorvastatin 40 mg PO DAILY 90 days Basaglar KwikPen U-100 Insulin (insulin glargine) 10 units (0.1 mL) subcut QPM 90 days NS benzonatate 100 mg PO BID blood pressure monitor As directed blood sugar diagnostic (OneTouch Ultra Test strips) As directed 2 times daily blood sugar diagnostic (FreeStyle Precision Bob Strips) As directed once a day celecoxib 200 mg PO BID cetirizine 10 mg PO DAILY PRN cholecalciferol (vitamin D3) 25 mcg PO DAILY citalopram 40 mg PO DAILY codeine-guaifenesin 10-100 mg/5 mL 5 mL PO Q6H PRN fluticasone furoate-vilanterol 100-25 mcg/dose (Breo Ellipta) 1 inh inhalation DAILY fluticasone furoate-vilanterol 200-25 mcg/dose (Breo Ellipta) 1 inh inhalation DAILY fluticasone propionate 50 mcg/actuation 1 spray intranasal BID [Folding Front Wheeled walker Duration: 99 days] gabapentin 800 mg PO QID hydromorphone 4 mg PO Q8H PRN hydroxyzine HCl 1 tablet 3 times a day and 2 tablets at bedtime PO; 90 days ibuprofen 600 mg PO Q8H PRN 30 days lancets (OneTouch Delica Lancets) 3 times a day losartan 50 mg PO DAILY magnesium oxide 400 mg PO BID metformin ER 1,000 mg (2 x 500 mg) PO BID montelukast 10 mg PO BEDTIME qeapoyvb-bxz-afmo-FA-vit K-lut 8 mg iron-400 mcg-50 mcg (Centrum Silver Women) 1 tab PO DAILY 90 days nebulizers As directed omega-3 fatty acids 1,000 mg PO DAILY 90 days omeprazole 20 mg PO BID oxycodone ER 10 mg PO BID pen needle, diabetic Twice a day pen needle, diabetic As directed once a day pioglitazone 30 mg PO DAILY propranolol ER 60 mg PO DAILY 30 days temazepam 30 mg PO BEDTIME PRN 30 days tizanidine 4 mg PO TID PRN 90 days tramadol 50 mg PO TID PRN 30 days walker Folding Front wheeled walker HPI Comments Details: Patient reports a several month history of worsening right-sided hip and proximal thigh pain. This ultimately prompted her to present to an outside ER where imaging in the form of an MRI was indicative of a large 22+ cm lipomatous mass located inside the adductor taylor muscle of the right lower extremity. Patient now presents here for follow-up. She reports she has? a lot of pain?. She is in a wheelchair which is new for her as she is normally ambulatory. She recently had right total knee arthroplasty and actually thought her pain was related to that surgery. She reports her right knee feels ?okay?. [facility] Medical History Depression Pure hypercholesterolemia Asthma with acute exacerbation Acute respiratory disease Vasovagal syncopes Allergic rhinitis Osteoarthritis of right knee Hx of flexible sigmoidoscopy (~2000) Cyst of right knee joint Injury of toenail GERD without esophagitis Obesity (BMI 30-39.9) Insomnia Osteoarthritis of knees, bilateral Migraine Midline low back pain without sciatica Premature ventricular contractions (PVCs) (VPCs) Benign essential hypertension Asthma Diabetes mellitus Vitamin D deficiency Anxiety GERD (gastroesophageal reflux disease) Obesity Diabetic neuropathy associated with type 2 diabetes mellitus Diabetes type 2, uncontrolled Neuropathy Surgical History History of surgical removal of ganglion cyst Hx of colonoscopy History of esophagogastroduodenoscopy (EGD) History of laparoscopy Hx of tonsillectomy Hx of tubal ligation Family History Father Bladder cancer Skin cancer Diabetes Hypertension Hyperlipidemia Mother Diabetes CVD (cardiovascular disease) CVA (cerebral vascular accident) Hypertension Social History Household Members: Family Household Members Other:: daughter Housing: House Are you a primary daycare worker to a significant other at home: No Do you presently have visiting nurse or other home services: No Alcohol intake: never Comment: aware of trip hazard Patient Tobacco Use Status: Never used Tobacco Tobacco use type: Cigarette e-Cigarette/Vaping Use: Never Used Second Hand Smoke Exposure: Yes service: No Current occupational status: retired Current occupational exposures/hazards: No Sexual orientation: Straight/Heterosexual Gender identity: Female Cognitive needs: No Hearing needs: No Vision needs: Yes (glasses) Review of Systems Const All systems reviewed & are unremarkable except as noted in HPI and below Physical Exam Vital Signs: Last Vital Signs Pulse 89 09/12/25 13:11 BP 121/68 09/12/25 13:11 BMI result Body Mass Index 39.3 Const General: in distress and anxious Nutritional Appearance: obese morbidly obese Limitations: wheelchair Eyes General: appearance normal, both eyes and all related structures Pupils: Equal, round and reactive pupils present EOM: EOMs intact bilaterally Neck Neck: Yes normal visual inspection Chest Chest palpation & inspection: normal inspection of the chest Resp Effort & Inspection: normal respiratory effort and able to speak in complete sentences Cardio Rate: regular rate Rhythm: regular rhythm GI Other: Morbidly obese nontender nondistended no evidence of hepatosplenomegaly. Neuro Cranial nerves: Yes Equal, round and reactive pupils present Extrem Upper/lower leg/hip images:  1. Vague, poorly defined fullness when compared with other side Assessment & Plan Assessment & Plan (1) Liposarcoma of lower extremity: Code(s): C49.20 - Malignant neoplasm of connective and soft tissue of unspecified lower limb, including hip Category: Medical Plan: I told the patient and her son that I was concerned about the possibility of a liposarcoma. This is based on the fact that she seems to have rapidly progressing pain, the tumor is of large size (greater than 20 cm), it is in an extremity, she is in her 60s and it is in the musculature. I explained to the patient that she has a problem that is unfortunately outside of my typical clinical arena in she would be best served with evaluation by soft tissues surgical oncologist. We will try and refer her to Dr. Cem guido at [facility] for consideration of her issue. My assessment of her condition as well as plans for continuing care described to her and her son in detail and she indicated that she understood. Orders: Referrals Surgical Oncology Referral C49.9 - Malignant neoplasm of connective and soft tissue, unspecified Surgical Oncology Referral C49.9 - Malignant neoplasm of connective and soft tissue, unspecified Coding Level of Care Code New Pt Level 3 (82353) Diagnoses Liposarcoma of lower extremity C49.20 Time Spent (min) 30 Comment Patient visit, record review and coordination of care
== END 2025-09-12 13:49 | disposition home or self-care (01) ==
LOC: HO.HGS 13:00
PROVIDERS: PCP Internal Medicine; Visit Provider Surgery
DX: C49.20 Malignant neoplasm of connective and soft tissue of unspecified lower limb, including hip (principal)
CPT/HCPCS: 99203

== ENCOUNTER → 2025-09-12 12:59 | Outpatient (BNVA) | payer MEDICARE, OTHER, SELFPAY | PROVIDERS: PCP Internal Medicine; Visit Provider Surgery | DX: C49.21 Malignant neoplasm of connective and soft tissue of right lower limb, including hip (principal) | CPT/HCPCS: 99202 ==